=== PATIENT | male | born 1960 | race African-American/Black ===

== ENCOUNTER 2017-07-27 17:14 | Inpatient (IN) | payer OTHER ==
[2017-07-27 18:09] VITALS: BMI 19.7
--- NOTE | 2017-07-27 20:12 | HP ---
CIWA Score - CIWA Score Nausea/Vomitin-No Nausea/No Vomiting Muscle Tremors: 4-Moderate,w/Arms Extend Anxiety: 4-Mod. Anxious/Guarded Agitation: 2 Paroxysmal Sweats: 3 Orientation: 0-Oriented Tacttile Disturbances: 3-Moderate Itch/Numb/Burn Auditory Disturbances: 0-None Visual Disturbances: 0-None Headache: 0-None Present CIWA-Ar Total Score: 16 Admission ROS S - HPI Chief Complaint: Alcohol withdrawal symptoms Allergies/Adverse Reactions: Allergies Allergy/AdvReac Type Severity Reaction Status Date / Time No Known Allergies Allergy Verified 07/27/17 20:44 History of Present Illness: 56 years old male with a long history of alcohol dependence is admitted to detox. Patient has been in previous detox and denies significant period of sobriety. Patient has medical history of DM type 2 and denies suicidal ideation at this time. Patient denies prior history of GERD and states that he does not want protonix. He appears dehydrated with poor skin turgor and dry mucous membrane. Patient states, " My goal is to stop drinking alcohol." Exam Limitations: No Limitations - Ebola screening Have you traveled outside of the country in the last 21 days: No Have you had contact with anyone from an Ebola affected area: No Have you been sick,other than usual withdrawal symptoms: No Do you have a fever: No - Review of Systems Constitutional: Chills, Malaise, Night Sweats EENT: reports: No Symptoms Reported Respiratory: reports: No Symptoms reported Cardiac: reports: No Symptoms Reported GI: reports: Nausea, Poor Appetite, Poor Fluid Intake, Abdominal cramping : reports: No Symptoms Reported Musculoskeletal: reports: Muscle Pain, Muscle Weakness Integumentary: reports: Dryness, Flushing Neuro: reports: Tingling, Tremors Endocrine: reports: No Symptoms Reported Hematology: reports: No Symptoms Reported Psychiatric: reports: Orientated x3, Agitated, Anxious Other Systems: Reviewed and Negative Patient History - Patient Medical History Hx Anemia: No Hx Asthma: No Hx Chronic Obstructive Pulmonary Disease (COPD): No Hx Cancer: No Hx Cardiac Disorders: No Hx Congestive Heart Failure: No Hx Hypertension: No Hx Hypercholesterolemia: No Hx Pacemaker: No HX Cerebrovascular Accident: No Hx Seizures: No Hx Dementia: No Hx Diabetes: Yes (metformin) Hx Gastrointestinal Disorders: No Hx Liver Disease: No Hx Genitourinary Disorders: No Hx Sexually Transmitted Disorders: No Hx Renal Disease (ESRD): No Hx Thyroid Disease: No Hx Human Immunodeficiency Virus (HIV): No Hx Hepatitis C: No Hx Depression: No Hx Suicide Attempt: No Hx Bipolar Disorder: No Hx Schizophrenia: No - Patient Surgical History Past Surgical History: No Hx Neurologic Surgery: No Hx Cataract Extraction: No Hx Cardiac Surgery: No Hx Lung Surgery: No Hx Abdominal Surgery: No Hx Appendectomy: No Hx Cholecystectomy: No Hx Genitourinary Surgery: No Hx Orthopedic Surgery: No - PPD History Implanted On Prior [facility] Admission?: Yes Date: 02/24/16 PPD to be Administered?: Yes - Reproductive History Patient is a Female of Child Bearing Age (11 -55 yrs old): No (Male) - Smoking Cessation Smoking history: Current some day smoker Have you smoked in the past 12 months: Yes Aproximately how many cigarettes per day: 2 Hx Chewing Tobacco Use: No Initiated information on smoking cessation: Yes 'Breaking Loose' booklet given: 07/27/17 - Substance & Tx. History Hx Alcohol Use: Yes (Vodka) Hx Substance Use: No Substance Use Type: Alcohol Hx Substance Use Treatment: Yes ([facility] 02/2016) - Substances Abused VODKA Route: Oral Frequency: Daily Amount used: Vodka 1 pint Age of first use: 7 Date of Last Use: 07/27/17 Family Disease History - Family Disease History Family History: Denies Admission Physical Exam [facility] - Vital Signs Vital Signs: Vital Signs - 24 hr 07/27/17 18:08 Temperature 98.9 F Pulse Rate 117 H Respiratory 18 Rate Blood Pressure 136/76 - Physical General Appearance: Yes: Moderate Distress, Alcohol on Breath HEENTM: Yes: EOMI, Normal Voice, KEV Respiratory: Yes: Lungs Clear, Normal Breath Sounds, No Respiratory Distress Neck: Yes: Supple Breast: Yes: Breast Exam Deferred Abdominal: Yes: Normal Bowel Sounds, Soft Genitourinary: Yes: Within Normal Limits Back: Yes: Within Normal Limits Musculoskeletal: Yes: Muscle Pain, Muscle weakness Extremities: Yes: Tremors Neurological: Yes: Alert, Normal Response Integumentary: Yes: Dry Lymphatic: Yes: Within Normal Limits - Diagnostic (1) Dehydration Current Visit: Yes Status: Acute (2) Alcohol dependence with uncomplicated withdrawal Current Visit: Yes Status: Chronic (3) Diabetes 1.5, managed as type 2 Current Visit: Yes Status: Chronic Cleared for Admission [facility] - Detox or Rehab [facility] Level of Care: Medically Managed Detox Regimen/Protocol: Librium [facility] Breath Alcohol Content Breath Alcohol Content: 0.407 Urine Drug Screen - Results Drug Screen Negative: Yes
[2017-07-27] MEDS ORDERED: LOPERAMIDE HCL 2 MG CAPSULE PO PRN (20:22)
[2017-07-27] MEDS ORDERED: MAGNESIUM HYDROX 2400MG/30ML ORAL SUSPENSION 30 ML CUP PO PRN (20:22)
[2017-07-27] MEDS ORDERED: MAG HYDROX/AL HYDROX/SIMETH 30 ML UNIT-DOSE CUP PO PRN (20:22)
[2017-07-27] MEDS ORDERED: chlordiazePOXIDE HCL 25 MG CAPSULE PO PRN (20:22)
[2017-07-27] MEDS ORDERED: MAGNESIUM CITRATE 300 ML BOTTLE PO PRN (20:22)
[2017-07-27] MEDS ORDERED: MENTHOL/PHENOL 1 EACH UD MM PRN (20:22)
[2017-07-27] MEDS ORDERED: P-EPHED 60MG/TRIPROLIDI 2.5MG TABLET PO PRN (20:22)
[2017-07-27] MEDS ORDERED: ACETAMINOPHEN 325 MG TABLET (FP) PO PRN (20:22)
[2017-07-27] MEDS ORDERED: IBUPROFEN 400 MG TABLET (FP) PO PRN (20:22)
[2017-07-27] MEDS ORDERED: guaiFENesin/D-METHORPHAN HB 10 ML UNIT-DOSE CUPS PO PRN (20:22)
[2017-07-27] MEDS ORDERED: NICOTINE POLACRILEX 2 MG GUM BC PRN (20:22)
[2017-07-27] MEDS ORDERED: hydrOXYzine PAMOATE 50 MG CAPSULE (FP) PO PRN (20:22)
[2017-07-27] MEDS: THIAMINE HCL 100 MG TABLET (FP) PO SCH (21:40)
[2017-07-27 23:08] LABS: URINE APPEARANCE CLEAR; URINE BILIRUBIN NEGATIVE (NEGATIVE); URINE BLOOD 1+ (NEGATIVE); URINE COLOR YELLOW; URINE GLUCOSE (UA) 3+ (NEGATIVE); URINE KETONE NEGATIVE (NEGATIVE); URINE NITRITE NEGATIVE (NEGATIVE)
[2017-07-27 23:15] LABS: URINE PROTEIN 2+ (NEGATIVE)
[2017-07-27] MEDS: chlordiazePOXIDE HCL 25 MG CAPSULE PO SCH (23:15)
[2017-07-27 23:17] LABS: URINE HYALINE CAST 8 /lpf; URINE MUCUS RARE; URINE RBC <1 /hpf (0-3); URINE WBC 4 /hpf (3-5)
[2017-07-28] MEDS: chlordiazePOXIDE HCL 25 MG CAPSULE PO SCH ×4 (05:32→22:21)
[2017-07-28] MEDS: metFORMIN HCL 500 MG TABLET (FP) PO SCH ×2 (07:37→17:11)
[2017-07-28 10:08] LABS: MCH 37.7 pg (25.7-33.7); MCHC 34.7 g/dl (32.0-35.9); MEAN CELL VOLUME 108.5 fl (80-96); MEAN PLT VOLUME 7.4 fl (7.5-11.1); PLATELET COUNT 199 K/MM3 (134-434); RDW 14.1 % (11.9-15.9); WHITE BLOOD COUNT 4.1 K/mm3 (4.0-10.0)
[2017-07-28 10:16] LABS: ALBUMIN 3.3 g/dl (3.4-5.0); ANION GAP 12 (8-16); CALCIUM 8.2 mg/dL (8.5-10.1); CO2 26 mmol/L (21-32); GLUCOSE,RANDOM 180 mg/dL (74-106); SGPT/ALT 38 U/L (12-78)
[2017-07-28 10:18] LABS: ALK PHOS 99 U/L (45-117); BILIRUBIN,TOTAL 1.7 mg/dL (0.2-1.0); CREATININE 0.8 mg/dL (0.7-1.3); SGOT/AST 140 U/L (15-37); TOT PROT 6.6 g/dl (6.4-8.2)
[2017-07-28] MEDS: PRENATAL VITAMINS W/ FOLIC ACID TABLET (FP) PO SCH (10:31)
[2017-07-28 10:59] LABS: URINE LEUK ESTERASE Negative (NEGATIVE)
--- NOTE | 2017-07-28 15:27 | PN ---
[facility] CIWA - CIWA Score Nausea/Vomitin-No Nausea/No Vomiting Muscle Tremors: 3 Anxiety: 4-Mod. Anxious/Guarded Agitation: 3 Paroxysmal Sweats: 2 Orientation: 2-Disoriented Date<2 days Tacttile Disturbances: 2-Mild Itch/Numbness/Burn Auditory Disturbances: 1-Very Mild Visual Disturbances: 0-None Headache: 0-None Present CIWA-Ar Total Score: 17 BHS Progress Note (SOAP) Subjective: Sweating, Anxious, Tremors, Fatigue. Objective: PT. A 7O X 2 (UNCERTAIN ABOUT DAY/ DATE). PT. OBSERVED AMBULATING ON UNIT. NO ACUTE DISTRESS. 07/28/17 15:28 Vital Signs Temperature 99.6 F 07/28/17 10:02 Pulse Rate 112 H 07/28/17 10:02 Respiratory Rate 20 07/28/17 13:45 Blood Pressure 146/94 07/28/17 10:02 O2 Sat by Pulse Oximetry (%) Laboratory Tests 07/27/17 07/27/17 07/28/17 20:46 23:00 05:39 WBC RBC Hgb Hct MCV MCH MCHC RDW Plt Count MPV Sodium Potassium Chloride Carbon Dioxide Anion Gap BUN Creatinine Creat Clearance w eGFR POC Glucometer 263 170 Random Glucose Calcium Total Bilirubin AST ALT Alkaline Phosphatase Total Protein Albumin Urine Color Yellow Urine Appearance Clear Urine pH 6.0 Ur Specific [place] 1.008 Urine Protein 2+ H Urine Glucose (UA) 3+ H Urine Ketones Negative Urine Blood 1+ H Urine Nitrite Negative Urine Bilirubin Negative Urine Urobilinogen 2.0 Ur Leukocyte Esterase Negative Urine WBC (Auto) 4 Urine RBC (Auto) <1 Hyaline Casts 8 Urine Mucus Rare RPR Titer 07/28/17 07/28/17 07/28/17 07:00 07:00 07:00 WBC 4.1 RBC 2.63 L Hgb 9.9 L Hct 28.5 L MCV 108.5 H MCH 37.7 H MCHC 34.7 RDW 14.1 Plt Count 199 MPV 7.4 L D Sodium 140 Potassium 3.8 Chloride 102 Carbon Dioxide 26 Anion Gap 12 BUN 7 D Creatinine 0.8 D Creat Clearance w eGFR > 60 POC Glucometer Random Glucose 180 H D Calcium 8.2 L Total Bilirubin 1.7 H D AST 140 H D ALT 38 Alkaline Phosphatase 99 D Total Protein 6.6 Albumin 3.3 L D Urine Color Urine Appearance Urine pH Ur Specific [place] Urine Protein Urine Glucose (UA) Urine Ketones Urine Blood Urine Nitrite Urine Bilirubin Urine Urobilinogen Ur Leukocyte Esterase Urine WBC (Auto) Urine RBC (Auto) Hyaline Casts Urine Mucus RPR Titer Nonreactive LABS NOTED. PATIENT HAS HISTORY OF ANEMIA ON PREVIOUS ADMISSIONS. 07/28/17 15:32 Assessment: 07/28/17 15:28 WITHDRAWAL SYMPTOMS. MACROCYTIC ANEMIA. 07/28/17 15:32 Plan: CONTINUE DETOX. INCREASE DAILY PO FLUID INTAKE. REPEAT UA AND AST (07/30/2017) FOR ADMISSION ABNORMALITIES.
[2017-07-28] MEDS: THIAMINE HCL 100 MG TABLET (FP) PO SCH (22:21)
[2017-07-28 23:24] LABS: URINE APPEARANCE CLEAR; URINE BILIRUBIN NEGATIVE (NEGATIVE); URINE BLOOD 1+ (NEGATIVE); URINE COLOR YELLOW; URINE GLUCOSE (UA) 2+ (NEGATIVE); URINE KETONE NEGATIVE (NEGATIVE); URINE NITRITE NEGATIVE (NEGATIVE); URINE UROBILINOGEN NEGATIVE mg/dL (0.2-1.0)
[2017-07-28 23:31] LABS: URINE PROTEIN 2+ (NEGATIVE)
[2017-07-28 23:39] LABS: URINE RBC 1 /hpf (0-3); URINE WBC 12 /hpf (3-5)
[2017-07-29] MEDS: chlordiazePOXIDE HCL 25 MG CAPSULE PO SCH ×3 (05:45→17:01)
[2017-07-29] MEDS: metFORMIN HCL 500 MG TABLET (FP) PO SCH ×2 (07:40→17:01)
--- NOTE | 2017-07-29 07:58 | EKG ---
Test Reason : Blood Pressure : / mmHG Vent. Rate : 114 BPM Atrial Rate : 114 BPM P-R Int : 164 ms QRS Dur : 084 ms QT Int : 342 ms P-R-T Axes : 080 060 064 degrees QTc Int : 471 ms SINUS TACHYCARDIA NONSPECIFIC T WAVE ABNORMALITY ABNORMAL ECG WHEN COMPARED WITH ECG OF 26-FEB-2011 11:25, NONSPECIFIC T WAVE ABNORMALITY NOW EVIDENT IN ANTEROLATERAL LEADS Confirmed by MD Guzman Daniel ([id number]) on 07/28/2017 3:02:44 PM Also confirmed by MD Guzman Daniel ([id number]), editorial director AMAN MARTIN ([id number]) on 07/29/2017 7:58:22 AM Also confirmed by MD Guzman Daniel ([id number]), editorial director AMAN MARTIN ([id number]) on 07/29/2017 8:25:45 AM Referred By: Confirmed By:Aman Guzman MD
--- NOTE | 2017-07-29 08:25 | EKG ---
Test Reason : Blood Pressure : / mmHG Vent. Rate : 108 BPM Atrial Rate : 108 BPM P-R Int : 168 ms QRS Dur : 078 ms QT Int : 346 ms P-R-T Axes : 067 057 069 degrees QTc Int : 463 ms SINUS TACHYCARDIA NONSPECIFIC T WAVE ABNORMALITY ABNORMAL ECG WHEN COMPARED WITH ECG OF 27-JUL-2017 22:52, NO SIGNIFICANT CHANGE WAS FOUND Confirmed by MD Guzman Daniel ([id number]) on 07/28/2017 4:47:15 PM Also confirmed by MD Guzman Daniel ([id number]), deputy editor in chief AMAN MARTIN ([id number]) on 07/29/2017 8:25:31 AM Referred By: Confirmed By:Aman Guzman MD
[2017-07-29] MEDS: PRENATAL VITAMINS W/ FOLIC ACID TABLET (FP) PO SCH (10:22)
[2017-07-29 11:41] LABS: URINE LEUK ESTERASE TRACE (NEGATIVE)
--- NOTE | 2017-07-29 15:11 | PN ---
[facility] CIWA - CIWA Score Nausea/Vomitin-No Nausea/No Vomiting Muscle Tremors: 3 Anxiety: 4-Mod. Anxious/Guarded Agitation: 2 Paroxysmal Sweats: No Perspiration Orientation: 0-Oriented Tacttile Disturbances: 3-Moderate Itch/Numb/Burn Auditory Disturbances: 1-Very Mild Visual Disturbances: 3-Moderate Sensitivity Headache: 0-None Present CIWA-Ar Total Score: 16 S Progress Note (SOAP) Subjective: Interrupted Sleep, Anxious, Fatigue. Objective: PT. A & O X 3, OBSERVED AMBULATING ON UNIT. NO ACUTE DISTRESS. 07/29/17 15:08 Vital Signs Temperature 98.6 F 07/29/17 13:09 Pulse Rate 85 07/29/17 13:09 Respiratory Rate 18 07/29/17 13:09 Blood Pressure 104/75 07/29/17 13:09 O2 Sat by Pulse Oximetry (%) Laboratory Tests 07/27/17 07/27/17 07/28/17 20:46 23:00 05:39 WBC RBC Hgb Hct MCV MCH MCHC RDW Plt Count MPV Sodium Potassium Chloride Carbon Dioxide Anion Gap BUN Creatinine Creat Clearance w eGFR POC Glucometer 263 170 Random Glucose Calcium Total Bilirubin AST ALT Alkaline Phosphatase Total Protein Albumin Urine Color Yellow Urine Appearance Clear Urine pH 6.0 Ur Specific [place] 1.008 Urine Protein 2+ H Urine Glucose (UA) 3+ H Urine Ketones Negative Urine Blood 1+ H Urine Nitrite Negative Urine Bilirubin Negative Urine Urobilinogen 2.0 Ur Leukocyte Esterase Negative Urine WBC (Auto) 4 Urine RBC (Auto) <1 Ur Epithelial Cells Hyaline Casts 8 Urine Mucus Rare RPR Titer 07/28/17 07/28/17 07/28/17 07:00 07:00 07:00 WBC 4.1 RBC 2.63 L Hgb 9.9 L Hct 28.5 L MCV 108.5 H MCH 37.7 H MCHC 34.7 RDW 14.1 Plt Count 199 MPV 7.4 L D Sodium 140 Potassium 3.8 Chloride 102 Carbon Dioxide 26 Anion Gap 12 BUN 7 D Creatinine 0.8 D Creat Clearance w eGFR > 60 POC Glucometer Random Glucose 180 H D Calcium 8.2 L Total Bilirubin 1.7 H D AST 140 H D ALT 38 Alkaline Phosphatase 99 D Total Protein 6.6 Albumin 3.3 L D Urine Color Urine Appearance Urine pH Ur Specific [place] Urine Protein Urine Glucose (UA) Urine Ketones Urine Blood Urine Nitrite Urine Bilirubin Urine Urobilinogen Ur Leukocyte Esterase Urine WBC (Auto) Urine RBC (Auto) Ur Epithelial Cells Hyaline Casts Urine Mucus RPR Titer Nonreactive 07/28/17 07/28/17 07/29/17 16:15 22:00 06:32 WBC RBC Hgb Hct MCV MCH MCHC RDW Plt Count MPV Sodium Potassium Chloride Carbon Dioxide Anion Gap BUN Creatinine Creat Clearance w eGFR POC Glucometer 167 210 Random Glucose Calcium Total Bilirubin AST ALT Alkaline Phosphatase Total Protein Albumin Urine Color Yellow Urine Appearance Clear Urine pH 6.0 Ur Specific [place] 1.012 Urine Protein 2+ H Urine Glucose (UA) 2+ H Urine Ketones Negative Urine Blood 1+ H Urine Nitrite Negative Urine Bilirubin Negative Urine Urobilinogen Negative Ur Leukocyte Esterase Urine WBC (Auto) 12 Urine RBC (Auto) 1 Ur Epithelial Cells Rare Hyaline Casts Urine Mucus RPR Titer LABS NOTED. Assessment: 07/29/17 15:08 WITHDRAWAL SYMPTOMS. Plan: CONTINUE DETOX. INCREASE DAILY PO FLUID INTAKE.
[2017-07-29] MEDS: chlordiazePOXIDE 5 MG CAPSULE PO SCH (22:26)
[2017-07-29] MEDS: THIAMINE HCL 100 MG TABLET (FP) PO SCH (22:26)
[2017-07-30] MEDS: chlordiazePOXIDE 5 MG CAPSULE PO SCH ×3 (06:05→17:22)
[2017-07-30] MEDS: metFORMIN HCL 500 MG TABLET (FP) PO SCH ×2 (06:05→17:22)
[2017-07-30] MEDS: PRENATAL VITAMINS W/ FOLIC ACID TABLET (FP) PO SCH (10:40)
--- NOTE | 2017-07-30 19:36 | PN ---
BHS Progress Note (SOAP) Subjective: Fatigue, Tremors. Objective: PT. A & O X 3, OBSERVED AMBULATING ON UNIT. NO ACUTE DISTRESS. 07/30/17 19:34 Vital Signs Temperature 98.3 F 07/30/17 17:58 Pulse Rate 112 H 07/30/17 17:58 Respiratory Rate 19 07/30/17 17:58 Blood Pressure 115/76 07/30/17 17:58 O2 Sat by Pulse Oximetry (%) Laboratory Tests 07/27/17 07/27/17 07/28/17 20:46 23:00 05:39 WBC RBC Hgb Hct MCV MCH MCHC RDW Plt Count MPV Sodium Potassium Chloride Carbon Dioxide Anion Gap BUN Creatinine Creat Clearance w eGFR POC Glucometer 263 170 Random Glucose Calcium Total Bilirubin AST ALT Alkaline Phosphatase Total Protein Albumin Urine Color Yellow Urine Appearance Clear Urine pH 6.0 Ur Specific [place] 1.008 Urine Protein 2+ H Urine Glucose (UA) 3+ H Urine Ketones Negative Urine Blood 1+ H Urine Nitrite Negative Urine Bilirubin Negative Urine Urobilinogen 2.0 Ur Leukocyte Esterase Negative Urine WBC (Auto) 4 Urine RBC (Auto) <1 Ur Epithelial Cells Hyaline Casts 8 Urine Mucus Rare RPR Titer 07/28/17 07/28/17 07/28/17 07:00 07:00 07:00 WBC 4.1 RBC 2.63 L Hgb 9.9 L Hct 28.5 L MCV 108.5 H MCH 37.7 H MCHC 34.7 RDW 14.1 Plt Count 199 MPV 7.4 L D Sodium 140 Potassium 3.8 Chloride 102 Carbon Dioxide 26 Anion Gap 12 BUN 7 D Creatinine 0.8 D Creat Clearance w eGFR > 60 POC Glucometer Random Glucose 180 H D Calcium 8.2 L Total Bilirubin 1.7 H D AST 140 H D ALT 38 Alkaline Phosphatase 99 D Total Protein 6.6 Albumin 3.3 L D Urine Color Urine Appearance Urine pH Ur Specific [place] Urine Protein Urine Glucose (UA) Urine Ketones Urine Blood Urine Nitrite Urine Bilirubin Urine Urobilinogen Ur Leukocyte Esterase Urine WBC (Auto) Urine RBC (Auto) Ur Epithelial Cells Hyaline Casts Urine Mucus RPR Titer Nonreactive 07/28/17 07/28/17 07/29/17 16:15 22:00 06:32 WBC RBC Hgb Hct MCV MCH MCHC RDW Plt Count MPV Sodium Potassium Chloride Carbon Dioxide Anion Gap BUN Creatinine Creat Clearance w eGFR POC Glucometer 167 210 Random Glucose Calcium Total Bilirubin AST ALT Alkaline Phosphatase Total Protein Albumin Urine Color Yellow Urine Appearance Clear Urine pH 6.0 Ur Specific [place] 1.012 Urine Protein 2+ H Urine Glucose (UA) 2+ H Urine Ketones Negative Urine Blood 1+ H Urine Nitrite Negative Urine Bilirubin Negative Urine Urobilinogen Negative Ur Leukocyte Esterase Urine WBC (Auto) 12 Urine RBC (Auto) 1 Ur Epithelial Cells Rare Hyaline Casts Urine Mucus RPR Titer 07/29/17 07/30/17 07/30/17 16:11 06:05 07:00 WBC RBC Hgb Hct MCV MCH MCHC RDW Plt Count MPV Sodium Potassium Chloride Carbon Dioxide Anion Gap BUN Creatinine Creat Clearance w eGFR POC Glucometer 183 210 Random Glucose Calcium Total Bilirubin AST 78 H D ALT Alkaline Phosphatase Total Protein Albumin Urine Color Urine Appearance Urine pH Ur Specific [place] Urine Protein Urine Glucose (UA) Urine Ketones Urine Blood Urine Nitrite Urine Bilirubin Urine Urobilinogen Ur Leukocyte Esterase Urine WBC (Auto) Urine RBC (Auto) Ur Epithelial Cells Hyaline Casts Urine Mucus RPR Titer 07/30/17 16:29 WBC RBC Hgb Hct MCV MCH MCHC RDW Plt Count MPV Sodium Potassium Chloride Carbon Dioxide Anion Gap BUN Creatinine Creat Clearance w eGFR POC Glucometer 231 Random Glucose Calcium Total Bilirubin AST ALT Alkaline Phosphatase Total Protein Albumin Urine Color Urine Appearance Urine pH Ur Specific [place] Urine Protein Urine Glucose (UA) Urine Ketones Urine Blood Urine Nitrite Urine Bilirubin Urine Urobilinogen Ur Leukocyte Esterase Urine WBC (Auto) Urine RBC (Auto) Ur Epithelial Cells Hyaline Casts Urine Mucus RPR Titer LABS NOTED. RESULTS OF REPEAT AST, UA NOTED. 07/30/17 19:34 Assessment: 07/30/17 19:34 WITHDRAWAL SYMPTOMS. ANEMIA. 07/30/17 19:35 Plan: CONTINUE DETOX.
[2017-07-30] MEDS: chlordiazePOXIDE HCL 10 MG CAPSULE PO SCH (22:23)
[2017-07-30] MEDS: THIAMINE HCL 100 MG TABLET (FP) PO SCH (22:23)
[2017-07-31] MEDS: chlordiazePOXIDE HCL 10 MG CAPSULE PO SCH (05:28)
[2017-07-31] MEDS: metFORMIN HCL 500 MG TABLET (FP) PO SCH (07:20)
[2017-07-31 09:42] VITALS: BP 114/71; PULSE 121; TEMP 98.2
--- NOTE | 2017-07-31 21:53 | DS ---
[facility] Detox Discharge Summary Admission Date: 07/27/17 Discharge Date: 07/31/17 - History Present History: Alcohol Dependence Additional Comments: PATIENT GOING TO [facility] ([facility] [place]) FOR AFTERCARE. PATIENT WAS DISCHARGED FROM DETOX UNIT IN STABLE MEDICAL CONDITION. Pertinent Past History: Diabetes, Type 1.5 Managed as Type 2, Dehydration. - Physical Exam Results Vital Signs: Vital Signs Temperature 98.2 F 07/31/17 09:41 Pulse Rate 121 H 07/31/17 09:41 Respiratory Rate 20 07/31/17 09:41 Blood Pressure 114/71 07/31/17 09:41 O2 Sat by Pulse Oximetry (%) Pertinent Admission Physical Exam Findings: WITHDRAWAL SYMPTOMS. Laboratory Tests 07/27/17 07/27/17 07/28/17 20:46 23:00 05:39 WBC RBC Hgb Hct MCV MCH MCHC RDW Plt Count MPV Sodium Potassium Chloride Carbon Dioxide Anion Gap BUN Creatinine Creat Clearance w eGFR POC Glucometer 263 170 Random Glucose Calcium Total Bilirubin AST ALT Alkaline Phosphatase Total Protein Albumin Urine Color Yellow Urine Appearance Clear Urine pH 6.0 Ur Specific [place] 1.008 Urine Protein 2+ H Urine Glucose (UA) 3+ H Urine Ketones Negative Urine Blood 1+ H Urine Nitrite Negative Urine Bilirubin Negative Urine Urobilinogen 2.0 Ur Leukocyte Esterase Negative Urine WBC (Auto) 4 Urine RBC (Auto) <1 Ur Epithelial Cells Hyaline Casts 8 Urine Mucus Rare RPR Titer 07/28/17 07/28/17 07/28/17 07:00 07:00 07:00 WBC 4.1 RBC 2.63 L Hgb 9.9 L Hct 28.5 L MCV 108.5 H MCH 37.7 H MCHC 34.7 RDW 14.1 Plt Count 199 MPV 7.4 L D Sodium 140 Potassium 3.8 Chloride 102 Carbon Dioxide 26 Anion Gap 12 BUN 7 D Creatinine 0.8 D Creat Clearance w eGFR > 60 POC Glucometer Random Glucose 180 H D Calcium 8.2 L Total Bilirubin 1.7 H D AST 140 H D ALT 38 Alkaline Phosphatase 99 D Total Protein 6.6 Albumin 3.3 L D Urine Color Urine Appearance Urine pH Ur Specific [place] Urine Protein Urine Glucose (UA) Urine Ketones Urine Blood Urine Nitrite Urine Bilirubin Urine Urobilinogen Ur Leukocyte Esterase Urine WBC (Auto) Urine RBC (Auto) Ur Epithelial Cells Hyaline Casts Urine Mucus RPR Titer Nonreactive 07/28/17 07/28/17 07/29/17 16:15 22:00 06:32 WBC RBC Hgb Hct MCV MCH MCHC RDW Plt Count MPV Sodium Potassium Chloride Carbon Dioxide Anion Gap BUN Creatinine Creat Clearance w eGFR POC Glucometer 167 210 Random Glucose Calcium Total Bilirubin AST ALT Alkaline Phosphatase Total Protein Albumin Urine Color Yellow Urine Appearance Clear Urine pH 6.0 Ur Specific [place] 1.012 Urine Protein 2+ H Urine Glucose (UA) 2+ H Urine Ketones Negative Urine Blood 1+ H Urine Nitrite Negative Urine Bilirubin Negative Urine Urobilinogen Negative Ur Leukocyte Esterase Urine WBC (Auto) 12 Urine RBC (Auto) 1 Ur Epithelial Cells Rare Hyaline Casts Urine Mucus RPR Titer 07/29/17 07/30/17 07/30/17 16:11 06:05 07:00 WBC RBC Hgb Hct MCV MCH MCHC RDW Plt Count MPV Sodium Potassium Chloride Carbon Dioxide Anion Gap BUN Creatinine Creat Clearance w eGFR POC Glucometer 183 210 Random Glucose Calcium Total Bilirubin AST 78 H D ALT Alkaline Phosphatase Total Protein Albumin Urine Color Urine Appearance Urine pH Ur Specific [place] Urine Protein Urine Glucose (UA) Urine Ketones Urine Blood Urine Nitrite Urine Bilirubin Urine Urobilinogen Ur Leukocyte Esterase Urine WBC (Auto) Urine RBC (Auto) Ur Epithelial Cells Hyaline Casts Urine Mucus RPR Titer 07/30/17 16:29 WBC RBC Hgb Hct MCV MCH MCHC RDW Plt Count MPV Sodium Potassium Chloride Carbon Dioxide Anion Gap BUN Creatinine Creat Clearance w eGFR POC Glucometer 231 Random Glucose Calcium Total Bilirubin AST ALT Alkaline Phosphatase Total Protein Albumin Urine Color Urine Appearance Urine pH Ur Specific [place] Urine Protein Urine Glucose (UA) Urine Ketones Urine Blood Urine Nitrite Urine Bilirubin Urine Urobilinogen Ur Leukocyte Esterase Urine WBC (Auto) Urine RBC (Auto) Ur Epithelial Cells Hyaline Casts Urine Mucus RPR Titer LABS NOTED. - Treatment Hospital Course: Detox Protocol Followed, Detoxed Safely, Responded well, Discharged Condition Good Patient has Accepted a Rehab Referral to: PT GOING TO [facility] ([place], [place]). - Medication Discharge Medications: Ambulatory Orders Metformin HCl 500 mg PO BIDAC #30 tablet 02/26/16 Pantoprazole Sodium [Protonix -] 40 mg PO DAILY #30 tablet.ec 02/26/16 - Diagnosis (1) Dehydration Status: Acute (2) Alcohol dependence with uncomplicated withdrawal Status: Acute (3) Diabetes 1.5, managed as type 2 Status: Chronic - AMA Did Patient Leave Against Medical Advice: No
== END 2017-07-31 09:48 | disposition home or self-care (01) | DRG 775 ==
LOC: YASAS 17:14 → Y3N 20:17
PROVIDERS: ADMIT Internal Medicine; ATTEND Internal Medicine
PROC: HZ2ZZZZ Detoxification Services for Substance Abuse Treatment (ICD-10-PCS; principal; 2017-07-27)
DX: F10.230 Alcohol dependence with withdrawal, uncomplicated (principal); E86.0 Dehydration; E11.9 Type 2 diabetes mellitus without complications; Z79.84 Long term (current) use of oral hypoglycemic drugs; Z72.0 Tobacco use
CPT/HCPCS: 36415; 80053; 81003; 81015; 84450; 85027; 86593; 93005; 93010

== ENCOUNTER 2017-08-13 20:09 | Inpatient (IN) | payer OTHER ==
[2017-08-13 20:53] VITALS: BMI 21.7
--- NOTE | 2017-08-13 22:32 | HP ---
CIWA Score - CIWA Score Nausea/Vomitin-Mild Nausea/No Vomiting Muscle Tremors: 4-Moderate,w/Arms Extend Anxiety: 4-Mod. Anxious/Guarded Agitation: 4-Moderately Restless Paroxysmal Sweats: 2 Orientation: 2-Disoriented Date<2 days Tacttile Disturbances: 1-Very Mild Itch/Numbness Auditory Disturbances: 0-None Visual Disturbances: 0-None Headache: 0-None Present CIWA-Ar Total Score: 18 Admission ROS S - HPI Chief Complaint: WITHDRAWAL SX Allergies/Adverse Reactions: Allergies Allergy/AdvReac Type Severity Reaction Status Date / Time No Known Allergies Allergy Verified 07/27/17 20:44 History of Present Illness: 56 YEARS OLD MALE WITH LONG HISTORY OF ALCOHOL DEPENDENCE HAS DIABETES II AND DEPRESSION IS ADMITTED TO DETOX Exam Limitations: No Limitations - Ebola screening Have you traveled outside of the country in the last 21 days: No Have you had contact with anyone from an Ebola affected area: No Have you been sick,other than usual withdrawal symptoms: No Do you have a fever: No - Review of Systems Constitutional: Chills, Loss of Appetite, Unintentional Wgt. Loss, Unexplained wgt Loss EENT: reports: Other (FELL 08/13/17 LOSE FRONT TEETH AND LIPS SWELL NO ACUTE BLEEDING NO VISABLE INJURY) Respiratory: reports: No Symptoms reported Cardiac: reports: No Symptoms Reported GI: reports: Nausea, Poor Appetite, Poor Fluid Intake, Abdominal cramping : reports: No Symptoms Reported Musculoskeletal: reports: No Symptoms Reported Integumentary: reports: Other (LIP SWELL FROM fall08/13/17) Neuro: reports: Tremors Endocrine: reports: Unexplained Weight Loss Hematology: reports: No Symptoms Reported Psychiatric: reports: Judgement Intact, Anxious, Depressed Other Systems: Reviewed and Negative Patient History - Patient Medical History Hx Anemia: No Hx Asthma: No Hx Chronic Obstructive Pulmonary Disease (COPD): No Hx Cancer: No Hx Cardiac Disorders: No Hx Congestive Heart Failure: No Hx Hypertension: No Hx Hypercholesterolemia: No Hx Pacemaker: No HX Cerebrovascular Accident: No Hx Seizures: No Hx Dementia: No Hx Diabetes: Yes (metformin) Hx Gastrointestinal Disorders: No Hx Liver Disease: No Hx Genitourinary Disorders: No Hx Sexually Transmitted Disorders: No Hx Renal Disease (ESRD): No Hx Thyroid Disease: No Hx Human Immunodeficiency Virus (HIV): No Hx Hepatitis C: No Hx Depression: No Hx Suicide Attempt: No Hx Bipolar Disorder: No Hx Schizophrenia: No - Patient Surgical History Past Surgical History: No Hx Neurologic Surgery: No Hx Cataract Extraction: No Hx Cardiac Surgery: No Hx Lung Surgery: No Hx Breast Surgery: No Hx Breast Biopsy: No Hx Abdominal Surgery: No Hx Appendectomy: No Hx Cholecystectomy: No Hx Genitourinary Surgery: No Hx Orthopedic Surgery: No - PPD History Previous Implant?: Yes Documented Results: Negative w/proof Implanted On Prior [facility] Admission?: Yes Date: 07/29/17 PPD to be Administered?: No - Smoking Cessation Smoking history: Former smoker Have you smoked in the past 12 months: No Aproximately how many cigarettes per day: 0 Hx Chewing Tobacco Use: No Initiated information on smoking cessation: No - Substance & Tx. History Hx Alcohol Use: Yes Hx Substance Use: No Substance Use Type: Alcohol Hx Substance Use Treatment: Yes (07/2017 [facility] - Substances Abused Alcohol Route: Oral Frequency: Daily Amount used: [place] Age of first use: 7 Date of Last Use: 08/13/17 Family Disease History - Family Disease History Family Disease History: Diabetes: Mother, Other: Father () Admission Physical Exam S - Vital Signs Vital Signs: Vital Signs - 24 hr 08/13/17 20:51 Temperature 98.8 F Pulse Rate 120 H Respiratory 18 Rate Blood Pressure 140/100 - Physical General Appearance: Yes: Appropriately Dressed, Moderate Distress, Thin, Tremorous, Irritable, Sweating, Anxious HEENTM: Yes: Hearing grossly Normal, Normocephalic, Normal Voice, Other Respiratory: Yes: Chest Non-Tender, No Respiratory Distress, No Accessory Muscle Use, Rhonchi Neck: Yes: Supple, Trachea in good position Breast: Yes: Breasts Symetrical Cardiology: Yes: Regular Rhythm, S1, S2, Tachycardia Abdominal: Yes: Non Tender, Soft, Increased Bowel Sounds Genitourinary: Yes: Within Normal Limits Back: Yes: Normal Inspection Musculoskeletal: Yes: full range of Motion, Gait Steady, Muscle Pain (LIPS FROM FALL 08/13/17) Extremities: Yes: Normal Inspection, Normal Range of Motion, Non-Tender, Tremors Neurological: Yes: Alert, Motor Strength 5/5, Normal Response, Depressed Affect Integumentary: Yes: Warm, Pitting Edema (BOTH LIPS) Lymphatic: Yes: Within Normal Limits - Diagnostic (1) Diabetes mellitus type II, controlled Current Visit: Yes Status: Chronic Qualifiers: Diabetes mellitus complication status: without complication 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: without mcfp use Qualified Code(s): E11.9 - Type 2 diabetes mellitus without complications (2) Alcohol dependence with uncomplicated withdrawal Current Visit: Yes Status: Acute (3) Depression (emotion) Current Visit: Yes Status: Suspected Qualifiers: Depression Type: dysthymia Qualified Code(s): F34.1 - Dysthymic disorder Cleared for Admission [facility] - Detox or Rehab [facility] Level of Care: Medically Managed Detox Regimen/Protocol: Librium [facility] Breath Alcohol Content Breath Alcohol Content: 0.115 Urine Drug Screen - Results Drug Screen Negative: No Urine Drug Screen Results: BZO-Benzodiazepines
[2017-08-13] MEDS ORDERED: LOPERAMIDE HCL 2 MG CAPSULE PO PRN (22:50)
[2017-08-13] MEDS ORDERED: guaiFENesin/D-METHORPHAN HB 10 ML UNIT-DOSE CUPS PO PRN (22:50)
[2017-08-13] MEDS ORDERED: MENTHOL/PHENOL 1 EACH UD MM PRN (22:50)
[2017-08-13] MEDS ORDERED: IBUPROFEN 400 MG TABLET (FP) PO PRN (22:50)
[2017-08-13] MEDS ORDERED: MAGNESIUM CITRATE 300 ML BOTTLE PO PRN (22:50)
[2017-08-13] MEDS ORDERED: P-EPHED 60MG/TRIPROLIDI 2.5MG TABLET PO PRN (22:50)
[2017-08-13] MEDS ORDERED: chlordiazePOXIDE HCL 25 MG CAPSULE PO PRN (22:50)
[2017-08-13] MEDS ORDERED: MAGNESIUM HYDROX 2400MG/30ML ORAL SUSPENSION 30 ML CUP PO PRN (22:50)
[2017-08-13] MEDS ORDERED: MAG HYDROX/AL HYDROX/SIMETH 30 ML UNIT-DOSE CUP PO PRN (22:50)
[2017-08-13] MEDS ORDERED: BACITRACIN 0.9 GM PACKET TP ONE (23:09)
[2017-08-14] MEDS: chlordiazePOXIDE HCL 25 MG CAPSULE PO SCH ×5 (00:21→22:38)
[2017-08-14 02:01] LABS: URINE APPEARANCE CLEAR; URINE BILIRUBIN NEGATIVE (NEGATIVE); URINE BLOOD NEGATIVE (NEGATIVE); URINE COLOR STRAW; URINE GLUCOSE (UA) 3+ (NEGATIVE); URINE KETONE NEGATIVE (NEGATIVE); URINE LEUK ESTERASE NEGATIVE (NEGATIVE); URINE NITRITE NEGATIVE (NEGATIVE); URINE PROTEIN NEGATIVE (NEGATIVE); URINE UROBILINOGEN NEGATIVE mg/dL (0.2-1.0)
[2017-08-14] MEDS: INSULIN SLIDING SCALE (NOVOLOG) 1 VIAL SQ SCH ×4 (08:00→22:39)
[2017-08-14] MEDS: metFORMIN HCL 500 MG TABLET (FP) PO SCH ×2 (08:02→17:43)
[2017-08-14 09:54] LABS: URINE LEUK ESTERASE Negative (NEGATIVE)
[2017-08-14 10:03] LABS: MCH 36.2 pg (25.7-33.7); MCHC 33.8 g/dl (32.0-35.9); MEAN CELL VOLUME 107.2 fl (80-96); MEAN PLT VOLUME 7.2 fl (7.5-11.1); PLATELET COUNT 372 K/MM3 (134-434); WHITE BLOOD COUNT 6.9 K/mm3 (4.0-10.0)
[2017-08-14 10:27] LABS: ALBUMIN 3.3 g/dl (3.4-5.0); ALK PHOS 65 U/L (45-117); ANION GAP 10 (8-16); BILIRUBIN,TOTAL 0.9 mg/dL (0.2-1.0); CALCIUM 8.3 mg/dL (8.5-10.1); CO2 26 mmol/L (21-32); CREATININE 0.9 mg/dL (0.7-1.3); GLUCOSE,RANDOM 141 mg/dL (74-106); SGOT/AST 38 U/L (15-37); SGPT/ALT 26 U/L (12-78); TOT PROT 6.5 g/dl (6.4-8.2)
[2017-08-14] MEDS: PRENATAL VITAMINS W/ FOLIC ACID TABLET (FP) PO SCH (10:41)
--- NOTE | 2017-08-14 13:58 | EKG ---
Test Reason : Blood Pressure : / mmHG Vent. Rate : 120 BPM Atrial Rate : 120 BPM P-R Int : 152 ms QRS Dur : 084 ms QT Int : 336 ms P-R-T Axes : 082 052 062 degrees QTc Int : 474 ms SINUS TACHYCARDIA Confirmed by CLAUDETTE SILVA MD ([id number]) on 08/14/2017 1:57:59 PM Referred By: Confirmed By:CLAUDETTE SILVA MD
--- NOTE | 2017-08-14 16:42 | PN ---
S CIWA - CIWA Score Nausea/Vomitin Muscle Tremors: 4-Moderate,w/Arms Extend Anxiety: 4-Mod. Anxious/Guarded Agitation: 4-Moderately Restless Paroxysmal Sweats: 3 Orientation: 0-Oriented Tacttile Disturbances: 1-Very Mild Itch/Numbness Auditory Disturbances: 0-None Visual Disturbances: 0-None Headache: 0-None Present CIWA-Ar Total Score: 19 BHS Progress Note (SOAP) Subjective: Anxious, sweating, nausea, tremor, chills, interrupted sleep Objective: 08/14/17 16:38 Last Vital Signs Temp Pulse Resp BP Pulse Ox 99.8 F H 125 H 20 151/91 08/14/17 13:52 08/14/17 13:52 08/14/17 13:52 08/14/17 13:52 Laboratory Tests 08/13/17 08/13/17 08/14/17 23:22 23:33 05:52 WBC RBC Hgb Hct MCV MCH MCHC RDW Plt Count MPV Sodium Potassium Chloride Carbon Dioxide Anion Gap BUN Creatinine Creat Clearance w eGFR POC Glucometer 202 171 Random Glucose Calcium Total Bilirubin AST ALT Alkaline Phosphatase Total Protein Albumin Urine Color Straw Urine Appearance Clear Urine pH 6.0 Ur Specific [place] 1.011 Urine Protein Negative Urine Glucose (UA) 3+ H Urine Ketones Negative Urine Blood Negative Urine Nitrite Negative Urine Bilirubin Negative Urine Urobilinogen Negative Ur Leukocyte Esterase Negative RPR Titer 08/14/17 08/14/17 08/14/17 07:00 07:00 07:00 WBC 6.9 D RBC 2.46 L Hgb 8.9 L D Hct 26.3 L MCV 107.2 H MCH 36.2 H MCHC 33.8 RDW 15.0 Plt Count 372 D MPV 7.2 L Sodium 138 Potassium 3.7 Chloride 102 Carbon Dioxide 26 Anion Gap 10 BUN 7 Creatinine 0.9 Creat Clearance w eGFR > 60 POC Glucometer Random Glucose 141 H D Calcium 8.3 L Total Bilirubin 0.9 D AST 38 H D ALT 26 D Alkaline Phosphatase 65 D Total Protein 6.5 Albumin 3.3 L Urine Color Urine Appearance Urine pH Ur Specific [place] Urine Protein Urine Glucose (UA) Urine Ketones Urine Blood Urine Nitrite Urine Bilirubin Urine Urobilinogen Ur Leukocyte Esterase RPR Titer Nonreactive Labs noted: h/h 8.9/26.3, serum glucose 141; abnormal UA Assessment: 08/14/17 16:39 Withdrawal symptoms Noted with anemia, hyperglycemia and abnormal UA Plan: Continue detox Anemia: patient denies h/o anemia, repeat CBC in AM Hyperglycemia secondary to DMT2: continue diabetic regimen Abnormal UA: encouraged to drink lots of water, repeat UA
[2017-08-14] MEDS: amLODIPine BESYLATE 5 MG TABLET (FP) PO SCH (17:43)
[2017-08-14] MEDS: THIAMINE HCL 100 MG TABLET (FP) PO SCH (22:38)
[2017-08-15] MEDS: chlordiazePOXIDE HCL 25 MG CAPSULE PO SCH ×3 (05:29→16:49)
[2017-08-15] MEDS: INSULIN SLIDING SCALE (NOVOLOG) 1 VIAL SQ SCH ×4 (07:50→22:22)
[2017-08-15] MEDS: metFORMIN HCL 500 MG TABLET (FP) PO SCH ×2 (07:56→16:49)
[2017-08-15 10:15] LABS: BASO % 0.8 % (0-2.0); EOS # 0.1 # (0-4.5); EOS % 1.4 % (0-4.5); LYMPH # 0.9 (8-40); MCH 35.8 pg (25.7-33.7); MCHC 33.1 g/dl (32.0-35.9); MEAN CELL VOLUME 107.9 fl (80-96); MEAN PLT VOLUME 7.4 fl (7.5-11.1); MONO # 0.5 # (3.8-10.2); NEUT # 3.6 # (42.8-82.8); NEUT % 69.9 % (42.8-82.8); PLATELET COUNT 373 K/MM3 (134-434); RDW 14.6 % (11.9-15.9); WHITE BLOOD COUNT 5.1 K/mm3 (4.0-10.0)
[2017-08-15 10:38] LABS: URINE APPEARANCE CLEAR; URINE BILIRUBIN NEGATIVE (NEGATIVE); URINE BLOOD NEGATIVE (NEGATIVE); URINE COLOR LTYELLOW; URINE GLUCOSE (UA) NEGATIVE (NEGATIVE); URINE KETONE NEGATIVE (NEGATIVE); URINE LEUK ESTERASE TRACE (NEGATIVE); URINE NITRITE NEGATIVE (NEGATIVE); URINE PROTEIN NEGATIVE (NEGATIVE); URINE UROBILINOGEN NEGATIVE mg/dL (0.2-1.0)
[2017-08-15] MEDS: amLODIPine BESYLATE 5 MG TABLET (FP) PO SCH (10:38)
[2017-08-15] MEDS: PRENATAL VITAMINS W/ FOLIC ACID TABLET (FP) PO SCH (10:38)
[2017-08-15 10:49] LABS: URINE MUCUS RARE; URINE RBC 1 /hpf (0-3); URINE WBC 9 /hpf (3-5)
[2017-08-15] MEDS ORDERED: INSULIN (NOVOLOG) ASPART 100 UNITS/ML 10ML VIAL ONE (11:31)
[2017-08-15 15:12] LABS: URINE LEUK ESTERASE TRACE (NEGATIVE)
--- NOTE | 2017-08-15 15:18 | PN ---
[facility] CIWA - CIWA Score Nausea/Vomitin-No Nausea/No Vomiting Muscle Tremors: 4-Moderate,w/Arms Extend Anxiety: 4-Mod. Anxious/Guarded Agitation: 3 Paroxysmal Sweats: 2 Orientation: 2-Disoriented Date<2 days Tacttile Disturbances: 0-None Auditory Disturbances: 2-Mild Harshness/Frighten Visual Disturbances: 0-None Headache: 0-None Present CIWA-Ar Total Score: 17 S Progress Note (SOAP) Subjective: Fatigue, Tremors, Diarrhea. Objective: PT. A & O X 2 (UNCERTAIN ABOUT CURRENT DAY / DATE). PT. OBSERVED AMBULATING ON UNIT. NO ACUTE DISTRESS. 08/15/17 15:15 Vital Signs Temperature 99.1 F 08/15/17 13:31 Pulse Rate 108 H 08/15/17 13:31 Respiratory Rate 18 08/15/17 13:31 Blood Pressure 132/84 08/15/17 13:31 O2 Sat by Pulse Oximetry (%) Laboratory Tests 08/13/17 08/13/17 08/14/17 23:22 23:33 05:52 WBC RBC Hgb Hct MCV MCH MCHC RDW Plt Count MPV Neutrophils % Lymphocytes % Monocytes % Eosinophils % Basophils % Sodium Potassium Chloride Carbon Dioxide Anion Gap BUN Creatinine Creat Clearance w eGFR POC Glucometer 202 171 Random Glucose Calcium Total Bilirubin AST ALT Alkaline Phosphatase Total Protein Albumin Vitamin B12 Serum Folate Urine Color Straw Urine Appearance Clear Urine pH 6.0 Ur Specific [place] 1.011 Urine Protein Negative Urine Glucose (UA) 3+ H Urine Ketones Negative Urine Blood Negative Urine Nitrite Negative Urine Bilirubin Negative Urine Urobilinogen Negative Ur Leukocyte Esterase Negative Urine WBC (Auto) Urine RBC (Auto) Ur Epithelial Cells Urine Mucus RPR Titer 08/14/17 08/14/17 08/14/17 07:00 07:00 07:00 WBC 6.9 D RBC 2.46 L Hgb 8.9 L D Hct 26.3 L MCV 107.2 H MCH 36.2 H MCHC 33.8 RDW 15.0 Plt Count 372 D MPV 7.2 L Neutrophils % Lymphocytes % Monocytes % Eosinophils % Basophils % Sodium 138 Potassium 3.7 Chloride 102 Carbon Dioxide 26 Anion Gap 10 BUN 7 Creatinine 0.9 Creat Clearance w eGFR > 60 POC Glucometer Random Glucose 141 H D Calcium 8.3 L Total Bilirubin 0.9 D AST 38 H D ALT 26 D Alkaline Phosphatase 65 D Total Protein 6.5 Albumin 3.3 L Vitamin B12 Serum Folate Urine Color Urine Appearance Urine pH Ur Specific [place] Urine Protein Urine Glucose (UA) Urine Ketones Urine Blood Urine Nitrite Urine Bilirubin Urine Urobilinogen Ur Leukocyte Esterase Urine WBC (Auto) Urine RBC (Auto) Ur Epithelial Cells Urine Mucus RPR Titer Nonreactive 08/14/17 08/15/17 08/15/17 16:43 07:50 07:50 WBC 5.1 RBC 2.59 L Hgb 9.3 L Hct 28.0 L MCV 107.9 H MCH 35.8 H MCHC 33.1 RDW 14.6 Plt Count 373 MPV 7.4 L Neutrophils % 69.9 Lymphocytes % 18.4 Monocytes % 9.5 Eosinophils % 1.4 Basophils % 0.8 Sodium Potassium Chloride Carbon Dioxide Anion Gap BUN Creatinine Creat Clearance w eGFR POC Glucometer 183 Random Glucose Calcium Total Bilirubin AST ALT Alkaline Phosphatase Total Protein Albumin Vitamin B12 312 Serum Folate 23 H Urine Color Urine Appearance Urine pH Ur Specific [place] Urine Protein Urine Glucose (UA) Urine Ketones Urine Blood Urine Nitrite Urine Bilirubin Urine Urobilinogen Ur Leukocyte Esterase Urine WBC (Auto) Urine RBC (Auto) Ur Epithelial Cells Urine Mucus RPR Titer 08/15/17 08/15/17 08:00 11:28 WBC RBC Hgb Hct MCV MCH MCHC RDW Plt Count MPV Neutrophils % Lymphocytes % Monocytes % Eosinophils % Basophils % Sodium Potassium Chloride Carbon Dioxide Anion Gap BUN Creatinine Creat Clearance w eGFR POC Glucometer 236 Random Glucose Calcium Total Bilirubin AST ALT Alkaline Phosphatase Total Protein Albumin Vitamin B12 Serum Folate Urine Color Ltyellow Urine Appearance Clear Urine pH 6.0 Ur Specific [place] 1.011 Urine Protein Negative Urine Glucose (UA) Negative Urine Ketones Negative Urine Blood Negative Urine Nitrite Negative Urine Bilirubin Negative Urine Urobilinogen Negative Ur Leukocyte Esterase Trace H Urine WBC (Auto) 9 Urine RBC (Auto) 1 Ur Epithelial Cells Rare Urine Mucus Rare RPR Titer LABS NOTED. RESULTS OF IRON STUDIES PENDING. PATIENT HAS HISTORY OF LOW RBC, HGB, AND HCT VALUES ON PREVIOUS ADMISSIONS. 08/15/17 15:19 Assessment: 08/15/17 15:16 WITHDRAWAL SYMPTOMS. Plan: CONTINUE DETOX. INCREASE DAILY PO FLUID INTAKE.
[2017-08-15] MEDS: THIAMINE HCL 100 MG TABLET (FP) PO SCH (22:22)
[2017-08-15] MEDS: chlordiazePOXIDE 5 MG CAPSULE PO SCH (22:22)
[2017-08-16] MEDS: chlordiazePOXIDE 5 MG CAPSULE PO SCH ×3 (05:29→16:32)
[2017-08-16 06:36] LABS: SERUM IRON 55 ug/dL (38-169); TOTAL IRON BINDING CAPACITY 325 ug/dL (250-450); UIBC 270 ug/dL (111-343)
[2017-08-16] MEDS: metFORMIN HCL 500 MG TABLET (FP) PO SCH ×2 (07:34→16:32)
[2017-08-16] MEDS: INSULIN SLIDING SCALE (NOVOLOG) 1 VIAL SQ SCH ×4 (07:35→22:24)
[2017-08-16] MEDS: amLODIPine BESYLATE 5 MG TABLET (FP) PO SCH (10:25)
[2017-08-16] MEDS: PRENATAL VITAMINS W/ FOLIC ACID TABLET (FP) PO SCH (10:25)
--- NOTE | 2017-08-16 13:54 | PN ---
B[facility] Progress Note (SOAP) Subjective: Interrupted sleep, anxious, sweating Objective: 08/16/17 13:52 Last Vital Signs Temp Pulse Resp BP Pulse Ox 99.0 F 105 H 18 129/72 08/16/17 09:37 08/16/17 09:37 08/16/17 09:37 08/16/17 09:37 Laboratory Tests 08/13/17 08/13/17 08/14/17 23:22 23:33 05:52 WBC RBC Hgb Hct MCV MCH MCHC RDW Plt Count MPV Neutrophils % Lymphocytes % Monocytes % Eosinophils % Basophils % Sodium Potassium Chloride Carbon Dioxide Anion Gap BUN Creatinine Creat Clearance w eGFR POC Glucometer 202 171 Random Glucose Calcium Iron TIBC Iron Saturation Total Bilirubin AST ALT Alkaline Phosphatase Total Protein Albumin Vitamin B12 Serum Folate Urine Color Straw Urine Appearance Clear Urine pH 6.0 Ur Specific [place] 1.011 Urine Protein Negative Urine Glucose (UA) 3+ H Urine Ketones Negative Urine Blood Negative Urine Nitrite Negative Urine Bilirubin Negative Urine Urobilinogen Negative Ur Leukocyte Esterase Negative Urine WBC (Auto) Urine RBC (Auto) Ur Epithelial Cells Urine Mucus RPR Titer 08/14/17 08/14/17 08/14/17 07:00 07:00 07:00 WBC 6.9 D RBC 2.46 L Hgb 8.9 L D Hct 26.3 L MCV 107.2 H MCH 36.2 H MCHC 33.8 RDW 15.0 Plt Count 372 D MPV 7.2 L Neutrophils % Lymphocytes % Monocytes % Eosinophils % Basophils % Sodium 138 Potassium 3.7 Chloride 102 Carbon Dioxide 26 Anion Gap 10 BUN 7 Creatinine 0.9 Creat Clearance w eGFR > 60 POC Glucometer Random Glucose 141 H D Calcium 8.3 L Iron TIBC Iron Saturation Total Bilirubin 0.9 D AST 38 H D ALT 26 D Alkaline Phosphatase 65 D Total Protein 6.5 Albumin 3.3 L Vitamin B12 Serum Folate Urine Color Urine Appearance Urine pH Ur Specific [place] Urine Protein Urine Glucose (UA) Urine Ketones Urine Blood Urine Nitrite Urine Bilirubin Urine Urobilinogen Ur Leukocyte Esterase Urine WBC (Auto) Urine RBC (Auto) Ur Epithelial Cells Urine Mucus RPR Titer Nonreactive 08/14/17 08/15/17 08/15/17 16:43 07:50 07:50 WBC 5.1 RBC 2.59 L Hgb 9.3 L Hct 28.0 L MCV 107.9 H MCH 35.8 H MCHC 33.1 RDW 14.6 Plt Count 373 MPV 7.4 L Neutrophils % 69.9 Lymphocytes % 18.4 Monocytes % 9.5 Eosinophils % 1.4 Basophils % 0.8 Sodium Potassium Chloride Carbon Dioxide Anion Gap BUN Creatinine Creat Clearance w eGFR POC Glucometer 183 Random Glucose Calcium Iron 55 TIBC 325 Iron Saturation 17 Total Bilirubin AST ALT Alkaline Phosphatase Total Protein Albumin Vitamin B12 Serum Folate Urine Color Urine Appearance Urine pH Ur Specific [place] Urine Protein Urine Glucose (UA) Urine Ketones Urine Blood Urine Nitrite Urine Bilirubin Urine Urobilinogen Ur Leukocyte Esterase Urine WBC (Auto) Urine RBC (Auto) Ur Epithelial Cells Urine Mucus RPR Titer 08/15/17 08/15/17 08/15/17 07:50 08:00 11:28 WBC RBC Hgb Hct MCV MCH MCHC RDW Plt Count MPV Neutrophils % Lymphocytes % Monocytes % Eosinophils % Basophils % Sodium Potassium Chloride Carbon Dioxide Anion Gap BUN Creatinine Creat Clearance w eGFR POC Glucometer 236 Random Glucose Calcium Iron TIBC Iron Saturation Total Bilirubin AST ALT Alkaline Phosphatase Total Protein Albumin Vitamin B12 312 Serum Folate 23 H Urine Color Ltyellow Urine Appearance Clear Urine pH 6.0 Ur Specific [place] 1.011 Urine Protein Negative Urine Glucose (UA) Negative Urine Ketones Negative Urine Blood Negative Urine Nitrite Negative Urine Bilirubin Negative Urine Urobilinogen Negative Ur Leukocyte Esterase Trace H Urine WBC (Auto) 9 Urine RBC (Auto) 1 Ur Epithelial Cells Rare Urine Mucus Rare RPR Titer 08/15/17 08/16/17 16:03 10:30 WBC RBC Hgb Hct MCV MCH MCHC RDW Plt Count MPV Neutrophils % Lymphocytes % Monocytes % Eosinophils % Basophils % Sodium Potassium Chloride Carbon Dioxide Anion Gap BUN Creatinine Creat Clearance w eGFR POC Glucometer 170 199 Random Glucose Calcium Iron TIBC Iron Saturation Total Bilirubin AST ALT Alkaline Phosphatase Total Protein Albumin Vitamin B12 Serum Folate Urine Color Urine Appearance Urine pH Ur Specific [place] Urine Protein Urine Glucose (UA) Urine Ketones Urine Blood Urine Nitrite Urine Bilirubin Urine Urobilinogen Ur Leukocyte Esterase Urine WBC (Auto) Urine RBC (Auto) Ur Epithelial Cells Urine Mucus RPR Titer Labs noted: anemia noted Assessment: 08/16/17 13:52 Withdrawal symptoms Noted with anemia Plan: Withdrawal symptoms Anemia: stable, continue to monitor, follow up with PCP for monitoring
[2017-08-16] MEDS: chlordiazePOXIDE HCL 10 MG CAPSULE PO SCH (22:24)
[2017-08-16] MEDS: THIAMINE HCL 100 MG TABLET (FP) PO SCH (22:24)
[2017-08-17] MEDS: chlordiazePOXIDE HCL 10 MG CAPSULE PO SCH ×3 (05:14→18:05)
[2017-08-17] MEDS: metFORMIN HCL 500 MG TABLET (FP) PO SCH ×2 (06:52→18:00)
[2017-08-17] MEDS: INSULIN SLIDING SCALE (NOVOLOG) 1 VIAL SQ SCH ×4 (08:16→22:24)
[2017-08-17] MEDS: ACETAMINOPHEN 325 MG TABLET (FP) PO PRN (09:09)
[2017-08-17] MEDS: PRENATAL VITAMINS W/ FOLIC ACID TABLET (FP) PO SCH (10:48)
[2017-08-17] MEDS: amLODIPine BESYLATE 5 MG TABLET (FP) PO SCH (10:48)
--- NOTE | 2017-08-17 14:27 | PN ---
BHS Progress Note (SOAP) Subjective: Anxious, sweating Objective: 08/17/17 14:24 Last Vital Signs Temp Pulse Resp BP Pulse Ox 101.8 F H 127 H 20 128/64 08/17/17 13:54 08/17/17 13:54 08/17/17 13:54 08/17/17 13:54 Elevated temperature and tachycardia noted Laboratory Tests 08/13/17 08/13/17 08/14/17 23:22 23:33 05:52 WBC RBC Hgb Hct MCV MCH MCHC RDW Plt Count MPV Neutrophils % Lymphocytes % Monocytes % Eosinophils % Basophils % Sodium Potassium Chloride Carbon Dioxide Anion Gap BUN Creatinine Creat Clearance w eGFR POC Glucometer 202 171 Random Glucose Calcium Iron TIBC Iron Saturation Total Bilirubin AST ALT Alkaline Phosphatase Total Protein Albumin Vitamin B12 Serum Folate Urine Color Straw Urine Appearance Clear Urine pH 6.0 Ur Specific [place] 1.011 Urine Protein Negative Urine Glucose (UA) 3+ H Urine Ketones Negative Urine Blood Negative Urine Nitrite Negative Urine Bilirubin Negative Urine Urobilinogen Negative Ur Leukocyte Esterase Negative Urine WBC (Auto) Urine RBC (Auto) Ur Epithelial Cells Urine Mucus RPR Titer 08/14/17 08/14/17 08/14/17 07:00 07:00 07:00 WBC 6.9 D RBC 2.46 L Hgb 8.9 L D Hct 26.3 L MCV 107.2 H MCH 36.2 H MCHC 33.8 RDW 15.0 Plt Count 372 D MPV 7.2 L Neutrophils % Lymphocytes % Monocytes % Eosinophils % Basophils % Sodium 138 Potassium 3.7 Chloride 102 Carbon Dioxide 26 Anion Gap 10 BUN 7 Creatinine 0.9 Creat Clearance w eGFR > 60 POC Glucometer Random Glucose 141 H D Calcium 8.3 L Iron TIBC Iron Saturation Total Bilirubin 0.9 D AST 38 H D ALT 26 D Alkaline Phosphatase 65 D Total Protein 6.5 Albumin 3.3 L Vitamin B12 Serum Folate Urine Color Urine Appearance Urine pH Ur Specific [place] Urine Protein Urine Glucose (UA) Urine Ketones Urine Blood Urine Nitrite Urine Bilirubin Urine Urobilinogen Ur Leukocyte Esterase Urine WBC (Auto) Urine RBC (Auto) Ur Epithelial Cells Urine Mucus RPR Titer Nonreactive 08/14/17 08/15/17 08/15/17 16:43 07:50 07:50 WBC 5.1 RBC 2.59 L Hgb 9.3 L Hct 28.0 L MCV 107.9 H MCH 35.8 H MCHC 33.1 RDW 14.6 Plt Count 373 MPV 7.4 L Neutrophils % 69.9 Lymphocytes % 18.4 Monocytes % 9.5 Eosinophils % 1.4 Basophils % 0.8 Sodium Potassium Chloride Carbon Dioxide Anion Gap BUN Creatinine Creat Clearance w eGFR POC Glucometer 183 Random Glucose Calcium Iron 55 TIBC 325 Iron Saturation 17 Total Bilirubin AST ALT Alkaline Phosphatase Total Protein Albumin Vitamin B12 Serum Folate Urine Color Urine Appearance Urine pH Ur Specific [place] Urine Protein Urine Glucose (UA) Urine Ketones Urine Blood Urine Nitrite Urine Bilirubin Urine Urobilinogen Ur Leukocyte Esterase Urine WBC (Auto) Urine RBC (Auto) Ur Epithelial Cells Urine Mucus RPR Titer 08/15/17 08/15/17 08/15/17 07:50 08:00 11:28 WBC RBC Hgb Hct MCV MCH MCHC RDW Plt Count MPV Neutrophils % Lymphocytes % Monocytes % Eosinophils % Basophils % Sodium Potassium Chloride Carbon Dioxide Anion Gap BUN Creatinine Creat Clearance w eGFR POC Glucometer 236 Random Glucose Calcium Iron TIBC Iron Saturation Total Bilirubin AST ALT Alkaline Phosphatase Total Protein Albumin Vitamin B12 312 Serum Folate 23 H Urine Color Ltyellow Urine Appearance Clear Urine pH 6.0 Ur Specific [place] 1.011 Urine Protein Negative Urine Glucose (UA) Negative Urine Ketones Negative Urine Blood Negative Urine Nitrite Negative Urine Bilirubin Negative Urine Urobilinogen Negative Ur Leukocyte Esterase Trace H Urine WBC (Auto) 9 Urine RBC (Auto) 1 Ur Epithelial Cells Rare Urine Mucus Rare RPR Titer 08/15/17 08/16/17 08/16/17 16:03 10:30 16:30 WBC RBC Hgb Hct MCV MCH MCHC RDW Plt Count MPV Neutrophils % Lymphocytes % Monocytes % Eosinophils % Basophils % Sodium Potassium Chloride Carbon Dioxide Anion Gap BUN Creatinine Creat Clearance w eGFR POC Glucometer 170 199 196 Random Glucose Calcium Iron TIBC Iron Saturation Total Bilirubin AST ALT Alkaline Phosphatase Total Protein Albumin Vitamin B12 Serum Folate Urine Color Urine Appearance Urine pH Ur Specific [place] Urine Protein Urine Glucose (UA) Urine Ketones Urine Blood Urine Nitrite Urine Bilirubin Urine Urobilinogen Ur Leukocyte Esterase Urine WBC (Auto) Urine RBC (Auto) Ur Epithelial Cells Urine Mucus RPR Titer Labs noted Assessment: 08/17/17 14:24 Withdrawal symptoms Noted with fever and tachycardia Plan: Continue detox Fever: chest xray in AM, CBC in AM, encouraged to drink lots of water, continue tylenol prn, consider blood culture Tachycardia: encouraged relaxation techniques and to drink more water, continue to monitor Patient is for discharge tomorrow; hold discharge due to above symptoms. Follow up on chest xray and CBC result.
[2017-08-17] MEDS: THIAMINE HCL 100 MG TABLET (FP) PO SCH (22:24)
[2017-08-18] MEDS: metFORMIN HCL 500 MG TABLET (FP) PO SCH (06:04)
[2017-08-18] MEDS: ACETAMINOPHEN 325 MG TABLET (FP) PO PRN (06:04)
[2017-08-18] MEDS: INSULIN SLIDING SCALE (NOVOLOG) 1 VIAL SQ SCH ×2 (07:07→11:29)
[2017-08-18 09:50] LABS: BASO % 0.3 % (0-2.0); EOS % 0.1 % (0-4.5); LYMPH # 0.6 (8-40); MCH 35.9 pg (25.7-33.7); MEAN CELL VOLUME 105.5 fl (80-96); MEAN PLT VOLUME 7.5 fl (7.5-11.1); MONO # 0.5 # (3.8-10.2); NEUT # 7.4 # (42.8-82.8); NEUT % 86.1 % (42.8-82.8); PLATELET COUNT 315 K/MM3 (134-434); RDW 14.9 % (11.9-15.9); WHITE BLOOD COUNT 8.5 K/mm3 (4.0-10.0)
[2017-08-18] MEDS: PRENATAL VITAMINS W/ FOLIC ACID TABLET (FP) PO SCH (10:27)
[2017-08-18] MEDS: amLODIPine BESYLATE 5 MG TABLET (FP) PO SCH (10:27)
[2017-08-18] MEDS ORDERED: FERROUS SO4 325 MG TABLET (FP) PO SCH (12:00)
--- NOTE | 2017-08-18 12:37 | PN ---
[facility] Progress Note Note: PT C/O "I FEEL VERY SICK. I'VE NEVER BEEN SICK LIKE THIS'. LAYING IN BED UNABLE TO EAT HIS BREAKFAST. WEAK TO ENGAGE ROUTINE.PT HAS BEEN RUNNIG ELEVATED TEMPERATURES MORE THAN 24 HRS AGO AND TACHYCARDIA SINCE 3 DAYS AGO. PT DENIES URI SX AT THIS TIME. ALERT O X 3. Vital Signs - 24 hr 08/17/17 08/17/17 08/17/17 13:54 18:01 22:22 Temperature 101.8 F H 97.9 F 97.3 F L Pulse Rate 127 H 109 H 131 H Respiratory 20 16 16 Rate Blood Pressure 128/64 126/76 130/85 08/18/17 08/18/17 08/18/17 03:26 06:24 09:03 Temperature 101.7 F H 99.4 F Pulse Rate 115 H 117 H Respiratory 18 16 16 Rate Blood Pressure 104/59 98/54 Laboratory Tests 08/13/17 08/13/17 08/14/17 23:22 23:33 05:52 WBC RBC Hgb Hct MCV MCH MCHC RDW Plt Count MPV Neutrophils % Lymphocytes % Monocytes % Eosinophils % Basophils % Sodium Potassium Chloride Carbon Dioxide Anion Gap BUN Creatinine Creat Clearance w eGFR POC Glucometer 202 171 Random Glucose Calcium Iron TIBC Iron Saturation Total Bilirubin AST ALT Alkaline Phosphatase Total Protein Albumin Vitamin B12 Serum Folate Urine Color Straw Urine Appearance Clear Urine pH 6.0 Ur Specific [place] 1.011 Urine Protein Negative Urine Glucose (UA) 3+ H Urine Ketones Negative Urine Blood Negative Urine Nitrite Negative Urine Bilirubin Negative Urine Urobilinogen Negative Ur Leukocyte Esterase Negative Urine WBC (Auto) Urine RBC (Auto) Ur Epithelial Cells Urine Mucus RPR Titer 08/14/17 08/14/17 08/14/17 07:00 07:00 07:00 WBC 6.9 D RBC 2.46 L Hgb 8.9 L D Hct 26.3 L MCV 107.2 H MCH 36.2 H MCHC 33.8 RDW 15.0 Plt Count 372 D MPV 7.2 L Neutrophils % Lymphocytes % Monocytes % Eosinophils % Basophils % Sodium 138 Potassium 3.7 Chloride 102 Carbon Dioxide 26 Anion Gap 10 BUN 7 Creatinine 0.9 Creat Clearance w eGFR > 60 POC Glucometer Random Glucose 141 H D Calcium 8.3 L Iron TIBC Iron Saturation Total Bilirubin 0.9 D AST 38 H D ALT 26 D Alkaline Phosphatase 65 D Total Protein 6.5 Albumin 3.3 L Vitamin B12 Serum Folate Urine Color Urine Appearance Urine pH Ur Specific [place] Urine Protein Urine Glucose (UA) Urine Ketones Urine Blood Urine Nitrite Urine Bilirubin Urine Urobilinogen Ur Leukocyte Esterase Urine WBC (Auto) Urine RBC (Auto) Ur Epithelial Cells Urine Mucus RPR Titer Nonreactive 08/14/17 08/15/17 08/15/17 16:43 07:50 07:50 WBC 5.1 RBC 2.59 L Hgb 9.3 L Hct 28.0 L MCV 107.9 H MCH 35.8 H MCHC 33.1 RDW 14.6 Plt Count 373 MPV 7.4 L Neutrophils % 69.9 Lymphocytes % 18.4 Monocytes % 9.5 Eosinophils % 1.4 Basophils % 0.8 Sodium Potassium Chloride Carbon Dioxide Anion Gap BUN Creatinine Creat Clearance w eGFR POC Glucometer 183 Random Glucose Calcium Iron 55 TIBC 325 Iron Saturation 17 Total Bilirubin AST ALT Alkaline Phosphatase Total Protein Albumin Vitamin B12 Serum Folate Urine Color Urine Appearance Urine pH Ur Specific [place] Urine Protein Urine Glucose (UA) Urine Ketones Urine Blood Urine Nitrite Urine Bilirubin Urine Urobilinogen Ur Leukocyte Esterase Urine WBC (Auto) Urine RBC (Auto) Ur Epithelial Cells Urine Mucus RPR Titer 08/15/17 08/15/17 08/15/17 07:50 08:00 11:28 WBC RBC Hgb Hct MCV MCH MCHC RDW Plt Count MPV Neutrophils % Lymphocytes % Monocytes % Eosinophils % Basophils % Sodium Potassium Chloride Carbon Dioxide Anion Gap BUN Creatinine Creat Clearance w eGFR POC Glucometer 236 Random Glucose Calcium Iron TIBC Iron Saturation Total Bilirubin AST ALT Alkaline Phosphatase Total Protein Albumin Vitamin B12 312 Serum Folate 23 H Urine Color Ltyellow Urine Appearance Clear Urine pH 6.0 Ur Specific [place] 1.011 Urine Protein Negative Urine Glucose (UA) Negative Urine Ketones Negative Urine Blood Negative Urine Nitrite Negative Urine Bilirubin Negative Urine Urobilinogen Negative Ur Leukocyte Esterase Trace H Urine WBC (Auto) 9 Urine RBC (Auto) 1 Ur Epithelial Cells Rare Urine Mucus Rare RPR Titer 08/15/17 08/16/17 08/16/17 16:03 10:30 16:30 WBC RBC Hgb Hct MCV MCH MCHC RDW Plt Count MPV Neutrophils % Lymphocytes % Monocytes % Eosinophils % Basophils % Sodium Potassium Chloride Carbon Dioxide Anion Gap BUN Creatinine Creat Clearance w eGFR POC Glucometer 170 199 196 Random Glucose Calcium Iron TIBC Iron Saturation Total Bilirubin AST ALT Alkaline Phosphatase Total Protein Albumin Vitamin B12 Serum Folate Urine Color Urine Appearance Urine pH Ur Specific [place] Urine Protein Urine Glucose (UA) Urine Ketones Urine Blood Urine Nitrite Urine Bilirubin Urine Urobilinogen Ur Leukocyte Esterase Urine WBC (Auto) Urine RBC (Auto) Ur Epithelial Cells Urine Mucus RPR Titer 08/17/17 08/18/17 08/18/17 16:19 05:52 06:00 WBC 8.5 D RBC 2.45 L Hgb 8.8 L Hct 25.9 L MCV 105.5 H MCH 35.9 H MCHC 34.0 RDW 14.9 Plt Count 315 MPV 7.5 Neutrophils % 86.1 H D Lymphocytes % 7.5 L D Monocytes % 6.0 Eosinophils % 0.1 D Basophils % 0.3 Sodium Potassium Chloride Carbon Dioxide Anion Gap BUN Creatinine Creat Clearance w eGFR POC Glucometer 180 200 Random Glucose Calcium Iron TIBC Iron Saturation Total Bilirubin AST ALT Alkaline Phosphatase Total Protein Albumin Vitamin B12 Serum Folate Urine Color Urine Appearance Urine pH Ur Specific [place] Urine Protein Urine Glucose (UA) Urine Ketones Urine Blood Urine Nitrite Urine Bilirubin Urine Urobilinogen Ur Leukocyte Esterase Urine WBC (Auto) Urine RBC (Auto) Ur Epithelial Cells Urine Mucus RPR Titer 08/18/17 11:29 WBC RBC Hgb Hct MCV MCH MCHC RDW Plt Count MPV Neutrophils % Lymphocytes % Monocytes % Eosinophils % Basophils % Sodium Potassium Chloride Carbon Dioxide Anion Gap BUN Creatinine Creat Clearance w eGFR POC Glucometer 164 Random Glucose Calcium Iron TIBC Iron Saturation Total Bilirubin AST ALT Alkaline Phosphatase Total Protein Albumin Vitamin B12 Serum Folate Urine Color Urine Appearance Urine pH Ur Specific [place] Urine Protein Urine Glucose (UA) Urine Ketones Urine Blood Urine Nitrite Urine Bilirubin Urine Urobilinogen Ur Leukocyte Esterase Urine WBC (Auto) Urine RBC (Auto) Ur Epithelial Cells Urine Mucus RPR Titer ANEMIC CXR OF THIS MORNING PENDING LUNGS: CTA PLAN:PT WILL BE TRANSFERED BY AMBULANCE TO [facility] FOR FURTHER EVALUATION AND POSSIBLE TREATMENT. PATIENT IS FINISHED WITH DETOX AND MAY GO HOME FROM [facility] IF CLEARED. PT MAY ALSO OPT TO COME TO REHAB IF CLEARED AND INDICATED FOR REHAB. SPOKE TO MS ACEVES AT THE [facility] ER.
[2017-08-18 13:01] VITALS: BP 91/50; PULSE 105; TEMP 100.5
== END 2017-08-18 13:22 | disposition short-term general hospital (02) | DRG 420 ==
LOC: YASAS 20:09 → Y3N 22:59
PROVIDERS: ADMIT Internal Medicine; ATTEND Internal Medicine
PROC: HZ2ZZZZ Detoxification Services for Substance Abuse Treatment (ICD-10-PCS; principal; 2017-08-13)
DX: E11.9 Type 2 diabetes mellitus without complications (principal); Z79.84 Long term (current) use of oral hypoglycemic drugs; K21.9 Gastro-esophageal reflux disease without esophagitis; D64.9 Anemia, unspecified; R50.9 Fever, unspecified
CPT/HCPCS: 36415; 71020-TC; 80053; 81003; 81015; 82607; 82746; 83540; 83550; 85025; 85027; 86593; 93005; 93010

== ENCOUNTER 2017-08-18 13:43 | Emergency (ER) | payer OTHER ==
[2017-08-18 13:48] VITALS: BP 103/51; PULSE 108; TEMP 98.9; BMI 21.7
--- NOTE | 2017-08-18 14:19 | PDOC ---
History of Present Illness - General History Source: Patient Exam Limitations: No Limitations - History of Present Illness Initial Comments: The patient is a 56 year old male, with a significant past medical history of diabetes, who presents to the emergency department from [facility] with, lightheadedness, cough, fever, body aches, and runny nose. He reports his cough to be dry. He reports diarrhea and emesis. The patient reports secondary to his symptoms when he stands up he wobbles and occasional shortness of breath after coughing. The patient is currently on alcohol detox at [facility], his last drink was 6 days ago. He reports the facility has been treating him for his symptoms for a week, however, is unaware of the medication used. The patient denies sore throat, ear pain, and congestion. He denies any recent constipation. He denies any recent chest pain. He denies any recent dysuria, frequency, urgency or hematuria. Allergies: NKA Past surgical history: None reported. Social History: Smoker (One cigarette, once a week). Denies recreational drug use. 08/18/17 15:33 <John Farnsworth - Last Filed: 08/18/17 15:33> <Amara Ly - Last Filed: 08/18/17 16:05> - General Chief Complaint: Cold Symptoms Stated Complaint: FEVER Time Seen by Provider: 08/18/17 14:01 Past History <John Farnsworth - Last Filed: 08/18/17 15:33> - Past Medical History Anemia: No Asthma: No Cancer: No Cardiac Disorders: No CVA: No COPD: No CHF: No DVT: No Dementia: No Diabetes: Yes GI Disorders: No Disorders: No HTN: No Hypercholesterolemia: No Kidney Stones: No Liver Disease: No Seizures: No Thyroid Disease: No Other medical history: alcohol abuse - Surgical History Abdominal Surgery: No Appendectomy: No Cardiac Surgery: No Cholecystectomy: No Lung Surgery: No Neurologic Surgery: No Orthopedic Surgery: No - Reproductive History Testicular Surgery: No - Suicide/Smoking/Psychosocial Hx Smoking History: Former smoker Have you smoked in the past 12 months: No Number of Cigarettes Smoked Daily: 1 Information on smoking cessation initiated: Yes 'Breaking Loose' booklet given: 07/27/17 Hx Alcohol Use: Yes Drug/Substance Use Hx: No Substance Use Type: Alcohol Hx Substance Use Treatment: Yes <Amara Ly - Last Filed: 08/18/17 16:05> - Past Medical History Allergies/Adverse Reactions: Allergies Allergy/AdvReac Type Severity Reaction Status Date / Time No Known Allergies Allergy Verified 08/18/17 13:44 Home Medications: Ambulatory Orders Metformin HCl 500 mg PO BIDAC #30 tablet 02/26/16 Review of Systems - Review of Systems Able to Perform ROS?: Yes Comments:: 08/18/17 14:52 CONSTITUTIONAL: Present: +Fever +body aches +runny nose Absent: no chills, no fatigue EYES: Absent: visual changes ENT: Absent: ear pain, no sore throat CARDIOVASCULAR: Absent: chest pain, no palpitations RESPIRATORY: Present: +cough +SOB after coughing. GI: Present: +Vomiting +Diarrhea Absent: abdominal pain, no nausea, no constipation GENITOURINARY: Absent: dysuria, no frequency, no hematuria MUSKULOSKELETAL: Absent: back pain, no arthralgia, no myalgia SKIN: Absent: rash NEURO: Present: +Impaired gait Absent: headache All Other Systems: Reviewed and Negative <John Farnsworth - Last Filed: 08/18/17 15:33> *Physical Exam - Vital Signs Last Vital Signs Temp Pulse Resp BP Pulse Ox 98.9 F 108 H 18 103/51 100 08/18/17 13:44 08/18/17 13:44 08/18/17 13:44 08/18/17 13:44 08/18/17 13:44 - Physical Exam Comments: 08/18/17 14:52 GENERAL: Well-appearing, well-nourished. No apparent distress. HEENT: Ears clear bilaterally. Normocephalic, atraumatic. PERRL, EOM intact. CARDIOVASCULAR: +Tachycardic. Regular rhythm. No murmurs, rubs, or gallops. PULMONARY: Clear to auscultation bilaterally. ABDOMEN: Soft, non-distended, non-tender. EXTREMITIES: Normal ROM in all four extremities. No gross deformities. SKIN: Warm, dry. No rash NEUROLOGICAL: No focal neurological deficits. <John Farnsworth - Last Filed: 08/18/17 15:33> - Vital Signs Last Vital Signs Temp Pulse Resp BP Pulse Ox 98.9 F 108 H 18 103/51 100 08/18/17 13:44 08/18/17 13:44 08/18/17 13:44 08/18/17 13:44 08/18/17 13:44 <Amara Ly - Last Filed: 08/18/17 16:05> *DC/Admit/Observation/Transfer - Attestations Scribe Attestion: 08/18/17 14:52 Documentation prepared by John Farnsworth, acting as medical doctor nuclear medicine for Eduardo Wolff MD. <oJhn Farnsworth - Last Filed: 08/18/17 15:33> - Discharge Dispostion Admit: No <Amara Ly - Last Filed: 08/18/17 16:05> Diagnosis at time of Disposition: Fever Qualifiers: Fever type: unspecified Qualified Code(s): R50.9 - Fever, unspecified Upper respiratory infection Qualifiers: URI type: unspecified URI Qualified Code(s): J06.9 - Acute upper respiratory infection, unspecified - Discharge Dispostion Disposition: HOME Condition at time of disposition: Stable - Patient Instructions Printed Discharge Instructions: DI for Viral Upper Respiratory Infection -- Adult Additional Instructions: You have an upper respiratory infection which is what is causing her cough. Your chest x-ray was negative today for pneumonia. Your flu and RSV testing was negative as well. You may take Motrin as needed for fevers. He may take 800 mg every 8 hours not to exceed 3000 mg a day. Please drink plenty of fluids and get plenty of rest. Avoid alcohol. Please follow-up with your primary care doctor within the week. Return to the emergency department if you have worsening fevers, chills, shortness of breath, weakness, or any changes in your symptoms.
[2017-08-18] MEDS ORDERED: IBUPROFEN 400 MG TABLET (FP) PO ONE ×2 (15:32→15:36)
== END 2017-08-18 16:07 | disposition home or self-care (01) ==
LOC: JERFT 13:43
DX: J06.9 Acute upper respiratory infection, unspecified (principal); E11.9 Type 2 diabetes mellitus without complications; Z79.84 Long term (current) use of oral hypoglycemic drugs
CPT/HCPCS: 71020-TC; 87420; 87804; 99281-25

== ENCOUNTER 2017-09-18 20:13 | Inpatient (IN) | payer OTHER ==
[2017-09-18 20:47] VITALS: BMI 21.7
--- NOTE | 2017-09-18 21:39 | HP ---
CIWA Score - CIWA Score Nausea/Vomitin-Mild Nausea/No Vomiting Muscle Tremors: 4-Moderate,w/Arms Extend Anxiety: 4-Mod. Anxious/Guarded Agitation: 4-Moderately Restless Paroxysmal Sweats: 1-Minimal Palms Moist Orientation: 0-Oriented Tacttile Disturbances: 0-None Auditory Disturbances: 0-None Visual Disturbances: 0-None Headache: 0-None Present CIWA-Ar Total Score: 14 Admission ROS BHS - HPI Chief Complaint: C/O WITHDRAWAL SX'S. SEEKING DETOX TXMENT. Allergies/Adverse Reactions: Allergies Allergy/AdvReac Type Severity Reaction Status Date / Time No Known Allergies Allergy Verified 08/18/17 13:44 History of Present Illness: 56 Y.O. MALE WITH LONG HX/O ALCOHOLISM ADMITTED TO DETOX. CLIENT IS KNOWN TO [facility]. SELF REFFERED. REPORTS LONGEST CLEAN TIME 28 DAYS WHILE IN REHAB. Exam Limitations: No Limitations - Ebola screening Have you traveled outside of the country in the last 21 days: No Have you had contact with anyone from an Ebola affected area: No Have you been sick,other than usual withdrawal symptoms: No Do you have a fever: No - Review of Systems Constitutional: Chills, Loss of Appetite, Night Sweats EENT: reports: No Symptoms Reported Respiratory: reports: No Symptoms reported Cardiac: reports: No Symptoms Reported GI: reports: Nausea, Poor Appetite : reports: No Symptoms Reported Musculoskeletal: reports: No Symptoms Reported Integumentary: reports: No Symptoms Reported Neuro: reports: No Symptoms reported Endocrine: reports: Other (DM) Hematology: reports: No Symptoms Reported Psychiatric: reports: No Sypmtoms Reported Other Systems: Reviewed and Negative Patient History - Patient Medical History Hx Anemia: No Hx Asthma: No Hx Chronic Obstructive Pulmonary Disease (COPD): No Hx Cancer: No Hx Cardiac Disorders: No Hx Congestive Heart Failure: No Hx Hypertension: No Hx Hypercholesterolemia: No Hx Pacemaker: No HX Cerebrovascular Accident: No Hx Seizures: No Hx Dementia: No Hx Diabetes: Yes (ON METFORMIN) Hx Gastrointestinal Disorders: No Hx Liver Disease: No Hx Genitourinary Disorders: No Hx Sexually Transmitted Disorders: No Hx Renal Disease (ESRD): No Hx Thyroid Disease: No Hx Human Immunodeficiency Virus (HIV): No Hx Hepatitis C: No Hx Depression: No Hx Suicide Attempt: No Hx Bipolar Disorder: No Hx Schizophrenia: No Other Medical History: DENIES - Patient Surgical History Past Surgical History: No Hx Neurologic Surgery: No Hx Cataract Extraction: No Hx Cardiac Surgery: No Hx Lung Surgery: No Hx Breast Surgery: No Hx Breast Biopsy: No Hx Abdominal Surgery: No Hx Appendectomy: No Hx Cholecystectomy: No Hx Genitourinary Surgery: No Hx Section: No Hx Orthopedic Surgery: No Other Surgical History: RECTAL CYST REMOVAL 08/2017 Anesthesia Reaction: No - PPD History Previous Implant?: Yes Documented Results: Negative w/proof Implanted On Prior [facility] Admission?: Yes Date: 07/29/17 Results: 0MM PPD to be Administered?: No - Smoking Cessation Smoking history: Former smoker Have you smoked in the past 12 months: Yes Aproximately how many cigarettes per day: 1 (PER WEEK) Cigars Per Day: 0 Hx Chewing Tobacco Use: No Initiated information on smoking cessation: Yes 'Breaking Loose' booklet given: 09/18/17 - Substance & Tx. History Hx Alcohol Use: Yes Hx Substance Use: Yes Substance Use Type: Alcohol Hx Substance Use Treatment: Yes ([facility]) - Substances Abused VODKA Route: Oral Frequency: Daily Amount used: 1 PINT Age of first use: 19 Date of Last Use: 09/18/17 Family Disease History - Family Disease History Family Disease History: Diabetes: Mother, Other: Father () Admission Physical Exam S - Vital Signs Vital Signs: Vital Signs - 24 hr 09/18/17 20:45 Temperature 96.9 F L Pulse Rate 115 H Respiratory 18 Rate Blood Pressure 160/98 - Physical General Appearance: Yes: Alcohol on Breath, Tremorous, Irritable HEENTM: Yes: EOMI, Normocephalic, Normal Voice, KEV, Pharynx Normal Respiratory: Yes: Chest Non-Tender, Lungs Clear, Normal Breath Sounds, No Respiratory Distress, No Accessory Muscle Use Neck: Yes: No masses,lesions,Nodules, Supple, Trachea in good position Breast: Yes: Breast Exam Deferred Cardiology: Yes: Regular Rhythm, S1, S2, Tachycardia Abdominal: Yes: Normal Bowel Sounds, Non Tender, Flat, Soft Genitourinary: Yes: Within Normal Limits Back: Yes: Normal Inspection Musculoskeletal: Yes: full range of Motion, Gait Steady Extremities: Yes: Normal Range of Motion, Non-Tender, Tremors 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, Fully Oriented, Alert, Motor Strength 5/5 Integumentary: Yes: Normal Color, Dry, Warm Lymphatic: Yes: Within Normal Limits - Diagnostic (1) Nicotine abuse Current Visit: Yes Status: Acute (2) Alcohol dependence with uncomplicated withdrawal Current Visit: No Status: Acute (3) Diabetes mellitus type II, controlled Current Visit: No Status: Chronic Qualifiers: Diabetes mellitus complication status: without complication Diabetes mellitus correction insulin use: without correction use Qualified Code(s): E11.9 - Type 2 diabetes mellitus without complications Cleared for Admission [facility] - Detox or Rehab [facility] Level of Care: Medically Managed Detox Regimen/Protocol: Librium Claeared for Rehab Admission: No S Breath Alcohol Content Breath Alcohol Content: 0.203 Urine Drug Screen - Results Drug Screen Negative: No Urine Drug Screen Results: BZO-Benzodiazepines
[2017-09-18] MEDS ORDERED: MAGNESIUM CITRATE 300 ML BOTTLE PO PRN (21:55)
[2017-09-18] MEDS ORDERED: IBUPROFEN 400 MG TABLET (FP) PO PRN (21:55)
[2017-09-18] MEDS ORDERED: hydrOXYzine PAMOATE 50 MG CAPSULE (FP) PO PRN (21:55)
[2017-09-18] MEDS ORDERED: LOPERAMIDE HCL 2 MG CAPSULE PO PRN (21:55)
[2017-09-18] MEDS ORDERED: ACETAMINOPHEN 325 MG TABLET (FP) PO PRN (21:55)
[2017-09-18] MEDS ORDERED: MAG HYDROX/AL HYDROX/SIMETH 30 ML UNIT-DOSE CUP PO PRN (21:55)
[2017-09-18] MEDS ORDERED: NICOTINE POLACRILEX 2 MG GUM BC PRN (21:55)
[2017-09-18] MEDS ORDERED: MAGNESIUM HYDROX 2400MG/30ML ORAL SUSPENSION 30 ML CUP PO PRN (21:55)
[2017-09-18] MEDS ORDERED: guaiFENesin/D-METHORPHAN HB 10 ML UNIT-DOSE CUPS PO PRN (21:55)
[2017-09-18] MEDS ORDERED: P-EPHED 60MG/TRIPROLIDI 2.5MG TABLET PO PRN (21:55)
[2017-09-18] MEDS ORDERED: MENTHOL/PHENOL 1 EACH UD MM PRN (21:55)
[2017-09-18] MEDS ORDERED: chlordiazePOXIDE HCL 25 MG CAPSULE PO PRN (21:55)
[2017-09-18] MEDS: chlordiazePOXIDE HCL 25 MG CAPSULE PO SCH (23:31)
[2017-09-18] MEDS: THIAMINE HCL 100 MG TABLET (FP) PO SCH (23:32)
[2017-09-19] MEDS: chlordiazePOXIDE HCL 25 MG CAPSULE PO SCH ×4 (05:23→22:22)
[2017-09-19] MEDS: metFORMIN HCL 500 MG TABLET (FP) PO SCH ×2 (06:22→17:25)
[2017-09-19 10:06] LABS: HEMATOCRIT 28.8 % (35.4-49); HEMOGLOBIN 9.9 GM/dL (11.7-16.9); MCH 33.6 pg (25.7-33.7); MCHC 34.4 g/dl (32.0-35.9); MEAN CELL VOLUME 97.7 fl (80-96); MEAN PLT VOLUME 7.5 fl (7.5-11.1); PLATELET COUNT 182 K/MM3 (134-434); RBC 2.94 M/mm3 (4.00-5.60); RDW 17.4 % (11.9-15.9); WHITE BLOOD COUNT 2.4 K/mm3 (4.0-10.0)
[2017-09-19 10:18] LABS: CHLORIDE 103 mmol/L (98-107); POTASSIUM 3.3 mmol/L (3.5-5.1); SODIUM 140 mmol/L (136-145)
[2017-09-19] MEDS: PRENATAL VITAMINS W/ FOLIC ACID TABLET (FP) PO SCH (10:27)
[2017-09-19 10:37] LABS: ALBUMIN 3.5 g/dl (3.4-5.0); ALK PHOS 74 U/L (45-117); ANION GAP 14 (8-16); BILIRUBIN,TOTAL 2.4 mg/dL (0.2-1.0); BLOOD UREA NITROGEN 6 mg/dL (7-18); CALCIUM 7.8 mg/dL (8.5-10.1); CO2 23 mmol/L (21-32); CREATININE 0.7 mg/dL (0.7-1.3); GLUCOSE,RANDOM 130 mg/dL (74-106); SGOT/AST 42 U/L (15-37); SGPT/ALT 33 U/L (12-78); TOT PROT 6.7 g/dl (6.4-8.2)
--- NOTE | 2017-09-19 12:24 | EKG ---
Test Reason : Blood Pressure : / mmHG Vent. Rate : 095 BPM Atrial Rate : 095 BPM P-R Int : 184 ms QRS Dur : 090 ms QT Int : 376 ms P-R-T Axes : 076 063 062 degrees QTc Int : 472 ms SINUS RHYTHM WITH OCCASIONAL PREMATURE VENTRICULAR COMPLEXES OTHERWISE NORMAL ECG WHEN COMPARED WITH ECG OF 18-SEP-2017 23:56, NO SIGNIFICANT CHANGE WAS FOUND Confirmed by MD DMITRIY, JAKY ([id number]) on 09/19/2017 12:24:35 PM Referred By: Confirmed By:JAKY IZAGUIRRE MD
--- NOTE | 2017-09-19 12:24 | EKG ---
Test Reason : Blood Pressure : / mmHG Vent. Rate : 122 BPM Atrial Rate : 122 BPM P-R Int : 134 ms QRS Dur : 094 ms QT Int : 340 ms P-R-T Axes : 079 060 064 degrees QTc Int : 484 ms SINUS TACHYCARDIA WITH OCCASIONAL PREMATURE VENTRICULAR COMPLEXES OTHERWISE NORMAL ECG WHEN COMPARED WITH ECG OF 14-AUG-2017 01:30, PREMATURE VENTRICULAR COMPLEXES ARE NOW PRESENT Confirmed by MD DMITRIY, JAKY ([id number]) on 09/19/2017 12:24:40 PM Referred By: Confirmed By:JAKY IZAGUIRRE MD
--- NOTE | 2017-09-19 17:06 | PN ---
[facility] CIWA - CIWA Score Nausea/Vomitin-No Nausea/No Vomiting Muscle Tremors: None Anxiety: 4-Mod. Anxious/Guarded Agitation: 2 Paroxysmal Sweats: 3 Orientation: 0-Oriented Tacttile Disturbances: 2-Mild Itch/Numbness/Burn Auditory Disturbances: 0-None Visual Disturbances: 2-Mild Sensitivity Headache: 4-Moderately Severe CIWA-Ar Total Score: 17 BHS Progress Note (SOAP) Subjective: Interrupted Sleep, H/A, Diarrhea. Objective: PT. A & O X 3, OBSERVED AMBULATING ON UNIT. NO ACUTE DISTRESS. 09/19/17 17:01 Vital Signs Temperature 98 F 09/19/17 13:25 Pulse Rate 76 09/19/17 13:25 Respiratory Rate 20 09/19/17 13:25 Blood Pressure 126/84 09/19/17 13:25 O2 Sat by Pulse Oximetry (%) Laboratory Tests 09/18/17 09/19/17 09/19/17 22:18 05:22 07:40 WBC 2.4 L D RBC 2.94 L Hgb 9.9 L D Hct 28.8 L MCV 97.7 H D MCH 33.6 MCHC 34.4 RDW 17.4 H D Plt Count 182 D MPV 7.5 Sodium Potassium Chloride Carbon Dioxide Anion Gap BUN Creatinine Creat Clearance w eGFR POC Glucometer 213 159 Random Glucose Calcium Total Bilirubin AST ALT Alkaline Phosphatase Total Protein Albumin RPR Titer 09/19/17 09/19/17 09/19/17 07:40 07:40 16:29 WBC RBC Hgb Hct MCV MCH MCHC RDW Plt Count MPV Sodium 140 Potassium 3.3 L Chloride 103 Carbon Dioxide 23 Anion Gap 14 BUN 6 L Creatinine 0.7 D Creat Clearance w eGFR > 60 POC Glucometer 150 Random Glucose 130 H Calcium 7.8 L Total Bilirubin 2.4 H D AST 42 H ALT 33 D Alkaline Phosphatase 74 Total Protein 6.7 Albumin 3.5 RPR Titer Nonreactive LABS NOTED. HCV AB, UA RESULTS PENDING. 09/19/17 17:04 Assessment: 09/19/17 17:02 WITHDRAWAL SYMPTOMS. ANEMIA. HYPOKALEMIA. 09/19/17 17:05 Plan: CONTINUE DETOX. K-DUR, 20 MEQ PO BID. INCREASE DAILY PO FLUID INTAKE.
[2017-09-19] MEDS: THIAMINE HCL 100 MG TABLET (FP) PO SCH (22:21)
[2017-09-20] MEDS: chlordiazePOXIDE HCL 25 MG CAPSULE PO SCH ×3 (05:47→17:08)
[2017-09-20] MEDS: POTASSIUM CHLORIDE TABS 20 MEQ TABLET.ER (FP) PO SCH ×2 (07:41→13:05)
[2017-09-20] MEDS: metFORMIN HCL 500 MG TABLET (FP) PO SCH ×2 (07:41→17:08)
[2017-09-20] MEDS: PRENATAL VITAMINS W/ FOLIC ACID TABLET (FP) PO SCH (10:15)
--- NOTE | 2017-09-20 15:24 | PN ---
[facility] CIWA - CIWA Score Nausea/Vomitin-Int. Nausea w/Dry Heave Muscle Tremors: 3 Anxiety: 3 Agitation: 3 Paroxysmal Sweats: 3 Orientation: 0-Oriented Tacttile Disturbances: 1-Very Mild Itch/Numbness Auditory Disturbances: 0-None Visual Disturbances: 0-None Headache: 2-Mild CIWA-Ar Total Score: 19 BHS Progress Note (SOAP) Subjective: Nausea, headache, interrupted sleep Objective: 09/20/17 15:23 Last Vital Signs Temp Pulse Resp BP Pulse Ox 99.1 F 104 H 16 134/85 09/20/17 14:34 09/20/17 14:34 09/20/17 14:34 09/20/17 14:34 Laboratory Tests 09/18/17 09/19/17 09/19/17 22:18 05:22 07:40 WBC RBC Hgb Hct MCV MCH MCHC RDW Plt Count MPV Sodium Potassium Chloride Carbon Dioxide Anion Gap BUN Creatinine Creat Clearance w eGFR POC Glucometer 213 159 Random Glucose Calcium Total Bilirubin AST ALT Alkaline Phosphatase Total Protein Albumin RPR Titer Hepatitis C Antibody <0.1 09/19/17 09/19/17 09/19/17 07:40 07:40 07:40 WBC 2.4 L D RBC 2.94 L Hgb 9.9 L D Hct 28.8 L MCV 97.7 H D MCH 33.6 MCHC 34.4 RDW 17.4 H D Plt Count 182 D MPV 7.5 Sodium 140 Potassium 3.3 L Chloride 103 Carbon Dioxide 23 Anion Gap 14 BUN 6 L Creatinine 0.7 D Creat Clearance w eGFR > 60 POC Glucometer Random Glucose 130 H Calcium 7.8 L Total Bilirubin 2.4 H D AST 42 H ALT 33 D Alkaline Phosphatase 74 Total Protein 6.7 Albumin 3.5 RPR Titer Nonreactive Hepatitis C Antibody 09/19/17 09/20/17 16:29 05:47 WBC RBC Hgb Hct MCV MCH MCHC RDW Plt Count MPV Sodium Potassium Chloride Carbon Dioxide Anion Gap BUN Creatinine Creat Clearance w eGFR POC Glucometer 150 171 Random Glucose Calcium Total Bilirubin AST ALT Alkaline Phosphatase Total Protein Albumin RPR Titer Hepatitis C Antibody Labs noted: K 3.3 Assessment: 09/20/17 15:23 Withdrawal symptoms Noted with hypokalemia Plan: Continue detox Hypokalemia: continue K DUR supplement
[2017-09-20] MEDS: THIAMINE HCL 100 MG TABLET (FP) PO SCH (22:24)
[2017-09-20] MEDS: chlordiazePOXIDE 5 MG CAPSULE PO SCH (22:24)
[2017-09-21] MEDS: chlordiazePOXIDE 5 MG CAPSULE PO SCH ×3 (05:46→17:34)
[2017-09-21] MEDS: metFORMIN HCL 500 MG TABLET (FP) PO SCH ×2 (06:46→17:39)
[2017-09-21] MEDS: POTASSIUM CHLORIDE TABS 20 MEQ TABLET.ER (FP) PO SCH ×2 (06:47→14:30)
[2017-09-21] MEDS: PRENATAL VITAMINS W/ FOLIC ACID TABLET (FP) PO SCH (10:15)
--- NOTE | 2017-09-21 12:29 | PN ---
BHS Progress Note (SOAP) Subjective: Fatigue, Sweating. Objective: PT. A & O X 3. NO ACUTE DISTRESS. 09/21/17 12:26 Vital Signs Temperature 97.5 F L 09/21/17 09:31 Pulse Rate 98 H 09/21/17 09:31 Respiratory Rate 20 09/21/17 09:31 Blood Pressure 114/79 09/21/17 09:31 O2 Sat by Pulse Oximetry (%) Laboratory Tests 09/18/17 09/19/17 09/19/17 22:18 05:22 07:40 WBC RBC Hgb Hct MCV MCH MCHC RDW Plt Count MPV Sodium Potassium Chloride Carbon Dioxide Anion Gap BUN Creatinine Creat Clearance w eGFR POC Glucometer 213 159 Random Glucose Calcium Total Bilirubin AST ALT Alkaline Phosphatase Total Protein Albumin RPR Titer Hepatitis C Antibody <0.1 09/19/17 09/19/17 09/19/17 07:40 07:40 07:40 WBC 2.4 L D RBC 2.94 L Hgb 9.9 L D Hct 28.8 L MCV 97.7 H D MCH 33.6 MCHC 34.4 RDW 17.4 H D Plt Count 182 D MPV 7.5 Sodium 140 Potassium 3.3 L Chloride 103 Carbon Dioxide 23 Anion Gap 14 BUN 6 L Creatinine 0.7 D Creat Clearance w eGFR > 60 POC Glucometer Random Glucose 130 H Calcium 7.8 L Total Bilirubin 2.4 H D AST 42 H ALT 33 D Alkaline Phosphatase 74 Total Protein 6.7 Albumin 3.5 RPR Titer Nonreactive Hepatitis C Antibody 09/19/17 09/20/17 09/21/17 16:29 05:47 05:45 WBC RBC Hgb Hct MCV MCH MCHC RDW Plt Count MPV Sodium Potassium Chloride Carbon Dioxide Anion Gap BUN Creatinine Creat Clearance w eGFR POC Glucometer 150 171 127 Random Glucose Calcium Total Bilirubin AST ALT Alkaline Phosphatase Total Protein Albumin RPR Titer Hepatitis C Antibody LABS NOTED. UA RESULTS PENDING. 09/21/17 12:28 Assessment: 09/21/17 12:26 WITHDRAWAL SYMPTOMS. Plan: CONTINUE DETOX. PATIENT CURRENTLY RECEIVING DAILY MVI CONTAINING IRON PART OF DAILY MEDICATION REGIMEN WHILE ADMITTED FOR DETOX. INCREASE DAILY PO FLUID INTAKE.
[2017-09-21] MEDS: THIAMINE HCL 100 MG TABLET (FP) PO SCH (22:03)
[2017-09-21] MEDS: chlordiazePOXIDE HCL 10 MG CAPSULE PO SCH (22:03)
[2017-09-21 23:41] LABS: URINE APPEARANCE CLEAR; URINE BILIRUBIN NEGATIVE (NEGATIVE); URINE BLOOD NEGATIVE (NEGATIVE); URINE COLOR LTYELLOW; URINE GLUCOSE (UA) NEGATIVE (NEGATIVE); URINE KETONE NEGATIVE (NEGATIVE); URINE LEUK ESTERASE NEGATIVE (NEGATIVE); URINE NITRITE NEGATIVE (NEGATIVE); URINE PROTEIN NEGATIVE (NEGATIVE); URINE UROBILINOGEN NEGATIVE mg/dL (0.2-1.0)
[2017-09-22] MEDS: POTASSIUM CHLORIDE TABS 20 MEQ TABLET.ER (FP) PO SCH (05:16)
[2017-09-22] MEDS: chlordiazePOXIDE HCL 10 MG CAPSULE PO SCH (05:16)
[2017-09-22 06:02] VITALS: BP 110/67; PULSE 93; TEMP 97.7
[2017-09-22] MEDS: metFORMIN HCL 500 MG TABLET (FP) PO SCH (07:07)
--- NOTE | 2017-09-22 16:48 | DS ---
[facility] Detox Discharge Summary Admission Date: 09/18/17 Discharge Date: 09/22/17 - History Present History: Alcohol Dependence Additional Comments: [facility] (CABRERA PAIZ N.Jimbo) FOR AFTERCARE. PATIENT WAS DISCHARGED FROM DETOX UNIT IN STABLE MEDICAL CONDITION. Pertinent Past History: Nicotine Dependence, Type II DM. - Physical Exam Results Vital Signs: Vital Signs Temperature 97.7 F 09/22/17 06:01 Pulse Rate 93 H 09/22/17 06:01 Respiratory Rate 09/22/17 06:01 Blood Pressure 110/67 09/22/17 06:01 O2 Sat by Pulse Oximetry (%) Pertinent Admission Physical Exam Findings: WITHDRAWAL SYMPTOMS. Laboratory Tests 09/18/17 09/19/17 09/19/17 22:18 05:22 07:40 WBC RBC Hgb Hct MCV MCH MCHC RDW Plt Count MPV Sodium Potassium Chloride Carbon Dioxide Anion Gap BUN Creatinine Creat Clearance w eGFR POC Glucometer 213 159 Random Glucose Calcium Total Bilirubin AST ALT Alkaline Phosphatase Total Protein Albumin Urine Color Urine Appearance Urine pH Ur Specific Recluse Urine Protein Urine Glucose (UA) Urine Ketones Urine Blood Urine Nitrite Urine Bilirubin Urine Urobilinogen Ur Leukocyte Esterase RPR Titer Hepatitis C Antibody <0.1 09/19/17 09/19/17 09/19/17 07:40 07:40 07:40 WBC 2.4 L D RBC 2.94 L Hgb 9.9 L D Hct 28.8 L MCV 97.7 H D MCH 33.6 MCHC 34.4 RDW 17.4 H D Plt Count 182 D MPV 7.5 Sodium 140 Potassium 3.3 L Chloride 103 Carbon Dioxide 23 Anion Gap 14 BUN 6 L Creatinine 0.7 D Creat Clearance w eGFR > 60 POC Glucometer Random Glucose 130 H Calcium 7.8 L Total Bilirubin 2.4 H D AST 42 H ALT 33 D Alkaline Phosphatase 74 Total Protein 6.7 Albumin 3.5 Urine Color Urine Appearance Urine pH Ur Specific Recluse Urine Protein Urine Glucose (UA) Urine Ketones Urine Blood Urine Nitrite Urine Bilirubin Urine Urobilinogen Ur Leukocyte Esterase RPR Titer Nonreactive Hepatitis C Antibody 09/19/17 09/20/17 09/21/17 16:29 05:47 05:45 WBC RBC Hgb Hct MCV MCH MCHC RDW Plt Count MPV Sodium Potassium Chloride Carbon Dioxide Anion Gap BUN Creatinine Creat Clearance w eGFR POC Glucometer 150 171 127 Random Glucose Calcium Total Bilirubin AST ALT Alkaline Phosphatase Total Protein Albumin Urine Color Urine Appearance Urine pH Ur Specific Recluse Urine Protein Urine Glucose (UA) Urine Ketones Urine Blood Urine Nitrite Urine Bilirubin Urine Urobilinogen Ur Leukocyte Esterase RPR Titer Hepatitis C Antibody 09/21/17 09/21/17 17:38 22:47 WBC RBC Hgb Hct MCV MCH MCHC RDW Plt Count MPV Sodium Potassium Chloride Carbon Dioxide Anion Gap BUN Creatinine Creat Clearance w eGFR POC Glucometer 204 Random Glucose Calcium Total Bilirubin AST ALT Alkaline Phosphatase Total Protein Albumin Urine Color Ltyellow Urine Appearance Clear Urine pH 6.0 Ur Specific Recluse 1.012 Urine Protein Negative Urine Glucose (UA) Negative Urine Ketones Negative Urine Blood Negative Urine Nitrite Negative Urine Bilirubin Negative Urine Urobilinogen Negative Ur Leukocyte Esterase Negative RPR Titer Hepatitis C Antibody LABS NOTED. - Treatment Hospital Course: Detox Protocol Followed, Detoxed Safely, Responded well, Discharged Condition Good Patient has Accepted a Rehab Referral to: PT. REFERRED TO [facility] ([place]UTH, N..). 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
== END 2017-09-22 10:04 | disposition home or self-care (01) | DRG 775 ==
LOC: YASAS 20:13 → Y3N 22:18
PROVIDERS: ADMIT Internal Medicine; ATTEND Internal Medicine
PROC: HZ2ZZZZ Detoxification Services for Substance Abuse Treatment (ICD-10-PCS; principal; 2017-09-18)
DX: F10.230 Alcohol dependence with withdrawal, uncomplicated (principal); E11.9 Type 2 diabetes mellitus without complications; E87.6 Hypokalemia; D64.9 Anemia, unspecified; Z79.84 Long term (current) use of oral hypoglycemic drugs; Z87.891 Personal history of nicotine dependence
CPT/HCPCS: 36415; 80053; 81003; 82962; 85027; 86593; 86803; 93005; 93010

== ENCOUNTER 2017-10-25 14:48 | Emergency (ER) | payer OTHER ==
[2017-10-25 14:58] VITALS: BP 158/103; PULSE 124; TEMP 98.1; BMI 21.7
--- NOTE | 2017-10-25 15:27 | PDOC ---
Attending Attestation - Resident Resident Name: Galdino Berger - ED Attending Attestation I have performed the following: I have examined & evaluated the patient, The case was reviewed & discussed with the resident, I agree w/resident's findings & plan, Exceptions are as noted - HPI HPI: 10/25/17 15:24 56y M hx of DM, HTN, b/l foot edema for the psat month. Pt was at [facility] for an abscesss, noted increased swelling after he was d/c 1 months ago. Pt noted the swelling has been improved since discharge, but foot edema wasnt getting better so came to [facility] for evaluation. Pt denies any numbness/tingling, weakenss, fever/chills, sob, donnelly, orthopnea. Pt notes that he walks very frequently, but that is typical for him pt notes he drinks etoh frquently, last had a large can of beer approximately 11 AM. States that he drinks approximately 3 times a week but he did drink a couple beers and some vodka yesterday. All other systems reviewed and are negative except noted in HPI The patient's vitals are noted for mild tachycardia to 125 and the patient was also noted hypertensive GENERAL: The patient is awake, alert, and fully oriented, Nontoxic - in no acute distress, atremulous HEAD: Normocephalic, atraumatic. EYES: extraocular movements intact, sclera anicteric, conjunctiva clear. ENT: Normal voice, Moist mucous membranes, no tongue fasciculations noted NECK: Normal range of motion, supple LUNGS: Breath sounds equal, clear to auscultation bilaterally. No wheezes, no rhonchi, no rales. HEART: tachycardic w/o m/r/g ABDOMEN: Soft, nontender, No guarding, no rebound. No CVA tenderness EXTREMITIES: neg homans, no calf tenderness, +1 pitting edema in b/l LE without erythema, induraiton, warmth NEUROLOGICAL: No facial assymetry, Normal speech, moving all 4 extremities sspontaneously and symmetrically PSYCH: Normal mood, normal affect. SKIN: Warm, Dry, normal turgor, Suspect that the patient's mild hypertension, tachycardia may be secondary to dehydration versus possible mild alcohol withdrawal Will give the patient some food, oral hydration, will check the patient's CBC, CMP to rule out metabolic derangements, renal sufficiency, liver failure. No signs to suggest CHF 10/25/17 17:03 pts lbas unremarkble pt still tachycardic will put IV and give pt fluids for hydration will also give him 5mg diazepam signed out to evening team to reassess his HR - Physicial Exam PE: 10/26/17 20:29 see above - Medical Decision Making 10/26/17 20:29 anjum tom
--- NOTE | 2017-10-25 15:43 | PDOC ---
History of Present Illness - General Chief Complaint: Edema Stated Complaint: SWOLLEN LEGS AND FEET Time Seen by Provider: 10/25/17 15:13 - History of Present Illness Initial Comments: 10/25/17 15:38 The patient is a 56 year old male with a history of HTN, HLD, DM, GERD who presents for evaluation of bilateral lower extremity swelling. The patient reports that he had a recent internal anal abscess [facility]2 months ago. He states that after discharge he developed bilateral lower extremity swelling that has not improved prompting his presentation to the ED for evaluation. He states that the swelling is painful and makes it difficult to walk. He otherwise denies any fevers, chills, SOB, chest pain, nausea, vomiting, abdominal pain, or changes with urination or bowel movements. The patient does not that he drinks frequently with his last drink 1 day ago. Past History - Past Medical History Allergies/Adverse Reactions: Allergies Allergy/AdvReac Type Severity Reaction Status Date / Time No Known Allergies Allergy Verified 10/25/17 14:54 Home Medications: Ambulatory Orders Metformin HCl 500 mg PO BIDAC #30 tablet 02/26/16 Anemia: No Asthma: No Cancer: No Cardiac Disorders: No CVA: No COPD: No CHF: No DVT: No Dementia: No Diabetes: Yes (ON METFORMIN) GI Disorders: No Disorders: No HTN: No Hypercholesterolemia: No Kidney Stones: No Liver Disease: No Seizures: No Thyroid Disease: No - Surgical History Abdominal Surgery: No Appendectomy: No Cardiac Surgery: No Cholecystectomy: No Lung Surgery: No Neurologic Surgery: No Orthopedic Surgery: No - Reproductive History Testicular Surgery: No - Suicide/Smoking/Psychosocial Hx Smoking History: Former smoker Have you smoked in the past 12 months: Yes Number of Cigarettes Smoked Daily: 1 Cigars Per Day: 0 Information on smoking cessation initiated: No 'Breaking Loose' booklet given: 09/18/17 Hx Alcohol Use: Yes Drug/Substance Use Hx: Yes Substance Use Type: Alcohol Hx Substance Use Treatment: Yes ([facility]) Review of Systems - Review of Systems Comments:: 10/25/17 15:42 Constitutional: No fevers, chills, fatigue, malaise HEENT: No Rhinorrhea, nasal congestion, visual changes Cardiovascular: No chest pain, syncope, palpitations, lightheadedness Respiratory: No Cough, SOB, Hemoptysis, Gastrointestinal: No Abdominal pain, Nausea, Vomiting, Constipation, Diarrhea, Melena Genitourinary: No Dysuria, Frequency, Urgency, Hesitancy, Hematuria, Flank pain Musculoskeletal: No Myalgia, arthralgia Skin: Bilateral lower extremity swelling. No rashes, itching, bruising, pallor Neurologic: No Headache, Dizziness, Numbness, Weakness, or Tingling Psychiatric: No Hallucinations. No SI or HI *Physical Exam - Vital Signs Last Vital Signs Temp Pulse Resp BP Pulse Ox 98.1 F 124 H 18 158/103 100 10/25/17 14:54 10/25/17 14:54 10/25/17 14:54 10/25/17 14:54 10/25/17 14:54 - Physical Exam Comments: 10/25/17 15:43 General Appearance: Nourished. No Apparent Distress HEENT: EOMI, KEV. No Pharyngeal Erythema, Tonsillar Exudate, Tonsillar Erythema Neck: No Cervical Lymphadenopathy Respiratory/Chest: Lungs Clear, Normal Breath Sounds. No Crackles, Rales, Rhonchi, Wheezing Cardiovascular: Regular Rhythm, Regular Rate. No Murmur, Gallops, Rubs Gastrointestinal/Abdominal: Normal Bowel Sounds, Soft. No Guarding, Rebound, Tenderness Musculoskeletal: No CVA Tenderness Extremity: Bilateral 2+ pitting edema to the feet without erythema or tenderness to palpation. Normal Capillary Refill Integumentary: Normal Color, Dry, Warm Neurologic: Fully Oriented, Alert, Normal Mood/Affect, Normal Response, Heart Score/ECG Review #1 ECG reviewed & interpreted by me at: 18:33 (New t-wave inversions in leads v2-v3 ) General ECG Interpretation: Sinus Rhythm, Normal Rate, Normal Intervals, No acute ischemic changes Compared to previous ECG there are: Changes noted (New t-wave inversions in leads v2-v3) ED Treatment Course - LABORATORY CBC & Chemistry Diagram: 10/25/17 16:07 10/25/17 16:07 Medical Decision Making - Medical Decision Making 10/25/17 15:46 The patient is a 56 year old male with a history of HTN, HLD, DM, GERD who presents for evaluation of bilateral lower extremity swelling. Differential includes but is not limited to: Depended Edema, Fluid overload, infectious, metabolic derangement. Given the patient's physical exam, it is likely the patient has depended edema. However, we will obtain a cbc, cmp, bnp to evaluate further. The patient is tachycardic on presentation likely due to dehydration vs alcohol withdrawel. We will orally hydrate here in the ER. We will continue to monitor and reassess. 10/25/17 18:25 CBC, cmp, bnp are unremarkable. EKG demonstrates some new t-wave inversions in leads v2-v3. We discussed the need for further cardiac work up with the patient who wishes to leave AMA due to needing to catch his bus home. We discussed the risk involved including but not limited to: , [place], permanent disability and the patient continued to wish to leave AMA. The patient informed us that he will return to the ER in the morning to be worked up further for his EKG changes. The patient is asymptomatic at the time of departure and ambulatory without difficulty. *DC/Admit/Observation/Transfer Diagnosis at time of Disposition: Edema Qualifiers: Edema type: unspecified Qualified Code(s): R60.9 - Edema, unspecified - Discharge Dispostion Disposition: AGAINST MEDICAL ADVICE Condition at time of disposition: Stable - Referrals - Patient Instructions - Post Discharge Activity
[2017-10-25 16:18] LABS: MCH 34.8 pg (25.7-33.7); WHITE BLOOD COUNT 4.3 K/mm3 (4.0-10.0)
[2017-10-25 16:27] LABS: BASO % 2.5 % (0-2.0); EOS % 0.6 % (0-4.5); HEMATOCRIT 31.5 % (35.4-49); LYMPH % 50.7 % (8-40); MCHC 34.9 g/dl (32.0-35.9); MEAN CELL VOLUME 99.8 fl (80-96); MEAN PLT VOLUME 6.9 fl (7.5-11.1); MONO % 7.9 % (3.8-10.2); NEUT % 38.3 % (42.8-82.8); PLATELET COUNT 497 K/MM3 (134-434); RBC 3.15 M/mm3 (4.00-5.60); RDW 17.2 % (11.9-15.9)
[2017-10-25 16:59] LABS: ALBUMIN 4.2 g/dl (3.4-5.0); ANION GAP 11 (8-16); BILIRUBIN,TOTAL 2.4 mg/dL (0.2-1.0); BLOOD UREA NITROGEN 7 mg/dL (7-18); CALCIUM 8.6 mg/dL (8.5-10.1); CHLORIDE 103 mmol/L (98-107); CO2 26 mmol/L (21-32); CREATININE 0.9 mg/dL (0.7-1.3); GLUCOSE,RANDOM 124 mg/dL (74-106); POTASSIUM 3.6 mmol/L (3.5-5.1); SGOT/AST 37 U/L (15-37); SGPT/ALT 31 U/L (12-78); SODIUM 140 mmol/L (136-145)
[2017-10-25 17:01] LABS: ALK PHOS 89 U/L (45-117); N-TERMINAL BNP 562.42 pg/ml (5-125)
[2017-10-25] MEDS ORDERED: diazePAM 5 MG TABLET PO ONE (17:01)
[2017-10-25] MEDS ORDERED: SODIUM CHLORIDE 1,000 ML IV ONE (17:02)
[2017-10-25] MEDS ORDERED: diazePAM 5 MG TABLET ONE (18:15)
--- NOTE | 2017-10-26 10:45 | EKG ---
Test Reason : Blood Pressure : / mmHG Vent. Rate : 112 BPM Atrial Rate : 112 BPM P-R Int : 174 ms QRS Dur : 092 ms QT Int : 354 ms P-R-T Axes : 066 061 090 degrees QTc Int : 483 ms SINUS TACHYCARDIA MARKED T WAVE ABNORMALITY, CONSIDER ANTERIOR ISCHEMIA ABNORMAL ECG WHEN COMPARED WITH ECG OF 19-SEP-2017 06:18, PREMATURE VENTRICULAR COMPLEXES ARE NO LONGER PRESENT T WAVE INVERSION NOW EVIDENT IN ANTERIOR LEADS VENT. RATE HAS INCREASED Confirmed by QUINTON RODRIGUEZ MD ([id number]) on 10/26/2017 10:45:06 AM Referred By: Confirmed By:QUINTON RODRIGUEZ MD
== END 2017-10-25 18:33 | disposition left against medical advice (07) ==
LOC: JER 14:48
DX: R60.9 Edema, unspecified (principal); I10 Essential (primary) hypertension; E11.9 Type 2 diabetes mellitus without complications; E78.5 Hyperlipidemia, unspecified; K21.9 Gastro-esophageal reflux disease without esophagitis; Z87.891 Personal history of nicotine dependence
CPT/HCPCS: 36415; 80053; 83880; 85025; 93005; 93010; 99283-25

== ENCOUNTER 2017-11-25 17:50 | Emergency (ER) | payer OTHER ==
[2017-11-25 18:01] VITALS: BMI 22.6
--- NOTE | 2017-11-25 18:08 | PDOC ---
History of Present Illness - General History Source: Patient Exam Limitations: No Limitations - History of Present Illness Initial Comments: 11/25/17 18:19 The patient is a 57 year old male with history of NIDDM (on Metformin 500 BID, not compliant with medications, last took medications apprx. 1 week ago), who presents to the ED complaining of approximately 3 weeks of pounding palpitations and generalized weakness. Palpitations are not associated with exertion. He also reports recent diarrhea. Denies polyuria. Denies fever, chills , or cough. Denies abdominal pain, nausea, or vomiting. Denies hematuria or dysuria. PCP: Dr. Del Valderrama (has never seen him) <Karen Andres - Last Filed: 11/25/17 21:18> <Hortensia Canela - Last Filed: 11/25/17 22:38> - General Chief Complaint: Palpitations Stated Complaint: PALPITATIONS Time Seen by Provider: 11/25/17 18:08 Past History <Karen Andres - Last Filed: 11/25/17 21:18> - Past Medical History Anemia: No Asthma: No Cancer: No Cardiac Disorders: No CVA: No COPD: No CHF: No DVT: No Dementia: No Diabetes: Yes (ON METFORMIN) GI Disorders: No Disorders: No HTN: No Hypercholesterolemia: No Kidney Stones: No Liver Disease: No Seizures: No Thyroid Disease: No - Surgical History Abdominal Surgery: No Appendectomy: No Cardiac Surgery: No Cholecystectomy: No Lung Surgery: No Neurologic Surgery: No Orthopedic Surgery: No - Reproductive History Testicular Surgery: No - Suicide/Smoking/Psychosocial Hx Smoking History: Former smoker Have you smoked in the past 12 months: Yes Number of Cigarettes Smoked Daily: 1 Cigars Per Day: 0 Information on smoking cessation initiated: No 'Breaking Loose' booklet given: 09/18/17 Hx Alcohol Use: Yes Drug/Substance Use Hx: Yes Substance Use Type: Alcohol Hx Substance Use Treatment: Yes ([facility]) <Hortensia Canela - Last Filed: 11/25/17 22:38> - Past Medical History Allergies/Adverse Reactions: Allergies Allergy/AdvReac Type Severity Reaction Status Date / Time No Known Allergies Allergy Verified 11/25/17 17:58 Home Medications: Ambulatory Orders Metformin HCl 500 mg PO BIDAC #30 tablet 02/26/16 Review of Systems - Review of Systems Able to Perform ROS?: Yes Comments:: 11/25/17 18:25 GENERAL/CONSTITUTIONAL: +Generalized weakness. No fever or chills. HEAD, EYES, EARS, NOSE AND THROAT: No change in vision. No ear pain or discharge. No sore throat. CARDIOVASCULAR: +Palpitations. No chest pain or shortness of breath. RESPIRATORY: No cough, wheezing, or hemoptysis. GASTROINTESTINAL: +Loose stools. No abdominal pain, vomiting, diarrhea or constipation. GENITOURINARY: No dysuria, frequency, or change in urination. MUSCULOSKELETAL: No joint or muscle swelling or pain. No neck or back pain. SKIN: No rash NEUROLOGIC: No headache, vertigo, loss of consciousness, or change in strength/ sensation. ENDOCRINE: No increased thirst. No abnormal weight change. HEMATOLOGIC/LYMPHATIC: No anemia, easy bleeding, or history of blood clots. ALLERGIC/IMMUNOLOGIC: No hives or skin allergy. <Karen Andres - Last Filed: 11/25/17 21:18> *Physical Exam - Vital Signs Last Vital Signs Temp Pulse Resp BP Pulse Ox 97.6 F 113 H 17 129/67 99 11/25/17 17:58 11/25/17 17:58 11/25/17 17:58 11/25/17 17:58 11/25/17 17:58 - Physical Exam Comments: 11/25/17 18:29 GENERAL: Awake, alert, and fully oriented, in no acute distress. Thin body habitus. HEAD: No signs of trauma EYES: PERRLA, EOMI, sclera anicteric, conjunctiva clear ENT: +Dry mucous membranes. Auricles normal inspection, hearing grossly normal, nares patent, oropharynx clear without exudates. NECK: Normal ROM, supple, no lymphadenopathy, JVD, or masses. LUNGS: Breath sounds equal, clear to auscultation bilaterally. No wheezes, and no crackles HEART: Tachycardic rate, regular rhythm, normal S1 and S2, no murmurs, rubs or gallops ABDOMEN: Soft, nontender, normoactive bowel sounds. No guarding, no rebound. No masses EXTREMITIES: Normal range of motion, no edema. No clubbing or cyanosis. No cords, erythema, or tenderness NEUROLOGICAL: Cranial nerves II through XII grossly intact. Normal speech, normal gait SKIN: Warm, Dry, normal turgor, no rashes or lesions noted. <Karen Andres - Last Filed: 11/25/17 21:18> - Vital Signs Last Vital Signs Temp Pulse Resp BP Pulse Ox 97.6 F 113 H 17 129/67 99 11/25/17 17:58 11/25/17 17:58 11/25/17 17:58 11/25/17 17:58 11/25/17 17:58 <Hortensia Canela - Last Filed: 11/25/17 22:38> Heart Score/ECG Review - ECG Intrepretation Comment:: 11/25/17 19:35 sinus tach at 105, nl axis, nl interval, pvc, no acute st/t wave findings <Hortensia Canela - Last Filed: 11/25/17 22:38> ED Treatment Course - LABORATORY CBC & Chemistry Diagram: 11/25/17 18:34 11/25/17 18:34 <Karen Andres - Last Filed: 11/25/17 21:18> - LABORATORY CBC & Chemistry Diagram: 11/25/17 18:34 11/25/17 18:34 <Hortensia Canela - Last Filed: 11/25/17 22:38> Medical Decision Making - Medical Decision Making 11/25/17 21:18 Chest x-ray, read and reviewed by Dr. Sheikh Impression: No evidence of acute infiltrate or pleural effusion. A 5-6 mm left lower lung nodular opacity is unchanged in size- please correlate with nonemergency outpatient chest CT. <Karen Andres - Last Filed: 11/25/17 21:18> - Medical Decision Making 11/25/17 19:33 a/p: 57yo male with hx of DM with wt loss, cough, palpitations -concern for uncontrolled DM - noncompliance with metformin - only taking it 1x per week -concern for pneumonia given cough recently in a DM -will obtain labs, ekg, cxr, trop -no cp -c/o sob with the cough -will obtain ua -will give ivf hydration -will monitor and reassess 11/25/17 20:31 re-eval: discussed lab results with the patient pt admits to increased ETOH use recently will replace magnesium will hydrate negative trop, will repeat trop 11/25/17 22:31 re-eval: pt sleeping, easily arousable no pain at this time states feeling better no SOB pt denies cp or palpitations at this time pt stable for d/c to home discussed all reasons to return to the ED and need for follow up with PMD and cardiology 2 trops negative discussed all lab results and stopping etoh use <Hortensia Canela - Last Filed: 11/25/17 22:38> *DC/Admit/Observation/Transfer - Attestations Scribe Attestion: 11/25/17 18:32 Documentation prepared by Karen Andres, acting as chief medical technologist for Hortensia Canela DO. <Karen Andres - Last Filed: 11/25/17 21:18> - Discharge Dispostion Admit: No - Attestations Physician Attestion: 11/25/17 20:41 I, Dr. Hortensia Canela DO, attest that this document has been prepared under my direction and personally reviewed by me in its entirety. I further attest, that it accurately reflects all work, treatment, procedures and medical decision -making performed by me. <Hortensia Canela - Last Filed: 11/25/17 22:38> Diagnosis at time of Disposition: Noncompliance with medication regimen, Alcohol use disorder, Solitary pulmonary nodule, Palpitations, Dyspnea, Dehydration, Thrombocytosis - Discharge Dispostion Condition at time of disposition: Stable - Referrals Referrals: Del Valderrama [Primary Care Provider] - Cr Cohen MD [Staff Physician] - - Patient Instructions Printed Discharge Instructions: DI for Palpitations, DI for Pulmonary Nodule, DI for Shortness of Breath, DI for Alcohol Abuse Additional Instructions: Please make an appointment to see your PMD and please call the manhole stripper to arrange for follow up. Please return to the ED with any further concerns. Please take your metformin.
[2017-11-25] MEDS ORDERED: SODIUM CHLORIDE 0.9% 1000 ML INFUS.BAG IV ONE ×2 (18:20→20:09)
[2017-11-25 19:00] LABS: BASO % 0.7 % (0-2.0); EOS % 0.3 % (0-4.5); HEMATOCRIT 27.7 % (35.4-49); HEMOGLOBIN 9.7 GM/dL (11.7-16.9); LYMPH % 58.7 % (8-40); MCH 36.3 pg (25.7-33.7); MCHC 35.2 g/dl (32.0-35.9); MEAN CELL VOLUME 103.1 fl (80-96); MEAN PLT VOLUME 7.3 fl (7.5-11.1); MONO % 11.2 % (3.8-10.2); NEUT % 29.1 % (42.8-82.8); PLATELET COUNT 767 K/MM3 (134-434); RBC 2.68 M/mm3 (4.00-5.60); RDW 15.7 % (11.9-15.9); WHITE BLOOD COUNT 3.7 K/mm3 (4.0-10.0)
[2017-11-25 19:13] LABS: INR 1.17 (0.82-1.09); PROTHROMBIN TIME (PATIENT) 13.2 SEC (9.98-11.88)
[2017-11-25 19:16] LABS: ACTIVATED PTT 26.5 SECONDS (26.9-34.4)
[2017-11-25 19:31] LABS: ALBUMIN 3.5 g/dl (3.4-5.0); ANION GAP 12 (8-16); BILIRUBIN,TOTAL 2.4 mg/dL (0.2-1.0); BLOOD UREA NITROGEN 10 mg/dL (7-18); CALCIUM 8.4 mg/dL (8.5-10.1); CHLORIDE 101 mmol/L (98-107); CO2 24 mmol/L (21-32); CREATININE 0.9 mg/dL (0.7-1.3); GLUCOSE,RANDOM 229 mg/dL (74-106); MAGNESIUM 1.4 mg/dL (1.8-2.4); POTASSIUM 3.8 mmol/L (3.5-5.1); SGOT/AST 23 U/L (15-37); SGPT/ALT 12 U/L (12-78); SODIUM 137 mmol/L (136-145); TOT PROT 7.5 g/dl (6.4-8.2)
[2017-11-25 19:32] LABS: URINE APPEARANCE CLEAR; URINE BILIRUBIN NEGATIVE (<2.0 mg/dL); URINE BLOOD NEGATIVE (NEGATIVE); URINE COLOR STRAW; URINE GLUCOSE (UA) 2+ (NEGATIVE); URINE KETONE NEGATIVE (NEGATIVE); URINE LEUK ESTERASE NEGATIVE (NEGATIVE); URINE NITRITE NEGATIVE (NEGATIVE); URINE PROTEIN NEGATIVE (NEGATIVE); URINE UROBILINOGEN NEGATIVE mg/dL (0.2-1.0)
[2017-11-25 19:34] LABS: ALK PHOS 81 U/L (45-117)
[2017-11-25] MEDS ORDERED: MAGNESIUM SULF 50% (8.12 MEQ/2 ML-1 GM VIAL) IVPB ONE (20:06)
[2017-11-25] MEDS ORDERED: MAGNESIUM SULF 50% (8.12 MEQ/2 ML-1 GM VIAL) ONE (20:14)
[2017-11-25 23:03] VITALS: BP 126/88; PULSE 94; TEMP 98.2
--- NOTE | 2017-11-26 11:05 | EKG ---
Test Reason : Blood Pressure : / mmHG Vent. Rate : 105 BPM Atrial Rate : 105 BPM P-R Int : 186 ms QRS Dur : 094 ms QT Int : 356 ms P-R-T Axes : 065 053 061 degrees QTc Int : 470 ms SINUS TACHYCARDIA WITH OCCASIONAL PREMATURE VENTRICULAR COMPLEXES OTHERWISE NORMAL ECG WHEN COMPARED WITH ECG OF 25-OCT-2017 17:32, PREMATURE VENTRICULAR COMPLEXES ARE NOW PRESENT T WAVE INVERSION NO LONGER EVIDENT IN ANTERIOR LEADS Confirmed by CHRISTOPH SWARTZ, NAA ([id number]) on 11/26/2017 11:05:43 AM Referred By: Confirmed By:NAA HAWTHORNE MD
== END 2017-11-25 23:32 | disposition home or self-care (01) ==
LOC: JER 17:50
PROC: 3E033GC Introduction of Other Therapeutic Substance into Peripheral Vein, Percutaneous Approach (ICD-10-PCS; principal; 2017-11-25)
PROC: 3E0337Z Introduction of Electrolytic and Water Balance Substance into Peripheral Vein, Percutaneous Approach (ICD-10-PCS; 2017-11-25)
DX: Z91.14 Patient's other noncompliance with medication regimen (principal); F10.20 Alcohol dependence, uncomplicated; R91.1 Solitary pulmonary nodule; D47.3 Essential (hemorrhagic) thrombocythemia
CPT/HCPCS: 36415; 71046-TC-FY; 80053; 81003; 82550; 82962; 83735; 84484; 85025; 85610; 85730; 93005; 93010; 99284-25; J7030

== ENCOUNTER 2018-04-21 20:44 | Inpatient (IN) | payer OTHER ==
[2018-04-21 21:01] VITALS: BMI 19.4
--- NOTE | 2018-04-21 23:53 | HP ---
CIWA Score - CIWA Score Nausea/Vomitin (VOMITING X 2) Muscle Tremors: 4-Moderate,w/Arms Extend Anxiety: 3 Agitation: 3 Paroxysmal Sweats: 1-Minimal Palms Moist Orientation: 0-Oriented Tacttile Disturbances: 0-None Auditory Disturbances: 0-None Visual Disturbances: 0-None Headache: 3-Moderate CIWA-Ar Total Score: 16 Admission ROS S - HPI Chief Complaint: Alcohol withdrawal symptoms Allergies/Adverse Reactions: Allergies Allergy/AdvReac Type Severity Reaction Status Date / Time No Known Allergies Allergy Verified 02/15/18 21:42 History of Present Illness: 57 years old male with a long history of alcohol dependence is seeking admission to detox. Patient was in detox 02/15/2018- 02/19/2018 at [facility]. He reports insignificant period of sobriety. He has medical history of diabetes, anemia, GERD, anxiety and depression. He denies suicide attempt or suicidal ideation at this time. Exam Limitations: No Limitations - Ebola screening Have you traveled outside of the country in the last 21 days: No Have you had contact with anyone from an Ebola affected area: No Have you been sick,other than usual withdrawal symptoms: No Do you have a fever: No - Review of Systems Constitutional: Chills, Malaise, Changes in sleep EENT: reports: No Symptoms Reported Respiratory: reports: No Symptoms reported Cardiac: reports: No Symptoms Reported GI: reports: Diarrhea, Nausea, Poor Appetite, Poor Fluid Intake, Abdominal cramping : reports: No Symptoms Reported Musculoskeletal: reports: No Symptoms Reported Integumentary: reports: Dryness Neuro: reports: Headache, Tremors Endocrine: reports: Increased Urine Psychiatric: reports: Mood/Affect Appropiate, Orientated x3, Anxious, Depressed Other Systems: Reviewed and Negative Patient History - Patient Medical History Hx Anemia: No Hx Asthma: No Hx Chronic Obstructive Pulmonary Disease (COPD): No Hx Cancer: No Hx Cardiac Disorders: No Hx Congestive Heart Failure: No Hx Hypertension: No Hx Hypercholesterolemia: No Hx Pacemaker: No HX Cerebrovascular Accident: No Hx Seizures: No Hx Dementia: No Hx Diabetes: Yes (METFORMIN NON COMPLAINT) Hx Gastrointestinal Disorders: No Hx Liver Disease: No Hx Genitourinary Disorders: No Hx Sexually Transmitted Disorders: No Hx Renal Disease (ESRD): No Hx Thyroid Disease: No Hx Human Immunodeficiency Virus (HIV): No Hx Hepatitis C: No Hx Depression: Yes (Not on medication) Hx Suicide Attempt: No Hx Bipolar Disorder: No Hx Schizophrenia: No Other Medical History: Anxiety - Not on medication - Patient Surgical History Past Surgical History: No Hx Neurologic Surgery: No Hx Cataract Extraction: No Hx Cardiac Surgery: No Hx Lung Surgery: No Hx Abdominal Surgery: No Hx Appendectomy: No Hx Cholecystectomy: No Hx Genitourinary Surgery: No Hx Orthopedic Surgery: No Other Surgical History: RECTAL CYST REMOVAL 08/2017 Anesthesia Reaction: No - PPD History Previous Implant?: Yes Documented Results: Negative w/proof Implanted On Prior [facility] Admission?: Yes Date: 07/29/17 Results: 0MM PPD to be Administered?: No - Reproductive History Patient is a Female of Child Bearing Age (11 -55 yrs old): No (Male) - Smoking Cessation Smoking history: Former smoker Have you smoked in the past 12 months: No Cigars Per Day: 0 Hx Chewing Tobacco Use: No Initiated information on smoking cessation: No - Substance & Tx. History Hx Alcohol Use: Yes Hx Substance Use: No Substance Use Type: Alcohol Hx Substance Use Treatment: Yes ([facility]) - Substances Abused Alcohol Route: Oral Frequency: Daily Amount used: VODKA 1 PINT Age of first use: 15 Date of Last Use: 04/21/18 Family Disease History - Family Disease History Family Disease History: Diabetes: Mother, Other: Father () Admission Physical Exam S - Vital Signs Vital Signs: Vital Signs - 24 hr 04/21/18 20:59 Temperature 98.7 F Pulse Rate 120 H Respiratory 18 Rate Blood Pressure 121/80 - Physical General Appearance: Yes: Moderate Distress, Tremorous, Irritable, Sweating, Anxious HEENTM: Yes: EOMI, Normal ENT Inspection, Normocephalic, Normal Voice, KEV Respiratory: Yes: Lungs Clear, Normal Breath Sounds, No Respiratory Distress Neck: Yes: Supple Breast: Yes: Breast Exam Deferred Cardiology: Yes: Tachycardia Genitourinary: Yes: Within Normal Limits Back: Yes: Normal Inspection Musculoskeletal: Yes: Within Normal Limits Extremities: Yes: Tremors 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 NML intact, Alert Integumentary: Yes: Warm Lymphatic: Yes: Within Normal Limits - Diagnostic (1) Anxiety Current Visit: Yes Status: Chronic (2) Alcohol dependence with uncomplicated withdrawal Current Visit: Yes Status: Chronic (3) Anemia Current Visit: Yes Status: Chronic Qualifiers: Anemia type: unspecified type Qualified Code(s): D64.9 - Anemia, unspecified (4) Depression (emotion) Current Visit: Yes Status: Chronic Qualifiers: Depression Type: dysthymia Qualified Code(s): F34.1 - Dysthymic disorder (5) Diabetes mellitus type II, controlled Current Visit: Yes Status: Chronic Qualifiers: Diabetes mellitus intermission coordinator insulin use: without intermission coordinator use Diabetes mellitus complication status: without complication Qualified Code(s): E11.9 - Type 2 diabetes mellitus without complications (6) GERD (gastroesophageal reflux disease) Current Visit: Yes Status: Chronic Cleared for Admission [facility] - Detox or Rehab S Level of Care: Medically Managed Detox Regimen/Protocol: Librium S Breath Alcohol Content Breath Alcohol Content: 0.260 Urine Drug Screen - Results Drug Screen Negative: Yes
[2018-04-22] MEDS ORDERED: ACETAMINOPHEN 325 MG TABLET (FP) PO PRN (00:04)
[2018-04-22] MEDS ORDERED: chlordiazePOXIDE HCL 25 MG CAPSULE PO ONE (00:04)
[2018-04-22] MEDS ORDERED: MAGNESIUM HYDROX 2400MG/30ML ORAL SUSPENSION 30 ML CUP PO PRN (00:04)
[2018-04-22] MEDS ORDERED: MAGNESIUM CITRATE 300 ML BOTTLE PO PRN (00:04)
[2018-04-22] MEDS ORDERED: P-EPHED 60MG/TRIPROLIDI 2.5MG TABLET PO PRN (00:04)
[2018-04-22] MEDS ORDERED: chlordiazePOXIDE HCL 25 MG CAPSULE PO PRN (00:04)
[2018-04-22] MEDS ORDERED: MENTHOL/PHENOL 1 EACH UD MM PRN (00:04)
[2018-04-22] MEDS ORDERED: guaiFENesin/D-METHORPHAN HB 10 ML UNIT-DOSE CUPS PO PRN (00:04)
[2018-04-22] MEDS ORDERED: IBUPROFEN 400 MG TABLET (FP) PO PRN (00:04)
[2018-04-22] MEDS ORDERED: MAG HYDROX/AL HYDROX/SIMETH 30 ML UNIT-DOSE CUP PO PRN (00:04)
[2018-04-22] MEDS ORDERED: LOPERAMIDE HCL 2 MG CAPSULE PO PRN (00:04)
[2018-04-22] MEDS: metFORMIN HCL 500 MG TABLET (FP) PO SCH ×2 (07:26→17:20)
[2018-04-22] MEDS: chlordiazePOXIDE HCL 25 MG CAPSULE PO SCH ×4 (07:27→22:04)
[2018-04-22] MEDS: PRENATAL VITAMINS W/ FOLIC ACID TABLET (FP) PO SCH (10:22)
--- NOTE | 2018-04-22 11:56 | EKG ---
Test Reason : Blood Pressure : / mmHG Vent. Rate : 111 BPM Atrial Rate : 111 BPM P-R Int : 180 ms QRS Dur : 090 ms QT Int : 340 ms P-R-T Axes : 073 052 065 degrees QTc Int : 462 ms SINUS TACHYCARDIA OTHERWISE NORMAL ECG WHEN COMPARED WITH ECG OF 15-FEB-2018 22:52, PREMATURE VENTRICULAR COMPLEXES ARE NO LONGER PRESENT Confirmed by NAA HAWTHORNE MD ([id number]) on 04/22/2018 11:55:39 AM Referred By: Confirmed By:NAA HAWTHORNE MD
--- NOTE | 2018-04-22 12:49 | CONSULT ---
[facility] Psychiatric Consult - Data Date of interview: 04/22/18 Admission source: [facility] Identifying data: Pt. approached with senior writer and medical students for psychiatric consultation. Pt. refused. Stated, " I do not want to talk to you." Nursing staff informed.
--- NOTE | 2018-04-22 21:08 | PN ---
S CIWA - CIWA Score Nausea/Vomitin-No Nausea/No Vomiting Muscle Tremors: 3 Anxiety: 4-Mod. Anxious/Guarded Agitation: 1-Slight > Activity Paroxysmal Sweats: 3 Orientation: 0-Oriented Tacttile Disturbances: 2-Mild Itch/Numbness/Burn Auditory Disturbances: 0-None Visual Disturbances: 2-Mild Sensitivity Headache: 0-None Present CIWA-Ar Total Score: 15 [facility] Progress Note (SOAP) Subjective: Sweating, Tremors, Anxious. Objective: PATIENT A & O X 2 (UNCERTAIN ABOUT CURRENT DAY / DATE). PATIENT OBSERVED AMBULATING ON UNIT. NO ACUTE DISTRESS. 04/22/18 21:09 Vital Signs Temperature 97.6 F 04/22/18 17:21 Pulse Rate 102 H 04/22/18 17:21 Respiratory Rate 18 04/22/18 17:21 Blood Pressure 153/95 04/22/18 17:21 O2 Sat by Pulse Oximetry (%) Laboratory Tests 04/22/18 04/22/18 05:18 16:31 POC Glucometer 267 209 ADMISSION CBC, CMP, UA AND RPR RESULTS PENDING. 04/22/18 21:10 Assessment: 04/22/18 21:11 WITHDRAWAL SYMPTOMS. Plan: CONTINUE DETOX.
[2018-04-22] MEDS ORDERED: MELATONIN 5 MG TABLETS PO PRN (22:00)
[2018-04-22] MEDS: THIAMINE HCL 100 MG TABLET (FP) PO SCH (22:05)
[2018-04-23] MEDS: chlordiazePOXIDE HCL 25 MG CAPSULE PO SCH ×4 (05:23→22:03)
[2018-04-23] MEDS: metFORMIN HCL 500 MG TABLET (FP) PO SCH ×2 (07:40→17:36)
[2018-04-23] MEDS: PRENATAL VITAMINS W/ FOLIC ACID TABLET (FP) PO SCH (10:42)
[2018-04-23 11:01] LABS: HEMATOCRIT 35.8 % (35.4-49); HEMOGLOBIN 11.9 GM/dL (11.7-16.9); MCH 32.6 pg (25.7-33.7); MCHC 33.2 g/dl (32.0-35.9); MEAN CELL VOLUME 98.3 fl (80-96); MEAN PLT VOLUME 8.1 fl (7.5-11.1); PLATELET COUNT 205 K/MM3 (134-434); RBC 3.64 M/mm3 (4.00-5.60); RDW 18.1 % (11.9-15.9); WHITE BLOOD COUNT 3.4 K/mm3 (4.0-10.0)
[2018-04-23 11:05] LABS: ALBUMIN 3.9 g/dl (3.4-5.0); ANION GAP 9 MMOL/L (8-16); BILIRUBIN,TOTAL 1.8 mg/dL (0.2-1.0); BLOOD UREA NITROGEN 8 mg/dL (7-18); CALCIUM 8.7 mg/dL (8.5-10.1); CHLORIDE 102 mmol/L (98-107); CO2 27 mmol/L (21-32); CREATININE 0.9 mg/dL (0.7-1.3); GLUCOSE,RANDOM 219 mg/dL (74-106); POTASSIUM 3.8 mmol/L (3.5-5.1); SGOT/AST 40 U/L (15-37); SGPT/ALT 40 U/L (12-78); SODIUM 138 mmol/L (136-145); TOT PROT 7.3 g/dl (6.4-8.2)
[2018-04-23 11:06] LABS: ALK PHOS 67 U/L (45-117)
[2018-04-23 15:14] LABS: URINE APPEARANCE CLEAR; URINE BILIRUBIN NEGATIVE (<2.0 mg/dL); URINE COLOR YELLOW; URINE GLUCOSE (UA) 3+ (NEGATIVE); URINE KETONE NEGATIVE (NEGATIVE); URINE LEUK ESTERASE NEGATIVE (NEGATIVE); URINE NITRITE NEGATIVE (NEGATIVE); URINE UROBILINOGEN NEGATIVE mg/dL (0.2-1.0)
[2018-04-23 15:16] LABS: URINE PROTEIN 1+ (NEGATIVE)
[2018-04-23 15:23] LABS: EPI CELLS RARE /HPF (FEW); URINE HYALINE CAST 9 /lpf
[2018-04-23] MEDS ORDERED: metFORMIN HCL 500 MG TABLET (FP) PO ONE (18:15)
[2018-04-23] MEDS: THIAMINE HCL 100 MG TABLET (FP) PO SCH (22:03)
[2018-04-24] MEDS: chlordiazePOXIDE 5 MG CAPSULE PO SCH ×4 (05:14→22:25)
[2018-04-24] MEDS: metFORMIN HCL 500 MG TABLET (FP) PO SCH ×2 (08:43→17:20)
[2018-04-24] MEDS: PRENATAL VITAMINS W/ FOLIC ACID TABLET (FP) PO SCH (10:34)
--- NOTE | 2018-04-24 17:45 | PN ---
S CIWA - CIWA Score Nausea/Vomitin-No Nausea/No Vomiting Muscle Tremors: None Anxiety: 0-No Anxiety, at Ease Agitation: 0-Normal Activity Paroxysmal Sweats: No Perspiration Orientation: 0-Oriented Tacttile Disturbances: 0-None Auditory Disturbances: 0-None Visual Disturbances: 0-None Headache: 0-None Present CIWA-Ar Total Score: 0 [facility] Progress Note (SOAP) Subjective: pt states feeling fine, no complaints, detox protocol is good O: Vital Signs - 24 hr 04/23/18 04/24/18 04/24/18 21:06 00:30 03:30 Temperature 98.2 F Pulse Rate 107 H Respiratory 18 18 18 Rate Blood Pressure 126/79 04/24/18 04/24/18 04/24/18 06:21 11:12 14:47 Temperature 96.5 F L 98.9 F 97.2 F L Pulse Rate 95 H 108 H 68 Respiratory 18 18 18 Rate Blood Pressure 100/64 102/70 110/68 Laboratory Tests 04/22/18 04/22/18 04/23/18 05:18 16:31 05:22 WBC RBC Hgb Hct MCV MCH MCHC RDW Plt Count MPV Sodium Potassium Chloride Carbon Dioxide Anion Gap BUN Creatinine Creat Clearance w eGFR POC Glucometer 267 209 258 Random Glucose Calcium Total Bilirubin AST ALT Alkaline Phosphatase Total Protein Albumin Urine Color Urine Appearance Urine pH Ur Specific [place] Urine Protein Urine Glucose (UA) Urine Ketones Urine Blood Urine Nitrite Urine Bilirubin Urine Urobilinogen Ur Leukocyte Esterase Urine WBC (Auto) Urine RBC (Auto) Ur Epithelial Cells Hyaline Casts RPR Titer 04/23/18 04/23/18 04/23/18 07:00 07:00 07:00 WBC 3.4 L RBC 3.64 L Hgb 11.9 Hct 35.8 D MCV 98.3 H D MCH 32.6 D MCHC 33.2 RDW 18.1 H Plt Count 205 MPV 8.1 Sodium 138 Potassium 3.8 Chloride 102 Carbon Dioxide 27 D Anion Gap 9 BUN 8 Creatinine 0.9 Creat Clearance w eGFR > 60 POC Glucometer Random Glucose 219 H Calcium 8.7 Total Bilirubin 1.8 H AST 40 H ALT 40 D Alkaline Phosphatase 67 Total Protein 7.3 Albumin 3.9 Urine Color Urine Appearance Urine pH Ur Specific [place] Urine Protein Urine Glucose (UA) Urine Ketones Urine Blood Urine Nitrite Urine Bilirubin Urine Urobilinogen Ur Leukocyte Esterase Urine WBC (Auto) Urine RBC (Auto) Ur Epithelial Cells Hyaline Casts RPR Titer Nonreactive 04/23/18 04/23/18 04/24/18 10:10 16:38 16:29 WBC RBC Hgb Hct MCV MCH MCHC RDW Plt Count MPV Sodium Potassium Chloride Carbon Dioxide Anion Gap BUN Creatinine Creat Clearance w eGFR POC Glucometer 309 308 Random Glucose Calcium Total Bilirubin AST ALT Alkaline Phosphatase Total Protein Albumin Urine Color Yellow Urine Appearance Clear Urine pH 5.0 Ur Specific [place] 1.012 Urine Protein 1+ H Urine Glucose (UA) 3+ H Urine Ketones Negative Urine Blood Negative Urine Nitrite Negative Urine Bilirubin Negative Urine Urobilinogen Negative Ur Leukocyte Esterase Negative Urine WBC (Auto) 2 Urine RBC (Auto) None Ur Epithelial Cells Rare Hyaline Casts 9 RPR Titer high glucose high MCV A/p: continue detox protocol: 57 years old male with a long history of alcohol dependence is here for detox
[2018-04-24] MEDS: THIAMINE HCL 100 MG TABLET (FP) PO SCH (22:25)
[2018-04-25] MEDS ORDERED: chlordiazePOXIDE HCL 10 MG CAPSULE PO SCH (05:00)
[2018-04-25 06:04] VITALS: BP 113/69; PULSE 88; TEMP 97
[2018-04-25] MEDS: metFORMIN HCL 500 MG TABLET (FP) PO SCH (07:57)
[2018-04-25] MEDS ORDERED: CYANOCOBALAMIN 1,000 MCG TABLET (FP) PO SCH (10:00)
--- NOTE | 2018-04-25 10:54 | DS ---
[facility] Detox Discharge Summary Admission Date: 04/21/18 Discharge Date: 04/25/18 - History Present History: Alcohol Dependence Pertinent Past History: 57 years old male with a long history of alcohol dependence, completed alcohol detox. . He has medical history of diabetes, anemia, GERD, anxiety and depression. - Physical Exam Results Vital Signs: Vital Signs Temperature 97 F L 04/25/18 06:03 Pulse Rate 88 04/25/18 06:03 Respiratory Rate 18 04/25/18 06:03 Blood Pressure 113/69 04/25/18 06:03 O2 Sat by Pulse Oximetry (%) - Treatment Hospital Course: Detox Protocol Followed, Detoxed Safely, Responded well, Discharged Condition Good - Medication Discharge Medications: Ambulatory Orders metFORMIN HCL [Metformin HCl] 500 mg PO BIDAC #30 tablet 02/26/16 - Diagnosis (1) Alcohol dependence with uncomplicated withdrawal Current Visit: Yes Status: Chronic (2) Diabetes mellitus type II, controlled Current Visit: Yes Status: Chronic Qualifiers: Diabetes mellitus technician terminal and repeater insulin use: without technician terminal and repeater use Diabetes mellitus complication status: without complication Qualified Code(s): E11.9 - Type 2 diabetes mellitus without complications (3) Dehydration Current Visit: No Status: Acute - AMA Did Patient Leave Against Medical Advice: No
--- NOTE | 2018-04-25 10:54 | PN ---
[facility] Progress Note (SOAP) Subjective: pt states going home today- says feeling fine completed alcohol detox protocol pt does not need any refill of meds- has all at home
== END 2018-04-25 09:35 | disposition home or self-care (01) | DRG 775 ==
LOC: YASAS 20:44 → Y3N 22:19
PROC: HZ2ZZZZ Detoxification Services for Substance Abuse Treatment (ICD-10-PCS; principal; 2018-04-21)
DX: F10.230 Alcohol dependence with withdrawal, uncomplicated (principal); F41.9 Anxiety disorder, unspecified; F34.1 Dysthymic disorder; E11.9 Type 2 diabetes mellitus without complications; Z79.84 Long term (current) use of oral hypoglycemic drugs; Z91.14 Patient's other noncompliance with medication regimen; D64.9 Anemia, unspecified; K21.9 Gastro-esophageal reflux disease without esophagitis; E86.0 Dehydration
CPT/HCPCS: 36415; 80053; 81003; 81015; 82962; 85027; 86593; 93005; 93010

== ENCOUNTER 2019-05-13 23:05 | Inpatient (IN) | payer OTHER ==
--- NOTE | 2019-05-13 23:24 | PDOC ---
Attending Attestation - Resident Resident Name: Katiuska Monzon - ED Attending Attestation I have performed the following: I have examined & evaluated the patient, The case was reviewed & discussed with the resident, I agree w/resident's findings & plan - HPI HPI: 05/14/19 01:35 Pt has RUQ pain and liver enlargement. Pt has been an alcohol drinker since he waws 7 years old. He is now 58 yrs old. Pt has complaint of abd - Physicial Exam PE: 05/14/19 02:50 Pt has bilat leg swelling that is new. Pt has exquisite pain over his pancreas in the epigastric area. Pt is afebrile No rashes. Pt has no ascited; but enlarged liver Pt has no jaundice. Pt has normal neuro exam. No flank pain Heart lungs clear. - Medical Decision Making 05/14/19 02:51 Pt has cardiomegaly; elevated BNP; Pt has lipase elevation in the face of alcohol abuse. He will be admitted for abd pain and peripheral edema. He complains of CP and will require admission for CHF. 05/14/19 03:01 Pt is relatively anemic, but he has been at this level back in 2017; Pt also has elevated RDW with MCV at upper limit, refelective of his ETOH abuse. 05/14/19 03:02 Pt will require pain meds for the epigastric pain. Pt will be signed out to the day ER doctors.
[2019-05-13] MEDS ORDERED: MAG HYDROX/AL HYDROX/SIMETH -MYLANTA- ORAL SUSPENSION PO ONE (23:39)
[2019-05-13] MEDS ORDERED: BISMUTH SUBSALICYLATE 524 MG/30 ML UD PO ONE (23:40)
[2019-05-13] MEDS ORDERED: ACETAMINOPHEN 1000 MG/100 ML VIAL (NON FORMULARY) IVPB ONE (23:40)
--- NOTE | 2019-05-13 23:48 | PDOC ---
History of Present Illness - General Chief Complaint: Pain, Acute Stated Complaint: STOMACH PAIN Time Seen by Provider: 05/13/19 23:22 History Source: Patient - History of Present Illness Initial Comments: 05/13/19 23:43 58 y/o/m here for chest and abd pain x2 days. He states he woke up with the pain and denies any changes in his regular activity. He states the pain is worse in his upper abdomen and may be worse with food consumption. He states the pain is a 7/10 and it feels like someone is punching him, the pain does not radiate anywhere. He also reports swelling in both of his ankles and has never had swelling in his ankles before. He denies having pain in his legs. He reports having a few episodes of diarrhea the last 2 days, no blood in his stool. He denies SOB, palpitations, excessive sweating, constipation, nausea, vomiting, fever, cough, or other concerns. He states he is on Metformin for diabetes but is not always compliant with his medication. PMHx: NIDDM SHx: denies Social: denies tobacco use. drinks ~3 times a week, amount varies depending on his company Past History - Past Medical History Allergies/Adverse Reactions: Allergies Allergy/AdvReac Type Severity Reaction Status Date / Time No Known Allergies Allergy Verified 05/13/19 23:22 Home Medications: Ambulatory Orders metFORMIN HCL [Metformin HCl] 500 mg PO BIDAC #30 tablet 02/26/16 Anemia: No Asthma: No Cancer: No Cardiac Disorders: No CVA: No COPD: No CHF: No DVT: No Dementia: No Diabetes: Yes GI Disorders: No Disorders: No HTN: No Hypercholesterolemia: No Kidney Stones: No Liver Disease: No Seizures: No Thyroid Disease: No - Surgical History Abdominal Surgery: No Appendectomy: No Cardiac Surgery: No Cholecystectomy: No Lung Surgery: No Neurologic Surgery: No Orthopedic Surgery: No - Reproductive History Testicular Surgery: No - Suicide/Smoking/Psychosocial Hx Smoking History: Current every day smoker Have you smoked in the past 12 months: No Number of Cigarettes Smoked Daily: 10 Cigars Per Day: 0 Information on smoking cessation initiated: No 'Breaking Loose' booklet given: 03/03/18 Hx Alcohol Use: No Drug/Substance Use Hx: No Substance Use Type: Alcohol Hx Substance Use Treatment: No Review of Systems - Review of Systems Constitutional: No: Chills, Fever HEENTM: No: Nose Congestion Respiratory: No: Cough, Shortness of Breath Cardiac (ROS): Yes: Chest Pain, Lightheadedness ABD/GI: Yes: Diarrhea. No: Nausea, Vomiting : No: Dysuria Musculoskeletal: No: Back Pain Integumentary: Yes: Other (swelling of ankles) Neurological: No: Headache, Numbness Endocrine: No: Excessive Sweating *Physical Exam - Vital Signs Last Vital Signs Temp Pulse Resp BP Pulse Ox 98.2 F 121 H 18 130/51 L 99 05/13/19 23:15 05/13/19 23:15 05/13/19 23:15 05/13/19 23:15 05/13/19 23:15 - Physical Exam General Appearance: Yes: Nourished, Appropriately Dressed HEENT: positive: EOMI, KEV, Normal Voice, Symmetrical Neck: positive: Trachea midline, Supple Respiratory/Chest: positive: Lungs Clear, Normal Breath Sounds. negative: Chest Tender, Accessory Muscle Use Cardiovascular: positive: Regular Rhythm, S1, S2, Tachycardia Gastrointestinal/Abdominal: positive: Normal Bowel Sounds, Tender (moderate epigastric tenderness to palpation). negative: Guarding Musculoskeletal: negative: Vertebral Tenderness Extremity: positive: Normal Capillary Refill, Swelling (2+ non pitting edema of both ankles/feet), Other (no ulcers noted on feet) Neurologic: positive: Fully Oriented, Alert, Motor Strength 5/5 ED Treatment Course - LABORATORY CBC & Chemistry Diagram: 05/14/19 00:31 05/14/19 00:31 - RADIOLOGY Radiology Studies Ordered: Category Date Time Status CHEST PA & LAT [RAD] Stat Radiology 05/13/19 23:39 Ordered Medical Decision Making - Medical Decision Making 05/14/19 00:04 -58 y/o/m here for chest and abd pain x2 days. He states he woke up with the pain and denies any changes in his regular activity. He states the pain is worse in his upper abdomen and may be worse with food consumption. Patient also reports swelling in both ankles for the last 2 days, no changes in physical activity, no pain. -Workup with CBC, CMP, Cardiac profile, BNP, lipase, CXR, EKG. -Symptom management with Pepcid, Tylenol, and Maalox, Morphine. 05/14/19 03:22 -CBC significant for anemia of 8.4, lower than last recorded level at this hospital. increased MCV, decreased WBC. -CMP significant for elevated glucose, AST, BNP (15k), lipase (759). decreased calcium -EKG reviewed, sinus tachycardia at 116bpm. QT/QTc 368/511. No acute ischemic changes. -Contacted admitting team, will admit patient for CHF. -Patient was admitted under Dr. Mantilla to [facility]. *DC/Admit/Observation/Transfer Diagnosis at time of Disposition: CHF (congestive heart failure) Qualifiers: Heart failure type: unspecified Heart failure chronicity: unspecified Qualified Code(s): I50.9 - Heart failure, unspecified - Discharge Dispostion Condition at time of disposition: Stable Decision to Admit order: Yes - Referrals - Patient Instructions - Post Discharge Activity
[2019-05-13] MEDS ORDERED: SODIUM CHLORIDE 1,000 ML IV STA (23:49)
[2019-05-14] MEDS ORDERED: ACETAMINOPHEN INJECTION 100 ML IVPB ONE (00:09)
[2019-05-14] MEDS ORDERED: MAG HYDROX/AL HYDROX/SIMETH 30 ML UNIT-DOSE CUP ONE (00:10)
[2019-05-14 01:09] LABS: BASO % 1.4 % (0-2.0); HEMATOCRIT 25.6 % (35.4-49); HEMOGLOBIN 8.4 GM/dL (11.7-16.9); MCH 36.3 pg (25.7-33.7); MCHC 32.9 g/dl (32.0-35.9); MEAN CELL VOLUME 110.3 fl (80-96); MEAN PLT VOLUME 7.2 fl (7.5-11.1); MONO % 10.1 % (3.8-10.2); NEUT % 24.5 % (42.8-82.8); PLATELET COUNT 270 K/MM3 (134-434); RBC 2.32 M/mm3 (4.00-5.60)
[2019-05-14 02:41] LABS: BLOOD UREA NITROGEN 5.5 mg/dL (7-18); CHLORIDE 104 mmol/L (98-107); CO2 27 mmol/L (21-32); CREATININE 0.9 mg/dL (0.55-1.3); GLUCOSE,RANDOM 226 mg/dL (74-106); POTASSIUM 3.5 mmol/L (3.5-5.1); SODIUM 139 mmol/L (136-145)
[2019-05-14 02:42] LABS: ALBUMIN 3.4 g/dl (3.4-5.0); CALCIUM 7.9 mg/dL (8.5-10.1); TOT PROT 6.5 g/dl (6.4-8.2)
[2019-05-14 02:43] LABS: ALK PHOS 79 U/L (45-117); SGOT/AST 127 U/L (15-37); SGPT/ALT 38 U/L (13-61)
[2019-05-14] MEDS ORDERED: morphine CARPU-JECT 2 MG/1 ML DISP.SYRIN IVPUSH ONE (03:03)
[2019-05-14] MEDS ORDERED: MORPHINE SULFATE 2 MG/ML VIAL ONE (03:05)
--- NOTE | 2019-05-14 04:58 | PN ---
Teaching Attending Note Name of Resident: Jens Bolden ATTENDING PHYSICIAN STATEMENT I saw and evaluated the patient. I reviewed the resident's note and discussed the case with the resident. I agree with the resident's findings and plan as documented. SUBJECTIVE: 58 yo man w/ history of etoh abuse, c/o epigastric pain for the last 2 days. He denied any orthopnea, chest pain, or decrease in exercise tolerance. Patient was not very cooperative with interview. OBJECTIVE: Last Vital Signs Temp Pulse Resp BP Pulse Ox 98.2 F 100 H 18 129/84 99 05/13/19 23:15 05/14/19 03:16 05/14/19 03:16 05/14/19 03:16 05/14/19 03:16 gen- nontoxic heent -atraumatic neck supple cv-s1+s2+rrr chest clear abd -epigastric tenderness to palpation ext -no pedal edema Abnormal Lab Results 05/14/19 05/14/19 00:31 00:31 WBC 3.0 L RBC 2.32 L Hgb 8.4 L Hct 25.6 L D MCV 110.3 H MCH 36.3 H D RDW 17.0 H MPV 7.2 L D Absolute Neuts (auto) 0.7 L Neutrophils % 24.5 L Lymphocytes % 63.0 H BUN 5.5 L Random Glucose 226 H Calcium 7.9 L Total Bilirubin 2.0 H AST 127 H B-Natriuretic Peptide 54566.42 H Lipase 759 H ASSESSMENT AND PLAN: #Pancreatitis vs gastritis, likely from chronic etoh abuse, r/o cholecystitis #Doubt CHF- although elevated BMP, clinical presentation dose not suggest CHF exacerbation. Neg orthopnea, neg decreased exercise tolerance suggest otherwise #leukopenia - may be from etoh abuse, r/o viral hepatitis #anemia - macrocytic, may be related to chronic etoh abuse #DM -protonix -abdominal u/s -etoh level -IV fluid hydration -banana bag -thiamine -folate -echo -ciwa protocol -urine drug screen -tsh -vit b12 -ativan prn if withdrawal -novolog sliding scale -a1c -dvt ppx -heparin sc
[2019-05-14 07:00] LABS: ANION GAP 8 MMOL/L (8-16); LIPASE 759 U/L (73-393); N-TERMINAL BNP 1522.4 pg/ml (5-125)
[2019-05-14] MEDS ORDERED: chlordiazePOXIDE HCL 25 MG CAPSULE PO PRN (07:03)
[2019-05-14] MEDS ORDERED: LORazepam 2 MG/ML SDV VIAL IVPUSH PRN (07:07)
--- NOTE | 2019-05-14 07:09 | HP ---
CHIEF COMPLAINT: Abdominal pain PCP: Asked but non-contributory HISTORY OF PRESENT ILLNESS: 58 y/o male PMH etoh abuse and DM whom presented to the ED with abdominal pain. Pt refuses medical interview. Will attempt to reassess. Presently laying in ED holding bed, resting comfortably, repeatedly replying, "I don't feel like talking anymore" to all questions. Educated pt on when to ask for help and appropriate safety concerns. Pt allowed some physical examination. ER course was notable for: (1) Lipase 759 (2) BNP 15,522 PAST MEDICAL HISTORY: (Per chart) Etoh abuse, DM PAST SURGICAL HISTORY: Social History: Etoh abuse Allergies: No Known Allergies Allergy (Verified 05/13/19 23:22) HOME MEDICATIONS: Home Medications Medication Instructions Recorded metFORMIN HCL [Metformin HCl] 500 mg PO BIDAC #30 tablet 02/26/16 REVIEW OF SYSTEMS Asked but non-contributory PHYSICAL EXAMINATION Vital Signs - 24 hr 05/13/19 05/14/19 05/14/19 23:15 03:16 05:34 Temperature 98.2 F Pulse Rate 121 H Pulse Rate [ 100 H Radial] Respiratory 18 18 Rate Blood Pressure 130/51 L Blood Pressure 129/84 [Right Arm] O2 Sat by Pulse 99 99 99 Oximetry (%) GENERAL: Awake, alert, and in no acute distress. HEAD: Normal with no signs of trauma. EENT: Examination refused LUNGS: CTAB no wheezes, and no crackles. No accessory muscle use. HEART: RRRR normal S1 and S2 without murmur, rub or gallop. ABDOMEN: Soft, tender to palpation RLQ, hyperactive bowel sounds, + guarding, no rebound, no masses. No hepatomegaly or splenomegaly. MUSCULOSKELETAL: No gross deformities UPPER EXTREMITIES: 2+ pulses, warm, well-perfused. No cyanosis. No clubbing. No peripheral edema. LOWER EXTREMITIES: 2+ pulses, warm, well-perfused. No calf tenderness. No peripheral edema. NEUROLOGICAL: Normal speech. PSYCHIATRIC: Not cooperative. No eye contact. Upset mood SKIN: Warm, dry, normal turgor, no rashes or lesions noted Laboratory Results - last 24 hr 05/14/19 05/14/19 00:31 00:31 WBC 3.0 L RBC 2.32 L Hgb 8.4 L Hct 25.6 L D MCV 110.3 H MCH 36.3 H D MCHC 32.9 RDW 17.0 H Plt Count 270 D MPV 7.2 L D Absolute Neuts (auto) 0.7 L Neutrophils % 24.5 L Lymphocytes % 63.0 H Monocytes % 10.1 Eosinophils % 1.0 D Basophils % 1.4 Nucleated RBC % 0 Sodium 139 Potassium 3.5 Chloride 104 Carbon Dioxide 27 Anion Gap 8 BUN 5.5 L Creatinine 0.9 Est GFR (CKD-EPI)AfAm 107.97 Est GFR (CKD-EPI)NonAf 93.16 Random Glucose 226 H Calcium 7.9 L Total Bilirubin 2.0 H AST 127 H ALT 38 Alkaline Phosphatase 79 Creatine Kinase 103 Troponin I < 0.02 B-Natriuretic Peptide 1522.4 H Total Protein 6.5 Albumin 3.4 Lipase 759 H ASSESSMENT/PLAN: 58 y/o male PMH etoh abuse and DM whom presented to the ED with abdominal pain. # Pancreatitis vs gastritis vs cholecystitis - Most liklely 2/2 chronic etoh abuse - Protonix - Abdominal u/s - Etoh level - Hydrate: NS # R/o CHF - Elevated BMP - NO clinical presentation suggestive of CHF exacerbation - Per chart: (-) orthopnea, (-) decreased exercise tolerance - Echo - TSH # Leukopenia - Possibly 2/2 etoh abuse - R/o viral hepatitis # Macrocytic anemia - Possibly 2/2 etoh abuse - B12 folate levels - Banana bag - Thiamine - Folate - CIWA protocol - Urine toxicology - Ativan PRN if withdrawal #DM - ISS - Hold home regimen - Hba1c # DVT prophylaxis - Heparin # F/E/N - NS - Cont. to monitor electrolytes - NPO # Disposition - Telemetry Jens Bolden MD Visit type - Emergency Visit Emergency Visit: Yes ED Registration Date: 05/14/19 Care time: The patient presented to the Emergency Department on the above date and was hospitalized for further evaluation of their emergent condition. - New Patient This patient is new to me today: Yes Date on this admission: 05/14/19 - Critical Care Critical Care patient: No ATTENDING PHYSICIAN STATEMENT I saw and evaluated the patient. I reviewed the resident's note and discussed the case with the resident. I agree with the resident's findings and plan as documented. SUBJECTIVE: OBJECTIVE: ASSESSMENT AND PLAN:
[2019-05-14] MEDS ORDERED: chlordiazePOXIDE HCL 25 MG CAPSULE ONE (07:10)
[2019-05-14] MEDS ORDERED: HEPARIN NA (PORCINE) 5,000 UNITS/ML 1ML VIAL ONE (07:11)
[2019-05-14] MEDS: chlordiazePOXIDE HCL 25 MG CAPSULE PO SCH ×4 (07:19→22:20)
[2019-05-14] MEDS: HEPARIN NA (PORCINE) 5,000 UNITS/ML 1ML VIAL SQ SCH ×3 (07:20→22:16)
[2019-05-14] MEDS: LACTATED RINGERS SOLUTION 1,000 ML IV SCH (07:42)
[2019-05-14] MEDS ORDERED: FOLIC ACID INJECTION - 1 MG, THIAMINE HCL 100 MG, MULTIVIT INJECTION ADULT 10 ML in SOD... IVPB ONE (08:00)
[2019-05-14 10:08] LABS: BASO % 1.7 % (0-2.0); HEMATOCRIT 24.7 % (35.4-49); HEMOGLOBIN 8.4 GM/dL (11.7-16.9); LYMPH % 57.5 % (8-40); MCH 37.2 pg (25.7-33.7); MCHC 34.2 g/dl (32.0-35.9); MEAN CELL VOLUME 108.9 fl (80-96); MEAN PLT VOLUME 7.1 fl (7.5-11.1); MONO % 11.9 % (3.8-10.2); NEUT % 26.9 % (42.8-82.8); PLATELET COUNT 282 K/MM3 (134-434); RBC 2.27 M/mm3 (4.00-5.60); RDW 16.7 % (11.9-15.9); WHITE BLOOD COUNT 1.9 K/mm3 (4.0-10.0)
[2019-05-14 10:21] LABS: CHOLESTEROL 115 mg/dL (50-200); HDL CHOLESTEROL 75 mg/dL (40-60); TRIGLYCERIDES 185 mg/dL (0-150)
[2019-05-14 10:29] LABS: ALBUMIN 3.2 g/dl (3.4-5.0); BILIRUBIN,TOTAL 2.6 mg/dL (0.2-1); BLOOD UREA NITROGEN 4.3 mg/dL (7-18); CALCIUM 7.7 mg/dL (8.5-10.1); CREATININE 0.8 mg/dL (0.55-1.3); MAGNESIUM 1.2 mg/dL (1.8-2.4); PHOSPHOROUS 3.7 mg/dL (2.5-4.9); POTASSIUM 3.7 mmol/L (3.5-5.1); TOT PROT 6.1 g/dl (6.4-8.2)
[2019-05-14 10:52] VITALS: BMI 21.4
[2019-05-14] MEDS ORDERED: METOPROLOL TARTRATE 25 MG TABLET (FP) PO ONE (11:29)
[2019-05-14] MEDS: FOLIC ACID 1 MG TABLET (FP) PO SCH (11:31)
[2019-05-14] MEDS: MULTIVITAMINS (DAILY MVI) TABLET (FP) PO SCH (11:31)
[2019-05-14] MEDS: THIAMINE HCL 100 MG TABLET (FP) PO SCH (11:31)
[2019-05-14 12:28] LABS: ANISOCYTOSIS 1+; MACROCYTOSIS 0; PLATELET ESTIMATE NORMAL; TARGET CELLS 2+
[2019-05-14 13:47] LABS: ANISOCYTOSIS 1+; MACROCYTOSIS 1+; PLATELET ESTIMATE NORMAL; TARGET CELLS 1+
--- NOTE | 2019-05-14 14:33 | PN ---
Physical Exam: SUBJECTIVE: Patient seen and examined he is better , almost no pain in his stomach no distress no fever or chills OBJECTIVE: Vital Signs Period Temp Pulse Resp BP Sys/Gar Pulse Ox Last 24 Hr 98.2 F-98.8 F 100-121 17-18 129-150/51-100 96-99 GENERAL: The patient is awake, alert, and fully oriented, in no acute distress. HEAD: Normal with no signs of trauma. EYES: PERRL, extraocular movements intact, sclera anicteric, conjunctiva clear. No ptosis. ENT: Ears normal, nares patent, oropharynx clear without exudates, moist mucous membranes. NECK: Trachea midline, full range of motion, supple. LUNGS: Breath sounds equal, clear to auscultation bilaterally, no wheezes, no crackles, no accessory muscle use. HEART: Regular rate and rhythm, S1, S2 without murmur, rub or gallop. ABDOMEN: Soft, nontender, nondistended, normoactive bowel sounds, no guarding, no rebound, no hepatosplenomegaly, no masses. EXTREMITIES: 2+ pulses, warm, well-perfused, no edema. NEUROLOGICAL: Cranial nerves II through XII grossly intact. Normal speech, gait not observed. PSYCH: Normal mood, normal affect. Laboratory Results - last 24 hr 05/14/19 05/14/19 05/14/19 00:31 00:31 09:43 WBC 3.0 L 1.9 L* RBC 2.32 L 2.27 L Hgb 8.4 L 8.4 L Hct 25.6 L D 24.7 L MCV 110.3 H 108.9 H MCH 36.3 H D 37.2 H MCHC 32.9 34.2 RDW 17.0 H 16.7 H Plt Count 270 D 282 MPV 7.2 L D 7.1 L Absolute Neuts (auto) 0.7 L 0.5 L Neutrophils % 24.5 L 26.9 L Neutrophils % (Manual) 29.7 L Band Neutrophils % 0.0 Lymphocytes % 63.0 H 57.5 H Lymphocytes % (Manual) 58.4 H Monocytes % 10.1 11.9 H Monocytes % (Manual) 5 Eosinophils % 1.0 D 2.0 D Eosinophils % (Manual) 1.0 Basophils % 1.4 1.7 Basophils % (Manual) 4.9 H Myelocytes % (Man) 0 Promyelocytes % (Man) 0 Blast Cells % (Manual) 0 Nucleated RBC % 0 0 Metamyelocytes 0 Hypochromia 2+ Platelet Estimate Normal Polychromasia 0 Poikilocytosis 0 Anisocytosis 1+ Microcytosis 1+ Macrocytosis 0 Target Cells 2+ Sodium 139 Potassium 3.5 Chloride 104 Carbon Dioxide 27 Anion Gap 8 BUN 5.5 L Creatinine 0.9 Est GFR (CKD-EPI)AfAm 107.97 Est GFR (CKD-EPI)NonAf 93.16 POC Glucometer Random Glucose 226 H Calcium 7.9 L Phosphorus Magnesium Total Bilirubin 2.0 H AST 127 H ALT 38 Alkaline Phosphatase 79 Creatine Kinase 103 Troponin I < 0.02 B-Natriuretic Peptide 1522.4 H Total Protein 6.5 Albumin 3.4 Triglycerides Cholesterol Total LDL Cholesterol HDL Cholesterol Lipase 759 H Vitamin B12 TSH Alcohol, Quantitative 05/14/19 05/14/19 05/14/19 09:43 09:43 09:43 WBC RBC Hgb Hct MCV MCH MCHC RDW Plt Count MPV Absolute Neuts (auto) Neutrophils % Neutrophils % (Manual) Band Neutrophils % Lymphocytes % Lymphocytes % (Manual) Monocytes % Monocytes % (Manual) Eosinophils % Eosinophils % (Manual) Basophils % Basophils % (Manual) Myelocytes % (Man) Promyelocytes % (Man) Blast Cells % (Manual) Nucleated RBC % Metamyelocytes Hypochromia Platelet Estimate Polychromasia Poikilocytosis Anisocytosis Microcytosis Macrocytosis Target Cells Sodium 141 Potassium 3.7 Chloride 107 Carbon Dioxide 25 Anion Gap 9 BUN 4.3 L Creatinine 0.8 Est GFR (CKD-EPI)AfAm 113.33 Est GFR (CKD-EPI)NonAf 97.78 POC Glucometer Random Glucose 197 H Calcium 7.7 L Phosphorus 3.7 Magnesium 1.2 L Total Bilirubin 2.6 H AST 63 H ALT 33 Alkaline Phosphatase 69 Creatine Kinase Troponin I B-Natriuretic Peptide Total Protein 6.1 L Albumin 3.2 L Triglycerides 185 H Cholesterol 115 Total LDL Cholesterol 25 HDL Cholesterol 75 H Lipase Vitamin B12 356 TSH 1.24 Alcohol, Quantitative 14.9 H 05/14/19 12:08 WBC RBC Hgb Hct MCV MCH MCHC RDW Plt Count MPV Absolute Neuts (auto) Neutrophils % Neutrophils % (Manual) Band Neutrophils % Lymphocytes % Lymphocytes % (Manual) Monocytes % Monocytes % (Manual) Eosinophils % Eosinophils % (Manual) Basophils % Basophils % (Manual) Myelocytes % (Man) Promyelocytes % (Man) Blast Cells % (Manual) Nucleated RBC % Metamyelocytes Hypochromia Platelet Estimate Polychromasia Poikilocytosis Anisocytosis Microcytosis Macrocytosis Target Cells Sodium Potassium Chloride Carbon Dioxide Anion Gap BUN Creatinine Est GFR (CKD-EPI)AfAm Est GFR (CKD-EPI)NonAf POC Glucometer 295 Random Glucose Calcium Phosphorus Magnesium Total Bilirubin AST ALT Alkaline Phosphatase Creatine Kinase Troponin I B-Natriuretic Peptide Total Protein Albumin Triglycerides Cholesterol Total LDL Cholesterol HDL Cholesterol Lipase Vitamin B12 TSH Alcohol, Quantitative Active Medications Generic Name Dose Route Start Last Admin Trade Name Freq PRN Reason Stop Dose Admin Chlordiazepoxide HCl 10 mg 05/16/19 05:00 Librium - PO 05/16/19 23:01 [id number] TRUMAN Chlordiazepoxide HCl 10 mg 05/17/19 05:00 Librium - PO 05/17/19 17:01 Q12H TRUMAN Chlordiazepoxide HCl 10 mg 05/16/19 00:00 Librium - PO 05/17/19 00:00 Q4H PRN WITHDRAWAL(CONT SUBST) Chlordiazepoxide HCl 10 mg 05/18/19 05:00 Librium - PO 05/18/19 05:01 ONCE@0500 ONE Chlordiazepoxide HCl 50 mg 05/14/19 05:00 05/14/19 11:31 Librium - PO 05/14/19 23:01 50 mg [id number] TRUMAN Administration Chlordiazepoxide HCl 25 mg 05/15/19 05:00 Librium - PO 05/15/19 23:01 [id number] TRUMAN Chlordiazepoxide HCl 25 mg 05/14/19 07:03 Librium - PO 05/15/19 23:59 Q4H PRN WITHDRAWAL(CONT SUBST) Folic Acid 1 mg 05/14/19 10:00 05/14/19 11:31 Folic Acid - PO 1 mg DAILY TRUMAN Administration Heparin Sodium (Porcine) 5,000 unit 05/14/19 06:00 05/14/19 07:20 Heparin - SQ Not Given TID [facility] Lactated Ringer's 1,000 mls @ 100 mls/hr 05/14/19 07:00 05/14/19 07:42 Lactated Ringers Solution IV Not Given ASDIR TRUMAN Folic Acid 1 mg/ Thiamine HCl 1,000 mls @ 125 mls/hr 05/14/19 08:00 05/14/19 08:15 100 mg/ Multivitamins/Minerals IVPB 05/14/19 15:59 125 mls/hr 10 ml/ Sodium Chloride ONCE ONE Administration Lorazepam 1 mg 05/14/19 07:07 Ativan Injection - IVPUSH Q6H PRN ANXIETY Multivitamins/Minerals/Vitamin C 1 tab 05/14/19 10:00 05/14/19 11:31 Tab-A-Vit - PO 1 tab DAILY TRUMAN Administration Thiamine HCl 100 mg 05/14/19 10:00 05/14/19 11:31 Vitamin B1 - PO 100 mg DAILY TRUMAN Administration ASSESSMENT/PLAN: #Pancreatitis vs gastritis, likely from chronic etoh abuse, ultrasound shows he has sludge and gallbladder polyps #leukopenia - may be from etoh abuse, , will repeat am #anemia - macrocytic, may be related to chronic etoh abuse #DM -d/w him abd sonogram results and called surgical consult for possible gall bladder removal , he doest want surgery . -protonix -IV fluid hydration -alcohol protocol -thiamine -folate -urine drug screen -ativan prn if withdrawal -novolog sliding scale -a1c -dvt ppx -heparin sc Visit type - Emergency Visit Emergency Visit: Yes ED Registration Date: 05/14/19 Care time: The patient presented to the Emergency Department on the above date and was hospitalized for further evaluation of their emergent condition. - New Patient This patient is new to me today: Yes Date on this admission: 05/14/19 - Critical Care Critical Care patient: No - Discharge Referral Referred to [facility] No
--- NOTE | 2019-05-14 23:43 | EKG ---
Test Reason : Blood Pressure : / mmHG Vent. Rate : 116 BPM Atrial Rate : 117 BPM P-R Int : 162 ms QRS Dur : 096 ms QT Int : 368 ms P-R-T Axes : 071 006 073 degrees QTc Int : 511 ms SINUS TACHYCARDIA T WAVE ABNORMALITY, CONSIDER LATERAL ISCHEMIA ABNORMAL ECG WHEN COMPARED WITH ECG OF 22-APR-2018 00:33, NONSPECIFIC T WAVE ABNORMALITY NOW EVIDENT IN INFERIOR LEADS T WAVE INVERSION NOW EVIDENT IN ANTEROLATERAL LEADS Confirmed by JOSE GARCIA MD ([id number]) on 05/14/2019 11:42:52 PM Referred By: Confirmed By:JOSE GARCIA MD
[2019-05-15] MEDS: HEPARIN NA (PORCINE) 5,000 UNITS/ML 1ML VIAL SQ SCH ×3 (06:01→21:23)
[2019-05-15] MEDS: LACTATED RINGERS SOLUTION 1,000 ML IV SCH ×2 (06:02→09:41)
[2019-05-15] MEDS: chlordiazePOXIDE HCL 25 MG CAPSULE PO SCH ×4 (06:02→23:10)
--- NOTE | 2019-05-15 08:25 | PN ---
Teaching Attending Note Name of Resident: Zaida Bush ATTENDING PHYSICIAN STATEMENT I saw and evaluated the patient. I reviewed the resident's note and discussed the case with the resident. I agree with the resident's findings and plan as documented. SUBJECTIVE: OBJECTIVE: Vital Signs Temperature 98.4 F 05/15/19 06:00 Pulse Rate 104 H 05/15/19 06:00 Respiratory Rate 20 05/15/19 08:04 Blood Pressure 127/78 05/15/19 06:00 O2 Sat by Pulse Oximetry (%) 97 05/15/19 08:04 Middle aged man sick looking HEENT: MM moist anemia +, Jaundice + NECK: No JVD No Bruit CHEST: Non tender Bs + ABD: No distention, Rt UQ tender BS+ EXT: Trace edema INSURANCE LOSS ASSESSOR: Tremors +, non focal CBC, BMP 05/14/19 09:43 Active Medications Chlordiazepoxide HCl (Librium -) 10 mg PO [id number] [facility] Stop: 05/16/19 23:01 Chlordiazepoxide HCl (Librium -) 10 mg PO Q12H TRUMAN Stop: 05/17/19 17:01 Chlordiazepoxide HCl (Librium -) 10 mg PO Q4H PRN PRN Reason: WITHDRAWAL(CONT SUBST) Stop: 05/17/19 00:00 Chlordiazepoxide HCl (Librium -) 10 mg PO ONCE@0500 ONE Stop: 05/18/19 05:01 Chlordiazepoxide HCl (Librium -) 25 mg PO [id number] [facility] Stop: 05/15/19 23:01 Last Admin: 05/15/19 06:02 Dose: 25 mg Chlordiazepoxide HCl (Librium -) 25 mg PO Q4H PRN PRN Reason: WITHDRAWAL(CONT SUBST) Stop: 05/15/19 23:59 Folic Acid (Folic Acid -) 1 mg PO DAILY [facility] Last Admin: 05/14/19 11:31 Dose: 1 mg Heparin Sodium (Porcine) (Heparin -) 5,000 unit SQ TID [facility] Last Admin: 05/15/19 06:01 Dose: Not Given Lactated Ringer's (Lactated Ringers Solution) 1,000 mls @ 100 mls/hr IV ASDIR [facility] Last Admin: 05/15/19 06:02 Dose: 100 mls/hr Lorazepam (Ativan Injection -) 1 mg IVPUSH Q6H PRN PRN Reason: ANXIETY Multivitamins/Minerals/Vitamin C (Tab-A-Vit -) 1 tab PO DAILY [facility] Last Admin: 05/14/19 11:31 Dose: 1 tab Thiamine HCl (Vitamin B1 -) 100 mg PO DAILY [facility] Last Admin: 05/14/19 11:31 Dose: 100 mg ASSESSMENT AND PLAN: 58 yrs old man H/O ETOH admitted with abd pain and body ache and leg pain Problem List - Problems (1) Alcohol dependence with uncomplicated withdrawal Assessment/Plan: Cont Thiamine Folic acid, observe closely for DTS cont Labium protocol F/H CBC , BMP and LFTS Code(s): F10.230 - ALCOHOL DEPENDENCE WITH WITHDRAWAL, UNCOMPLICATED (2) Anemia Assessment/Plan: Macrocytic can be due to ETOH abuse F/U Sr Iron TIBC, Ferritin ,B12, Thiamine level Reticount , patient is a Jehovas witness Code(s): D64.9 - ANEMIA, UNSPECIFIED Qualifiers: Anemia type: unspecified type Qualified Code(s): D64.9 - Anemia, unspecified (3) Diabetes mellitus type II, controlled Assessment/Plan: H/O T2DM on Metformin diabetic Diet F/U HbA1C cont correction dose insulin Code(s): E11.9 - TYPE 2 DIABETES MELLITUS WITHOUT COMPLICATIONS Qualifiers: Diabetes mellitus buttermaker continuous churn insulin use: without detention use Diabetes mellitus complication status: without complication Qualified Code(s): E11.9 - Type 2 diabetes mellitus without complications (4) NSVT (nonsustained ventricular tachycardia) Assessment/Plan: Monitor shows NSVT in the setting of Hypokalemia and Hypomagnesemia IV Mag SO4 2 gm KCl 20 meq once F/U K and Mag level, Cardiology consiult ECHO add B B; lockers Code(s): I47.2 - VENTRICULAR TACHYCARDIA (5) Elevated brain natriuretic peptide (BNP) level Assessment/Plan: Possibality of ETOH induced cardiomyopathy at present Euvolumic persistent tachycardia add low dose B Blockers F/U ECHO Code(s): R79.89 - OTHER SPECIFIED ABNORMAL FINDINGS OF BLOOD CHEMISTRY (6) Chronic RUQ pain Assessment/Plan: Normal SGOT/PT u US gallbladder reviewed-sludge and ? polyps < 1 cm. evaluated by surgery team F/U LFTS and surgery recommondations Code(s): R10.11 - RIGHT UPPER QUADRANT PAIN; G89.29 - OTHER CHRONIC PAIN
[2019-05-15 08:33] LABS: BASO % 0.5 % (0-2.0); EOS % 2.6 % (0-4.5); HEMATOCRIT 24.2 % (35.4-49); HEMOGLOBIN 8.2 GM/dL (11.7-16.9); LYMPH % 21.2 % (8-40); MCH 37.5 pg (25.7-33.7); MCHC 33.8 g/dl (32.0-35.9); MEAN CELL VOLUME 110.8 fl (80-96); MEAN PLT VOLUME 7.6 fl (7.5-11.1); MONO % 5.3 % (3.8-10.2); NEUT % 70.4 % (42.8-82.8); PLATELET COUNT 245 K/MM3 (134-434); RBC 2.18 M/mm3 (4.00-5.60); RDW 16.2 % (11.9-15.9); WHITE BLOOD COUNT 4.7 K/mm3 (4.0-10.0)
[2019-05-15 08:51] LABS: ALBUMIN 2.8 g/dl (3.4-5.0); BILIRUBIN,TOTAL 1.9 mg/dL (0.2-1); BLOOD UREA NITROGEN 6.6 mg/dL (7-18); CALCIUM 7.6 mg/dL (8.5-10.1); CREATININE 0.9 mg/dL (0.55-1.3); MAGNESIUM 1.2 mg/dL (1.8-2.4); PHOSPHOROUS 3.5 mg/dL (2.5-4.9); POTASSIUM 3.3 mmol/L (3.5-5.1); TOT PROT 5.4 g/dl (6.4-8.2)
[2019-05-15] MEDS: THIAMINE HCL 100 MG TABLET (FP) PO SCH (09:41)
[2019-05-15] MEDS: MULTIVITAMINS (DAILY MVI) TABLET (FP) PO SCH (09:41)
[2019-05-15] MEDS: FOLIC ACID 1 MG TABLET (FP) PO SCH (09:41)
--- NOTE | 2019-05-15 10:16 | CONSULT ---
- Consultation REQUESTING PROVIDER: Noam SWARTZ CONSULT REQUEST: We have been asked to surgically evaluate this patient for possible symptomatic gallbladder disease and abnormal gallbladder imaging findings. PCP:Freeman Salvador MD HISTORY OF PRESENT ILLNESS: Came to the ER for n/v abdominal pain; did not provide any other hx. PMHx: NIDDM; EtOH abuse for > 50 years PSHx: declined to answer Home Medications Medication Instructions Recorded metFORMIN HCL [Metformin HCl] 500 mg PO BIDAC #30 tablet 02/26/16 Allergies Allergy/AdvReac Type Severity Reaction Status Date / Time No Known Allergies Allergy Verified 05/13/19 23:22 REVIEW OF SYSTEMS: declined to answer CONSTITUTIONAL: Absent: fever, chills, diaphoresis, generalized weakness, malaise, loss of appetite, weight change CARDIOVASCULAR: Absent: chest pain, syncope, palpitations, irregular heart rate, lightheadedness , peripheral edema RESPIRATORY: Absent: cough, shortness of breath, dyspnea with exertion, wheezing, stridor, hemoptysis GASTROINTESTINAL: Absent: abdominal pain, abdominal distension, nausea, vomiting, diarrhea, constipation, melena, hematochezia GENITOURINARY: Absent: dysuria, frequency, urgency, hesitancy, hematuria, flank pain, genital pain MUSCULOSKELETAL: Absent: myalgia, arthralgia, joint swelling, back pain, neck pain SKIN: Absent: rash, itching, pallor HEMATOLOGIC/IMMUNOLOGIC: Absent: easy bleeding, easy bruising, lymphadenopathy NEUROLOGIC: Absent: headache, focal weakness, paresthesias, dizziness, unsteady gait, seizure, mental status changes, bladder or bowel incontinence PSYCHIATRIC: Absent: anxiety, depression, suicidal or homicidal ideation, hallucinations. PHYSICAL EXAM: GENERAL: Awake, alert, and fully oriented, in no acute distress. HEAD: Normal with no signs of trauma. EYES:, sclera icteric, conjunctiva clear. NECK: Normal ROM, supple without lymphadenopathy, JVD, or masses. ABDOMEN: Soft, nontender, not distended, normoactive bowel sounds, no guarding, no rebound, no masses. No organomegaly. MUSCULOSKELETAL: Normal ROM at all joints. No bony deformities or tenderness. No CVA tenderness. UPPER EXTREMITIES: 2+ pulses, warm, well-perfused. No cyanosis. Cap refill <2 seconds. No peripheral edema. LOWER EXTREMITIES: 2+ pulses, warm, well-perfused. No calf tenderness. No peripheral edema. NEUROLOGICAL: Normal speech, gait not observed. PSYCH: Cooperative. Good eye contact. Appropriate mood and affect. SKIN: Warm, dry, normal turgor, no rashes or lesions noted. Vital Signs Temperature 98.4 F 05/15/19 06:00 Pulse Rate 104 H 05/15/19 06:00 Respiratory Rate 20 05/15/19 08:04 Blood Pressure 127/78 05/15/19 06:00 O2 Sat by Pulse Oximetry (%) 97 05/15/19 08:04 Lab Results WBC 4.7 K/mm3 (4.0-10.0) 05/15/19 07:45 RBC 2.18 M/mm3 (4.00-5.60) L 05/15/19 07:45 Hgb 8.2 GM/dL (11.7-16.9) L 05/15/19 07:45 Hct 24.2 % (35.4-49) L 05/15/19 07:45 MCV 110.8 fl (80-96) H 05/15/19 07:45 MCHC 33.8 g/dl (32.0-35.9) 05/15/19 07:45 RDW 16.2 % (11.9-15.9) H 05/15/19 07:45 Plt Count 245 K/MM3 (134-434) 05/15/19 07:45 Sodium 141 mmol/L (136-145) 05/15/19 07:45 Potassium 3.3 mmol/L (3.5-5.1) L 05/15/19 07:45 Chloride 108 mmol/L (98-107) H 05/15/19 07:45 Carbon Dioxide 24 mmol/L (21-32) 05/15/19 07:45 Anion Gap 9 MMOL/L (8-16) 05/15/19 07:45 BUN 6.6 mg/dL (7-18) L 05/15/19 07:45 Creatinine 0.9 mg/dL (0.55-1.3) 05/15/19 07:45 Random Glucose 209 mg/dL (74-106) H 05/15/19 07:45 Calcium 7.6 mg/dL (8.5-10.1) L 05/15/19 07:45 US gallbladder reviewed-sludge and ? polyps < 1 cm. IMP: gallbladder sludge and ? polyps ? < 1cm. PLAN: Attempted to discuss surgery for possible lap chapincito b/o the sludge and/or polyps and or/small stones and he declined any intervention; I informed him about the possible risk of carcinoma in patients w/gallbladder polyps > 1 cm. and that he would need to be monitored in the outpatient setting; he did not really seem to be interested in discussing this further; would advance his diet as tolerated and defer management to the primary team caring for him; of course he still needs behavioral intervention for his continued alcohol use. Parenthetically his coagulation status (INR) should be checked and in addition the patient relates to me that he is a Jehovah Witness which he thought precluded surgery. Would also suggest evaluation by Gastroenterology. Liborio Grossman MD FACS
[2019-05-15] MEDS: METOPROLOL TARTRATE 25 MG TABLET (FP) PO SCH ×2 (11:09→21:23)
[2019-05-15] MEDS ORDERED: MAGNESIUM SULF 50% (8.12 MEQ/2 ML-1 GM VIAL) IVPB ONE ×2 (11:40→19:15)
[2019-05-15] MEDS ORDERED: POTASSIUM CHLORIDE 20 MEQ PREMIX IVPB 100 ML IVPB ONE (11:41)
[2019-05-15] MEDS: KCL 10 MEQ IVPB 10 MEQ/100 ML INFUS.BAG IVPB SCH ×2 (13:06→15:42)
[2019-05-15] MEDS ORDERED: POTASSIUM CHLORIDE TABS 20 MEQ TABLET.ER (FP) PO ONE ×2 (14:42→18:47)
--- NOTE | 2019-05-15 14:56 | PN ---
Physical Exam: SUBJECTIVE: Patient seen and examined this AM. Complains of 3 Loose, ?Green BMs this AM. Belly pain improving. No new complaints otherwise. OBJECTIVE: Vital Signs Period Temp Pulse Resp BP Sys/Gar Pulse Ox Last 24 Hr 98.1 F-98.5 F 101-105 18-20 115-127/73-84 97-97 GENERAL: A&Ox3, NAD HEAD: NCAT EYES: PERRL, EOMI, scleral icterus ENT: moist mucous membranes NECK: Supple, No JVD LUNGS: CTAB, no wheezes, no crackles HEART: Regular rate and rhythm, S1, S2 without murmur ABDOMEN: Soft, RUQ tenderness to palpation, nondistended, + bowel sounds, no guarding, no rebound EXTREMITIES: no edema. NEUROLOGICAL:Cranial nerves II through XII grossly intact SKIN: Warm, dry Laboratory Results - last 24 hr 05/15/19 05/15/19 07:45 07:45 WBC 4.7 RBC 2.18 L Hgb 8.2 L Hct 24.2 L MCV 110.8 H MCH 37.5 H MCHC 33.8 RDW 16.2 H Plt Count 245 MPV 7.6 Absolute Neuts (auto) 3.3 Neutrophils % 70.4 D Lymphocytes % 21.2 D Monocytes % 5.3 Eosinophils % 2.6 Basophils % 0.5 Nucleated RBC % 0 Sodium 141 Potassium 3.3 L Chloride 108 H Carbon Dioxide 24 Anion Gap 9 BUN 6.6 L Creatinine 0.9 Est GFR (CKD-EPI)AfAm 107.97 Est GFR (CKD-EPI)NonAf 93.16 Random Glucose 209 H Calcium 7.6 L Phosphorus 3.5 Magnesium 1.2 L Total Bilirubin 1.9 H AST 39 H ALT 24 Alkaline Phosphatase 68 Total Protein 5.4 L Albumin 2.8 L Active Medications Chlordiazepoxide HCl (Librium -) 10 mg PO [id number] TRUMAN Stop: 05/16/19 23:01 Chlordiazepoxide HCl (Librium -) 10 mg PO Q12H TRUMAN Stop: 05/17/19 17:01 Chlordiazepoxide HCl (Librium -) 10 mg PO Q4H PRN PRN Reason: WITHDRAWAL(CONT SUBST) Stop: 05/17/19 00:00 Chlordiazepoxide HCl (Librium -) 10 mg PO ONCE@0500 ONE Stop: 05/18/19 05:01 Chlordiazepoxide HCl (Librium -) 25 mg PO [id number] [facility] Stop: 05/15/19 23:01 Last Admin: 05/15/19 11:09 Dose: 25 mg Chlordiazepoxide HCl (Librium -) 25 mg PO Q4H PRN PRN Reason: WITHDRAWAL(CONT SUBST) Stop: 05/15/19 23:59 Folic Acid (Folic Acid -) 1 mg PO DAILY [facility] Last Admin: 05/15/19 09:41 Dose: 1 mg Heparin Sodium (Porcine) (Heparin -) 5,000 unit SQ TID [facility] Last Admin: 05/15/19 06:01 Dose: Not Given Lorazepam (Ativan Injection -) 1 mg IVPUSH Q6H PRN PRN Reason: ANXIETY Metoprolol Tartrate (Lopressor -) 25 mg PO BID [facility] Last Admin: 05/15/19 11:09 Dose: 25 mg Multivitamins/Minerals/Vitamin C (Tab-A-Vit -) 1 tab PO DAILY [facility] Last Admin: 05/15/19 09:41 Dose: 1 tab Thiamine HCl (Vitamin B1 -) 100 mg PO DAILY [facility] Last Admin: 05/15/19 09:41 Dose: 100 mg IMAGING: -RUQ Abdominal US: Small gallbladder polyps measuring up to 4 mm with questionable small sludge layering posteriorly and without sonographic evidence of acute cholecystitis. Follow-up is needed. Right renal cyst measuring 1.2 cm with a faintly visualized patient. 5 mm nonobstructing left renal stone. -CXR: No acute chest pathology. ASSESSMENT/PLAN: 58 y/o M with PMHx EtOH Use disorder and DM presents with abdominal pain. #Abdominal pain, Improved -Unclear Etiology; Possibly Alcoholic gastritis, Less likely pancreatitis or cholecystitis -Previously on PPI; held given diarrhea and concern for possible C. Diff #EtOH Use Disorder -Continue CIWA Protocol -Thiamine/MVI/Folic Acid daily -Continue to Monitor CIWA, observe for DT's #Elevated BNP -Concerning for Alcohol induced Cardiomyopathy; Clinically not in CHF Exacerbation -ECHO pending #NSVT -Found on Tele in the setting of Hypokalemia and Hypomagnesemia -Replete Lytes -Start Metoprolol Tartrate 25mg PO BID -Cardio (Dr. Nunez) Consulted #Leukopenia, Improved -Continue to monitor #Macrocytic anemia -In the setting of chronic EtOH use -B12 WNL, Check Iron Studies and folate #DM -ISS BGMs ACHS #Small gallbladder polyps (4 mm) -Found on RUQ US with questionable small sludge layering posteriorly -General Surgery (Dr. Grossman) consulted, appreciate rec's #Hypokalemia -Repleted #PPx -DVT: Heparin #FEN -No Standing fluids -Replete Lytes PRN -Diabetic/Sodium Diet Dispo: Telemetry Visit type - Emergency Visit Emergency Visit: Yes ED Registration Date: 05/14/19 Care time: The patient presented to the Emergency Department on the above date and was hospitalized for further evaluation of their emergent condition. - New Patient This patient is new to me today: Yes Date on this admission: 05/15/19 - Critical Care Critical Care patient: No ATTENDING PHYSICIAN STATEMENT I saw and evaluated the patient. I reviewed the resident's note and discussed the case with the resident. I agree with the resident's findings and plan as documented. SUBJECTIVE: OBJECTIVE: ASSESSMENT AND PLAN:
--- NOTE | 2019-05-15 16:47 | CON.CARD ---
Consult Consult Specialty:: caerdiology Reason for Consultation:: NSVT; ?alcoholic cardiomyopathy - History of Present Illness Chief Complaint: Pt is initially sullen, asking "doesn't anyone read the chart? "; later became more cooperative. Says he had "indigestion" days ago; denies chest pain with exertion. History of Present Illness: Pt has RUQ pain and liver enlargement. Pt has been an alcohol drinker since he was 7 years old. He is now 58 yrs old. - History Source History Provided By: Patient, Medical Record Limitations to Obtaining History: Uncooperative - Alcohol/Substance Use Hx Alcohol Use: No - Smoking History Smoking history: Current every day smoker Have you smoked in the past 12 months: No Aproximately how many cigarettes per day: 10 Home Medications - Allergies Allergies/Adverse Reactions: Allergies Allergy/AdvReac Type Severity Reaction Status Date / Time No Known Allergies Allergy Verified 05/13/19 23:22 - Home Medications Home Medications: Ambulatory Orders metFORMIN HCL [Metformin HCl] 500 mg PO BIDAC #30 tablet 02/26/16 Family Medical History Family Hx Cardiac Disorders: Father (ID x 2, 1st in his 50s; s/p PPM) Review of Systems - Review of Systems Constitutional: reports: No Symptoms Eyes: reports: No Symptoms HENT: reports: No Symptoms Neck: reports: No Symptoms Cardiovascular: reports: No Symptoms Respiratory: reports: No Symptoms Gastrointestinal: reports: No Symptoms Genitourinary: reports: No Symptoms Musculoskeletal: reports: No Symptoms Integumentary: reports: No Symptoms Neurological: reports: No Symptoms Endocrine: reports: No Symptoms Hematology/Lymphatic: reports: No Symptoms Psychiatric: reports: Other (addiction) - Risk Factors Known Risk Factors: Yes: Race, Smoking, Other (substance abuse) Vital Signs: Vital Signs Temperature 97.9 F 05/15/19 14:00 Pulse Rate 98 H 05/15/19 14:00 Respiratory Rate 18 05/15/19 14:00 Blood Pressure 104/70 05/15/19 14:00 O2 Sat by Pulse Oximetry (%) 97 05/15/19 08:04 Constitutional: Yes: Anxious, Thin Eyes: Yes: Other (icteric sclerae) HENT: Yes: WNL Neck: Yes: WNL Respiratory: Yes: WNL Gastrointestinal: Yes: Soft Renal/: No: Anuria Cardiovascular: Yes: Tachycardia JVD: No Carotid Bruit: No PMI: Non-Displaced - Other Data Labs, Other Data: CBC, BMP 05/15/19 07:45 05/15/19 07:45 Problem List - Problems (1) Elevated LFTs Code(s): R94.5 - ABNORMAL RESULTS OF LIVER FUNCTION STUDIES (2) CHF (congestive heart failure) Code(s): I50.9 - HEART FAILURE, UNSPECIFIED Qualifiers: Heart failure type: unspecified Heart failure chronicity: unspecified Qualified Code(s): I50.9 - Heart failure, unspecified (3) NSVT (nonsustained ventricular tachycardia) Assessment/Plan: 7 beat run NSVT. EKG: new T wave depression laterally. TNI:< 0.02 x 1. Mg 1.2; K 3.2. Plan: On detox protocol for acute/chronic alcoholism (level noted).F/u workup for cirrhosis. Replete Mg, and keep 2.0-2.4 Replete K, and keep 4.0-4.5 Keep PO4 2.5-4.9. ECHO for LVEF, chamber sizes, valve status. EKG; telemetry. Encourage smoking cessation. Stress MIBI when stable. Code(s): I47.2 - VENTRICULAR TACHYCARDIA (4) Alcohol use disorder Code(s): F10.99 - ALCOHOL USE, UNSP WITH UNSPECIFIED ALCOHOL-INDUCED DISORDER (5) Anemia Assessment/Plan: f/u hematology workup. Code(s): D64.9 - ANEMIA, UNSPECIFIED Qualifiers: Anemia type: unspecified type Qualified Code(s): D64.9 - Anemia, unspecified (6) Nicotine abuse Code(s): Z72.0 - TOBACCO USE (7) Type 2 diabetes mellitus with hyperglycemia Code(s): E11.65 - TYPE 2 DIABETES MELLITUS WITH HYPERGLYCEMIA
[2019-05-16] MEDS ORDERED: chlordiazePOXIDE 5 MG CAPSULE PO PRN
[2019-05-16 01:55] LABS: COCAINE, UR NEGATIVE ng/ml (CUTOFF=300); METHADONE, UR NEGATIVE ng/ml (CUTOFF=300); OPIATES, URI NEGATIVE ng/ml (CUTOFF=300); PHENCYCLIDINE,URINE NEGATIVE ng/ml (CUTOFF=25); URINE AMPHETAMINES NEGATIVE ng/ml (CUTOFF=500); URINE BARBITURATES NEGATIVE ng/ml (CUTOFF=200)
[2019-05-16 01:58] LABS: URINE BENZODIAZEPINES POSITIVE ng/ml (CUTOFF=200)
[2019-05-16] MEDS: chlordiazePOXIDE 5 MG CAPSULE PO SCH ×4 (05:20→22:37)
[2019-05-16] MEDS: HEPARIN NA (PORCINE) 5,000 UNITS/ML 1ML VIAL SQ SCH ×3 (05:20→22:37)
[2019-05-16 06:36] LABS: BASO % 0.6 % (0-2.0); EOS % 2.4 % (0-4.5); HEMATOCRIT 24.2 % (35.4-49); HEMOGLOBIN 8.2 GM/dL (11.7-16.9); LYMPH % 20.7 % (8-40); MCH 37.9 pg (25.7-33.7); MEAN CELL VOLUME 111.2 fl (80-96); MONO % 4.2 % (3.8-10.2); NEUT % 72.1 % (42.8-82.8); PLATELET COUNT 230 K/MM3 (134-434); RBC 2.17 M/mm3 (4.00-5.60); RDW 16.6 % (11.9-15.9); WHITE BLOOD COUNT 5.3 K/mm3 (4.0-10.0)
[2019-05-16 06:55] LABS: BILIRUBIN,TOTAL 1.2 mg/dL (0.2-1); BLOOD UREA NITROGEN 7.9 mg/dL (7-18); CREATININE 0.9 mg/dL (0.55-1.3); MAGNESIUM 1.8 mg/dL (1.8-2.4); POTASSIUM 4.2 mmol/L (3.5-5.1); TOT PROT 5.8 g/dl (6.4-8.2)
[2019-05-16 08:43] LABS: INR 0.97 (0.83-1.09); PROTHROMBIN TIME (PATIENT) 11.5 SEC (9.7-13.0)
[2019-05-16] MEDS: MULTIVITAMINS (DAILY MVI) TABLET (FP) PO SCH (09:53)
[2019-05-16] MEDS: THIAMINE HCL 100 MG TABLET (FP) PO SCH (09:53)
[2019-05-16] MEDS: METOPROLOL TARTRATE 25 MG TABLET (FP) PO SCH ×2 (09:53→22:37)
[2019-05-16] MEDS: FOLIC ACID 1 MG TABLET (FP) PO SCH (09:53)
--- NOTE | 2019-05-16 12:12 | PN ---
Progress Note, Physician History of Present Illness: Eating lunch, denies chest pain, dyspnea, palpitations, LE swelling. - Current Medication List Current Medications: Active Medications Chlordiazepoxide HCl (Librium -) 10 mg PO [id number] [facility] Stop: 05/16/19 23:01 Last Admin: 05/16/19 11:41 Dose: 10 mg Chlordiazepoxide HCl (Librium -) 10 mg PO Q12H [facility] Stop: 05/17/19 17:01 Chlordiazepoxide HCl (Librium -) 10 mg PO Q4H PRN PRN Reason: WITHDRAWAL(CONT SUBST) Stop: 05/17/19 00:00 Chlordiazepoxide HCl (Librium -) 10 mg PO ONCE@0500 ONE Stop: 05/18/19 05:01 Folic Acid (Folic Acid -) 1 mg PO DAILY [facility] Last Admin: 05/16/19 09:53 Dose: 1 mg Heparin Sodium (Porcine) (Heparin -) 5,000 unit SQ TID [facility] Last Admin: 05/16/19 05:20 Dose: Not Given Lorazepam (Ativan Injection -) 1 mg IVPUSH Q6H PRN PRN Reason: ANXIETY Metoprolol Tartrate (Lopressor -) 25 mg PO BID [facility] Last Admin: 05/16/19 09:53 Dose: 25 mg Multivitamins/Minerals/Vitamin C (Tab-A-Vit -) 1 tab PO DAILY [facility] Last Admin: 05/16/19 09:53 Dose: 1 tab Thiamine HCl (Vitamin B1 -) 100 mg PO DAILY [facility] Last Admin: 05/16/19 09:53 Dose: 100 mg - Objective Vital Signs: Vital Signs Temperature 97.9 F 05/16/19 05:27 Pulse Rate 106 H 05/16/19 05:27 Respiratory Rate 20 05/16/19 05:27 Blood Pressure 114/76 05/16/19 05:27 O2 Sat by Pulse Oximetry (%) 96 05/15/19 21:00 Constitutional: Yes: No Distress, Calm, Thin Neck: Yes: Supple Cardiovascular: Yes: Regular Rate and Rhythm Respiratory: Yes: Regular, CTA Bilaterally Gastrointestinal: Yes: Normal Bowel Sounds, Soft Edema: No Labs: CBC, BMP 05/16/19 06:00 05/16/19 06:00 INR, PTT INR 0.97 (0.83-1.09) 05/16/19 07:55 - ....Imaging EKG: Report Reviewed (Tele: NSR) Assessment/Plan Problem List - Problems (1) Elevated LFTs resolving Code(s): R94.5 - ABNORMAL RESULTS OF LIVER FUNCTION STUDIES (2) CHF (congestive heart failure) Code(s): I50.9 - HEART FAILURE, UNSPECIFIED Qualifiers: Heart failure type: unspecified Heart failure chronicity: unspecified Qualified Code(s): I50.9 - Heart failure, unspecified (3) NSVT (nonsustained ventricular tachycardia) Assessment/Plan: 7 beat run NSVT. EKG: new T wave depression laterally. TNI:< 0.02 x 1. Mg 1.2; K 3.2. Plan: On detox protocol for acute/chronic alcoholism (level noted).F/u workup for cirrhosis. Replete Mg, and keep 2.0-2.4 Replete K, and keep 4.0-4.5 Keep PO4 2.5-4.9. Lopressor 25 bid ECHO for LVEF, chamber sizes, valve status. EKG; telemetry. Encourage smoking cessation. Stress MIBI when stable. Code(s): I47.2 - VENTRICULAR TACHYCARDIA (4) Alcohol use disorder Code(s): F10.99 - ALCOHOL USE, UNSP WITH UNSPECIFIED ALCOHOL-INDUCED DISORDER Librium detox protocol, folate, MVI and Thiamine (5) Anemia Assessment/Plan: f/u hematology workup. Code(s): D64.9 - ANEMIA, UNSPECIFIED Qualifiers: Anemia type: unspecified type Qualified Code(s): D64.9 - Anemia, unspecified (6) Nicotine abuse Code(s): Z72.0 - TOBACCO USE (7) Type 2 diabetes mellitus with hyperglycemia Code(s): E11.65 - TYPE 2 DIABETES MELLITUS WITH HYPERGLYCEMIA
--- NOTE | 2019-05-16 14:27 | PN ---
Teaching Attending Note Name of Resident: Aditya Hayes ATTENDING PHYSICIAN STATEMENT I saw and evaluated the patient. I reviewed the resident's note and discussed the case with the resident. I agree with the resident's findings and plan as documented. SUBJECTIVE: Patient is upset because he isn't getting any rest at the hospital. OBJECTIVE: Vital Signs Period Temp Pulse Resp BP Sys/Gar Pulse Ox Last 24 Hr 97.9 F-98.4 F 101-106 20-20 107-114/71-76 96 HEART: S1S2, tachycardic LUNGS: Clear ABDOMEN: Soft, non-tender, non-distended, normal BS EXTREMITIES: No edema Laboratory Results - last 24 hr 05/15/19 05/16/19 05/16/19 00:17 05:39 06:00 WBC RBC Hgb Hct MCV MCH MCHC RDW Plt Count MPV Absolute Neuts (auto) Neutrophils % Lymphocytes % Monocytes % Eosinophils % Basophils % Nucleated RBC % Retic Count 1.14 PT with INR INR Sodium Potassium Chloride Carbon Dioxide Anion Gap BUN Creatinine Est GFR (CKD-EPI)AfAm Est GFR (CKD-EPI)NonAf Random Glucose Calcium Phosphorus Magnesium Iron TIBC Iron Saturation Unsaturated IBC Ferritin 388.6 H Total Bilirubin AST ALT Alkaline Phosphatase Troponin I < 0.02 Total Protein Albumin Serum Folate 15 Opiates Screen Negative Methadone Screen Negative Barbiturate Screen Negative Phencyclidine Screen Negative Ur Amphetamines Screen Negative MDMA (Ecstasy) Screen Negative Benzodiazepines Screen Positive A* Cocaine Screen Negative U Marijuana (THC) Screen Negative 05/16/19 05/16/19 05/16/19 06:00 06:00 07:55 WBC 5.3 RBC 2.17 L Hgb 8.2 L Hct 24.2 L MCV 111.2 H MCH 37.9 H MCHC 34.0 RDW 16.6 H Plt Count 230 MPV 8.0 Absolute Neuts (auto) 3.8 Neutrophils % 72.1 Lymphocytes % 20.7 Monocytes % 4.2 Eosinophils % 2.4 Basophils % 0.6 Nucleated RBC % 0 Retic Count PT with INR 11.50 INR 0.97 Sodium 139 Potassium 4.2 Chloride 108 H Carbon Dioxide 23 Anion Gap 8 BUN 7.9 Creatinine 0.9 Est GFR (CKD-EPI)AfAm 107.97 Est GFR (CKD-EPI)NonAf 93.16 Random Glucose 225 H Calcium 8.0 L Phosphorus 3.0 Magnesium 1.8 Iron 26 L TIBC 294 Iron Saturation 8 L Unsaturated IBC 268 Ferritin Total Bilirubin 1.2 H AST 24 ALT 21 Alkaline Phosphatase 67 Troponin I Total Protein 5.8 L Albumin 3.0 L Serum Folate Opiates Screen Methadone Screen Barbiturate Screen Phencyclidine Screen Ur Amphetamines Screen MDMA (Ecstasy) Screen Benzodiazepines Screen Cocaine Screen U Marijuana (THC) Screen Current Medications Generic Name Dose Route Start Last Admin Trade Name Freq PRN Reason Stop Dose Admin Chlordiazepoxide HCl 10 mg 05/16/19 05:00 05/16/19 11:41 Librium - PO 05/16/19 23:01 10 mg [id number] [facility] Administration Chlordiazepoxide HCl 10 mg 05/17/19 05:00 Librium - PO 05/17/19 17:01 Q12H [facility] Chlordiazepoxide HCl 10 mg 05/16/19 00:00 Librium - PO 05/17/19 00:00 Q4H PRN WITHDRAWAL(CONT SUBST) Chlordiazepoxide HCl 10 mg 05/18/19 05:00 Librium - PO 05/18/19 05:01 ONCE@0500 ONE Folic Acid 1 mg 05/14/19 10:00 05/16/19 09:53 Folic Acid - PO 1 mg DAILY [facility] Administration Heparin Sodium (Porcine) 5,000 unit 05/14/19 06:00 05/16/19 05:20 Heparin - SQ Not Given TID [facility] Lorazepam 1 mg 05/14/19 07:07 Ativan Injection - IVPUSH Q6H PRN ANXIETY Metoprolol Tartrate 25 mg 05/15/19 10:00 05/16/19 09:53 Lopressor - PO 25 mg BID [facility] Administration Multivitamins/Minerals/Vitamin C 1 tab 05/14/19 10:00 05/16/19 09:53 Tab-A-Vit - PO 1 tab DAILY [facility] Administration Thiamine HCl 100 mg 05/14/19 10:00 05/16/19 09:53 Vitamin B1 - PO 100 mg DAILY [facility] Administration ASSESSMENT AND PLAN: This is a 58 year old man with a history of alcohol abuse, type 2 DM who presented to the ED with abdominal pain. 1. Continuous alcohol dependence with uncomplicated withdrawal - Continue Librium detox - Continue thiamine, multivitamin, folic acid 2. Anemia, macrocytic - Secondary to alcohol - Hemoglobin stable 3. Neutropenia - Resolved 4. Type 2 diabetes mellitus - Metformin held - Fingersticks with Novolog sliding scale 5. Nonsustained ventricular tachycardia - In setting of hypokalemia, hypomagnesemia - Keep Mg>2, K>4 - Continue Lopressor - Echo shows global LV hypokinesis with EF 30-35%, mild MR, mild TR - Plan for stress test 6. Chronic systolic heart failure - Stable
--- NOTE | 2019-05-16 16:28 | ECHO ---
Name: LA, DRAKE Exam:Adult Echocardiogram Study Date: 05/16/2019 12:43 PM Age: 58 yrs Reason For Study: r/o etoh cardiomyopathy Height: 64 in Weight: 125 lb BSA: 1.6 m2 MMode/2D Measurements & Calculations IVSd: 0.82 cm Ao root diam: 3.2 cm LVIDd: 5.7 cm LA dimension: 3.2 cm LVIDs: 4.8 cm ACS: 1.9 cm LVPWd: 0.78 cm IVSs: 1.0 cm LVPWs: 1.1 cm EDV(Teich): 159.6 ml ESV(Teich): 105.8 ml EPSS: 1.6 cm Doppler Measurements & Calculations MV A max kiran: 81.4 cm/sec Ao V2 max: 76.8 cm/sec Ao max P.4 mmHg MR max kiran: 403.4 cm/sec TR max kiran: 296.4 cm/sec MR max P.8 mmHg TR max P.2 mmHg Med Peak E' Kiran: 9.5 cm/sec Procedure A complete two-dimensional transthoracic echocardiogram was performed (2D, M-mode, Doppler and color flow Doppler). Technically limited study. Left Ventricle The left ventricle is normal in size. Left ventricular systolic function is severely reduced. Ejectio n Fraction = 30-35%. There is severe global hypokinesis of the left ventricle. Right Ventricle The right ventricle is not well visualized. Atria The left atrial size is normal. Right atrial size is normal. Mitral Valve There is mild mitral valve thickening. There is mild mitral regurgitation. Tricuspid Valve The tricuspid valve is normal in structure and function. There is mild tricuspid regurgitation. Pulmo nary artery systolic pressure is at least 42 mmHg if RA pressure is assumed 3 mmHg. Aortic Valve There is mild aortic sclerosis.;. No aortic regurgitation is present. Pulmonic Valve The pulmonic valve is not well visualized. Great Vessels The aortic root is normal size. Pericardium/Pleura There is no pericardial effusion. Interpretation Summary Technically limited study The left ventricle is normal in size. Left ventricular systolic function is severely reduced. There is severe global hypokinesis of the left ventricle. Ejection Fraction = 30-35%. The right ventricle is not well visualized. The left atrial size is normal. Right atrial size is normal. There is mild mitral valve thickening. There is mild mitral regurgitation. There is mild tricuspid regurgitation. Pulmonary artery systolic pressure is at least 42 mmHg if RA pressure is assumed 3 mmHg There is mild aortic sclerosis. There is no pericardial effusion. Juan Carlos Nunez MD 05/16/2019 04:28 PM
[2019-05-16] MEDS ORDERED: MAGNESIUM OXIDE 400 MG TABLET (FP) PO ONE (16:40)
--- NOTE | 2019-05-16 16:50 | PN ---
Physical Exam: SUBJECTIVE: Patient seen and examined. Complains of band-like upper abdominal pain that does not radiate to the back. Endorses appetite. Pain is 5/10 but improved overall. Endorses 3x episodes of loose stool, not as watery as the day before. OBJECTIVE: Vital Signs Period Temp Pulse Resp BP Sys/Gar Pulse Ox Last 24 Hr 97.9 F-98.4 F 94-106 18-20 107-121/69-76 96-98 GENERAL: A&Ox3, NAD HEAD: NCAT EYES: PERRL, EOMI, scleral icterus ENT: moist mucous membranes NECK: Supple, No JVD LUNGS: CTAB, no wheezes, no crackles HEART: Regular rate and rhythm, S1, S2 without murmur ABDOMEN: Soft, epigastric tenderness to palpation, nondistended, no guarding, no rebound EXTREMITIES: no edema. NEUROLOGICAL:Cranial nerves II through XII grossly intact SKIN: Warm, dry Laboratory Results - last 24 hr 05/15/19 05/16/19 05/16/19 00:17 05:39 06:00 WBC RBC Hgb Hct MCV MCH MCHC RDW Plt Count MPV Absolute Neuts (auto) Neutrophils % Lymphocytes % Monocytes % Eosinophils % Basophils % Nucleated RBC % Retic Count 1.14 PT with INR INR Sodium Potassium Chloride Carbon Dioxide Anion Gap BUN Creatinine Est GFR (CKD-EPI)AfAm Est GFR (CKD-EPI)NonAf Random Glucose Calcium Phosphorus Magnesium Iron TIBC Iron Saturation Unsaturated IBC Ferritin 388.6 H Total Bilirubin AST ALT Alkaline Phosphatase Troponin I < 0.02 Total Protein Albumin Serum Folate 15 Opiates Screen Negative Methadone Screen Negative Barbiturate Screen Negative Phencyclidine Screen Negative Ur Amphetamines Screen Negative MDMA (Ecstasy) Screen Negative Benzodiazepines Screen Positive A* Cocaine Screen Negative U Marijuana (THC) Screen Negative 05/16/19 05/16/19 05/16/19 06:00 06:00 07:55 WBC 5.3 RBC 2.17 L Hgb 8.2 L Hct 24.2 L MCV 111.2 H MCH 37.9 H MCHC 34.0 RDW 16.6 H Plt Count 230 MPV 8.0 Absolute Neuts (auto) 3.8 Neutrophils % 72.1 Lymphocytes % 20.7 Monocytes % 4.2 Eosinophils % 2.4 Basophils % 0.6 Nucleated RBC % 0 Retic Count PT with INR 11.50 INR 0.97 Sodium 139 Potassium 4.2 Chloride 108 H Carbon Dioxide 23 Anion Gap 8 BUN 7.9 Creatinine 0.9 Est GFR (CKD-EPI)AfAm 107.97 Est GFR (CKD-EPI)NonAf 93.16 Random Glucose 225 H Calcium 8.0 L Phosphorus 3.0 Magnesium 1.8 Iron 26 L TIBC 294 Iron Saturation 8 L Unsaturated IBC 268 Ferritin Total Bilirubin 1.2 H AST 24 ALT 21 Alkaline Phosphatase 67 Troponin I Total Protein 5.8 L Albumin 3.0 L Serum Folate Opiates Screen Methadone Screen Barbiturate Screen Phencyclidine Screen Ur Amphetamines Screen MDMA (Ecstasy) Screen Benzodiazepines Screen Cocaine Screen U Marijuana (THC) Screen Active Medications Generic Name Dose Route Start Last Admin Trade Name Freq PRN Reason Stop Dose Admin Chlordiazepoxide HCl 10 mg 05/16/19 05:00 05/16/19 11:41 Librium - PO 05/16/19 23:01 10 mg [id number] [facility] Administration Chlordiazepoxide HCl 10 mg 05/17/19 05:00 Librium - PO 05/17/19 17:01 Q12H [facility] Chlordiazepoxide HCl 10 mg 05/16/19 00:00 Librium - PO 05/17/19 00:00 Q4H PRN WITHDRAWAL(CONT SUBST) Chlordiazepoxide HCl 10 mg 05/18/19 05:00 Librium - PO 05/18/19 05:01 ONCE@0500 ONE Folic Acid 1 mg 05/14/19 10:00 05/16/19 09:53 Folic Acid - PO 1 mg DAILY [facility] Administration Heparin Sodium (Porcine) 5,000 unit 05/14/19 06:00 05/16/19 14:37 Heparin - SQ Not Given TID [facility] Lorazepam 1 mg 05/14/19 07:07 Ativan Injection - IVPUSH Q6H PRN ANXIETY Metoprolol Tartrate 25 mg 05/15/19 10:00 05/16/19 09:53 Lopressor - PO 25 mg BID [facility] Administration Multivitamins/Minerals/Vitamin C 1 tab 05/14/19 10:00 05/16/19 09:53 Tab-A-Vit - PO 1 tab DAILY [facility] Administration Thiamine HCl 100 mg 05/14/19 10:00 05/16/19 09:53 Vitamin B1 - PO 100 mg DAILY [facility] Administration IMAGING: -RUQ Abdominal US: Small gallbladder polyps measuring up to 4 mm with questionable small sludge layering posteriorly and without sonographic evidence of acute cholecystitis. Follow-up is needed. Right renal cyst measuring 1.2 cm with a faintly visualized patient. 5 mm nonobstructing left renal stone. -CXR: No acute chest pathology. ASSESSMENT/PLAN: 58 y/o M with PMHx EtOH Use disorder and DM presents with abdominal pain. #Abdominal pain -- Improved -Unclear Etiology; Possibly Alcoholic gastritis; Less likely pancreatitis or cholecystitis -Previously on PPI; held given diarrhea and concern for possible C. Diff #EtOH Use Disorder -Continue CIWA Protocol -Thiamine/MVI/Folic Acid daily -Continue to Monitor CIWA, observe for DT's #Elevated BNP -Concerning for Alcohol induced Cardiomyopathy; Clinically not in CHF Exacerbation -ECHO pending #NSVT -Found on Tele in the setting of Hypokalemia and Hypomagnesemia >Echo(05/16/19): LVEF 30-35% w/ severe global hypokinesis; MR, TR, PASP >42mmHg -Cardio (Dr. Nunez) Consulted, recs appreciated: --F/u workup for cirrhosis. --Replete Mg, and keep 2.0-2.4 --Replete K, and keep 4.0-4.5 --Keep PO4 2.5-4.9. --Lopressor 25 bid --ECHO for LVEF, chamber sizes, valve status. --EKG; telemetry. --Encourage smoking cessation. --Stress MIBI when stable. #Leukopenia, Improved -Continue to monitor #Macrocytic anemia -In the setting of chronic EtOH use -B12 WNL, Check Iron Studies and folate #DM -ISS BGMs ACHS #Small gallbladder polyps (4 mm) -Found on RUQ US with questionable small sludge layering posteriorly -General Surgery (Dr. Grossman) consulted --patient declined surgical intervention --suggest evaluation by Gastroenterology #diarrhea - fu stool gram stain - fu stool O&P study - fu stool cx #PPx -DVT: Heparin #FEN -No Standing fluids -Replete Lytes PRN -Diabetic/Sodium Diet Dispo: Telemetry Visit type - Emergency Visit Emergency Visit: No - New Patient This patient is new to me today: Yes Date on this admission: 09/23/19 - Critical Care Critical Care patient: No ATTENDING PHYSICIAN STATEMENT I saw and evaluated the patient. I reviewed the resident's note and discussed the case with the resident. I agree with the resident's findings and plan as documented. SUBJECTIVE: OBJECTIVE: ASSESSMENT AND PLAN:
[2019-05-16] MEDS ORDERED: PT OWN MED DRAWER 7, Y5N ONE (18:12)
[2019-05-16] MEDS: INSULIN SLIDING SCALE (NOVOLOG) 1 VIAL SQ SCH (22:37)
[2019-05-17] MEDS ORDERED: chlordiazePOXIDE 5 MG CAPSULE ONE ×2 (05:19→18:17)
[2019-05-17] MEDS: chlordiazePOXIDE HCL 10 MG CAPSULE PO SCH ×2 (05:38→18:19)
[2019-05-17] MEDS: INSULIN SLIDING SCALE (NOVOLOG) 1 VIAL SQ SCH ×4 (06:25→21:15)
[2019-05-17] MEDS: HEPARIN NA (PORCINE) 5,000 UNITS/ML 1ML VIAL SQ SCH ×3 (06:25→21:10)
--- NOTE | 2019-05-17 06:46 | PN ---
Progress Note (short form) - Note Progress Note: Chief Complaint: Events noted, notes reviewed, no complaints offered stated that he just awoke from sleep and was not able to sleep well in view of repeated interruptions, denies any chest discomfort or dyspnea History of Present Illness: Seen and examined on telemetry. Events noted, notes reviewed, no complaints offered stated that he just awoke from sleep and was not able to sleep well in view of repeated interruptions, denies any chest discomfort or dyspnea Echocardiography performed May 16, 2019 revealed severe reduction in left ventricular systolic function with estimated LVEF between 30-35%, severe diffuse global hypokinesia, poorly visualize right ventricle, mild mitral valve leaflet thickening with mild mitral valve regurgitation, mild tricuspid valve regurgitation with calculated RVSP of 42 mmHg Medications: Current Medications Chlordiazepoxide HCl (Librium -) 10 mg PO Q12H [facility] Stop: 05/17/19 17:01 Last Admin: 05/17/19 05:38 Dose: 10 mg Chlordiazepoxide HCl (Librium -) 10 mg PO ONCE@0500 ONE Stop: 05/18/19 05:01 Cyanocobalamin (Vitamin B12 -) 1,000 mcg PO DAILY [facility] Ferrous Sulfate (Feosol -) 325 mg PO BID [facility] Folic Acid (Folic Acid -) 1 mg PO DAILY [facility] Last Admin: 05/16/19 09:53 Dose: 1 mg Heparin Sodium (Porcine) (Heparin -) 5,000 unit SQ TID [facility] Last Admin: 05/17/19 06:25 Dose: Not Given Insulin Aspart (Novolog Vial Sliding Scale -) 1 vial SQ ACHS [facility]; Protocol Last Admin: 05/17/19 06:25 Dose: Not Given Lorazepam (Ativan Injection -) 1 mg IVPUSH Q6H PRN PRN Reason: ANXIETY Metoprolol Tartrate (Lopressor -) 25 mg PO BID [facility] Last Admin: 05/16/19 22:37 Dose: 25 mg Multivitamins/Minerals/Vitamin C (Tab-A-Vit -) 1 tab PO DAILY [facility] Last Admin: 05/16/19 09:53 Dose: 1 tab Thiamine HCl (Vitamin B1 -) 100 mg PO DAILY [facility] Last Admin: 05/16/19 09:53 Dose: 100 mg Review of Systems - Review of Systems Constitutional: No symptoms reported Respiratory: denies: Cough or Sputum Production Cardiovascular: as noted above Gastrointestinal: denies Nausea, Vomiting, Diarrhea, Constipation or Abdominal Pain Genitourinary: No symptoms reported Musculoskeletal: No symptoms reported Endocrine: NIDDM Vital Signs: Last Vital Signs Temp Pulse Resp BP Pulse Ox 98.4 F 102 H 20 120/61 92 L 05/17/19 06:00 05/17/19 06:00 05/17/19 06:00 05/17/19 06:00 05/16/19 21:00 Intake & Output 05/14/19 05/15/19 05/16/19 05/17/19 23:59 23:59 23:59 23:59 Intake Total 590 2060 1120 10 Balance 590 2060 1120 10 Weight 125 lb Constitutional: No Distress, Calm Neck: Supple Negative JVD No Bruit Respiratory: Diminished Breath Sounds at the Bases Cardiovascular: S1 S2 Regular Rate and Rhythm Gastrointestinal: Soft Benign Normal Bowel Sounds Ext: No Edema Labs: CBC, BMP 05/16/19 06:00 05/16/19 06:00 Hepatic Panel Total Bilirubin 1.2 mg/dL (0.2-1) H 05/16/19 06:00 AST 24 U/L (15-37) 05/16/19 06:00 ALT 21 U/L (13-61) 05/16/19 06:00 Alkaline Phosphatase 67 U/L (45-117) 05/16/19 06:00 Albumin 3.0 g/dl (3.4-5.0) L 05/16/19 06:00 INR, PTT INR 0.97 (0.83-1.09) 05/16/19 07:55 Assessment/Plan ASSESSMENT: 1. Clinical presentation is consistent with acute class II [place] [employer] classification left ventricular failure related to severe systolic left ventricular dysfunction, LVEF between 30-35% most likely related to 2. Non-ischemic dilated cardiomyopathy- alcoholic cardiomyopathy cannot exclude ischemic dilated cardiomyopathy 3. Coronary artery disease to be excluded 4. Non-sustained ventricular tachycardia 5. [id number] diabetes mellitus 6. Anemia etiology of which is unclear 7. Alcohol abuse 8. Tobacco abuse PLAN: 1. Discontinue Lopressor therapy and to initiate Carvedilol therapy at 6.25 mg twice daily/hemodynamics permitting 2. Ideally Entresto therapy is to be initiated- provided insurance coverage as an alternative Diovan therapy may be be initiated at 40 mg once daily; dose of which is to be further titrated/hemodynamics permitting 3. Recommend initiation of Lasix and Aldactone therapies (Lasix at 40 mg once daily and Aldactone at 25 mg once daily/hemodynamics permitting) with close monitoring of renal function and electrolytes 4. Provided patient demonstrates compliance with medical therapy administration and medical followup would recommend additional evaluation including right and left heart cardiac catheterization coronary angiography and discharged with LifeVest pending further evaluation of LVEF in 90 days prior to planning prophylactic ICD implantation 5. Patient was strongly counseled smoking cessation and abstinence 6. Patient was strongly counseled alcohol abstinence Mike Dutta M.D.
[2019-05-17] MEDS: FERROUS SO4 325 MG TABLET (FP) PO SCH ×2 (09:23→21:11)
[2019-05-17] MEDS: CYANOCOBALAMIN 1,000 MCG TABLET (FP) PO SCH (09:24)
[2019-05-17] MEDS: THIAMINE HCL 100 MG TABLET (FP) PO SCH (09:24)
[2019-05-17] MEDS: FOLIC ACID 1 MG TABLET (FP) PO SCH (09:24)
[2019-05-17] MEDS: MULTIVITAMINS (DAILY MVI) TABLET (FP) PO SCH (09:24)
[2019-05-17] MEDS: SPIRONOLACTONE 25 MG TABLET (FP) PO SCH (11:57)
[2019-05-17] MEDS: CARVEDILOL 6.25 MG TABLET (FP) PO SCH ×2 (11:58→21:11)
[2019-05-17] MEDS: FUROSEMIDE 40 MG TABLET (FP) PO SCH (11:58)
[2019-05-17] MEDS: SACUBITRIL/VALSARTAN 24 MG-26 MG TABLET PO SCH ×2 (12:59→21:11)
--- NOTE | 2019-05-17 15:49 | PN ---
Teaching Attending Note Name of Resident: Aditya Hayes ATTENDING PHYSICIAN STATEMENT I saw and evaluated the patient. I reviewed the resident's note and discussed the case with the resident. I agree with the resident's findings and plan as documented. SUBJECTIVE: Feels okay - no complaints except that he is always being disturbed. OBJECTIVE: Afebrile, hemodynamically stable Last Vital Signs Temp Pulse Resp BP Pulse Ox 98.4 F 102 H 18 122/67 96 05/17/19 14:00 05/17/19 14:00 05/17/19 09:00 05/17/19 14:00 05/17/19 09:00 HEAD: Atruamtic, normocephalic. HEART: S1S2, tachycardic LUNGS: Clear to auscultation ABDOMEN: Soft, generalized tenderness, normal BS EXTREMITIES: No edema, no calf tenderness. Laboratory Results - last 24 hr 05/17/19 12:00 POC Glucometer 270 Current Medications Generic Name Dose Route Start Last Admin Trade Name Freq PRN Reason Stop Dose Admin Carvedilol 6.25 mg 05/17/19 10:00 05/17/19 11:58 Coreg - PO 6.25 mg BID TRUMAN Administration Chlordiazepoxide HCl 10 mg 05/17/19 05:00 05/17/19 05:38 Librium - PO 05/17/19 17:01 10 mg Q12H TRUMAN Administration Chlordiazepoxide HCl 10 mg 05/18/19 05:00 Librium - PO 05/18/19 05:01 ONCE@0500 ONE Cyanocobalamin 1,000 mcg 05/17/19 10:00 05/17/19 09:24 Vitamin B12 - PO 1,000 mcg DAILY TRUMAN Administration Ferrous Sulfate 325 mg 05/17/19 10:00 05/17/19 09:23 Feosol - PO 325 mg BID TRUMAN Administration Folic Acid 1 mg 05/14/19 10:00 05/17/19 09:24 Folic Acid - PO 1 mg DAILY TRUMAN Administration Furosemide 40 mg 05/17/19 10:00 05/17/19 11:58 Lasix - PO 40 mg DAILY TRUMAN Administration Heparin Sodium (Porcine) 5,000 unit 05/14/19 06:00 05/17/19 14:15 Heparin - SQ Not Given TID TRUMAN Insulin Aspart 1 vial 05/16/19 22:00 05/17/19 12:59 Novolog Vial Sliding Scale - SQ 6 units ACHS TRUMAN Administration Protocol Lorazepam 1 mg 05/14/19 07:07 Ativan Injection - IVPUSH Q6H PRN ANXIETY Multivitamins/Minerals/Vitamin C 1 tab 05/14/19 10:00 05/17/19 09:24 Tab-A-Vit - PO 1 tab DAILY TRUMAN Administration Sacubitril/Valsartan 1 tab 05/17/19 10:00 05/17/19 12:59 Entresto 24 Mg-26 Mg Tablet PO 1 tab BID TRUMAN Administration Spironolactone 25 mg 05/17/19 10:00 05/17/19 11:57 Aldactone - PO 25 mg DAILY TRUMAN Administration Thiamine HCl 100 mg 05/14/19 10:00 05/17/19 09:24 Vitamin B1 - PO 100 mg DAILY TRUMAN Administration Home Medications Medication Instructions Recorded metFORMIN HCL [Metformin HCl] 500 mg PO BIDAC #30 tablet 02/26/16 ASSESSMENT AND PLAN: 58 year old male with history of Alcohol Abuse, DM 2, presented to the ED with abdominal pain. 1. Continuous alcohol dependence with uncomplicated withdrawal Continue Librium detox Continue thiamine, multivitamin, folic acid 2. Non-specific Abdominal discomfort with associated diarrhea US Abdo - GB Sludge/polyp Seen by Surgery who recommends eval for lap chapincito, which patient declined. No evidence of acute cholecystitis. Stool Cx pending. Will order CT A/P. Afebrle, hemodynamically stable. 3.Anemia, macrocytic, likely sec to Alcohol B12 level borderline, iron Sat 8% Will supplement b12 and iron Needs Hematology eval as out-patient and referral to GI for screening colonoscopy/NIMA work-up. 4. Neutropenia - resolved. 5. DM 2 - Metfomin held. continue Novolog as per sliding scale. 6. Systolic CHF with dilated cardiomyopathy/global hypokinesis, EF 30-35% likely non-ischemic, secondary to Alcohol excess Evaluated by Cardiology - Metoprolol changed to coreg. Entresto, Lasix, Aldactone added. Ceferino need LifeVest on discharge Cardio follow up as out-patinet for L and R heart cath as per Cardio - to exclude ischemic heart disease. for consideration of ICD as out-patient by Cardio. 7. NSVT - eval by Cardio - metoprolol changed to Coreg. Further management as per Cardio. DVT Px - Heparin SQ
[2019-05-17] MEDS ORDERED: PT OWN MED DRAWER 7, Y5N ONE (21:06)
--- NOTE | 2019-05-17 21:19 | PN ---
Physical Exam: SUBJECTIVE: Patient seen and examined. Endorses one episode of nausea yesterday. Stools x4 are loose, more formed from the day prior. Still endorses 5 /10 abdominal pain in the epigastrium. Tolerating diet OBJECTIVE: Vital Signs Period Temp Pulse Resp BP Sys/Gar Pulse Ox Last 24 Hr 98.1 F-98.4 F 102-105 18-20 120-125/61-81 96 GENERAL: A&Ox3, NAD HEAD: NCAT EYES: PERRL, EOMI, scleral icterus ENT: moist mucous membranes NECK: Supple, No JVD LUNGS: CTAB, no wheezes, no crackles HEART: Regular rate and rhythm, S1, S2 without murmur ABDOMEN: Soft, epigastric tenderness to palpation, less severe tenderness to lower abd, nondistended, no guarding, no rebound EXTREMITIES: no edema. NEUROLOGICAL: normal speech, normal AROM SKIN: Warm, dry Laboratory Results - last 24 hr 05/17/19 05/17/19 12:00 16:25 POC Glucometer 270 163 Active Medications Generic Name Dose Route Start Last Admin Trade Name Freq PRN Reason Stop Dose Admin Carvedilol 6.25 mg 05/17/19 10:00 05/17/19 11:58 Coreg - PO 6.25 mg BID TRUMAN Administration Chlordiazepoxide HCl 10 mg 05/18/19 05:00 Librium - PO 05/18/19 05:01 ONCE@0500 ONE Cyanocobalamin 1,000 mcg 05/17/19 10:00 05/17/19 09:24 Vitamin B12 - PO 1,000 mcg DAILY TRUMAN Administration Ferrous Sulfate 325 mg 05/17/19 10:00 05/17/19 09:23 Feosol - PO 325 mg BID TRUMAN Administration Folic Acid 1 mg 05/14/19 10:00 05/17/19 09:24 Folic Acid - PO 1 mg DAILY TRUMAN Administration Furosemide 40 mg 05/17/19 10:00 05/17/19 11:58 Lasix - PO 40 mg DAILY TRUMAN Administration Heparin Sodium (Porcine) 5,000 unit 05/14/19 06:00 05/17/19 14:15 Heparin - SQ Not Given TID TRUMAN Insulin Aspart 1 vial 05/16/19 22:00 05/17/19 18:18 Novolog Vial Sliding Scale - SQ 2 units ACHS TRUMAN Administration Protocol Lorazepam 1 mg 05/14/19 07:07 Ativan Injection - IVPUSH Q6H PRN ANXIETY Multivitamins/Minerals/Vitamin C 1 tab 05/14/19 10:00 05/17/19 09:24 Tab-A-Vit - PO 1 tab DAILY TRUMAN Administration Sacubitril/Valsartan 1 tab 05/17/19 10:00 05/17/19 12:59 Entresto 24 Mg-26 Mg Tablet PO 1 tab BID TRUMAN Administration Spironolactone 25 mg 05/17/19 10:00 05/17/19 11:57 Aldactone - PO 25 mg DAILY TRUMAN Administration Thiamine HCl 100 mg 05/14/19 10:00 05/17/19 09:24 Vitamin B1 - PO 100 mg DAILY TRUMAN Administration IMAGING: -RUQ Abdominal US: Small gallbladder polyps measuring up to 4 mm with questionable small sludge layering posteriorly and without sonographic evidence of acute cholecystitis. Follow-up is needed. Right renal cyst measuring 1.2 cm with a faintly visualized patient. 5 mm nonobstructing left renal stone. -CXR: No acute chest pathology. Vital Signs Temp 98.1 F 05/17/19 18:08 Pulse 103 H 05/17/19 18:08 Resp 18 05/17/19 18:08 BP 120/78 05/17/19 18:08 Pulse Ox 96 05/17/19 09:00 Intake & Output 05/16/19 05/17/19 05/17/19 23:59 11:59 23:59 Intake Total 720 250 Output Total 700 Balance 720 250 -700 Intake: IV 10 ANASTASIYA #22G 05/16/19 10 Oral 720 240 Output: Urine 700 Void 700 Other: Voiding Method Toilet Toilet # Unmeasured Voids Void 1 Bowel Movement No # Bowel Movements 1 ASSESSMENT/PLAN: 58 y/o M with PMHx EtOH Use disorder and DM presents with abdominal pain. #Abdominal pain w/a diarrhea -- stable at 5/10 severity -Unclear Etiology; Possibly Alcoholic gastritis; Less likely pancreatitis or cholecystitis >US Abdo - GB Sludge/polyp ~4mm --Seen by Surgery who recommends eval for lap chapincito, which patient declined. -Stool Cx pending -CT A/P pending to evaluate for possible colitis -Previously on PPI; held given diarrhea and concern for possible C. Diff #EtOH Use Disorder -Continue [facility] Protocol -Thiamine/MVI/Folic Acid daily -Continue to Monitor CIWA, observe for DT's #Elevated BNP -Concerning for Alcohol induced Cardiomyopathy; Clinically not in CHF Exacerbation >Echo(05/16/19): LVEF 30-35% w/ severe global hypokinesis; MR, TR, PASP >42mmHg #NSVT -Found on Tele in the setting of Hypokalemia and Hypomagnesemia -Cardio Consulted, recs appreciated: 1. Discontinue Lopressor therapy and to initiate Carvedilol therapy at 6.25 mg twice daily/hemodynamics permitting 2. Ideally Entresto therapy is to be initiated- provided insurance coverage as an alternative Diovan therapy may be be initiated at 40 mg once daily; dose of which is to be further titrated/hemodynamics permitting 3. Recommend initiation of Lasix and Aldactone therapies (Lasix at 40 mg once daily and Aldactone at 25 mg once daily/hemodynamics permitting) with close monitoring of renal function and electrolytes 4. Provided patient demonstrates compliance with medical therapy administration and medical followup would recommend additional evaluation including right and left heart cardiac catheterization coronary angiography and discharged with LifeVest pending further evaluation of LVEF in 90 days prior to planning prophylactic ICD implantation 5. Patient was strongly counseled smoking cessation and abstinence 6. Patient was strongly counseled alcohol abstinence #Leukopenia, Improved -Continue to monitor #Macrocytic anemia -In the setting of chronic EtOH use -B12 WNL, -iron Sat 8% -- will supplemen FeSO4 PO -Hematology eval as outpatient for NIMA -GI eval as outpatient for screening colonoscopy/NIMA #DM -ISS BGMs ACHS #Small gallbladder polyps (4 mm) -Found on RUQ US with questionable small sludge layering posteriorly -General Surgery (Dr. Grossman) consulted --patient declined surgical intervention --suggest evaluation by Gastroenterology #diarrhea - fu stool gram stain - fu stool O&P study - fu stool cx #PPx -DVT: Heparin #FEN -No Standing fluids -Replete Lytes PRN -Diabetic/Sodium Diet Dispo: Telemetry Visit type - Emergency Visit Emergency Visit: No - New Patient This patient is new to me today: No - Critical Care Critical Care patient: No ATTENDING PHYSICIAN STATEMENT I saw and evaluated the patient. I reviewed the resident's note and discussed the case with the resident. I agree with the resident's findings and plan as documented. SUBJECTIVE: OBJECTIVE: ASSESSMENT AND PLAN:
[2019-05-18] MEDS ORDERED: chlordiazePOXIDE HCL 10 MG CAPSULE PO ONE (05:00)
[2019-05-18] MEDS ORDERED: chlordiazePOXIDE 5 MG CAPSULE ONE (05:36)
[2019-05-18] MEDS: HEPARIN NA (PORCINE) 5,000 UNITS/ML 1ML VIAL SQ SCH ×3 (05:40→21:42)
[2019-05-18] MEDS: INSULIN SLIDING SCALE (NOVOLOG) 1 VIAL SQ SCH ×4 (06:10→22:38)
[2019-05-18 07:06] LABS: HEMATOCRIT 26.8 % (35.4-49); HEMOGLOBIN 9.1 GM/dL (11.7-16.9); MCH 37.9 pg (25.7-33.7); MCHC 34.1 g/dl (32.0-35.9); MEAN CELL VOLUME 111.2 fl (80-96); PLATELET COUNT 260 K/MM3 (134-434); RBC 2.41 M/mm3 (4.00-5.60); RDW 17.8 % (11.9-15.9); WHITE BLOOD COUNT 3.9 K/mm3 (4.0-10.0)
[2019-05-18 07:22] LABS: BLOOD UREA NITROGEN 12.7 mg/dL (7-18); CALCIUM 8.7 mg/dL (8.5-10.1); POTASSIUM 4.2 mmol/L (3.5-5.1)
[2019-05-18] MEDS: FERROUS SO4 325 MG TABLET (FP) PO SCH ×2 (09:45→21:32)
[2019-05-18] MEDS: FOLIC ACID 1 MG TABLET (FP) PO SCH (09:45)
[2019-05-18] MEDS: CYANOCOBALAMIN 1,000 MCG TABLET (FP) PO SCH (09:45)
[2019-05-18] MEDS: MULTIVITAMINS (DAILY MVI) TABLET (FP) PO SCH (09:45)
[2019-05-18] MEDS: FUROSEMIDE 40 MG TABLET (FP) PO SCH (09:45)
[2019-05-18] MEDS: SPIRONOLACTONE 25 MG TABLET (FP) PO SCH (09:46)
[2019-05-18] MEDS: THIAMINE HCL 100 MG TABLET (FP) PO SCH (09:46)
[2019-05-18] MEDS: SACUBITRIL/VALSARTAN 24 MG-26 MG TABLET PO SCH ×2 (09:46→21:42)
[2019-05-18] MEDS: CARVEDILOL 6.25 MG TABLET (FP) PO SCH (09:46)
[2019-05-18 10:46] LABS: MAGNESIUM 1.2 mg/dL (1.8-2.4); PHOSPHOROUS 5.8 mg/dL (2.5-4.9)
--- NOTE | 2019-05-18 10:48 | PN ---
Progress Note, Physician History of Present Illness: Abdominal pain resolved, denies chest pain, dyspnea, palpitations, LE swelling. - Current Medication List Current Medications: Active Medications Carvedilol (Coreg -) 6.25 mg PO BID [facility] Last Admin: 05/18/19 09:46 Dose: 6.25 mg Cyanocobalamin (Vitamin B12 -) 1,000 mcg PO DAILY [facility] Last Admin: 05/18/19 09:45 Dose: 1,000 mcg Ferrous Sulfate (Feosol -) 325 mg PO BID [facility] Last Admin: 05/18/19 09:45 Dose: 325 mg Folic Acid (Folic Acid -) 1 mg PO DAILY [facility] Last Admin: 05/18/19 09:45 Dose: 1 mg Furosemide (Lasix -) 40 mg PO DAILY [facility] Last Admin: 05/18/19 09:45 Dose: 40 mg Heparin Sodium (Porcine) (Heparin -) 5,000 unit SQ TID [facility] Last Admin: 05/18/19 05:40 Dose: Not Given Insulin Aspart (Novolog Vial Sliding Scale -) 1 vial SQ [facility]; Protocol Last Admin: 05/18/19 06:10 Dose: Not Given Lorazepam (Ativan Injection -) 1 mg IVPUSH Q6H PRN PRN Reason: ANXIETY Multivitamins/Minerals/Vitamin C (Tab-A-Vit -) 1 tab PO DAILY [facility] Last Admin: 05/18/19 09:45 Dose: 1 tab Sacubitril/Valsartan (Entresto 24 Mg-26 Mg Tablet) 1 tab PO BID [facility] Last Admin: 05/18/19 09:46 Dose: 1 tab Spironolactone (Aldactone -) 25 mg PO DAILY [facility] Last Admin: 05/18/19 09:46 Dose: 25 mg Thiamine HCl (Vitamin B1 -) 100 mg PO DAILY [facility] Last Admin: 05/18/19 09:46 Dose: 100 mg - Objective Vital Signs: Vital Signs Temperature 98.5 F 05/17/19 21:00 Pulse Rate 99 H 05/18/19 10:10 Respiratory Rate 18 05/18/19 10:10 Blood Pressure 111/99 05/18/19 10:10 O2 Sat by Pulse Oximetry (%) 96 05/18/19 09:00 Constitutional: Yes: No Distress, Calm, Thin Neck: Yes: Supple Cardiovascular: Yes: Regular Rate and Rhythm Respiratory: Yes: Regular, CTA Bilaterally Gastrointestinal: Yes: Normal Bowel Sounds, Soft Edema: No Labs: CBC, BMP 05/18/19 06:30 05/18/19 06:30 INR, PTT INR 0.97 (0.83-1.09) 05/16/19 07:55 - ....Imaging EKG: Report Reviewed (Tele: NSR) Problem List - Problems (1) CHF (congestive heart failure) Code(s): I50.9 - HEART FAILURE, UNSPECIFIED Qualifiers: Heart failure type: combined systolic and diastolic Heart failure chronicity: acute on chronic Qualified Code(s): I50.43 - Acute on chronic combined systolic (congestive) and diastolic (congestive) heart failure (2) NSVT (nonsustained ventricular tachycardia) Code(s): I47.2 - VENTRICULAR TACHYCARDIA (3) Noncompliance with medication regimen Code(s): Z91.14 - PATIENT'S OTHER NONCOMPLIANCE WITH MEDICATION REGIMEN (4) Alcohol dependence with uncomplicated withdrawal Code(s): F10.230 - ALCOHOL DEPENDENCE WITH WITHDRAWAL, UNCOMPLICATED (5) Diabetes mellitus type II, controlled Code(s): E11.9 - TYPE 2 DIABETES MELLITUS WITHOUT COMPLICATIONS Qualifiers: 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 Clinical presentation is consistent with acute class II [place] [employer] classification left ventricular failure related to severe systolic left ventricular dysfunction, LVEF between 30-35% most likely related to 2. Non-ischemic dilated cardiomyopathy- alcoholic cardiomyopathy cannot exclude ischemic dilated cardiomyopathy 3. Coronary artery disease to be excluded 4. Non-sustained ventricular tachycardia 5. Bvs-[id number] diabetes mellitus 6. Anemia etiology of which is unclear 7. Alcohol abuse 8. Tobacco abuse PLAN: 1. Increase Carvedilol therapy at 12.5 mg twice daily/hemodynamics permitting 2. Continue Entresto 24/26 bid with further titratration as hemodynamics permit 3. Decrease Lasix 20 qd and continue Aldactone 25 mg qd/hemodynamics permitting with close monitoring of renal function and electrolytes 4. Provided patient demonstrates compliance with medical therapy administration and medical followup would recommend additional evaluation including right and left heart cardiac catheterization coronary angiography and discharged with LifeVest pending further evaluation of LVEF in 90 days prior to planning prophylactic ICD implantation 5. Patient was strongly counseled smoking cessation and abstinence 6. Patient was strongly counseled alcohol abstinence
[2019-05-18] MEDS ORDERED: FUROSEMIDE 20 MG TABLET (FP) PO SCH (10:58)
[2019-05-18] MEDS ORDERED: MAGNESIUM SULF 50% (8.12 MEQ/2 ML-1 GM VIAL) IVPB ONE (15:06)
--- NOTE | 2019-05-18 15:17 | PN ---
Teaching Attending Note Name of Resident: Aditya Hayes ATTENDING PHYSICIAN STATEMENT I saw and evaluated the patient. I reviewed the resident's note and discussed the case with the resident. I agree with the resident's findings and plan as documented. SUBJECTIVE: Feels okay - no complaints except for some abdominal discomfort and loose stool. OBJECTIVE: Afebrile, hemodynamically stable Last Vital Signs Temp Pulse Resp BP Pulse Ox 98.9 F 96 H 18 100/61 96 05/18/19 14:00 05/18/19 14:00 05/18/19 10:10 05/18/19 14:00 05/18/19 09:00 HEART: S1, S2, RRR LUNGS: Clear to auscultation ABDOMEN: Soft, mild generalized tenderness, normal BS EXTREMITIES: No edema, no calf tenderness. Laboratory Results - last 24 hr 05/17/19 05/18/19 05/18/19 16:25 06:30 06:30 WBC 3.9 L RBC 2.41 L Hgb 9.1 L Hct 26.8 L MCV 111.2 H MCH 37.9 H MCHC 34.1 RDW 17.8 H Plt Count 260 MPV 8.0 Sodium 136 Potassium 4.2 Chloride 103 Carbon Dioxide 26 Anion Gap 7 L BUN 12.7 Creatinine 1.0 Est GFR (CKD-EPI)AfAm 95.06 Est GFR (CKD-EPI)NonAf 82.02 POC Glucometer 163 Random Glucose 260 H Calcium 8.7 Phosphorus 5.8 H Magnesium 1.2 L Current Medications Generic Name Dose Route Start Last Admin Trade Name Freq PRN Reason Stop Dose Admin Carvedilol 12.5 mg 05/18/19 10:55 Coreg - PO BID TRUMAN Cyanocobalamin 1,000 mcg 05/17/19 10:00 05/18/19 09:45 Vitamin B12 - PO 1,000 mcg DAILY TRUMAN Administration Ferrous Sulfate 325 mg 05/17/19 10:00 05/18/19 09:45 Feosol - PO 325 mg BID TRUMAN Administration Folic Acid 1 mg 05/14/19 10:00 05/18/19 09:45 Folic Acid - PO 1 mg DAILY TRUMAN Administration Furosemide 20 mg 05/18/19 10:58 Lasix - PO DAILY TRUMAN Heparin Sodium (Porcine) 5,000 unit 05/14/19 06:00 05/18/19 13:21 Heparin - SQ Not Given TID TRUMAN Insulin Aspart 1 vial 05/16/19 22:00 05/18/19 13:21 Novolog Vial Sliding Scale - SQ Not Given ACHS [facility] Protocol Multivitamins/Minerals/Vitamin C 1 tab 05/14/19 10:00 05/18/19 09:45 Tab-A-Vit - PO 1 tab DAILY TRUMAN Administration Sacubitril/Valsartan 1 tab 05/17/19 10:00 05/18/19 09:46 Entresto 24 Mg-26 Mg Tablet PO 1 tab BID TRUMAN Administration Spironolactone 25 mg 05/17/19 10:00 05/18/19 09:46 Aldactone - PO 25 mg DAILY TRUMAN Administration Thiamine HCl 100 mg 05/14/19 10:00 05/18/19 09:46 Vitamin B1 - PO 100 mg DAILY TRUMAN Administration Home Medications Medication Instructions Recorded metFORMIN HCL [Metformin HCl] 500 mg PO BIDAC #30 tablet 02/26/16 ASSESSMENT AND PLAN: 58 year old male with history of Alcohol Abuse, DM 2, presented to the ED with abdominal pain. 1. Continuous alcohol dependence with uncomplicated withdrawal Completed Librium detox Continue thiamine, multivitamin, folic acid 2. Non-specific Abdominal discomfort with associated diarrhea US Abdo - GB Sludge/polyp Seen by Surgery who recommends eval for lap chapincito, which patient declined. No evidence of acute cholecystitis. Stool Cx negative. Cdiff requested. CT A/P - no acute GI findings. Afebrile, hemodynamically stable. 3. L renal Mass suspicious for uncal cytoma or renal cell ca, multiple bilateral renal hyperdensities, diffusely thick-walled bladder with cysts - incidental findings on CT A/P. MRI imaging recommended by radiology. Reports non-specific abdominal discomfort For urology evaluation. UCx requested. 4. Anemia, macrocytic, likely sec to Alcohol B12 level borderline, Iron Sat 8% Started n B12 and iron supplementation Needs Hematology eval as out-patient and referral to GI for screening colonoscopy/NIMA work-up. 5. Neutropenia - resolved. 6. DM 2 - Metfomin held. Continue Novolog as per sliding scale. 7. Systolic CHF with dilated cardiomyopathy/global hypokinesis, EF 30-35% Likely non-ischemic, secondary to Alcohol excess Evaluated by Cardiology - Metoprolol changed to Coreg. Entresto, Lasix, Aldactone added. Will need LifeVest on discharge - arrangements in progress for LifeVest. Cardio follow up as out-patinet for L and R heart cath as per Cardio - to exclude ischemic heart disease. For consideration of ICD as out-patient by Cardio in the future. 8. NSVT - eval by Cardio - metoprolol changed to Coreg. Further management as per Cardio. 9. Hypomagnesemia - repleted. DVT Px - Heparin SQ
--- NOTE | 2019-05-18 16:21 | PN ---
Physical Exam: SUBJECTIVE: Patient seen and examined. Endorses loose stool, one watery episode. Still has epigastric abdominal pain that is 5/10 intensity. Denies pain with urination, blood. Endorses 30lb weight loss. OBJECTIVE: Vital Signs Period Temp Pulse Resp BP Sys/Gar Pulse Ox Last 24 Hr 98.1 F-98.9 F 96-103 18-18 100-120/61-99 94-96 GENERAL: A&Ox3, NAD HEAD: NCAT EYES: PERRL, EOMI, no scleral icterus ENT: moist mucous membranes NECK: Supple, No JVD LUNGS: CTAB, no wheezes, no crackles HEART: Regular rate and rhythm, S1, S2 without murmur ABDOMEN: Soft, epigastric tenderness to palpation, less severe tenderness to lower abd, nondistended, no guarding, no rebound EXTREMITIES: no edema, no calf tenderness NEUROLOGICAL: normal speech, normal AROM SKIN: Warm, dry Laboratory Results - last 24 hr 05/17/19 05/18/19 05/18/19 16:25 06:30 06:30 WBC 3.9 L RBC 2.41 L Hgb 9.1 L Hct 26.8 L MCV 111.2 H MCH 37.9 H MCHC 34.1 RDW 17.8 H Plt Count 260 MPV 8.0 Sodium 136 Potassium 4.2 Chloride 103 Carbon Dioxide 26 Anion Gap 7 L BUN 12.7 Creatinine 1.0 Est GFR (CKD-EPI)AfAm 95.06 Est GFR (CKD-EPI)NonAf 82.02 POC Glucometer 163 Random Glucose 260 H Calcium 8.7 Phosphorus 5.8 H Magnesium 1.2 L Active Medications Generic Name Dose Route Start Last Admin Trade Name Freq PRN Reason Stop Dose Admin Carvedilol 12.5 mg 05/18/19 10:55 Coreg - PO BID [facility] Cyanocobalamin 1,000 mcg 05/17/19 10:00 05/18/19 09:45 Vitamin B12 - PO 1,000 mcg DAILY [facility] Administration Ferrous Sulfate 325 mg 05/17/19 10:00 05/18/19 09:45 Feosol - PO 325 mg BID [facility] Administration Folic Acid 1 mg 05/14/19 10:00 05/18/19 09:45 Folic Acid - PO 1 mg DAILY [facility] Administration Furosemide 20 mg 05/18/19 10:58 Lasix - PO DAILY [facility] Heparin Sodium (Porcine) 5,000 unit 05/14/19 06:00 05/18/19 13:21 Heparin - SQ Not Given TID [facility] Insulin Aspart 1 vial 05/16/19 22:00 05/18/19 13:21 Novolog Vial Sliding Scale - SQ Not Given ACHS [facility] Protocol Multivitamins/Minerals/Vitamin C 1 tab 05/14/19 10:00 05/18/19 09:45 Tab-A-Vit - PO 1 tab DAILY [facility] Administration Sacubitril/Valsartan 1 tab 05/17/19 10:00 05/18/19 09:46 Entresto 24 Mg-26 Mg Tablet PO 1 tab BID [facility] Administration Spironolactone 25 mg 05/17/19 10:00 05/18/19 09:46 Aldactone - PO 25 mg DAILY [facility] Administration Thiamine HCl 100 mg 05/14/19 10:00 05/18/19 09:46 Vitamin B1 - PO 100 mg DAILY [facility] Administration Vital Signs Temp 98.9 F 05/18/19 14:00 Pulse 96 H 05/18/19 14:00 Resp 18 05/18/19 10:10 BP 100/61 05/18/19 14:00 Pulse Ox 96 05/18/19 09:00 Intake & Output 05/17/19 05/18/19 05/18/19 23:59 11:59 23:59 Intake Total 550 490 Output Total 2900 700 Balance -2350 -210 Weight 54.34 kg Intake: IV 10 10 ANASTASIYA #22G 05/16/19 10 10 Oral 540 480 Output: Urine 2900 700 Void 2900 700 Other: Voiding Method Toilet Urinal Bowel Movement No No Weight Measurement Method Standing Scale ASSESSMENT/PLAN: 58 y/o M with PMHx EtOH Use disorder and DM presents with abdominal pain. #Abdominal pain w/a diarrhea -- stable at 5/10 severity -Unclear Etiology; Possibly Alcoholic gastritis; Less likely pancreatitis or cholecystitis >US Abdo - GB Sludge/polyp ~4mm --Seen by Surgery who recommends eval for lap chapincito, which patient declined. -Stool Cx -- no growth of salmonella, camylobacter, yersinia, vibrio, E Coli 157 -C diff pending -CT A/P(05/17/19: Left renal mass suspicious for uncal cytoma or renal cell carcinoma. Correlate with MRI pre and postcontrast. Multiple other bilateral renal hypodensities. Bilateral moderate pleural effusions with compressive atelectasis. Rule out cystitis. Slightly prominent pancreatic duct without obvious mass. -Previously on PPI; held given diarrhea and concern for possible C. Diff #renal masses -- uncal cytoma vs RCC vs other -MRI A/P w/ contrast pending -- evaluate for renal malig -Uro consulted #EtOH Use Disorder -Continue CIWA Protocol -Thiamine/MVI/Folic Acid daily -Continue to Monitor CIWA, observe for DT's #Elevated BNP -Concerning for Alcohol induced Cardiomyopathy; Clinically not in CHF Exacerbation >Echo(05/16/19): LVEF 30-35% w/ severe global hypokinesis; MR, TR, PASP >42mmHg #NSVT -Found on Tele in the setting of Hypokalemia and Hypomagnesemia -Cardio Consulted, recs appreciated: 1. Discontinue Lopressor therapy and to initiate Carvedilol therapy at 6.25 mg twice daily/hemodynamics permitting 2. Ideally Entresto therapy is to be initiated- provided insurance coverage as an alternative Diovan therapy may be be initiated at 40 mg once daily; dose of which is to be further titrated/hemodynamics permitting 3. Recommend initiation of Lasix and Aldactone therapies (Lasix at 40 mg once daily and Aldactone at 25 mg once daily/hemodynamics permitting) with close monitoring of renal function and electrolytes 4. Provided patient demonstrates compliance with medical therapy administration and medical followup would recommend additional evaluation including right and left heart cardiac catheterization coronary angiography and discharged with LifeVest pending further evaluation of LVEF in 90 days prior to planning prophylactic ICD implantation 5. Patient was strongly counseled smoking cessation and abstinence 6. Patient was strongly counseled alcohol abstinence #Leukopenia, Improved -Continue to monitor #Macrocytic anemia -In the setting of chronic EtOH use -B12 WNL, -iron Sat 8% -- will supplemen FeSO4 PO -Hematology eval as outpatient for NIMA -GI eval as outpatient for screening colonoscopy/NIMA #DM -ISS BGMs ACHS #Small gallbladder polyps (4 mm) -Found on RUQ US with questionable small sludge layering posteriorly -General Surgery (Dr. Grossman) consulted --patient declined surgical intervention --suggest evaluation by Gastroenterology #diarrhea - fu stool gram stain - fu stool O&P study - fu stool cx #PPx -DVT: Heparin #FEN -No Standing fluids -Replete Lytes PRN -Diabetic/Sodium Diet Dispo: Telemetry Visit type - Emergency Visit Emergency Visit: No - New Patient This patient is new to me today: No - Critical Care Critical Care patient: No ATTENDING PHYSICIAN STATEMENT I saw and evaluated the patient. I reviewed the resident's note and discussed the case with the resident. I agree with the resident's findings and plan as documented. SUBJECTIVE: OBJECTIVE: ASSESSMENT AND PLAN:
[2019-05-18] MEDS ORDERED: PT OWN MED DRAWER 7, Y5N ONE ×2 (21:27→21:36)
[2019-05-18] MEDS: CARVEDILOL 12.5 MG TABLET (FP) PO SCH (21:32)
[2019-05-18] MEDS ORDERED: guaiFENesin 200 MG/10 ML 10 ML UNIT-DOSE CUPS PO ONE (22:22)
[2019-05-18] MEDS ORDERED: BENZOCAINE/MENTH/CETYLPYRD CL 1 EACH LOZENGE MM PRN (23:46)
[2019-05-19] MEDS ORDERED: INSULIN (NOVOLOG) ASPART 100 UNITS/ML 10ML VIAL SQ ONE (00:13)
[2019-05-19 06:19] LABS: BASO % 0.8 % (0-2.0); EOS % 2.2 % (0-4.5); HEMOGLOBIN 9.3 GM/dL (11.7-16.9); LYMPH % 15.7 % (8-40); MCH 37.7 pg (25.7-33.7); MCHC 34.3 g/dl (32.0-35.9); MEAN CELL VOLUME 109.8 fl (80-96); MEAN PLT VOLUME 7.8 fl (7.5-11.1); NEUT % 72.3 % (42.8-82.8); PLATELET COUNT 290 K/MM3 (134-434); RBC 2.46 M/mm3 (4.00-5.60); WHITE BLOOD COUNT 4.9 K/mm3 (4.0-10.0)
[2019-05-19] MEDS: HEPARIN NA (PORCINE) 5,000 UNITS/ML 1ML VIAL SQ SCH ×2 (06:19→13:27)
[2019-05-19] MEDS: INSULIN SLIDING SCALE (NOVOLOG) 1 VIAL SQ SCH ×3 (06:28→16:31)
[2019-05-19 06:47] LABS: ALBUMIN 2.9 g/dl (3.4-5.0); BILIRUBIN,TOTAL 0.7 mg/dL (0.2-1); BLOOD UREA NITROGEN 17.9 mg/dL (7-18); CALCIUM 8.7 mg/dL (8.5-10.1); MAGNESIUM 1.4 mg/dL (1.8-2.4); PHOSPHOROUS 6.5 mg/dL (2.5-4.9)
[2019-05-19] MEDS ORDERED: MAGNESIUM SULF 50% (8.12 MEQ/2 ML-1 GM VIAL) IVPB ONE (07:58)
--- NOTE | 2019-05-19 08:40 | CONSULT ---
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 Patient kimberly left colic or gross hematuria. - History Source History Provided By: Patient - Alcohol/Substance Use Hx Alcohol Use: No - Smoking History Smoking history: Current every day smoker Have you smoked in the past 12 months: No Aproximately how many cigarettes per day: 10 Home Medications - Allergies Allergies/Adverse Reactions: Allergies Allergy/AdvReac Type Severity Reaction Status Date / Time No Known Allergies Allergy Verified 05/13/19 23:22 - Home Medications Home Medications: Ambulatory Orders metFORMIN HCL [Metformin HCl] 500 mg PO BIDAC #30 tablet 02/26/16 Physical Exam Vital Signs: Vital Signs Temperature 98.7 F 05/19/19 06:00 Pulse Rate 93 H 05/19/19 06:00 Respiratory Rate 18 05/19/19 06:00 Blood Pressure 115/60 05/19/19 06:00 O2 Sat by Pulse Oximetry (%) 96 05/18/19 21:00 Constitutional: Yes: Calm Eyes: Yes: WNL, Conjunctiva Clear, EOM Intact HENT: Yes: WNL, Atraumatic, Normocephalic Neck: Yes: WNL, Supple, Trachea Midline Respiratory: Yes: WNL Gastrointestinal: Yes: Soft ...Rectal Exam: Yes: Deferred Renal/: Yes: WNL Labs: CBC, BMP 05/19/19 05:58 05/19/19 05:58 Imaging - Results Cat Scan: Report Reviewed Assessment/Plan imp left renal mass plan for MRI
[2019-05-19] MEDS ORDERED: PT OWN MED DRAWER 7, Y5N ONE (09:07)
[2019-05-19] MEDS: MULTIVITAMINS (DAILY MVI) TABLET (FP) PO SCH (09:35)
[2019-05-19] MEDS: SPIRONOLACTONE 25 MG TABLET (FP) PO SCH (09:35)
[2019-05-19] MEDS: CARVEDILOL 12.5 MG TABLET (FP) PO SCH (09:35)
[2019-05-19] MEDS: FOLIC ACID 1 MG TABLET (FP) PO SCH (09:35)
[2019-05-19] MEDS: THIAMINE HCL 100 MG TABLET (FP) PO SCH (09:35)
[2019-05-19] MEDS: FERROUS SO4 325 MG TABLET (FP) PO SCH (09:35)
[2019-05-19] MEDS: CYANOCOBALAMIN 1,000 MCG TABLET (FP) PO SCH (09:35)
[2019-05-19] MEDS: SACUBITRIL/VALSARTAN 24 MG-26 MG TABLET PO SCH (09:36)
[2019-05-19 09:53] LABS: ANISOCYTOSIS 1+; MACROCYTOSIS 2+; PLATELET ESTIMATE NORMAL
[2019-05-19] MEDS ORDERED: guaiFENesin 200 MG/10 ML 10 ML UNIT-DOSE CUPS PO PRN (11:06)
--- NOTE | 2019-05-19 11:34 | PN ---
Progress Note, Physician History of Present Illness: Abdominal pain resolved, denies chest pain, dyspnea, palpitations, LE swelling. - Current Medication List Current Medications: Active Medications Benzocaine/Menthol (Cepacol Lozenge -) 1 each MM PRN PRN PRN Reason: SORE THROAT Carvedilol (Coreg -) 12.5 mg PO BID [facility] Last Admin: 05/19/19 09:35 Dose: 12.5 mg Cyanocobalamin (Vitamin B12 -) 1,000 mcg PO DAILY [facility] Last Admin: 05/19/19 09:35 Dose: 1,000 mcg Ferrous Sulfate (Feosol -) 325 mg PO BID [facility] Last Admin: 05/19/19 09:35 Dose: 325 mg Folic Acid (Folic Acid -) 1 mg PO DAILY [facility] Last Admin: 05/19/19 09:35 Dose: 1 mg Furosemide (Lasix -) 20 mg PO DAILY [facility] Last Admin: 05/19/19 09:35 Dose: 20 mg Guaifenesin (Robitussin -) 10 ml PO Q8H PRN PRN Reason: COUGH Heparin Sodium (Porcine) (Heparin -) 5,000 unit SQ TID [facility] Last Admin: 05/19/19 06:19 Dose: Not Given Insulin Aspart (Novolog Vial Sliding Scale -) 1 vial SQ ACHS [facility]; Protocol Last Admin: 05/19/19 06:28 Dose: 2 units Multivitamins/Minerals/Vitamin C (Tab-A-Vit -) 1 tab PO DAILY [facility] Last Admin: 05/19/19 09:35 Dose: 1 tab Sacubitril/Valsartan (Entresto 24 Mg-26 Mg Tablet) 1 tab PO BID [facility] Last Admin: 05/19/19 09:36 Dose: 1 tab Spironolactone (Aldactone -) 25 mg PO DAILY [facility] Last Admin: 05/19/19 09:35 Dose: 25 mg Thiamine HCl (Vitamin B1 -) 100 mg PO DAILY [facility] Last Admin: 05/19/19 09:35 Dose: 100 mg - Objective Vital Signs: Vital Signs Temperature 98.7 F 05/19/19 06:00 Pulse Rate 93 H 05/19/19 06:00 Respiratory Rate 18 05/19/19 08:54 Blood Pressure 115/60 05/19/19 06:00 O2 Sat by Pulse Oximetry (%) 96 05/19/19 08:54 Constitutional: Yes: No Distress, Calm, Thin Neck: Yes: Supple Cardiovascular: Yes: Regular Rate and Rhythm Respiratory: Yes: Regular, CTA Bilaterally Gastrointestinal: Yes: Normal Bowel Sounds, Soft Edema: No Labs: CBC, BMP 05/19/19 05:58 05/19/19 05:58 INR, PTT INR 0.97 (0.83-1.09) 05/16/19 07:55 Problem List - Problems (1) CHF (congestive heart failure) Code(s): I50.9 - HEART FAILURE, UNSPECIFIED Qualifiers: Heart failure type: combined systolic and diastolic Heart failure chronicity: acute on chronic Qualified Code(s): I50.43 - Acute on chronic combined systolic (congestive) and diastolic (congestive) heart failure (2) NSVT (nonsustained ventricular tachycardia) Code(s): I47.2 - VENTRICULAR TACHYCARDIA (3) Noncompliance with medication regimen Code(s): Z91.14 - PATIENT'S OTHER NONCOMPLIANCE WITH MEDICATION REGIMEN (4) Alcohol dependence with uncomplicated withdrawal Code(s): F10.230 - ALCOHOL DEPENDENCE WITH WITHDRAWAL, UNCOMPLICATED (5) Diabetes mellitus type II, controlled Code(s): E11.9 - TYPE 2 DIABETES MELLITUS WITHOUT COMPLICATIONS Qualifiers: Diabetes mellitus terminal operator insulin use: without [place] use Diabetes mellitus complication status: without complication Qualified Code(s): E11.9 - Type 2 diabetes mellitus without complications Assessment/Plan Echocardiography performed May 16, 2019 revealed severe reduction in left ventricular systolic function with estimated LVEF between 30-35%, severe diffuse global hypokinesia, poorly visualize right ventricle, mild mitral valve leaflet thickening with mild mitral valve regurgitation, mild tricuspid valve regurgitation with calculated RVSP of 42 mmHg ASSESSMENT: 1. Clinical presentation is consistent with acute class II [place] [employer] classification left ventricular failure related to severe systolic left ventricular dysfunction, LVEF between 30-35% most likely related to 2. Non-ischemic dilated cardiomyopathy- alcoholic cardiomyopathy cannot exclude ischemic dilated cardiomyopathy 3. Coronary artery disease to be excluded 4. Non-sustained ventricular tachycardia 5. Zet-yqknkes-qfnwsxydn diabetes mellitus 6. Anemia etiology of which is unclear 7. Alcohol abuse 8. Tobacco abuse 9. Left renal mass PLAN: 1. Increased Carvedilol therapy at 12.5 mg twice daily/hemodynamics permitting 2. Continue Entresto 24/26 bid with further titratration as hemodynamics permit 3. Decrease Lasix 20 qd and continue Aldactone 25 mg qd/hemodynamics permitting with close monitoring of renal function and electrolytes 4. Provided patient demonstrates compliance with medical therapy administration and medical followup would recommend additional evaluation including right and left heart cardiac catheterization coronary angiography and fitted with LifeVest pending further evaluation of LVEF in 90 days prior to planning prophylactic ICD implantation 5. Patient was strongly counseled smoking cessation and abstinence 6. Patient was strongly counseled alcohol abstinence 7. F/u MRI
--- NOTE | 2019-05-19 15:20 | PN ---
Teaching Attending Note Name of Resident: Aditya Hayes ATTENDING PHYSICIAN STATEMENT I saw and evaluated the patient. I reviewed the resident's note and discussed the case with the resident. I agree with the resident's findings and plan as documented. SUBJECTIVE: Feels okay - no complaints except for some mild intermittent abdominal discomfort. Loose stool resolved. OBJECTIVE: Afebrile, hemodynamically stable Last Vital Signs Temp Pulse Resp BP Pulse Ox 98.0 F 94 H 18 90/57 L 96 05/19/19 14:00 05/19/19 14:00 05/19/19 08:54 05/19/19 14:00 05/19/19 08:54 HEART: S1, S2, RRR LUNGS: Clear to auscultation ABDOMEN: Soft, mild generalized tenderness, normal BS EXTREMITIES: No edema, no calf tenderness. NEURO: AAO x 3. Tone/Power normal all 4 extremities. Laboratory Results - last 24 hr 05/17/19 05/18/19 05/18/19 16:25 06:30 06:30 WBC 3.9 L RBC 2.41 L Hgb 9.1 L Hct 26.8 L MCV 111.2 H MCH 37.9 H MCHC 34.1 RDW 17.8 H Plt Count 260 MPV 8.0 Sodium 136 Potassium 4.2 Chloride 103 Carbon Dioxide 26 Anion Gap 7 L BUN 12.7 Creatinine 1.0 Est GFR (CKD-EPI)AfAm 95.06 Est GFR (CKD-EPI)NonAf 82.02 POC Glucometer 163 Random Glucose 260 H Calcium 8.7 Phosphorus 5.8 H Magnesium 1.2 L Current Medications Generic Name Dose Route Start Last Admin Trade Name Rudolphq PRN Reason Stop Dose Admin Carvedilol 12.5 mg 05/18/19 10:55 Coreg - PO BID [facility] Cyanocobalamin 1,000 mcg 05/17/19 10:00 05/18/19 09:45 Vitamin B12 - PO 1,000 mcg DAILY [facility] Administration Ferrous Sulfate 325 mg 05/17/19 10:00 05/18/19 09:45 Feosol - PO 325 mg BID [facility] Administration Folic Acid 1 mg 05/14/19 10:00 05/18/19 09:45 Folic Acid - PO 1 mg DAILY [facility] Administration Furosemide 20 mg 05/18/19 10:58 Lasix - PO DAILY [facility] Heparin Sodium (Porcine) 5,000 unit 05/14/19 06:00 05/18/19 13:21 Heparin - SQ Not Given TID [facility] Insulin Aspart 1 vial 05/16/19 22:00 05/18/19 13:21 Novolog Vial Sliding Scale - SQ Not Given ACHS [facility] Protocol Multivitamins/Minerals/Vitamin C 1 tab 05/14/19 10:00 05/18/19 09:45 Tab-A-Vit - PO 1 tab DAILY [facility] Administration Sacubitril/Valsartan 1 tab 05/17/19 10:00 05/18/19 09:46 Entresto 24 Mg-26 Mg Tablet PO 1 tab BID [facility] Administration Spironolactone 25 mg 05/17/19 10:00 05/18/19 09:46 Aldactone - PO 25 mg DAILY [facility] Administration Thiamine HCl 100 mg 05/14/19 10:00 05/18/19 09:46 Vitamin B1 - PO 100 mg DAILY [facility] Administration Home Medications Medication Instructions Recorded metFORMIN HCL [Metformin HCl] 500 mg PO BIDAC #30 tablet 02/26/16 ASSESSMENT AND PLAN: 58 year old male with history of Alcohol Abuse, DM 2, presented to the ED with abdominal pain. 1. Continuous alcohol dependence with uncomplicated withdrawal Completed Librium detox Continue thiamine, multivitamin, folic acid 2. Non-specific Abdominal discomfort with associated diarrhea - resolving US Abdo - GB Sludge/polyp Seen by Surgery who recommends eval for lap chapincito, which patient declined. No evidence of acute cholecystitis. Stool Cx negative. Cdiff cancelled due to inadequate liquification of stool. CT A/P - no acute GI findings. Afebrile, hemodynamically stable. 3. L renal Mass suspicious for oncocytoma or renal cell ca, multiple bilateral renal hyperdensities, diffusely thick-walled bladder with cysts - incidental findings on CT A/P. MRI imaging recommended by radiology but fuel injectors on MRI are down and MRI dept is declining the scan at this time. Reports non-specific abdominal discomfort Urology evaluated - for MRI. Will need to have done as out-patient as MRI unable to accommodate as in-patient due to broken fuel injectors as per MRI department. Urology and Oncology referral as out-patient. 4. Anemia, macrocytic, likely sec to Alcohol B12 level borderline, Iron Sat 8% Started on B12 and iron supplementation Needs Hematology eval as out-patient and referral to GI for screening colonoscopy/NIMA work-up. 5. Neutropenia - resolved. 6. DM 2 - resume home anti-diabetic medications on discharge. 7. Systolic CHF with dilated cardiomyopathy/global hypokinesis, EF 30-35% Likely non-ischemic, secondary to Alcohol excess Evaluated by Cardiology - Metoprolol changed to Coreg. Entresto, Lasix, Aldactone added. Approved for LifeVest on discharge - arrangements in progress for LifeVest. Cardio follow up as out-patient for L and R heart cath as per Cardio - to exclude ischemic heart disease. For consideration of ICD as out-patient by Cardio in the future. 8. NSVT - eval by Cardio - metoprolol changed to Coreg. Further management as per Cardio. 9. Hypomagnesemia - recurrent, repleted. DVT Px - Heparin SQ Medically optimized for discharge with Lifevest with Cardiology, Hematology, Urology follow up, MRI A/P to further characterize renal lesions, and after counseling re: importance of alcohl cessation, medication compliance and specialist follow up.
--- NOTE | 2019-05-19 16:43 | PN ---
Physical Exam: SUBJECTIVE: Patient seen and examined. Endorses epigastric pain 4/10 severity. Denies having diarrhea in the AM. Endorses feeling fatigue and 30lb weight loss in 2mo. OBJECTIVE: Vital Signs Period Temp Pulse Resp BP Sys/Gar Pulse Ox Last 24 Hr 98.0 F-98.7 F 93-96 17-20 90-115/57-63 96-96 GENERAL: A&Ox3, NAD HEAD: NCAT EYES: PERRL, EOMI, no scleral icterus ENT: moist mucous membranes NECK: Supple, No JVD LUNGS: CTAB, no wheezes, no crackles HEART: Regular rate and rhythm, S1, S2 without murmur ABDOMEN: Soft, epigastric tenderness to palpation, less severe tenderness to lower abd, nondistended, no guarding, no rebound EXTREMITIES: no edema, no calf tenderness NEUROLOGICAL: normal speech, normal AROM SKIN: Warm, dry Laboratory Results - last 24 hr 05/15/19 05/18/19 05/18/19 22:05 21:31 23:37 WBC RBC Hgb Hct MCV MCH MCHC RDW Plt Count MPV Absolute Neuts (auto) Neutrophils % Lymphocytes % Monocytes % Eosinophils % Basophils % Nucleated RBC % Hypochromia Platelet Estimate Polychromasia Poikilocytosis Anisocytosis Microcytosis Macrocytosis Sodium Potassium Chloride Carbon Dioxide Anion Gap BUN Creatinine Est GFR (CKD-EPI)AfAm Est GFR (CKD-EPI)NonAf POC Glucometer 443 311 Random Glucose Calcium Phosphorus Magnesium Total Bilirubin AST ALT Alkaline Phosphatase Total Protein Albumin Stool O & P Wet [place] P Permanent Slide Final report 05/19/19 05/19/19 05/19/19 01:32 05:58 05:58 WBC 4.9 RBC 2.46 L Hgb 9.3 L Hct 27.0 L MCV 109.8 H MCH 37.7 H MCHC 34.3 RDW 17.0 H Plt Count 290 MPV 7.8 Absolute Neuts (auto) 3.5 Neutrophils % 72.3 Lymphocytes % 15.7 D Monocytes % 9.0 D Eosinophils % 2.2 Basophils % 0.8 Nucleated RBC % 0 Hypochromia 0 Platelet Estimate Normal Polychromasia 1+ Poikilocytosis 0 Anisocytosis 1+ Microcytosis 0 Macrocytosis 2+ Sodium 136 Potassium 4.0 Chloride 104 Carbon Dioxide 25 Anion Gap 7 L BUN 17.9 Creatinine 1.0 Est GFR (CKD-EPI)AfAm 95.06 Est GFR (CKD-EPI)NonAf 82.02 POC Glucometer 127 Random Glucose 153 H Calcium 8.7 Phosphorus 6.5 H Magnesium 1.4 L Total Bilirubin 0.7 AST 18 ALT 18 Alkaline Phosphatase 65 Total Protein 6.0 L Albumin 2.9 L Stool O & P Wet [place] Permanent Slide 05/19/19 06:22 WBC RBC Hgb Hct MCV MCH MCHC RDW Plt Count MPV Absolute Neuts (auto) Neutrophils % Lymphocytes % Monocytes % Eosinophils % Basophils % Nucleated RBC % Hypochromia Platelet Estimate Polychromasia Poikilocytosis Anisocytosis Microcytosis Macrocytosis Sodium Potassium Chloride Carbon Dioxide Anion Gap BUN Creatinine Est GFR (CKD-EPI)AfAm Est GFR (CKD-EPI)NonAf POC Glucometer 172 Random Glucose Calcium Phosphorus Magnesium Total Bilirubin AST ALT Alkaline Phosphatase Total Protein Albumin Stool O & P Wet [place] Permanent Slide Active Medications Generic Name Dose Route Start Last Admin Trade Name Freq PRN Reason Stop Dose Admin Benzocaine/Menthol 1 each 05/18/19 23:46 Cepacol Lozenge - MM PRN PRN SORE THROAT Carvedilol 12.5 mg 05/18/19 10:55 05/19/19 09:35 Coreg - PO 12.5 mg BID TRUMAN Administration Cyanocobalamin 1,000 mcg 05/17/19 10:00 05/19/19 09:35 Vitamin B12 - PO 1,000 mcg DAILY TRUMAN Administration Ferrous Sulfate 325 mg 05/17/19 10:00 05/19/19 09:35 Feosol - PO 325 mg BID TRUMAN Administration Folic Acid 1 mg 05/14/19 10:00 05/19/19 09:35 Folic Acid - PO 1 mg DAILY TRUMAN Administration Furosemide 20 mg 05/18/19 10:58 05/19/19 09:35 Lasix - PO 20 mg DAILY TRUMAN Administration Guaifenesin 10 ml 05/19/19 11:06 Robitussin - PO Q8H PRN COUGH Heparin Sodium (Porcine) 5,000 unit 05/14/19 06:00 05/19/19 13:27 Heparin - SQ Not Given TID [facility] Insulin Aspart 1 vial 05/18/19 21:54 05/19/19 12:54 Novolog Vial Sliding Scale - SQ Not Given ACHS [facility] Protocol Multivitamins/Minerals/Vitamin C 1 tab 05/14/19 10:00 05/19/19 09:35 Tab-A-Vit - PO 1 tab DAILY TRUMAN Administration Sacubitril/Valsartan 1 tab 05/17/19 10:00 05/19/19 09:36 Entresto 24 Mg-26 Mg Tablet PO 1 tab BID TRUMAN Administration Spironolactone 25 mg 05/17/19 10:00 05/19/19 09:35 Aldactone - PO 25 mg DAILY TRUMAN Administration Thiamine HCl 100 mg 05/14/19 10:00 05/19/19 09:35 Vitamin B1 - PO 100 mg DAILY TRUMAN Administration Vital Signs Temp 98.0 F 05/19/19 14:00 Pulse 94 H 05/19/19 14:00 Resp 18 05/19/19 08:54 BP 90/57 L 05/19/19 14:00 Pulse Ox 96 05/19/19 08:54 Intake & Output 05/18/19 05/19/19 05/19/19 23:59 11:59 23:59 Intake Total 670 550 120 Output Total 500 850 Balance 170 -300 120 Weight 54.159 kg Intake: IV 10 10 20 ANASTASIYA #22G 05/16/19 10 10 20 IVPB 100 Oral 660 540 Output: Urine 500 850 Void 500 850 Other: Voiding Method Urinal Urinal Bowel Movement No Weight Measurement Method Standing Scale ASSESSMENT/PLAN: 58 y/o M with PMHx EtOH Use disorder and DM presents with abdominal pain. #Abdominal pain w/a diarrhea -- stable at 5/10 severity -Unclear Etiology; Possibly Alcoholic gastritis; Less likely pancreatitis or cholecystitis >US Abdo - GB Sludge/polyp ~4mm --Seen by Surgery who recommends eval for lap chapincito, which patient declined. -Stool Cx -- no growth of salmonella, camylobacter, yersinia, vibrio, E Coli 157 -C diff pending -CT A/P(05/17/19: Left renal mass suspicious for uncal cytoma or renal cell carcinoma. Correlate with MRI pre and postcontrast. Multiple other bilateral renal hypodensities. Bilateral moderate pleural effusions with compressive atelectasis. Rule out cystitis. Slightly prominent pancreatic duct without obvious mass. -Previously on PPI; held given diarrhea and concern for possible C. Diff #renal masses -- uncal cytoma vs RCC vs other -MRI A/P w/ contrast pending -- evaluate for renal malig -Uro consulted --MRI #EtOH Use Disorder -Continue CIWA Protocol -Thiamine/MVI/Folic Acid daily -Continue to Monitor CIWA, observe for DT's #Elevated BNP -Concerning for Alcohol induced Cardiomyopathy; Clinically not in CHF Exacerbation >Echo(05/16/19): LVEF 30-35% w/ severe global hypokinesis; MR, TR, PASP >42mmHg #NSVT -Found on Tele in the setting of Hypokalemia and Hypomagnesemia -Cardio Consulted, recs appreciated: 1. Discontinue Lopressor therapy and to initiate Carvedilol therapy at 6.25 mg twice daily/hemodynamics permitting 2. Ideally Entresto therapy is to be initiated- provided insurance coverage as an alternative Diovan therapy may be be initiated at 40 mg once daily; dose of which is to be further titrated/hemodynamics permitting 3. Recommend initiation of Lasix and Aldactone therapies (Lasix at 40 mg once daily and Aldactone at 25 mg once daily/hemodynamics permitting) with close monitoring of renal function and electrolytes 4. Provided patient demonstrates compliance with medical therapy administration and medical followup would recommend additional evaluation including right and left heart cardiac catheterization coronary angiography and discharged with LifeVest pending further evaluation of LVEF in 90 days prior to planning prophylactic ICD implantation 5. Patient was strongly counseled smoking cessation and abstinence 6. Patient was strongly counseled alcohol abstinence #Leukopenia, Improved -Continue to monitor #Macrocytic anemia -In the setting of chronic EtOH use -B12 WNL, -iron Sat 8% -- will supplemen FeSO4 PO -Hematology eval as outpatient for NIMA -GI eval as outpatient for screening colonoscopy/NIMA #DM -ISS BGMs ACHS #Small gallbladder polyps (4 mm) -Found on RUQ US with questionable small sludge layering posteriorly -General Surgery (Dr. Grossman) consulted --patient declined surgical intervention --suggest evaluation by Gastroenterology #diarrhea - fu stool gram stain - fu stool O&P study - fu stool cx #PPx -DVT: Heparin #FEN -No Standing fluids -Replete Lytes PRN -Diabetic/Sodium Diet Dispo: Telemetry Visit type - Emergency Visit Emergency Visit: No - New Patient This patient is new to me today: No - Critical Care Critical Care patient: No ATTENDING PHYSICIAN STATEMENT I saw and evaluated the patient. I reviewed the resident's note and discussed the case with the resident. I agree with the resident's findings and plan as documented. SUBJECTIVE: OBJECTIVE: ASSESSMENT AND PLAN:
[2019-05-19 21:01] VITALS: BP 96/66; PULSE 76; TEMP 98.2
== END 2019-05-19 19:00 | disposition home or self-care (01) | DRG 775 ==
LOC: JER 23:05 → JERBED 05-14 03:24 → J4W 05-14 10:03
PROVIDERS: ADMIT Internal Medicine
PROC: HZ2ZZZZ Detoxification Services for Substance Abuse Treatment (ICD-10-PCS; principal; 2019-05-13)
DX: F10.230 Alcohol dependence with withdrawal, uncomplicated (principal); N28.89 Other specified disorders of kidney and ureter; R10.11 Right upper quadrant pain; D64.9 Anemia, unspecified; E11.9 Type 2 diabetes mellitus without complications; D72.819 Decreased white blood cell count, unspecified; I50.43 Acute on chronic combined systolic (congestive) and diastolic (congestive) heart failure; E87.6 Hypokalemia; E83.42 Hypomagnesemia; E11.65 Type 2 diabetes mellitus with hyperglycemia; I47.2 Ventricular tachycardia; R79.89 Other specified abnormal findings of blood chemistry; G89.29 Other chronic pain; R94.5 Abnormal results of liver function studies; I42.0 Dilated cardiomyopathy; I42.6 Alcoholic cardiomyopathy; K82.4 Cholesterolosis of gallbladder; R19.7 Diarrhea, unspecified; J98.11 Atelectasis; J90 Pleural effusion, not elsewhere classified; R63.4 Abnormal weight loss; Z68.20 Body mass index [BMI] 20.0-20.9, adult; Z91.14 Patient's other noncompliance with medication regimen
CPT/HCPCS: 36415; 71046-TC-FY; 74177-TC; 76705-TC; 80048; 80053; 80061; 80307; 82550; 82607; 82728; 82746; 82962; 83540; 83550; 83690; 83721; 83735; 83880; 84100; 84443; 84484; 85025; 85027; 85044; 85610; 87045; 87046; 87177; 87205; 87209; 93005; 93010; 93306-TC; 99285-25; J0131; J7030; Q9967

== ENCOUNTER 2019-06-16 11:00 | Inpatient (IN) | payer OTHER ==
[2019-06-16 11:38] VITALS: BMI 21.9
--- NOTE | 2019-06-16 12:56 | HP ---
CIWA Score Nausea/Vomitin-Mild Nausea/No Vomiting Muscle Tremors: 2 Anxiety: 3 Agitation: 3 Paroxysmal Sweats: 1-Minimal Palms Moist Orientation: 0-Oriented Tacttile Disturbances: 2-Mild Itch/Numbness/Burn Auditory Disturbances: 0-None Visual Disturbances: 0-None Headache: 0-None Present CIWA-Ar Total Score: 12 - Admission Criteria OASAS Guidelines: Admission for Medically Managed Detox: Requires at least one of the followin. CIWA greater than 12 2. Seizures within the past 24 hours 3. Delirium tremens within the past 24 hours 4. Hallucinations within the past 24 hours 5. Acute intervention needed for co occurring medical disorder 6. Acute intervention needed for co occurring psychiatric disorder 7. Severe withdrawal that cannot be handled at a lower level of care (continued vomiting, continued diarrhea, abnormal vital signs) requiring intravenous medication and/or fluids 8. Admitting History and Physical - Smoking History Smoking history: Current every day smoker Have you smoked in the past 12 months: No Aproximately how many cigarettes per day: 10 - Alcohol/Substance Use Hx Alcohol Use: No Admission ROS [facility] - [facility] Chief Complaint: "detox from alcohol" Allergies/Adverse Reactions: Allergies Allergy/AdvReac Type Severity Reaction Status Date / Time No Known Allergies Allergy Verified 05/13/19 23:22 History of Present Illness: 58 year old male with a history of heart failure with reduced ejection fraction (EF 30-35%), diabetes mellitus, kidney/liver disease, jaundice (since 34yo, been told he may have cirrhosis), alcohol dependence presents for detox. Admitted to [facility] for alcohol intoxication. Previously admitted for heart failure few weeks ago at [facility]. Alcohol: 1.5 pints vodka every day since 7 years old; last drink yesterday; never had withdrawal seizure; [facility] 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 Aman Richards - Cardiology - for followup of congestive heart failure Dr. Cano - Urology - for followup of renal mass Dr. Carlos Tipton - Oncology - for followup of renal mass Exam Limitations: No Limitations - Ebola screening Have you traveled outside of the country in the last 21 days: No Have you had contact with anyone from an Ebola affected area: No Do you have a fever: No - Review of Systems Constitutional: Chills, Loss of Appetite, Unintentional Wgt. Loss EENT: reports: Blurred Vision, Double Vision, Eye Pain Respiratory: reports: Cough, SOB with Exertion Cardiac: reports: Edema, Irregular Heart Rate GI: reports: Diarrhea : reports: No Symptoms Reported Musculoskeletal: reports: No Symptoms Reported Integumentary: reports: No Symptoms Reported Neuro: reports: No Symptoms reported Endocrine: reports: No Symptoms Reported Hematology: reports: No Symptoms Reported Psychiatric: reports: Judgement Intact, Mood/Affect Appropiate, Orientated x3 Patient History - Patient Medical History Hx Anemia: No Hx Asthma: No Hx Chronic Obstructive Pulmonary Disease (COPD): No Hx Cancer: No Hx Cardiac Disorders: No Hx Congestive Heart Failure: No Hx Hypertension: No Hx Hypercholesterolemia: No Hx Pacemaker: No HX Cerebrovascular Accident: No Hx Seizures: No Hx Dementia: No Hx Diabetes: Yes Hx Gastrointestinal Disorders: No Hx Liver Disease: No Hx Genitourinary Disorders: No Hx Sexually Transmitted Disorders: No Hx Renal Disease (ESRD): No Hx Thyroid Disease: No Hx Human Immunodeficiency Virus (HIV): No Hx Hepatitis C: No Hx Depression: Yes Hx Suicide Attempt: No Hx Bipolar Disorder: No Hx Schizophrenia: No - Patient Surgical History Past Surgical History: No Hx Neurologic Surgery: No Hx Cataract Extraction: No Hx Cardiac Surgery: No Hx Lung Surgery: No Hx Breast Surgery: No Hx Breast Biopsy: No Hx Abdominal Surgery: No Hx Appendectomy: No Hx Cholecystectomy: No Hx Genitourinary Surgery: No Hx Section: No Hx Orthopedic Surgery: No Other Surgical History: RECTAL CYST REMOVAL 08/2017 Anesthesia Reaction: No - PPD History Date: 07/29/17 Results: 0MM - Smoking Cessation Smoking history: Current every day smoker Have you smoked in the past 12 months: No Aproximately how many cigarettes per day: 10 Cigars Per Day: 0 Hx Chewing Tobacco Use: No Initiated information on smoking cessation: No - Substances abused Alcohol Substance route: Oral Frequency: Daily Amount used: 1.5 pint of vodka and 1beer Age of first use: 7 Date of last use: 06/15/19 Admission Physical Exam [facility] - Vital Signs Vital Signs: Vital Signs - 24 hr 06/16/19 11:29 Temperature 98.0 F Pulse Rate 112 H Respiratory 18 Rate Blood Pressure 151/93 - Physical General Appearance: Yes: No Apparent Distress, Nourished HEENTM: Yes: Within Normal Limits Respiratory: Yes: Within Normal Limits, Chest Non-Tender, Lungs Clear Neck: Yes: Within Normal Limits Breast: Yes: Within Normal Limits Cardiology: Yes: Regular Rhythm, Regular Rate, Edema, Murmur, Tachycardia Abdominal: Yes: Non Tender, Flat, Soft Back: Yes: Within Normal Limits Musculoskeletal: Yes: full range of Motion, Gait Steady Extremities: Yes: Normal Capillary Refill, Pedal Edema Integumentary: Yes: Dry, Warm Lymphatic: Yes: Within Normal Limits - Diagnostic (1) Alcohol use disorder Current Visit: No Status: Acute (2) CHF (congestive heart failure) Current Visit: No Status: Acute Qualifiers: Heart failure type: combined systolic and diastolic Heart failure chronicity: acute on chronic Qualified Code(s): I50.43 - Acute on chronic combined systolic (congestive) and diastolic (congestive) heart failure (3) Type 2 diabetes mellitus with hyperglycemia Current Visit: No Status: Chronic Cleared for Admission [facility] - Detox or Rehab [facility] Level of Care: Medically Managed Breathalyzer - Breathalyzer Breathalyzer: 0 Urine Drug Screen - Test Device Lot number: [id number] Expiration date: 01/21/21 - Control Is test valid?: Yes - Results Drug screen NEGATIVE: No Urine drug screen results: BZO-Benzodiazepines Inpatient Rehab Admission - Rehab Decision to Admit Inpatient rehab admission?: No
[2019-06-16] MEDS ORDERED: MENTHOL/PHENOL 1 EACH UD MM PRN (13:55)
[2019-06-16] MEDS ORDERED: MAGNESIUM HYDROX 2400MG/30ML ORAL SUSPENSION 30 ML CUP PO PRN (13:55)
[2019-06-16] MEDS ORDERED: IBUPROFEN 400 MG TABLET (FP) PO PRN (13:55)
[2019-06-16] MEDS ORDERED: LORazepam 1 MG TABLET PO PRN (13:55)
[2019-06-16] MEDS ORDERED: METHOCARBAMOL 500 MG TABLET PO PRN (13:55)
[2019-06-16] MEDS ORDERED: hydrOXYzine PAMOATE 25 MG CAPSULE (FP) PO PRN (13:55)
[2019-06-16] MEDS ORDERED: MAGNESIUM CITRATE 300 ML BOTTLE PO PRN (13:55)
[2019-06-16] MEDS ORDERED: ACETAMINOPHEN 325 MG TABLET (FP) PO PRN ×2 (13:55)
[2019-06-16] MEDS ORDERED: MAG HYDROX/AL HYDROX/SIMETH 30 ML UNIT-DOSE CUP PO PRN (13:55)
--- NOTE | 2019-06-16 14:34 | PN ---
Teaching Attending Note Name of Resident: Florencio Reyes ATTENDING PHYSICIAN STATEMENT I saw and evaluated the patient. I reviewed the resident's note and discussed the case with the resident. I agree with the resident's findings and plan as documented. SUBJECTIVE: 58 y.o. male referred by [facility] 2/2 intoxication , reports non- compliance w/ meds since d/c from the hospital 1 mo ago , reports Alcohol: 1.5 pints vodka every day since 7 years old; last drink yesterday; never had withdrawal seizure; [facility] PMHx : heart failure with reduced ejection fraction (EF 30-35%), diabetes mellitus, kidney/liver disease, jaundice, alcohol dependence presents for detox. Surgery: pilonidal cyst removed (3 years) OBJECTIVE: wnwd Vital Signs - 24 hr 06/16/19 11:29 Temperature 98.0 F Pulse Rate 112 H Respiratory 18 Rate Blood Pressure 151/93 ASSESSMENT AND PLAN: Alcohol dependence - Ativan detox emphasized compliance w/ meds .
[2019-06-16] MEDS: FUROSEMIDE 20 MG TABLET (FP) PO SCH (15:30)
[2019-06-16] MEDS: SPIRONOLACTONE 25 MG TABLET (FP) PO SCH (15:30)
[2019-06-16] MEDS: FERROUS SO4 325 MG TABLET (FP) PO SCH (15:30)
[2019-06-16] MEDS: CARVEDILOL 12.5 MG TABLET (FP) PO SCH ×2 (15:30→22:30)
[2019-06-16] MEDS: SACUBITRIL/VALSARTAN 24 MG-26 MG TABLET PO SCH ×2 (15:39→22:30)
[2019-06-16] MEDS: BISMUTH SUBSALICYLATE 262 MG/15 ML BTL PO PRN (15:43)
[2019-06-16] MEDS: metFORMIN HCL 500 MG TABLET (FP) PO SCH (17:24)
[2019-06-16] MEDS: LORazepam 2 MG TABLET PO SCH ×2 (17:24→22:29)
[2019-06-16] MEDS: INSULIN SLIDING SCALE (NOVOLOG) 1 VIAL SQ SCH ×2 (17:25→22:29)
[2019-06-16 18:33] LABS: HEMATOCRIT 31.1 % (35.4-49); HEMOGLOBIN 10.2 GM/dL (11.7-16.9); MCH 34.6 pg (25.7-33.7); MCHC 32.9 g/dl (32.0-35.9); MEAN CELL VOLUME 105.1 fl (80-96); PLATELET COUNT 220 K/MM3 (134-434); RBC 2.96 M/mm3 (4.00-5.60); RDW 23.7 % (11.9-15.9); WHITE BLOOD COUNT 4.7 K/mm3 (4.0-10.0)
[2019-06-16 18:45] LABS: ALBUMIN 4.1 g/dl (3.4-5.0); BLOOD UREA NITROGEN 9.1 mg/dL (7-18); CALCIUM 8.8 mg/dL (8.5-10.1); POTASSIUM 3.8 mmol/L (3.5-5.1); TOT PROT 7.7 g/dl (6.4-8.2)
[2019-06-16] MEDS: THIAMINE HCL 100 MG TABLET (FP) PO SCH (22:29)
[2019-06-16] MEDS: MELATONIN 5 MG TABLETS PO PRN (22:30)
[2019-06-17] MEDS: LORazepam 2 MG TABLET PO SCH ×4 (05:44→22:14)
[2019-06-17] MEDS: INSULIN SLIDING SCALE (NOVOLOG) 1 VIAL SQ SCH ×4 (08:07→22:15)
[2019-06-17] MEDS: metFORMIN HCL 500 MG TABLET (FP) PO SCH ×2 (08:30→18:01)
[2019-06-17] MEDS: SPIRONOLACTONE 25 MG TABLET (FP) PO SCH (10:15)
[2019-06-17] MEDS: FUROSEMIDE 20 MG TABLET (FP) PO SCH (10:15)
[2019-06-17] MEDS: SACUBITRIL/VALSARTAN 24 MG-26 MG TABLET PO SCH ×2 (10:15→22:13)
[2019-06-17] MEDS: CARVEDILOL 12.5 MG TABLET (FP) PO SCH ×2 (10:15→22:12)
[2019-06-17] MEDS: PRENATAL VITAMINS W/ FOLIC ACID TABLET (FP) PO SCH (10:15)
[2019-06-17] MEDS: FERROUS SO4 325 MG TABLET (FP) PO SCH (10:15)
--- NOTE | 2019-06-17 10:44 | PN ---
[facility] CIWA - CIWA Score Nausea/Vomitin-Mild Nausea/No Vomiting Muscle Tremors: 2 Anxiety: 2 Agitation: 2 Paroxysmal Sweats: No Perspiration Orientation: 0-Oriented Tacttile Disturbances: 1-Very Mild Itch/Numbness Auditory Disturbances: 0-None Visual Disturbances: 0-None Headache: 2-Mild CIWA-Ar Total Score: 10 S Progress Note (SOAP) Subjective: alert,irritable,anxious,interrupted sleep,tremor,edema of legs Objective: 06/17/19 10:42 Vital Signs Temperature 97.7 F 06/17/19 09:33 Pulse Rate 88 06/17/19 09:33 Respiratory Rate 18 06/17/19 09:33 Blood Pressure 117/74 06/17/19 09:33 O2 Sat by Pulse Oximetry (%) Laboratory Last Values WBC 4.7 K/mm3 (4.0-10.0) 06/16/19 14:50 RBC 2.96 M/mm3 (4.00-5.60) L 06/16/19 14:50 Hgb 10.2 GM/dL (11.7-16.9) L 06/16/19 14:50 Hct 31.1 % (35.4-49) L D 06/16/19 14:50 MCV 105.1 fl (80-96) H 06/16/19 14:50 MCH 34.6 pg (25.7-33.7) H 06/16/19 14:50 MCHC 32.9 g/dl (32.0-35.9) 06/16/19 14:50 RDW 23.7 % (11.9-15.9) H 06/16/19 14:50 Plt Count 220 K/MM3 (134-434) D 06/16/19 14:50 MPV 8.0 fl (7.5-11.1) 06/16/19 14:50 Sodium 141 mmol/L (136-145) 06/16/19 14:50 Potassium 3.8 mmol/L (3.5-5.1) 06/16/19 14:50 Chloride 104 mmol/L (98-107) 06/16/19 14:50 Carbon Dioxide 27 mmol/L (21-32) 06/16/19 14:50 Anion Gap 10 MMOL/L (8-16) 06/16/19 14:50 BUN 9.1 mg/dL (7-18) 06/16/19 14:50 Creatinine 1.0 mg/dL (0.55-1.3) 06/16/19 14:50 Est GFR (CKD-EPI)AfAm 95.06 06/16/19 14:50 Est GFR (CKD-EPI)NonAf 82.02 06/16/19 14:50 POC Glucometer 216 UNITS (80-120) 06/17/19 05:42 Random Glucose 176 mg/dL (74-106) H 06/16/19 14:50 Calcium 8.8 mg/dL (8.5-10.1) 06/16/19 14:50 Total Bilirubin 2.0 mg/dL (0.2-1) H 06/16/19 14:50 AST 41 U/L (15-37) H 06/16/19 14:50 ALT 23 U/L (13-61) 06/16/19 14:50 Alkaline Phosphatase 73 U/L (45-117) 06/16/19 14:50 Total Protein 7.7 g/dl (6.4-8.2) 06/16/19 14:50 Albumin 4.1 g/dl (3.4-5.0) 06/16/19 14:50 rpr pending 06/17/19 10:43 Assessment: 06/17/19 10:43 withdrawal symptom Plan: continue detox ativan regimen,close monitoring,bgm monitoring
[2019-06-17] MEDS ORDERED: INSULIN SLIDING SCALE (NOVOLOG) 1 VIAL SQ ONE (17:35)
[2019-06-17] MEDS: THIAMINE HCL 100 MG TABLET (FP) PO SCH (22:12)
[2019-06-18] MEDS: LORazepam 1 MG TABLET PO SCH ×4 (05:42→22:44)
[2019-06-18] MEDS ORDERED: INSULIN SLIDING SCALE (NOVOLOG) 1 VIAL SQ ONE (05:48)
[2019-06-18] MEDS: INSULIN SLIDING SCALE (NOVOLOG) 1 VIAL SQ SCH ×4 (06:30→21:39)
[2019-06-18] MEDS: metFORMIN HCL 500 MG TABLET (FP) PO SCH ×2 (07:00→17:10)
[2019-06-18] MEDS: SACUBITRIL/VALSARTAN 24 MG-26 MG TABLET PO SCH ×2 (10:38→21:37)
[2019-06-18] MEDS: CARVEDILOL 12.5 MG TABLET (FP) PO SCH ×2 (10:38→21:37)
[2019-06-18] MEDS: FUROSEMIDE 20 MG TABLET (FP) PO SCH (10:38)
[2019-06-18] MEDS: SPIRONOLACTONE 25 MG TABLET (FP) PO SCH (10:38)
[2019-06-18] MEDS: FERROUS SO4 325 MG TABLET (FP) PO SCH (10:39)
[2019-06-18] MEDS: PRENATAL VITAMINS W/ FOLIC ACID TABLET (FP) PO SCH (10:39)
--- NOTE | 2019-06-18 11:32 | PN ---
S CIWA - CIWA Score Nausea/Vomitin-No Nausea/No Vomiting Muscle Tremors: 2 Anxiety: 2 Agitation: 0-Normal Activity Paroxysmal Sweats: 2 Orientation: 0-Oriented Tacttile Disturbances: 0-None Auditory Disturbances: 0-None Visual Disturbances: 0-None Headache: 2-Mild CIWA-Ar Total Score: 8 BHS Progress Note (SOAP) Subjective: c/o sweats, headache, stomach cramps, and anxiety. Objective: 06/18/19 11:30 Vital Signs 06/18/19 06:26 Temperature 98.8 F Pulse Rate 101 H Respiratory 20 Rate Blood Pressure 120/66 Lab Results WBC 4.7 K/mm3 (4.0-10.0) 06/16/19 14:50 RBC 2.96 M/mm3 (4.00-5.60) L 06/16/19 14:50 Hgb 10.2 GM/dL (11.7-16.9) L 06/16/19 14:50 Hct 31.1 % (35.4-49) L D 06/16/19 14:50 MCV 105.1 fl (80-96) H 06/16/19 14:50 MCHC 32.9 g/dl (32.0-35.9) 06/16/19 14:50 RDW 23.7 % (11.9-15.9) H 06/16/19 14:50 Plt Count 220 K/MM3 (134-434) D 06/16/19 14:50 Sodium 141 mmol/L (136-145) 06/16/19 14:50 Potassium 3.8 mmol/L (3.5-5.1) 06/16/19 14:50 Chloride 104 mmol/L (98-107) 06/16/19 14:50 Carbon Dioxide 27 mmol/L (21-32) 06/16/19 14:50 Anion Gap 10 MMOL/L (8-16) 06/16/19 14:50 BUN 9.1 mg/dL (7-18) 06/16/19 14:50 Creatinine 1.0 mg/dL (0.55-1.3) 06/16/19 14:50 Random Glucose 176 mg/dL (74-106) H 06/16/19 14:50 Calcium 8.8 mg/dL (8.5-10.1) 06/16/19 14:50 Labs noted. Assessment: 06/18/19 11:31 AOX3, in no acute respiratory distress. Full ROM, ambulating in the unit. withdrawal symptoms. Plan: continue detox.
[2019-06-18] MEDS: THIAMINE HCL 100 MG TABLET (FP) PO SCH (21:37)
[2019-06-19] MEDS ORDERED: LORazepam 0.5 MG TABLET PO PRN
[2019-06-19] MEDS: metFORMIN HCL 500 MG TABLET (FP) PO SCH ×2 (06:06→17:10)
[2019-06-19] MEDS: LORazepam 0.5 MG TABLET PO SCH ×4 (06:06→22:42)
[2019-06-19] MEDS: INSULIN SLIDING SCALE (NOVOLOG) 1 VIAL SQ SCH ×4 (06:10→22:42)
[2019-06-19] MEDS: CARVEDILOL 12.5 MG TABLET (FP) PO SCH ×2 (10:33→22:42)
[2019-06-19] MEDS: FERROUS SO4 325 MG TABLET (FP) PO SCH (10:33)
[2019-06-19] MEDS: SPIRONOLACTONE 25 MG TABLET (FP) PO SCH (10:33)
[2019-06-19] MEDS: FUROSEMIDE 20 MG TABLET (FP) PO SCH (10:33)
[2019-06-19] MEDS: PRENATAL VITAMINS W/ FOLIC ACID TABLET (FP) PO SCH (10:33)
[2019-06-19] MEDS: SACUBITRIL/VALSARTAN 24 MG-26 MG TABLET PO SCH ×2 (10:33→22:42)
--- NOTE | 2019-06-19 13:24 | PN ---
S CIWA - CIWA Score Nausea/Vomitin-No Nausea/No Vomiting Muscle Tremors: None Anxiety: 2 Agitation: 2 Paroxysmal Sweats: 2 Orientation: 0-Oriented Tacttile Disturbances: 0-None Auditory Disturbances: 0-None Visual Disturbances: 0-None Headache: 0-None Present CIWA-Ar Total Score: 6 BHS Progress Note (SOAP) Subjective: Chills, diarrhea, interrupted sleep. Patient refused finger stick despite encouragement from staff. Objective: 06/19/19 13:21 Last Vital Signs Temp Pulse Resp BP Pulse Ox 98.1 F 108 H 18 144/80 06/19/19 09:41 06/19/19 09:41 06/19/19 09:41 06/19/19 09:41 Elevated b/p: has htn (on medication) Laboratory Tests 06/16/19 06/16/19 06/16/19 14:50 14:50 14:50 WBC 4.7 RBC 2.96 L Hgb 10.2 L Hct 31.1 L D MCV 105.1 H MCH 34.6 H MCHC 32.9 RDW 23.7 H Plt Count 220 D MPV 8.0 Sodium 141 Potassium 3.8 Chloride 104 Carbon Dioxide 27 Anion Gap 10 BUN 9.1 Creatinine 1.0 Est GFR (CKD-EPI)AfAm 95.06 Est GFR (CKD-EPI)NonAf 82.02 POC Glucometer Random Glucose 176 H Calcium 8.8 Total Bilirubin 2.0 H AST 41 H ALT 23 Alkaline Phosphatase 73 Total Protein 7.7 Albumin 4.1 RPR Titer Nonreactive 06/16/19 06/16/19 06/17/19 16:26 22:28 05:42 WBC RBC Hgb Hct MCV MCH MCHC RDW Plt Count MPV Sodium Potassium Chloride Carbon Dioxide Anion Gap BUN Creatinine Est GFR (CKD-EPI)AfAm Est GFR (CKD-EPI)NonAf POC Glucometer 323 209 216 Random Glucose Calcium Total Bilirubin AST ALT Alkaline Phosphatase Total Protein Albumin RPR Titer 06/17/19 06/17/19 06/18/19 11:42 17:17 05:45 WBC RBC Hgb Hct MCV MCH MCHC RDW Plt Count MPV Sodium Potassium Chloride Carbon Dioxide Anion Gap BUN Creatinine Est GFR (CKD-EPI)AfAm Est GFR (CKD-EPI)NonAf POC Glucometer 290 303 355 Random Glucose Calcium Total Bilirubin AST ALT Alkaline Phosphatase Total Protein Albumin RPR Titer 06/18/19 06/18/19 06/19/19 16:45 21:34 06:08 WBC RBC Hgb Hct MCV MCH MCHC RDW Plt Count MPV Sodium Potassium Chloride Carbon Dioxide Anion Gap BUN Creatinine Est GFR (CKD-EPI)AfAm Est GFR (CKD-EPI)NonAf POC Glucometer 379 203 269 Random Glucose Calcium Total Bilirubin AST ALT Alkaline Phosphatase Total Protein Albumin RPR Titer Labs reviewed: anemia (h/h 10.2/31.1, on iron supplement); hyperglycemia: has dm (on medication, refusing FS), total bilirubin 2.0 Assessment: 06/19/19 13:26 Withdrawal sxs Noted with anemia, hyperglycemia and elevated total bilirubin Plan: Continue detox Encouraged PO water intake Patient scheduled for discharge tomorrow Patient to follow up with PCP for all abnormal labs and management of all medical problems Anemia: most likely r/t chronic alcoholism, continue iron supplement DMT2 with hyperglycemia: on medication, encouraged FS glucose TIDAC and HS Elevated total bilirubin: most likely r/t alcoholism, denies hepatitis or liver disease, follow up with PCP for management
[2019-06-19] MEDS: BISMUTH SUBSALICYLATE 262 MG/15 ML BTL PO PRN (14:03)
[2019-06-19 17:44] VITALS: TEMP 98.2
[2019-06-19 21:33] VITALS: BP 105/60; PULSE 102
[2019-06-19] MEDS: MELATONIN 5 MG TABLETS PO PRN (22:42)
[2019-06-19] MEDS: THIAMINE HCL 100 MG TABLET (FP) PO SCH (22:42)
[2019-06-20] MEDS ORDERED: LORazepam 0.5 MG TABLET PO ONE (05:00)
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
--- NOTE | 2019-06-20 11:38 | DS ---
[facility] Detox Discharge Summary Admission Date: 06/16/19 Discharge Date: 06/20/19 - History Present History: Alcohol Dependence Additional Comments: follow up with after [facility] program as arrangement and medical provider for medical problem Pertinent Past History: type 2 dm cirrhosis of liver history of cirrhosis of liver anemia by history chf by history - Physical Exam Results Vital Signs: Vital Signs Temperature 98.2 F 06/19/19 21:32 Pulse Rate 102 H 06/19/19 21:32 Respiratory Rate 18 06/20/19 03:35 Blood Pressure 105/60 06/19/19 21:32 O2 Sat by Pulse Oximetry (%) Pertinent Admission Physical Exam Findings: withdrawal signs and symptom Laboratory Last Values WBC 4.7 K/mm3 (4.0-10.0) 06/16/19 14:50 RBC 2.96 M/mm3 (4.00-5.60) L 06/16/19 14:50 Hgb 10.2 GM/dL (11.7-16.9) L 06/16/19 14:50 Hct 31.1 % (35.4-49) L D 06/16/19 14:50 MCV 105.1 fl (80-96) H 06/16/19 14:50 MCH 34.6 pg (25.7-33.7) H 06/16/19 14:50 MCHC 32.9 g/dl (32.0-35.9) 06/16/19 14:50 RDW 23.7 % (11.9-15.9) H 06/16/19 14:50 Plt Count 220 K/MM3 (134-434) D 06/16/19 14:50 MPV 8.0 fl (7.5-11.1) 06/16/19 14:50 Sodium 141 mmol/L (136-145) 06/16/19 14:50 Potassium 3.8 mmol/L (3.5-5.1) 06/16/19 14:50 Chloride 104 mmol/L (98-107) 06/16/19 14:50 Carbon Dioxide 27 mmol/L (21-32) 06/16/19 14:50 Anion Gap 10 MMOL/L (8-16) 06/16/19 14:50 BUN 9.1 mg/dL (7-18) 06/16/19 14:50 Creatinine 1.0 mg/dL (0.55-1.3) 06/16/19 14:50 Est GFR (CKD-EPI)AfAm 95.06 06/16/19 14:50 Est GFR (CKD-EPI)NonAf 82.02 06/16/19 14:50 POC Glucometer 191 UNITS (80-120) 06/19/19 21:45 Random Glucose 176 mg/dL (74-106) H 06/16/19 14:50 Calcium 8.8 mg/dL (8.5-10.1) 06/16/19 14:50 Total Bilirubin 2.0 mg/dL (0.2-1) H 06/16/19 14:50 AST 41 U/L (15-37) H 06/16/19 14:50 ALT 23 U/L (13-61) 06/16/19 14:50 Alkaline Phosphatase 73 U/L (45-117) 06/16/19 14:50 Total Protein 7.7 g/dl (6.4-8.2) 06/16/19 14:50 Albumin 4.1 g/dl (3.4-5.0) 06/16/19 14:50 RPR Titer Nonreactive (NONREACTIVE) 06/16/19 14:50 - Treatment Hospital Course: Detox Protocol Followed, Detoxed Safely, Responded well, Discharged Condition Good Patient has Accepted a Rehab Referral to: declined - Medication Discharge Medications: Ambulatory Orders metFORMIN HCL [Metformin HCl] 500 mg PO BIDAC #30 tablet 02/26/16 Carvedilol [Coreg -] 12.5 mg PO BID 06/16/19 Ferrous Sulfate 325 mg PO DAILY 06/16/19 Furosemide 20 mg PO DAILY 06/16/19 Sacubitril/Valsartan [Entresto 24 mg-26 mg Tablet] 1 tablet PO BID 06/16/19 Spironolactone 25 mg PO DAILY 06/16/19 - Diagnosis (1) Alcohol dependence with uncomplicated withdrawal Status: Chronic (2) Diabetes mellitus type II, controlled Status: Chronic 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
== END 2019-06-20 07:38 | disposition home or self-care (01) | DRG 775 ==
LOC: YASAS 11:00 → Y6N 14:43
PROVIDERS: ADMIT Allergy & Immunology; ATTEND Allergy & Immunology
PROC: HZ2ZZZZ Detoxification Services for Substance Abuse Treatment (ICD-10-PCS; principal; 2019-06-16)
DX: F10.230 Alcohol dependence with withdrawal, uncomplicated (principal); F17.210 Nicotine dependence, cigarettes, uncomplicated; E11.65 Type 2 diabetes mellitus with hyperglycemia; D64.9 Anemia, unspecified; I50.9 Heart failure, unspecified; E80.6 Other disorders of bilirubin metabolism; R00.0 Tachycardia, unspecified; R01.1 Cardiac murmur, unspecified; Z79.84 Long term (current) use of oral hypoglycemic drugs; Y04.0XXA Assault by unarmed brawl or fight, initial encounter; Y93.9 Activity, unspecified; Y92.239 Unspecified place in hospital as the place of occurrence of the external cause
CPT/HCPCS: 36415; 80053; 82962; 85027; 86593

== ENCOUNTER 2020-02-22 21:13 | Inpatient (IN) | payer OTHER ==
--- NOTE | 2020-02-22 21:42 | BHS.RME ---
Substance Use & Tx History - Substance Use History Alcohol Substance amount: 1 pint Frequency of use: Daily Substance route: Oral - Last Treatment Date of last treatment: May 2019 Where was last treatment: Detox Physical/Psych/Mental Status - Behavior Eye Contact: Normal - Cooperativeness Cooperativeness: Cooperative - Thinking Thought Processes: Logical - Physical Health Problems Is patient presently having any pain?: No Does patient presently have any injuries (include location): No Does patient currently have a fever: No CIWA Nausea/Vomitin-No Nausea/No Vomiting Muscle Tremors: None Anxiety: 1-Mildly Anxious Agitation: 0-Normal Activity Paroxysmal Sweats: No Perspiration Orientation: 0-Oriented Tacttile Disturbances: 0-None Auditory Disturbances: 0-None Visual Disturbances: 0-None Headache: 0-None Present CIWA-Ar Total Score: 1
--- NOTE | 2020-02-22 21:46 | HP ---
CIWA Score Nausea/Vomitin-No Nausea/No Vomiting Muscle Tremors: None Anxiety: 1-Mildly Anxious Agitation: 0-Normal Activity Paroxysmal Sweats: No Perspiration Orientation: 0-Oriented Tacttile Disturbances: 0-None Auditory Disturbances: 0-None Visual Disturbances: 0-None Headache: 0-None Present CIWA-Ar Total Score: 1 - Admission Criteria OASAS Guidelines: Admission for Medically Managed Detox: Requires at least one of the followin. CIWA greater than 12 2. Seizures within the past 24 hours 3. Delirium tremens within the past 24 hours 4. Hallucinations within the past 24 hours 5. Acute intervention needed for co occurring medical disorder 6. Acute intervention needed for co occurring psychiatric disorder 7. Severe withdrawal that cannot be handled at a lower level of care (continued vomiting, continued diarrhea, abnormal vital signs) requiring intravenous medication and/or fluids 8. Admitting History and Physical - Smoking History Smoking history: Current every day smoker Have you smoked in the past 12 months: Yes Aproximately how many cigarettes per day: 0 - Alcohol/Substance Use Hx Alcohol Use: No Admission ROS [facility] Allergies/Adverse Reactions: Allergies Allergy/AdvReac Type Severity Reaction Status Date / Time No Known Allergies Allergy Verified 05/13/19 23:22 History of Present Illness: 59 y.o. male requesting detox from alcohol use , reports latest use 1 hr ago , current RASHAAD 0.215 , reports occasional tremors, denies seizures or blackouts . First age of use 7 . Per MR , pt recently @ [facility] for abdominal pain , elevated LFTs / bili / Lipase , abdominal sono negative PT REPORTS NON-COMPLIANCE W/ ALL MEDS " I DON'T TAKE THEM , I JUST DRINK " . Unable to verify latest rx at the time of examination . Will add Asa 81 mg and Carvedilol bid , insulin coverage . PMHx : heart failure with reduced ejection fraction (EF 30-35%), diabetes mellitus, kidney/liver disease, jaundice, Surgery: pilonidal cyst removed (4 years ago ) Exam Limitations: Clinical Condition, Intoxication - Review of Systems Constitutional: Loss of Appetite, Unintentional Wgt. Loss (30 lbs in 3 mo) EENT: reports: No Symptoms Reported Respiratory: reports: No Symptoms reported Cardiac: reports: No Symptoms Reported GI: reports: Poor Appetite : reports: No Symptoms Reported Musculoskeletal: reports: No Symptoms Reported Integumentary: reports: No Symptoms Reported Neuro: reports: Tremors Endocrine: reports: See HPI Hematology: reports: No Symptoms Reported Psychiatric: reports: Agitated, Anxious Patient History - Patient Medical History Hx Anemia: No Hx Asthma: No Hx Chronic Obstructive Pulmonary Disease (COPD): No Hx Cancer: No Hx Cardiac Disorders: Yes (HF with reduced EF (30-35%)) Hx Congestive Heart Failure: No Hx Hypertension: No Hx Hypercholesterolemia: No Hx Pacemaker: No HX Cerebrovascular Accident: No Hx Seizures: No Hx Dementia: No Hx Diabetes: Yes Hx Gastrointestinal Disorders: No Hx Liver Disease: No Hx Genitourinary Disorders: No Hx Sexually Transmitted Disorders: No Hx Renal Disease (ESRD): No Hx Thyroid Disease: No Hx Human Immunodeficiency Virus (HIV): No Hx Hepatitis C: No Hx Depression: Yes Hx Suicide Attempt: No Hx Bipolar Disorder: No Hx Schizophrenia: No - Patient Surgical History Past Surgical History: No Hx Neurologic Surgery: No Hx Cataract Extraction: No Hx Cardiac Surgery: No Hx Lung Surgery: No Hx Breast Surgery: No Hx Breast Biopsy: No Hx Abdominal Surgery: No Hx Appendectomy: No Hx Cholecystectomy: No Hx Genitourinary Surgery: No Hx Section: No Hx Orthopedic Surgery: No Other Surgical History: RECTAL CYST REMOVAL 08/2017 Anesthesia Reaction: No - PPD History Date: 07/29/17 Results: 0MM - Smoking Cessation Smoking history: Never smoked Have you smoked in the past 12 months: No Aproximately how many cigarettes per day: 0 Cigars Per Day: 0 Hx Chewing Tobacco Use: No Admission Physical Exam BHS - Physical General Appearance: Yes: Intoxicated, Tremorous, Irritable, Anxious HEENTM: Yes: EOMI, Hearing grossly Normal, Normocephalic, Normal Voice, Scleral Ictenus R, Scleral Ictenus L Respiratory: Yes: Chest Non-Tender, Lungs Clear, Normal Breath Sounds, No Respiratory Distress, No Accessory Muscle Use Neck: Yes: No masses,lesions,Nodules, Trachea in good position Cardiology: Yes: Regular Rhythm, Regular Rate, S1, S2, Tachycardia Abdominal: Yes: Non Tender, Soft Musculoskeletal: Yes: Other (staggering gait) Extremities: Yes: Non-Tender, Tremors Neurological: Yes: Fully Oriented, Alert, Motor Strength 5/5, Depressed Affect Integumentary: Yes: Warm, Jaundice - Diagnostic (1) Alcohol intoxication Current Visit: Yes Status: Acute Qualifiers: Complication of substance-induced condition: uncomplicated Qualified Code(s): F10.920 - Alcohol use, unspecified with intoxication, uncomplicated Breathalyzer - Breathalyzer Breathalyzer: 0 Urine Drug Screen - Test Device Lot number: [id number] Expiration date: 01/21/21 - Control Is test valid?: Yes - Results Drug screen NEGATIVE: No Urine drug screen results: BZO-Benzodiazepines Inpatient Rehab Admission - Rehab Decision to Admit Inpatient rehab admission?: No
[2020-02-22] MEDS ORDERED: MAGNESIUM HYDROX 2400MG/30ML ORAL SUSPENSION 30 ML CUP PO PRN (22:02)
[2020-02-22] MEDS ORDERED: BISMUTH SUBSALICYLATE 524 MG/30 ML UD PO PRN (22:02)
[2020-02-22] MEDS ORDERED: MENTHOL/PHENOL 1 EACH UD MM PRN (22:02)
[2020-02-22] MEDS ORDERED: MAGNESIUM CITRATE 300 ML BOTTLE PO PRN (22:02)
[2020-02-22] MEDS ORDERED: LORazepam 1 MG TABLET PO PRN (22:05)
[2020-02-22 23:40] VITALS: BMI 18.7
[2020-02-22] MEDS: LORazepam 2 MG TABLET PO SCH (23:50)
[2020-02-22] MEDS: CARVEDILOL 12.5 MG TABLET (FP) PO SCH (23:50)
[2020-02-22] MEDS: ASPIRIN 81 MG CHEWABLE TABLETS PO SCH (23:50)
[2020-02-22] MEDS: INSULIN SLIDING SCALE (NOVOLOG) 1 VIAL SQ SCH (23:50)
[2020-02-23] MEDS: LORazepam 2 MG TABLET PO SCH ×4 (05:13→22:25)
[2020-02-23] MEDS: INSULIN SLIDING SCALE (NOVOLOG) 1 VIAL SQ SCH ×4 (06:16→21:14)
[2020-02-23] MEDS ORDERED: PATIENT'S OWN MEDICATION (NON-FORMULARY) (Famotidine 40 MG) PO SCH (10:00)
[2020-02-23] MEDS ORDERED: FAMOTIDINE 40 MG TABLET PO SCH (10:00)
--- NOTE | 2020-02-23 10:07 | PN ---
BHS CIWA - CIWA Score Nausea/Vomitin-Mild Nausea/No Vomiting Muscle Tremors: 2 Anxiety: 2 Agitation: 2 Paroxysmal Sweats: No Perspiration Orientation: 0-Oriented Tacttile Disturbances: 1-Very Mild Itch/Numbness Auditory Disturbances: 0-None Visual Disturbances: 0-None Headache: 1-Very Mild CIWA-Ar Total Score: 9 BHS Progress Note (SOAP) Subjective: alert,irritable,anxious,interrupted sleep,tremor Objective: 02/23/20 10:06 Vital Signs Temperature 97.5 F L 02/23/20 08:35 Pulse Rate 97 H 02/23/20 08:35 Respiratory Rate 17 02/23/20 08:35 Blood Pressure 129/79 02/23/20 08:35 O2 Sat by Pulse Oximetry (%) 96 02/23/20 05:46 02/23/20 10:06 Laboratory Last Values POC Glucometer 153 UNITS (80-120) 02/23/20 05:12 labs pending Assessment: 02/23/20 10:06 withdrawal symptom Plan: continue detox ativan regimen
[2020-02-23] MEDS: CARVEDILOL 12.5 MG TABLET (FP) PO SCH ×2 (10:38→22:25)
[2020-02-23] MEDS: ASPIRIN 81 MG CHEWABLE TABLETS PO SCH (10:39)
[2020-02-23] MEDS: PRENATAL VITAMINS W/ FOLIC ACID TABLET (FP) PO SCH (10:39)
[2020-02-23 10:47] LABS: HEMATOCRIT 25.9 % (35.4-49); HEMOGLOBIN 8.6 GM/dL (11.7-16.9); MCHC 33.2 g/dl (32.0-35.9); MEAN CELL VOLUME 99.4 fl (80-96); MEAN PLT VOLUME 7.9 fl (7.5-11.1); PLATELET COUNT 170 K/MM3 (134-434); RDW 17.9 % (11.9-15.9)
[2020-02-23 10:50] LABS: ALBUMIN 3.4 g/dl (3.4-5.0); BLOOD UREA NITROGEN 28.3 mg/dL (7-18); CALCIUM 8.5 mg/dL (8.5-10.1); CREATININE 1.3 mg/dL (0.55-1.3); POTASSIUM 4.3 mmol/L (3.5-5.1)
[2020-02-23 10:52] LABS: BILIRUBIN,TOTAL 1.3 mg/dL (0.2-1); TOT PROT 6.6 g/dl (6.4-8.2)
--- NOTE | 2020-02-23 10:58 | CONSULT ---
[facility] Psychiatric Consult - Data Date of interview: 02/23/20 Admission source: Self-referred Identifying data: Mr Lucas is a 59 years old single Black male, father of Hal good, unemployed receiving food stamps, domiciled seeking detox treatment for alcohol Substance Abuse History: Reports history of alcohol use. [facility] addiction counselor's summary for further information Medical History: Significant for iron-deficiency anemia, type 2 diabetes mellitus and GERD. Psychiatric History: Denies history of previous psychiatric treatment Physical/Sexual Abuse/Trauma History: Denies history of abuse as a child or DV relationship as an adult Mental Status Exam - Mental Status Exam Alert and Oriented to: Time, Place, Person Cognitive Function: Fair Patient Appearance: Disheveled Mood: Hopeful, Euthymic Affect: Appropriate Patient Behavior: Cooperative Speech Pattern: Clear Voice Loudness: Normal Thought Process: Intact, Goal Oriented Thought Disorder: Not Present Hallucinations: Denies Suicidal Ideation: Denies Homicidal Ideation: Denies Insight/Judgement: Poor Sleep: Poorly Appetite: Good Muscle strength/Tone: Normal Gait/Station: Normal Psychiatric Findings - Problem List ([place] 1, 2,3) (1) Alcohol dependence with uncomplicated intoxication Current Visit: Yes Status: Acute (2) CHF (congestive heart failure) Current Visit: No Status: Acute Qualifiers: Heart failure type: combined systolic and diastolic Heart failure chronicity: acute on chronic Qualified Code(s): I50.43 - Acute on chronic combined systolic (congestive) and diastolic (congestive) heart failure (3) Diabetes mellitus type II, controlled Current Visit: No Status: Chronic Qualifiers: Diabetes mellitus residential insulin use: without residential use Diabetes mellitus complication status: without complication Qualified Code(s): E11.9 - Type 2 diabetes mellitus without complications (4) GERD (gastroesophageal reflux disease) Current Visit: No Status: Chronic Qualifiers: Esophagitis presence: esophagitis presence not specified Qualified Code(s): K21.9 - Gastro-esophageal reflux disease without esophagitis (5) Anemia Current Visit: Yes Status: Chronic - Initial Treatment Plan Initial Treatment Plan: Continue inpatient detoxification
[2020-02-23] MEDS: hydrOXYzine PAMOATE 25 MG CAPSULE (FP) PO PRN ×2 (13:08→17:46)
[2020-02-23] MEDS: METHOCARBAMOL 500 MG TABLET PO PRN ×2 (14:24→20:11)
[2020-02-23] MEDS: FERROUS SO4 325 MG TABLET (FP) PO SCH (14:38)
[2020-02-23] MEDS: metFORMIN HCL 500 MG TABLET (FP) PO SCH (17:30)
[2020-02-23] MEDS: MAG HYDROX/AL HYDROX/SIMETH 30 ML UNIT-DOSE CUP PO PRN (21:15)
[2020-02-23] MEDS: SACUBITRIL/VALSARTAN 24 MG-26 MG TABLET PO SCH (22:25)
[2020-02-23] MEDS: THIAMINE HCL 100 MG TABLET (FP) PO SCH (22:25)
[2020-02-23] MEDS: MELATONIN 5 MG TABLETS PO SCH (22:26)
[2020-02-24] MEDS: metFORMIN HCL 500 MG TABLET (FP) PO SCH ×2 (07:34→17:52)
[2020-02-24] MEDS: LORazepam 1 MG TABLET PO SCH ×4 (07:34→22:23)
[2020-02-24] MEDS: INSULIN SLIDING SCALE (NOVOLOG) 1 VIAL SQ SCH ×5 (08:03→21:59)
[2020-02-24] MEDS: MAG HYDROX/AL HYDROX/SIMETH 30 ML UNIT-DOSE CUP PO PRN ×2 (09:43→16:44)
--- NOTE | 2020-02-24 10:48 | PN ---
S CIWA - CIWA Score Nausea/Vomitin-Mild Nausea/No Vomiting Muscle Tremors: 2 Anxiety: 2 Agitation: 2 Paroxysmal Sweats: No Perspiration Orientation: 0-Oriented Tacttile Disturbances: 1-Very Mild Itch/Numbness Auditory Disturbances: 0-None Visual Disturbances: 0-None Headache: 2-Mild CIWA-Ar Total Score: 10 S Progress Note (SOAP) Subjective: alert,irritable,anxious,interrupted ,sleep,pain in abdomen,nausea Objective: 02/24/20 10:48 Vital Signs Temperature 98.0 F 02/24/20 06:13 Pulse Rate 89 02/24/20 06:13 Respiratory Rate 16 02/24/20 06:13 Blood Pressure 134/82 02/24/20 06:13 O2 Sat by Pulse Oximetry (%) 98 02/24/20 06:13 02/24/20 10:49 repeat cbc cmp pending Assessment: 02/24/20 10:49 withdrawal symptom Plan: continue detox ativan regimen,protonix 40 mgs po daily,ferrous sulfate increase to 325 mgs po bid,d/c pepcid
[2020-02-24] MEDS: SPIRONOLACTONE 25 MG TABLET PO SCH (10:58)
[2020-02-24] MEDS: ASPIRIN 81 MG CHEWABLE TABLETS PO SCH (10:58)
[2020-02-24] MEDS: FUROSEMIDE 20 MG TABLET (FP) PO SCH (10:59)
[2020-02-24] MEDS: SACUBITRIL/VALSARTAN 24 MG-26 MG TABLET PO SCH ×2 (10:59→21:59)
[2020-02-24] MEDS: CARVEDILOL 12.5 MG TABLET (FP) PO SCH ×2 (10:59→21:57)
[2020-02-24] MEDS: PRENATAL VITAMINS W/ FOLIC ACID TABLET (FP) PO SCH (10:59)
[2020-02-24] MEDS: METHOCARBAMOL 500 MG TABLET PO PRN (11:02)
[2020-02-24] MEDS: PANTOPRAZOLE 40 MG TABLET PO SCH (11:02)
[2020-02-24] MEDS: FERROUS SO4 325 MG TABLET (FP) PO SCH ×2 (11:08→21:52)
[2020-02-24 11:47] LABS: HEMATOCRIT 33.1 % (35.4-49); HEMOGLOBIN 11.1 GM/dL (11.7-16.9); MCH 33.8 pg (25.7-33.7); MCHC 33.4 g/dl (32.0-35.9); MEAN CELL VOLUME 100.9 fl (80-96); MEAN PLT VOLUME 8.3 fl (7.5-11.1); PLATELET COUNT 193 K/MM3 (134-434); RBC 3.28 M/mm3 (4.00-5.60); RDW 17.6 % (11.9-15.9); WHITE BLOOD COUNT 6.6 K/mm3 (4.0-10.0)
[2020-02-24 11:54] LABS: INR 0.9 (0.83-1.09); PROTHROMBIN TIME (PATIENT) 10.6 SEC (9.7-13.0)
[2020-02-24 12:14] LABS: ALBUMIN 3.7 g/dl (3.4-5.0); BILIRUBIN,TOTAL 1.5 mg/dL (0.2-1); BLOOD UREA NITROGEN 17.4 mg/dL (7-18); CALCIUM 9.6 mg/dL (8.5-10.1); CREATININE 1.1 mg/dL (0.55-1.3); POTASSIUM 4.4 mmol/L (3.5-5.1); TOT PROT 7.1 g/dl (6.4-8.2)
[2020-02-24] MEDS: IBUPROFEN 400 MG TABLET (FP) PO PRN (15:27)
[2020-02-24] MEDS: MELATONIN 5 MG TABLETS PO SCH (21:59)
[2020-02-24] MEDS: THIAMINE HCL 100 MG TABLET (FP) PO SCH (21:59)
[2020-02-25] MEDS ORDERED: LORazepam 0.5 MG TABLET PO PRN
[2020-02-25] MEDS: hydrOXYzine PAMOATE 25 MG CAPSULE (FP) PO PRN (02:09)
[2020-02-25] MEDS: LORazepam 0.5 MG TABLET PO SCH ×4 (05:19→23:51)
[2020-02-25] MEDS: IBUPROFEN 400 MG TABLET (FP) PO PRN ×2 (05:22→21:20)
[2020-02-25] MEDS: metFORMIN HCL 500 MG TABLET (FP) PO SCH ×2 (06:48→18:04)
[2020-02-25] MEDS: INSULIN SLIDING SCALE (NOVOLOG) 1 VIAL SQ SCH ×4 (07:58→23:50)
[2020-02-25] MEDS: FERROUS SO4 325 MG TABLET (FP) PO SCH ×2 (10:10→21:20)
[2020-02-25] MEDS: CARVEDILOL 12.5 MG TABLET (FP) PO SCH ×2 (10:10→23:48)
[2020-02-25] MEDS: SPIRONOLACTONE 25 MG TABLET PO SCH (10:10)
[2020-02-25] MEDS: FUROSEMIDE 20 MG TABLET (FP) PO SCH (10:10)
[2020-02-25] MEDS: PANTOPRAZOLE 40 MG TABLET PO SCH (10:10)
[2020-02-25] MEDS: ASPIRIN 81 MG CHEWABLE TABLETS PO SCH (10:10)
[2020-02-25] MEDS: SACUBITRIL/VALSARTAN 24 MG-26 MG TABLET PO SCH ×2 (10:10→23:49)
[2020-02-25] MEDS: PRENATAL VITAMINS W/ FOLIC ACID TABLET (FP) PO SCH (10:10)
[2020-02-25] MEDS: MAG HYDROX/AL HYDROX/SIMETH 30 ML UNIT-DOSE CUP PO PRN (12:39)
--- NOTE | 2020-02-25 15:17 | PN ---
S CIWA - CIWA Score Nausea/Vomitin-Mild Nausea/No Vomiting (Stomach Cramping.) Muscle Tremors: None Anxiety: 3 Agitation: 0-Normal Activity Paroxysmal Sweats: No Perspiration Orientation: 0-Oriented Tacttile Disturbances: 0-None Auditory Disturbances: 0-None Visual Disturbances: 1-Very Mild Sensitivity Headache: 0-None Present CIWA-Ar Total Score: 5 BHS Progress Note (SOAP) Subjective: Anxious, Stomach Cramping (Patient Reports long intermittent history of lower abdominal cramping sensation). Objective: Patient A & O X 3; In No Acute Distress. 02/25/20 15:14 Vital Signs Temperature 97.7 F 02/25/20 08:43 Pulse Rate 93 H 02/25/20 08:43 Respiratory Rate 17 02/25/20 08:43 Blood Pressure 119/77 02/25/20 08:43 O2 Sat by Pulse Oximetry (%) 100 02/25/20 05:14 Laboratory Tests 02/22/20 02/22/20 02/23/20 21:40 23:48 05:12 WBC RBC Hgb Hct MCV MCH MCHC RDW Plt Count MPV PT with INR INR Sodium Potassium Chloride Carbon Dioxide Anion Gap BUN Creatinine Est GFR (CKD-EPI)AfAm Est GFR (CKD-EPI)NonAf POC Glucometer 174 153 Random Glucose Calcium Total Bilirubin AST ALT Alkaline Phosphatase Total Protein Albumin Syphilis Serology COVID-19 (IGNACIO) Not detected 02/23/20 02/23/20 02/23/20 08:30 08:30 08:30 WBC 4.0 RBC 2.60 L Hgb 8.6 L Hct 25.9 L MCV 99.4 H MCH 33.0 MCHC 33.2 RDW 17.9 H Plt Count 170 D MPV 7.9 PT with INR INR Sodium 142 Potassium 4.3 Chloride 108 H Carbon Dioxide 18 L Anion Gap 15 BUN 28.3 H Creatinine 1.3 Est GFR (CKD-EPI)AfAm 68.74 Est GFR (CKD-EPI)NonAf 59.31 POC Glucometer Random Glucose 163 H Calcium 8.5 Total Bilirubin 1.3 H AST 492 H ALT 127 H Alkaline Phosphatase 110 Total Protein 6.6 Albumin 3.4 Syphilis Serology Non-reactive COVID-19 (IGNACIO) 02/23/20 02/23/20 02/23/20 12:03 16:20 20:59 WBC RBC Hgb Hct MCV MCH MCHC RDW Plt Count MPV PT with INR INR Sodium Potassium Chloride Carbon Dioxide Anion Gap BUN Creatinine Est GFR (CKD-EPI)AfAm Est GFR (CKD-EPI)NonAf POC Glucometer 268 145 259 Random Glucose Calcium Total Bilirubin AST ALT Alkaline Phosphatase Total Protein Albumin Syphilis Serology COVID-19 (IGNACIO) 02/24/20 02/24/20 02/24/20 06:27 07:30 07:30 WBC 6.6 RBC 3.28 L Hgb 11.1 L Hct 33.1 L D MCV 100.9 H MCH 33.8 H MCHC 33.4 RDW 17.6 H Plt Count 193 MPV 8.3 PT with INR INR Sodium 140 Potassium 4.4 Chloride 103 Carbon Dioxide 24 Anion Gap 13 BUN 17.4 Creatinine 1.1 Est GFR (CKD-EPI)AfAm 84.12 Est GFR (CKD-EPI)NonAf 72.58 POC Glucometer 290 Random Glucose 268 H Calcium 9.6 Total Bilirubin 1.5 H AST 193 H ALT 107 H Alkaline Phosphatase 123 H Total Protein 7.1 Albumin 3.7 Syphilis Serology COVID-19 (IGNACIO) 02/24/20 02/24/20 02/24/20 07:30 16:28 21:47 WBC RBC Hgb Hct MCV MCH MCHC RDW Plt Count MPV PT with INR 10.60 INR 0.90 Sodium Potassium Chloride Carbon Dioxide Anion Gap BUN Creatinine Est GFR (CKD-EPI)AfAm Est GFR (CKD-EPI)NonAf POC Glucometer 409 352 Random Glucose Calcium Total Bilirubin AST ALT Alkaline Phosphatase Total Protein Albumin Syphilis Serology COVID-19 (IGNACIO) 02/25/20 02/25/20 02/25/20 01:58 05:21 11:09 WBC RBC Hgb Hct MCV MCH MCHC RDW Plt Count MPV PT with INR INR Sodium Potassium Chloride Carbon Dioxide Anion Gap BUN Creatinine Est GFR (CKD-EPI)AfAm Est GFR (CKD-EPI)NonAf POC Glucometer 312 336 285 Random Glucose Calcium Total Bilirubin AST ALT Alkaline Phosphatase Total Protein Albumin Syphilis Serology COVID-19 (IGNACIO) Lab Results Noted. Assessment: 02/25/20 15:14 WITHDRAWAL SYMPTOMS. Plan: Continue Detox. 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 Patient verbalized understanding of recommendation. Copies of results of all labs drawn while admitted for detox given to patient at time of discharge from detox unit. Patient schedule for Discharge from Detox Unit for tomorrow AM pending assessment by medical provider at that time.
[2020-02-25] MEDS: THIAMINE HCL 100 MG TABLET (FP) PO SCH (21:20)
[2020-02-25] MEDS: MELATONIN 5 MG TABLETS PO SCH (21:27)
[2020-02-26] MEDS ORDERED: LORazepam 0.5 MG TABLET PO ONE (05:00)
[2020-02-26] MEDS: metFORMIN HCL 500 MG TABLET (FP) PO SCH (06:44)
[2020-02-26] MEDS: INSULIN SLIDING SCALE (NOVOLOG) 1 VIAL SQ SCH ×2 (07:53→11:44)
[2020-02-26] MEDS ORDERED: INSULIN SLIDING SCALE (NOVOLOG) 1 VIAL SQ ONE (08:03)
[2020-02-26 09:05] VITALS: BP 113/62; PULSE 92; TEMP 98
[2020-02-26] MEDS: IBUPROFEN 400 MG TABLET (FP) PO PRN (10:14)
[2020-02-26] MEDS: ASPIRIN 81 MG CHEWABLE TABLETS PO SCH (10:15)
[2020-02-26] MEDS: FUROSEMIDE 20 MG TABLET (FP) PO SCH (10:15)
[2020-02-26] MEDS: PANTOPRAZOLE 40 MG TABLET PO SCH (10:15)
[2020-02-26] MEDS: SACUBITRIL/VALSARTAN 24 MG-26 MG TABLET PO SCH (10:15)
[2020-02-26] MEDS: FERROUS SO4 325 MG TABLET (FP) PO SCH (10:15)
[2020-02-26] MEDS: CARVEDILOL 12.5 MG TABLET (FP) PO SCH (10:15)
[2020-02-26] MEDS: PRENATAL VITAMINS W/ FOLIC ACID TABLET (FP) PO SCH (10:15)
[2020-02-26] MEDS: SPIRONOLACTONE 25 MG TABLET PO SCH (10:15)
--- NOTE | 2020-02-26 11:36 | PN ---
[facility] CIWA - CIWA Score Nausea/Vomitin-Mild Nausea/No Vomiting Muscle Tremors: 1-None Visible, but [place] Anxiety: 1-Mildly Anxious Agitation: 2 Paroxysmal Sweats: No Perspiration Orientation: 0-Oriented Tacttile Disturbances: 0-None Auditory Disturbances: 0-None Visual Disturbances: 0-None Headache: 0-None Present CIWA-Ar Total Score: 5 BHS Progress Note (SOAP) Subjective: Complaining of mild anxiety and irritability. Objective: 02/26/20 11:35 Vital Signs 02/26/20 02/26/20 02/26/20 05:03 06:39 08:45 Temperature 97.8 F 98 F Pulse Rate 89 84 92 H Respiratory 16 16 Rate Blood Pressure 97/73 117/68 113/62 O2 Sat by Pulse 100 Oximetry (%) Laboratory Last Values WBC 6.6 K/mm3 (4.0-10.0) 02/24/20 07:30 RBC 3.28 M/mm3 (4.00-5.60) L 02/24/20 07:30 Hgb 11.1 GM/dL (11.7-16.9) L 02/24/20 07:30 Hct 33.1 % (35.4-49) L D 02/24/20 07:30 MCV 100.9 fl (80-96) H 02/24/20 07:30 MCH 33.8 pg (25.7-33.7) H 02/24/20 07:30 MCHC 33.4 g/dl (32.0-35.9) 02/24/20 07:30 RDW 17.6 % (11.9-15.9) H 02/24/20 07:30 Plt Count 193 K/MM3 (134-434) 02/24/20 07:30 MPV 8.3 fl (7.5-11.1) 02/24/20 07:30 PT with INR 10.60 SEC (9.7-13.0) 02/24/20 07:30 INR 0.90 (0.83-1.09) 02/24/20 07:30 Sodium 140 mmol/L (136-145) 02/24/20 07:30 Potassium 4.4 mmol/L (3.5-5.1) 02/24/20 07:30 Chloride 103 mmol/L (98-107) 02/24/20 07:30 Carbon Dioxide 24 mmol/L (21-32) 02/24/20 07:30 Anion Gap 13 MMOL/L (8-16) 02/24/20 07:30 BUN 17.4 mg/dL (7-18) 02/24/20 07:30 Creatinine 1.1 mg/dL (0.55-1.3) 02/24/20 07:30 Est GFR (CKD-EPI)AfAm 84.12 02/24/20 07:30 Est GFR (CKD-EPI)NonAf 72.58 02/24/20 07:30 POC Glucometer 319 UNITS (80-120) 02/25/20 22:06 Random Glucose 268 mg/dL (74-106) H 02/24/20 07:30 Calcium 9.6 mg/dL (8.5-10.1) 02/24/20 07:30 Total Bilirubin 1.5 mg/dL (0.2-1) H 02/24/20 07:30 AST 193 U/L (15-37) H 02/24/20 07:30 ALT 107 U/L (13-61) H 02/24/20 07:30 Alkaline Phosphatase 123 U/L (45-117) H 02/24/20 07:30 Total Protein 7.1 g/dl (6.4-8.2) 02/24/20 07:30 Albumin 3.7 g/dl (3.4-5.0) 02/24/20 07:30 Syphilis Serology Non-reactive (NONREACTIVE) 02/23/20 08:30 COVID-19 (IGNACIO) Not detected (Not Detected) 02/22/20 21:40 Reviewed. Assessment: 02/26/20 11:36 Alert and oriented x3, in no acute respiratory distress Full ROM, skin warm to touch, ambulatory on unit without assistance. For discharge today. Plan: Discharge today.
--- NOTE | 2020-02-26 11:42 | DS ---
[facility] Detox Discharge Summary Admission Date: 02/22/20 Discharge Date: 02/26/20 - History Present History: Alcohol Dependence Pertinent Past History: History of DM, Heart failure, Liver/Kidney disease, Anemia and alcohol use disorder. - Physical Exam Results Vital Signs: Vital Signs Temperature 98 F 02/26/20 08:45 Pulse Rate 92 H 02/26/20 08:45 Respiratory Rate 16 02/26/20 08:45 Blood Pressure 113/62 02/26/20 08:45 O2 Sat by Pulse Oximetry (%) 100 02/26/20 05:03 Pertinent Admission Physical Exam Findings: withdrawal symptoms - Treatment Hospital Course: Detox Protocol Followed, Detoxed Safely, Responded well, Discharged Condition Good - Medication Discharge Medications: Ambulatory Orders metFORMIN HCL [Metformin HCl] 500 mg PO BIDAC #30 tablet 02/26/16 Furosemide 20 mg PO DAILY #30 tablet 06/20/19 Famotidine [Pepcid -] 40 mg PO DAILY #7 tablet 02/10/20 Carvedilol [Coreg -] 12.5 mg PO BID #60 tablet 02/26/20 Ferrous Sulfate 325 mg PO DAILY #30 tablet 02/26/20 Sacubitril/Valsartan [Entresto 24 mg-26 mg Tablet] 1 tablet PO BID 14 Days #14 tablet 02/26/20 Spironolactone 25 mg PO DAILY #30 tablet 02/26/20 - Diagnosis (1) Alcohol intoxication Current Visit: Yes Status: Acute Qualifiers: Complication of substance-induced condition: uncomplicated Qualified Code(s): F10.920 - Alcohol use, unspecified with intoxication, uncomplicated (2) Alcohol use disorder Current Visit: No Status: Chronic (3) CHF (congestive heart failure) Current Visit: No Status: Chronic Qualifiers: Heart failure type: systolic Heart failure chronicity: acute on chronic Qualified Code(s): I50.23 - Acute on chronic systolic (congestive) heart failure (4) History of CHF (congestive heart failure) Current Visit: No Status: Chronic - AMA Did Patient Leave Against Medical Advice: No
== END 2020-02-26 11:50 | disposition home or self-care (01) | DRG 775 ==
LOC: YASAS 21:13 → Y6N 22:58
PROVIDERS: ADMIT Allergy & Immunology; ATTEND Allergy & Immunology
PROC: HZ2ZZZZ Detoxification Services for Substance Abuse Treatment (ICD-10-PCS; principal; 2020-02-22)
DX: F10.230 Alcohol dependence with withdrawal, uncomplicated (principal); F10.220 Alcohol dependence with intoxication, uncomplicated; F32.9 Major depressive disorder, single episode, unspecified; F17.210 Nicotine dependence, cigarettes, uncomplicated; I50.9 Heart failure, unspecified; D50.9 Iron deficiency anemia, unspecified; E11.9 Type 2 diabetes mellitus without complications; Z79.84 Long term (current) use of oral hypoglycemic drugs; K21.9 Gastro-esophageal reflux disease without esophagitis; K76.9 Liver disease, unspecified; N28.9 Disorder of kidney and ureter, unspecified; R74.0 Nonspecific elevation of levels of transaminase and lactic acid dehydrogenase [LDH]; R63.4 Abnormal weight loss; Z68.1 Body mass index [BMI] 19.9 or less, adult; Z56.0 Unemployment, unspecified; Z91.018 Allergy to other foods
CPT/HCPCS: 36415; 80053; 82962; 85027; 85610; 86780; U0003

== ENCOUNTER 2020-07-12 17:43 | Inpatient (IN) | payer OTHER ==
[2020-07-12 18:28] VITALS: BMI 16.2
[2020-07-12] MEDS ORDERED: MAG HYDROX/AL HYDROX/SIMETH 30 ML UNIT-DOSE CUP PO PRN (18:48)
[2020-07-12] MEDS ORDERED: BISMUTH SUBSALICYLATE 524 MG/30 ML UD PO PRN (18:48)
[2020-07-12] MEDS ORDERED: MAGNESIUM CITRATE 300 ML BOTTLE PO PRN (18:48)
[2020-07-12] MEDS ORDERED: MAGNESIUM HYDROX 2400MG/30ML ORAL SUSPENSION 30 ML CUP PO PRN (18:48)
[2020-07-12] MEDS ORDERED: IBUPROFEN 400 MG TABLET (FP) PO PRN (18:48)
[2020-07-12] MEDS ORDERED: ACETAMINOPHEN 325 MG TABLET (FP) PO PRN ×2 (18:48)
[2020-07-12] MEDS ORDERED: ONDANSETRON *ODT* 4 MG TABLET SL PRN (18:48)
[2020-07-12] MEDS ORDERED: MENTHOL/PHENOL 1 EACH UD MM PRN (18:48)
[2020-07-12] MEDS ORDERED: METHOCARBAMOL 500 MG TABLET PO PRN (18:48)
[2020-07-12] MEDS ORDERED: NICOTINE POLACRILEX 2 MG GUM BUC PRN (18:48)
[2020-07-12] MEDS ORDERED: chlordiazePOXIDE HCL 25 MG CAPSULE PO PRN (18:48)
[2020-07-12] MEDS ORDERED: chlordiazePOXIDE HCL 25 MG CAPSULE PO ONE (19:15)
[2020-07-12] MEDS ORDERED: INSULIN (NOVOLOG) ASPART 100 UNITS/ML 10ML VIAL SQ ONE (20:50)
[2020-07-12] MEDS: MELATONIN 5 MG TABLETS PO SCH (22:23)
[2020-07-12] MEDS: THIAMINE HCL 100 MG TABLET (FP) PO SCH (22:24)
[2020-07-12] MEDS: chlordiazePOXIDE HCL 25 MG CAPSULE PO SCH (22:24)
[2020-07-12] MEDS: hydrOXYzine PAMOATE 25 MG CAPSULE (FP) PO SCH (22:26)
[2020-07-13] MEDS: hydrOXYzine PAMOATE 25 MG CAPSULE (FP) PO SCH (05:10)
[2020-07-13] MEDS: chlordiazePOXIDE HCL 25 MG CAPSULE PO SCH ×2 (05:11→10:02)
[2020-07-13] MEDS: metFORMIN HCL 500 MG TABLET (FP) PO SCH ×2 (07:27→17:55)
[2020-07-13] MEDS ORDERED: hydrOXYzine PAMOATE 25 MG CAPSULE (FP) PO PRN (08:42)
[2020-07-13] MEDS: SPIRONOLACTONE 25 MG TABLET PO SCH (10:02)
[2020-07-13] MEDS: PRENATAL VITAMINS W/ FOLIC ACID TABLET (FP) PO SCH (10:02)
[2020-07-13 10:12] LABS: HEMATOCRIT 28.9 % (35.4-49); HEMOGLOBIN 9.7 GM/dL (11.7-16.9); MCH 36.4 pg (25.7-33.7); MCHC 33.7 g/dl (32.0-35.9); MEAN CELL VOLUME 108.3 fl (80-96); MEAN PLT VOLUME 8.3 fl (7.5-11.1); PLATELET COUNT 274 K/MM3 (134-434); POTASSIUM 5.1 mmol/L (3.5-5.1); RBC 2.67 M/mm3 (4.00-5.60); RDW 15.4 % (11.9-15.9); WHITE BLOOD COUNT 2.5 K/mm3 (4.0-10.0)
[2020-07-13 10:13] LABS: CALCIUM 9.1 mg/dL (8.5-10.1)
[2020-07-13 10:14] LABS: ALBUMIN 3.5 g/dl (3.4-5.0)
[2020-07-13 10:18] LABS: CREATININE 1.1 mg/dL (0.55-1.3)
[2020-07-13 10:19] LABS: BILIRUBIN,TOTAL 1.1 mg/dL (0.2-1)
[2020-07-13] MEDS ORDERED: LORazepam 1 MG TABLET PO PRN (10:24)
[2020-07-13] MEDS: SACUBITRIL/VALSARTAN 24 MG-26 MG TABLET PO SCH ×2 (11:26→23:23)
[2020-07-13] MEDS: FUROSEMIDE 20 MG TABLET (FP) PO SCH (11:26)
[2020-07-13] MEDS: FAMOTIDINE 40 MG TABLET PO SCH (11:26)
[2020-07-13] MEDS: CARVEDILOL 12.5 MG TABLET (FP) PO SCH ×2 (11:26→23:23)
[2020-07-13] MEDS ORDERED: FERROUS SO4 325 MG TABLET (FP) PO SCH (11:30)
[2020-07-13] MEDS ORDERED: INSULIN (NOVOLOG) ASPART 100 UNITS/ML 10ML VIAL SQ ONE (17:52)
[2020-07-13] MEDS ORDERED: INSULIN (NOVOLOG) ASPART 100 UNITS/ML 10ML VIAL ONE (18:05)
[2020-07-13] MEDS: LORazepam 2 MG TABLET PO SCH ×2 (18:14→22:24)
[2020-07-13] MEDS: THIAMINE HCL 100 MG TABLET (FP) PO SCH (22:24)
[2020-07-13] MEDS: FERROUS SO4 325 MG TABLET (FP) PO SCH (22:24)
[2020-07-13] MEDS: MELATONIN 5 MG TABLETS PO SCH (23:24)
[2020-07-14] MEDS ORDERED: chlordiazePOXIDE HCL 25 MG CAPSULE PO SCH (05:00)
[2020-07-14] MEDS: LORazepam 2 MG TABLET PO SCH ×4 (05:41→22:02)
[2020-07-14] MEDS: metFORMIN HCL 500 MG TABLET (FP) PO SCH ×2 (06:06→16:50)
[2020-07-14] MEDS: INSULIN SLIDING SCALE (NOVOLOG) 1 VIAL SQ SCH ×4 (07:38→22:05)
[2020-07-14] MEDS ORDERED: INSULIN (NOVOLOG) ASPART 100 UNITS/ML 10ML VIAL ONE ×2 (07:39→16:47)
[2020-07-14 09:42] LABS: HEMATOCRIT 32.5 % (35.4-49); MCH 37.2 pg (25.7-33.7); MCHC 33.8 g/dl (32.0-35.9); MEAN PLT VOLUME 8.8 fl (7.5-11.1); PLATELET COUNT 310 K/MM3 (134-434); RBC 2.96 M/mm3 (4.00-5.60); RDW 15.9 % (11.9-15.9); WHITE BLOOD COUNT 3.9 K/mm3 (4.0-10.0)
[2020-07-14 09:45] LABS: POTASSIUM 4.4 mmol/L (3.5-5.1)
[2020-07-14 09:48] LABS: INR 0.92 (0.83-1.09); PROTHROMBIN TIME (PATIENT) 11.4 SEC (9.7-13.0)
[2020-07-14 09:54] LABS: ALBUMIN 3.5 g/dl (3.4-5.0); BLOOD UREA NITROGEN 17.1 mg/dL (7-18)
[2020-07-14 09:56] LABS: CALCIUM 8.8 mg/dL (8.5-10.1)
[2020-07-14 09:58] LABS: CREATININE 1.3 mg/dL (0.55-1.3)
[2020-07-14 10:00] LABS: TOT PROT 6.9 g/dl (6.4-8.2)
[2020-07-14] MEDS: FERROUS SO4 325 MG TABLET (FP) PO SCH ×2 (10:03→22:02)
[2020-07-14] MEDS: SACUBITRIL/VALSARTAN 24 MG-26 MG TABLET PO SCH ×2 (10:03→22:02)
[2020-07-14] MEDS: CARVEDILOL 12.5 MG TABLET (FP) PO SCH ×2 (10:03→22:02)
[2020-07-14] MEDS: SPIRONOLACTONE 25 MG TABLET PO SCH (10:03)
[2020-07-14] MEDS: FAMOTIDINE 40 MG TABLET PO SCH (10:03)
[2020-07-14] MEDS: PRENATAL VITAMINS W/ FOLIC ACID TABLET (FP) PO SCH (10:03)
[2020-07-14 10:13] LABS: BILIRUBIN,TOTAL 1.2 mg/dL (0.2-1)
[2020-07-14] MEDS: FUROSEMIDE 20 MG TABLET (FP) PO SCH (13:42)
[2020-07-14] MEDS ORDERED: MASKS NR ONE (16:43)
[2020-07-14] MEDS: MELATONIN 5 MG TABLETS PO SCH (22:02)
[2020-07-14] MEDS: THIAMINE HCL 100 MG TABLET (FP) PO SCH (22:02)
[2020-07-15] MEDS ORDERED: chlordiazePOXIDE HCL 10 MG CAPSULE PO PRN
[2020-07-15] MEDS ORDERED: chlordiazePOXIDE HCL 10 MG CAPSULE PO SCH (05:00)
[2020-07-15] MEDS: metFORMIN HCL 500 MG TABLET (FP) PO SCH ×2 (06:36→17:43)
[2020-07-15] MEDS: LORazepam 1 MG TABLET PO SCH ×4 (06:36→21:59)
[2020-07-15] MEDS ORDERED: INSULIN (NOVOLOG) ASPART 100 UNITS/ML 10ML VIAL ONE ×2 (06:40→12:00)
[2020-07-15] MEDS: INSULIN SLIDING SCALE (NOVOLOG) 1 VIAL SQ SCH ×4 (07:02→23:17)
[2020-07-15] MEDS: SPIRONOLACTONE 25 MG TABLET PO SCH (11:27)
[2020-07-15] MEDS: CARVEDILOL 12.5 MG TABLET (FP) PO SCH ×2 (11:27→23:13)
[2020-07-15] MEDS: FUROSEMIDE 20 MG TABLET (FP) PO SCH (11:28)
[2020-07-15] MEDS: SACUBITRIL/VALSARTAN 24 MG-26 MG TABLET PO SCH ×2 (11:28→23:13)
[2020-07-15] MEDS: FAMOTIDINE 20 MG TABLET PO SCH (11:57)
[2020-07-15] MEDS: PRENATAL VITAMINS W/ FOLIC ACID TABLET (FP) PO SCH (11:57)
[2020-07-15] MEDS: FERROUS SO4 325 MG TABLET (FP) PO SCH ×2 (11:57→21:55)
[2020-07-15] MEDS ORDERED: guaiFENesin 200 MG/10 ML 10 ML UNIT-DOSE CUPS PO PRN (17:07)
[2020-07-15] MEDS: THIAMINE HCL 100 MG TABLET (FP) PO SCH (21:55)
[2020-07-15] MEDS: MELATONIN 5 MG TABLETS PO SCH (23:13)
[2020-07-15] MEDS: INSULIN (LEVEMIR) 100 UNITS/ML UNITS SQ SCH (23:13)
[2020-07-16] MEDS ORDERED: LORazepam 0.5 MG TABLET PO PRN
[2020-07-16] MEDS ORDERED: chlordiazePOXIDE HCL 10 MG CAPSULE PO SCH (05:00)
[2020-07-16] MEDS: LORazepam 0.5 MG TABLET PO SCH ×4 (06:22→22:27)
[2020-07-16] MEDS: metFORMIN HCL 500 MG TABLET (FP) PO SCH ×2 (06:23→17:52)
[2020-07-16] MEDS: sitaGLIPtin PHOSPHATE 50 MG TABLET PO SCH (06:23)
[2020-07-16] MEDS: INSULIN SLIDING SCALE (NOVOLOG) 1 VIAL SQ SCH ×4 (06:25→23:17)
[2020-07-16] MEDS ORDERED: INSULIN (NOVOLOG) ASPART 100 UNITS/ML 10ML VIAL ONE ×2 (06:26→11:37)
[2020-07-16] MEDS: FERROUS SO4 325 MG TABLET (FP) PO SCH ×2 (10:35→22:27)
[2020-07-16] MEDS: FAMOTIDINE 20 MG TABLET PO SCH (10:35)
[2020-07-16] MEDS: PRENATAL VITAMINS W/ FOLIC ACID TABLET (FP) PO SCH (10:35)
[2020-07-16] MEDS: SACUBITRIL/VALSARTAN 24 MG-26 MG TABLET PO SCH ×2 (11:15→23:16)
[2020-07-16] MEDS: FUROSEMIDE 20 MG TABLET (FP) PO SCH (11:15)
[2020-07-16] MEDS: SPIRONOLACTONE 25 MG TABLET PO SCH (11:15)
[2020-07-16] MEDS: CARVEDILOL 12.5 MG TABLET (FP) PO SCH (11:15)
[2020-07-16] MEDS: THIAMINE HCL 100 MG TABLET (FP) PO SCH (22:27)
[2020-07-16] MEDS: MELATONIN 5 MG TABLETS PO SCH (23:17)
[2020-07-16] MEDS: INSULIN (LEVEMIR) 100 UNITS/ML UNITS SQ SCH (23:17)
[2020-07-17] MEDS ORDERED: LORazepam 0.5 MG TABLET PO ONE (05:00)
[2020-07-17] MEDS ORDERED: chlordiazePOXIDE HCL 10 MG CAPSULE PO ONE (05:00)
[2020-07-17] MEDS: metFORMIN HCL 500 MG TABLET (FP) PO SCH (07:41)
[2020-07-17] MEDS: INSULIN SLIDING SCALE (NOVOLOG) 1 VIAL SQ SCH (07:41)
[2020-07-17] MEDS: sitaGLIPtin PHOSPHATE 50 MG TABLET PO SCH (07:41)
[2020-07-17 09:26] VITALS: BP 97/62; PULSE 115; TEMP 97.5
== END 2020-07-17 09:25 | disposition home or self-care (01) | DRG 775 ==
LOC: YASAS 17:43 → Y6N 18:35
PROVIDERS: ADMIT Allergy & Immunology; ATTEND Allergy & Immunology
PROC: HZ2ZZZZ Detoxification Services for Substance Abuse Treatment (ICD-10-PCS; principal; 2020-07-12)
DX: F10.230 Alcohol dependence with withdrawal, uncomplicated (principal); F17.211 Nicotine dependence, cigarettes, in remission; E11.65 Type 2 diabetes mellitus with hyperglycemia; Z79.84 Long term (current) use of oral hypoglycemic drugs; D64.9 Anemia, unspecified; I10 Essential (primary) hypertension; E78.5 Hyperlipidemia, unspecified; R94.5 Abnormal results of liver function studies; Z91.018 Allergy to other foods
CPT/HCPCS: 36415; 80053; 82962; 85027; 85610; 86780; 93005; 93010; C9803; U0003

== ENCOUNTER 2020-08-07 15:36 | Inpatient (IN) | payer OTHER ==
[2020-08-07 15:51] VITALS: BMI 21.7
[2020-08-07] MEDS ORDERED: FOLIC ACID INJECTION - 1 MG, THIAMINE HCL 100 MG, MULTIVIT INJECTION ADULT 10 ML in SOD... IVPB ONE (16:58)
[2020-08-07] MEDS ORDERED: morphine CARPU-JECT 4 MG/1 ML DISP.SYRIN IVPUSH ONE ×2 (16:58→21:22)
[2020-08-07] MEDS ORDERED: FAMOTIDINE 20 MG/50 ML IVPB 20 MG/50 ML MG IVPB ONE ×2 (16:58→17:17)
[2020-08-07] MEDS ORDERED: morphine SULFATE 4 MG/ML VIAL ONE ×2 (17:17→21:32)
[2020-08-07] MEDS ORDERED: SODIUM CHLORIDE 0.9% 500 ML INFUS.BAG IV ONE (17:18)
[2020-08-07 18:10] LABS: BASO % 0.5 % (0-2.0); HEMATOCRIT 30.5 % (35.4-49); HEMOGLOBIN 10.3 GM/dL (11.7-16.9); LYMPH % 48.6 % (8-40); MCH 34.1 pg (25.7-33.7); MCHC 33.6 g/dl (32.0-35.9); MEAN CELL VOLUME 101.5 fl (80-96); MEAN PLT VOLUME 8.1 fl (7.5-11.1); MONO % 9.1 % (3.8-10.2); NEUT % 41.8 % (42.8-82.8); PLATELET COUNT 207 K/MM3 (134-434); RDW 16.1 % (11.9-15.9); WHITE BLOOD COUNT 2.7 K/mm3 (4.0-10.0)
[2020-08-07 18:19] LABS: INR 0.88 (0.83-1.09); PROTHROMBIN TIME (PATIENT) 10.9 SEC (9.7-13.0)
[2020-08-07 18:21] LABS: ACTIVATED PTT 29.4 SECONDS (25.2-36.5)
[2020-08-07 18:27] LABS: CHLORIDE 104 mmol/L (98-107); POTASSIUM 5.2 mmol/L (3.5-5.1); SODIUM 139 mmol/L (136-145)
[2020-08-07 18:30] LABS: ALBUMIN 3.6 g/dl (3.4-5.0); ANION GAP 13 MMOL/L (8-16); BLOOD UREA NITROGEN 17.6 mg/dL (7-18); CALCIUM 7.9 mg/dL (8.5-10.1); CO2 21 mmol/L (21-32); GLUCOSE,RANDOM 253 mg/dL (74-106); LIPASE 78 U/L (73-393)
[2020-08-07 18:33] LABS: SGOT/AST 219 U/L (15-37); SGPT/ALT 133 U/L (13-61)
[2020-08-07 18:34] LABS: BILIRUBIN,TOTAL 1.4 mg/dL (0.2-1); LDH 440 U/L (87-246); TOT PROT 7.6 g/dl (6.4-8.2)
[2020-08-07 18:36] LABS: ALK PHOS 157 U/L (45-117)
[2020-08-07 18:38] LABS: N-TERMINAL BNP 82.9 pg/ml (5-125)
[2020-08-07 21:34] LABS: POTASSIUM 4.7 mmol/L (3.5-5.1)
[2020-08-07 21:35] LABS: CALCIUM 7.5 mg/dL (8.5-10.1)
[2020-08-07 21:36] LABS: BLOOD UREA NITROGEN 14.3 mg/dL (7-18)
[2020-08-07 21:39] LABS: CREATININE 0.8 mg/dL (0.55-1.3)
[2020-08-07 22:01] LABS: URINE APPEARANCE CLEAR; URINE BILIRUBIN NEGATIVE (NEGATIVE); URINE COLOR YELLOW; URINE GLUCOSE (UA) 2+ (NEGATIVE); URINE KETONE NEGATIVE (NEGATIVE); URINE LEUK ESTERASE NEGATIVE (NEGATIVE); URINE NITRITE NEGATIVE (NEGATIVE); URINE PROTEIN TRACE (NEGATIVE); URINE UROBILINOGEN 0.2 mg/dL (0.2-1.0)
[2020-08-07] MEDS ORDERED: LORazepam 1 MG TABLET PO PRN (23:53)
[2020-08-08] MEDS ORDERED: LORazepam 1 MG TABLET ONE (01:00)
[2020-08-08] MEDS: LORazepam 1 MG TABLET PO SCH ×5 (01:02→22:27)
[2020-08-08] MEDS ORDERED: MAG HYDROX/AL HYDROX/SIMETH 30 ML UNIT-DOSE CUP PO PRN (02:22)
[2020-08-08] MEDS: MORPHINE SULFATE 2 MG/ML VIAL IVPUSH PRN ×3 (03:14→15:42)
[2020-08-08 03:31] LABS: METHADONE, UR NEGATIVE ng/ml (CUTOFF=300); PHENCYCLIDINE,URINE NEGATIVE ng/ml (CUTOFF=25); URINE BARBITURATES NEGATIVE ng/ml (CUTOFF=200)
[2020-08-08 03:32] LABS: URINE AMPHETAMINES NEGATIVE ng/ml (CUTOFF=500)
[2020-08-08 03:33] LABS: COCAINE, UR NEGATIVE ng/ml (CUTOFF=300)
[2020-08-08 03:35] LABS: URINE BENZODIAZEPINES POSITIVE ng/ml (CUTOFF=200)
[2020-08-08 03:36] LABS: OPIATES, URI POSITIVE ng/ml (CUTOFF=300)
[2020-08-08] MEDS: LACTATED RINGERS SOLUTION 1,000 ML/1,000 ML INFUS.BAG IV SCH (05:31)
[2020-08-08] MEDS: INSULIN SLIDING SCALE (NOVOLOG) 1 VIAL SQ SCH ×4 (06:19→22:28)
[2020-08-08] MEDS ORDERED: FOLIC ACID INJECTION - 1 MG, THIAMINE HCL 100 MG, MULTIVIT INJECTION ADULT 10 ML in SOD... IVPB ONE (10:00)
[2020-08-08 10:22] LABS: BASO % 0.3 % (0-2.0); EOS % 0.2 % (0-4.5); HEMATOCRIT 29.3 % (35.4-49); HEMOGLOBIN 9.8 GM/dL (11.7-16.9); MCH 34.4 pg (25.7-33.7); MCHC 33.6 g/dl (32.0-35.9); MEAN CELL VOLUME 102.5 fl (80-96); MEAN PLT VOLUME 7.5 fl (7.5-11.1); MONO % 6.4 % (3.8-10.2); NEUT % 42.1 % (42.8-82.8); PLATELET COUNT 174 K/MM3 (134-434); RBC 2.86 M/mm3 (4.00-5.60); RDW 15.7 % (11.9-15.9); WHITE BLOOD COUNT 2.7 K/mm3 (4.0-10.0)
[2020-08-08] MEDS ORDERED: PT OWN MED DRAWER 7, Y5N ONE ×2 (10:33→22:13)
[2020-08-08] MEDS: PANTOPRAZOLE 40 MG TABLET PO SCH (10:34)
[2020-08-08] MEDS: FOLIC ACID 1 MG TABLET (FP) PO SCH (10:34)
[2020-08-08] MEDS: MULTIVITAMINS (DAILY MVI) TABLET (FP) PO SCH (10:34)
[2020-08-08] MEDS: CARVEDILOL 12.5 MG TABLET (FP) PO SCH ×2 (10:34→22:27)
[2020-08-08] MEDS: THIAMINE HCL 100 MG TABLET (FP) PO SCH (10:34)
[2020-08-08] MEDS: ENOXAPARIN NA (PORCINE) 40 MG/0.4 ML DISP.SYRIN SQ SCH (10:35)
[2020-08-08 10:55] LABS: POTASSIUM 4.5 mmol/L (3.5-5.1)
[2020-08-08 10:57] LABS: CALCIUM 7.7 mg/dL (8.5-10.1)
[2020-08-08 10:58] LABS: ALBUMIN 3.2 g/dl (3.4-5.0); BLOOD UREA NITROGEN 8.4 mg/dL (7-18); MAGNESIUM 1.1 mg/dL (1.8-2.4)
[2020-08-08 11:01] LABS: CREATININE 0.8 mg/dL (0.55-1.3); PHOSPHOROUS 2.9 mg/dL (2.5-4.9)
[2020-08-08 11:02] LABS: BILIRUBIN,TOTAL 0.9 mg/dL (0.2-1); TOT PROT 6.6 g/dl (6.4-8.2)
[2020-08-08] MEDS: SACUBITRIL/VALSARTAN 24 MG-26 MG TABLET PO SCH ×2 (12:49→22:27)
[2020-08-08] MEDS ORDERED: INSULIN (NOVOLOG) ASPART 100 UNITS/ML 10ML VIAL ONE (22:10)
[2020-08-08] MEDS: ZINC SULFATE 220 MG TABLET PO SCH (22:27)
[2020-08-08] MEDS: ASCORBIC ACID 500 MG TABLET (FP) PO SCH (22:28)
[2020-08-09] MEDS: LACTATED RINGERS SOLUTION 1,000 ML/1,000 ML INFUS.BAG IV SCH ×2 (03:39→23:00)
[2020-08-09] MEDS: LORazepam 1 MG TABLET PO SCH ×4 (04:40→22:33)
[2020-08-09] MEDS: INSULIN SLIDING SCALE (NOVOLOG) 1 VIAL SQ SCH ×4 (06:24→23:34)
[2020-08-09] MEDS: ENOXAPARIN NA (PORCINE) 40 MG/0.4 ML DISP.SYRIN SQ SCH ×2 (11:18→11:32)
[2020-08-09] MEDS: ASCORBIC ACID 500 MG TABLET (FP) PO SCH ×2 (11:18→22:32)
[2020-08-09] MEDS: THIAMINE HCL 100 MG TABLET (FP) PO SCH (11:19)
[2020-08-09] MEDS: ZINC SULFATE 220 MG TABLET PO SCH ×2 (11:19→22:33)
[2020-08-09] MEDS: CHOLECALCIFEROL (VIT D3) 1,000 UNIT (25 MCG) TABLET PO SCH (11:19)
[2020-08-09] MEDS: CARVEDILOL 12.5 MG TABLET (FP) PO SCH ×2 (11:20→22:33)
[2020-08-09] MEDS: FOLIC ACID 1 MG TABLET (FP) PO SCH (11:20)
[2020-08-09] MEDS: PANTOPRAZOLE 40 MG TABLET PO SCH (11:20)
[2020-08-09] MEDS: SACUBITRIL/VALSARTAN 24 MG-26 MG TABLET PO SCH ×2 (11:29→22:34)
[2020-08-09] MEDS: MULTIVITAMINS (DAILY MVI) TABLET (FP) PO SCH (11:31)
[2020-08-09] MEDS ORDERED: INSULIN (NOVOLOG) ASPART 100 UNITS/ML 10ML VIAL ONE (12:46)
[2020-08-09] MEDS: ACETAMINOPHEN 1000 MG/100 ML VIAL (NON FORMULARY) IVPB PRN (18:48)
[2020-08-09] MEDS ORDERED: PT OWN MED DRAWER 7, Y5N ONE ×2 (22:21→23:52)
[2020-08-10] MEDS ORDERED: LORazepam 0.5 MG TABLET PO PRN
[2020-08-10] MEDS: LORazepam 0.5 MG TABLET PO SCH ×4 (05:19→23:00)
[2020-08-10] MEDS: MORPHINE SULFATE 2 MG/ML VIAL IVPUSH PRN (05:20)
[2020-08-10] MEDS ORDERED: ACETAMINOPHEN 325 MG TABLET (FP) PO ONE (05:57)
[2020-08-10] MEDS: INSULIN SLIDING SCALE (NOVOLOG) 1 VIAL SQ SCH ×4 (06:17→23:00)
[2020-08-10] MEDS: LACTATED RINGERS SOLUTION 1,000 ML/1,000 ML INFUS.BAG IV SCH (07:00)
[2020-08-10 08:58] LABS: BASO % 0.1 % (0-2.0); HEMATOCRIT 27.3 % (35.4-49); HEMOGLOBIN 9.3 GM/dL (11.7-16.9); LYMPH % 5.6 % (8-40); MCH 33.9 pg (25.7-33.7); MCHC 33.9 g/dl (32.0-35.9); MEAN CELL VOLUME 99.9 fl (80-96); MEAN PLT VOLUME 8.2 fl (7.5-11.1); MONO % 2.3 % (3.8-10.2); PLATELET COUNT 146 K/MM3 (134-434); RBC 2.73 M/mm3 (4.00-5.60); RDW 15.6 % (11.9-15.9); WHITE BLOOD COUNT 6.2 K/mm3 (4.0-10.0)
[2020-08-10] MEDS ORDERED: PT OWN MED DRAWER 7, Y5N ONE (09:22)
[2020-08-10 09:30] LABS: CALCIUM 7.4 mg/dL (8.5-10.1)
[2020-08-10 09:31] LABS: ALBUMIN 2.8 g/dl (3.4-5.0); BLOOD UREA NITROGEN 10.8 mg/dL (7-18); MAGNESIUM 0.5 mg/dL (1.8-2.4)
[2020-08-10 09:34] LABS: CREATININE 1.1 mg/dL (0.55-1.3)
[2020-08-10 09:35] LABS: BILIRUBIN,TOTAL 1.9 mg/dL (0.2-1)
[2020-08-10 10:23] LABS: POTASSIUM 3.5 mmol/L (3.5-5.1)
[2020-08-10] MEDS: CHOLECALCIFEROL (VIT D3) 1,000 UNIT (25 MCG) TABLET PO SCH (10:50)
[2020-08-10] MEDS: THIAMINE HCL 100 MG TABLET (FP) PO SCH (10:50)
[2020-08-10] MEDS: ENOXAPARIN NA (PORCINE) 40 MG/0.4 ML DISP.SYRIN SQ SCH (10:50)
[2020-08-10] MEDS: ASCORBIC ACID 500 MG TABLET (FP) PO SCH ×2 (10:50→22:59)
[2020-08-10] MEDS: PANTOPRAZOLE 40 MG TABLET PO SCH (10:50)
[2020-08-10] MEDS: SACUBITRIL/VALSARTAN 24 MG-26 MG TABLET PO SCH ×2 (10:50→23:00)
[2020-08-10] MEDS: ZINC SULFATE 220 MG TABLET PO SCH ×2 (10:50→22:59)
[2020-08-10] MEDS: MULTIVITAMINS (DAILY MVI) TABLET (FP) PO SCH (10:50)
[2020-08-10] MEDS: CARVEDILOL 12.5 MG TABLET (FP) PO SCH ×2 (10:50→22:59)
[2020-08-10] MEDS: FOLIC ACID 1 MG TABLET (FP) PO SCH (10:50)
[2020-08-10 11:03] LABS: ANISOCYTOSIS 1+; MACROCYTOSIS 1+; PLATELET ESTIMATE DECREASED
[2020-08-10] MEDS: ACETAMINOPHEN 1000 MG/100 ML VIAL (NON FORMULARY) IVPB PRN (15:14)
[2020-08-10] MEDS: ACETAMINOPHEN 1000 MG/100 ML VIAL (NON FORMULARY) IVPB ONE (23:54)
[2020-08-11] MEDS ORDERED: ACETAMINOPHEN 325 MG TABLET (FP) PO ONE (00:42)
[2020-08-11] MEDS: LACTATED RINGERS SOLUTION 1,000 ML/1,000 ML INFUS.BAG IV SCH ×2 (00:44→23:47)
[2020-08-11] MEDS: ACETAMINOPHEN 1000 MG/100 ML VIAL (NON FORMULARY) IVPB ONE (00:58)
[2020-08-11] MEDS ORDERED: LORazepam 0.5 MG TABLET PO ONE (05:00)
[2020-08-11] MEDS: INSULIN SLIDING SCALE (NOVOLOG) 1 VIAL SQ SCH ×4 (06:07→21:55)
[2020-08-11 09:59] LABS: POTASSIUM 3.5 mmol/L (3.5-5.1)
[2020-08-11 10:02] LABS: ALBUMIN 2.8 g/dl (3.4-5.0)
[2020-08-11 10:05] LABS: BILIRUBIN,DIRECT 0.5 mg/dL (0.0-0.2); CALCIUM 7.3 mg/dL (8.5-10.1)
[2020-08-11 10:06] LABS: ALBUMIN 2.7 g/dl (3.4-5.0); BLOOD UREA NITROGEN 14.3 mg/dL (7-18); MAGNESIUM 0.8 mg/dL (1.8-2.4)
[2020-08-11 10:07] LABS: BILIRUBIN,TOTAL 1.6 mg/dL (0.2-1); TOT PROT 6.4 g/dl (6.4-8.2)
[2020-08-11 10:09] LABS: BILIRUBIN,TOTAL 1.5 mg/dL (0.2-1); CREATININE 1.2 mg/dL (0.55-1.3)
[2020-08-11] MEDS: SACUBITRIL/VALSARTAN 24 MG-26 MG TABLET PO SCH ×2 (11:03→21:55)
[2020-08-11] MEDS: ZINC SULFATE 220 MG CAPSULE (FP) PO SCH ×2 (11:03→21:54)
[2020-08-11] MEDS: MULTIVITAMINS (DAILY MVI) TABLET (FP) PO SCH (11:04)
[2020-08-11] MEDS: ASCORBIC ACID 500 MG TABLET (FP) PO SCH ×2 (11:04→21:54)
[2020-08-11] MEDS: PANTOPRAZOLE 40 MG TABLET PO SCH (11:04)
[2020-08-11] MEDS: FOLIC ACID 1 MG TABLET (FP) PO SCH (11:04)
[2020-08-11] MEDS: CARVEDILOL 12.5 MG TABLET (FP) PO SCH ×2 (11:04→21:54)
[2020-08-11] MEDS: CHOLECALCIFEROL (VIT D3) 1,000 UNIT (25 MCG) TABLET PO SCH (11:04)
[2020-08-11] MEDS: THIAMINE HCL 100 MG TABLET (FP) PO SCH (11:05)
[2020-08-11] MEDS: ENOXAPARIN NA (PORCINE) 40 MG/0.4 ML DISP.SYRIN SQ SCH ×2 (11:06→11:46)
[2020-08-11] MEDS ORDERED: ENOXAPARIN NA (PORCINE) 60 MG/0.6 ML DISP.SYRIN SQ SCH ×2 (12:00→22:00)
[2020-08-11] MEDS: ENOXAPARIN NA (PORCINE) 60 MG/0.6 ML DISP.SYRIN SQ SCH ×2 (12:21→21:54)
[2020-08-11] MEDS: ACETAMINOPHEN 325 MG TABLET (FP) PO PRN (17:18)
[2020-08-11] MEDS ORDERED: INSULIN (NOVOLOG) ASPART 100 UNITS/ML 10ML VIAL ONE (17:23)
[2020-08-12] MEDS: INSULIN SLIDING SCALE (NOVOLOG) 1 VIAL SQ SCH ×4 (06:47→23:26)
[2020-08-12] MEDS: ENOXAPARIN NA (PORCINE) 60 MG/0.6 ML DISP.SYRIN SQ SCH ×2 (09:30→23:24)
[2020-08-12] MEDS: CARVEDILOL 12.5 MG TABLET (FP) PO SCH ×2 (09:30→23:25)
[2020-08-12] MEDS: ZINC SULFATE 220 MG CAPSULE (FP) PO SCH ×2 (09:30→23:25)
[2020-08-12] MEDS: CHOLECALCIFEROL (VIT D3) 1,000 UNIT (25 MCG) TABLET PO SCH (09:30)
[2020-08-12] MEDS: SACUBITRIL/VALSARTAN 24 MG-26 MG TABLET PO SCH ×2 (09:30→23:25)
[2020-08-12] MEDS: ASCORBIC ACID 500 MG TABLET (FP) PO SCH ×2 (09:30→23:25)
[2020-08-12] MEDS: PANTOPRAZOLE 40 MG TABLET PO SCH (09:30)
[2020-08-12] MEDS: ACETAMINOPHEN 325 MG TABLET (FP) PO PRN (09:31)
[2020-08-12] MEDS: THIAMINE HCL 100 MG TABLET (FP) PO SCH (09:31)
[2020-08-12] MEDS: MULTIVITAMINS (DAILY MVI) TABLET (FP) PO SCH (09:31)
[2020-08-12] MEDS: FOLIC ACID 1 MG TABLET (FP) PO SCH (09:31)
[2020-08-12 10:23] LABS: BASO % 0.3 % (0-2.0); EOS % 0.1 % (0-4.5); HEMATOCRIT 23.6 % (35.4-49); HEMOGLOBIN 7.8 GM/dL (11.7-16.9); LYMPH % 26.5 % (8-40); MCH 33.4 pg (25.7-33.7); MCHC 33.3 g/dl (32.0-35.9); MEAN CELL VOLUME 100.3 fl (80-96); MEAN PLT VOLUME 9.2 fl (7.5-11.1); MONO % 13.1 % (3.8-10.2); PLATELET COUNT 128 K/MM3 (134-434); RBC 2.35 M/mm3 (4.00-5.60); RDW 15.6 % (11.9-15.9); WHITE BLOOD COUNT 3.7 K/mm3 (4.0-10.0)
[2020-08-12 10:34] LABS: POTASSIUM 3.2 mmol/L (3.5-5.1)
[2020-08-12 10:36] LABS: ALBUMIN 2.4 g/dl (3.4-5.0); BLOOD UREA NITROGEN 12.3 mg/dL (7-18); MAGNESIUM 0.7 mg/dL (1.8-2.4)
[2020-08-12 10:39] LABS: CREATININE 1.1 mg/dL (0.55-1.3)
[2020-08-12 10:41] LABS: BILIRUBIN,TOTAL 1.4 mg/dL (0.2-1); TOT PROT 5.6 g/dl (6.4-8.2)
[2020-08-12 10:48] LABS: ALBUMIN 2.5 g/dl (3.4-5.0); BILIRUBIN,DIRECT 0.3 mg/dL (0.0-0.2); TOT PROT 5.7 g/dl (6.4-8.2)
[2020-08-12] MEDS: LACTATED RINGERS SOLUTION 1,000 ML/1,000 ML INFUS.BAG IV SCH ×2 (11:01→23:26)
[2020-08-12] MEDS ORDERED: POTASSIUM CHLORIDE TABS 20 MEQ TABLET.ER (FP) PO ONE (11:03)
[2020-08-12 11:10] LABS: CALCIUM 7.4 mg/dL (8.5-10.1)
[2020-08-12] MEDS ORDERED: INSULIN (NOVOLOG) ASPART 100 UNITS/ML 10ML VIAL ONE (11:17)
[2020-08-12] MEDS ORDERED: PT OWN MED DRAWER 7, Y5N ONE (23:17)
[2020-08-13] MEDS: ACETAMINOPHEN 325 MG TABLET (FP) PO PRN (06:44)
[2020-08-13] MEDS: INSULIN SLIDING SCALE (NOVOLOG) 1 VIAL SQ SCH ×4 (06:48→21:48)
[2020-08-13 09:06] LABS: BASO % 0.2 % (0-2.0); EOS % 0.1 % (0-4.5); HEMATOCRIT 24.2 % (35.4-49); HEMOGLOBIN 8.1 GM/dL (11.7-16.9); LYMPH % 18.9 % (8-40); MCH 33.2 pg (25.7-33.7); MCHC 33.6 g/dl (32.0-35.9); MEAN CELL VOLUME 98.8 fl (80-96); MEAN PLT VOLUME 8.2 fl (7.5-11.1); MONO % 16.3 % (3.8-10.2); NEUT % 64.5 % (42.8-82.8); PLATELET COUNT 185 K/MM3 (134-434); RBC 2.45 M/mm3 (4.00-5.60); RDW 15.5 % (11.9-15.9); WHITE BLOOD COUNT 4.1 K/mm3 (4.0-10.0)
[2020-08-13 09:33] LABS: ALBUMIN 2.5 g/dl (3.4-5.0); CALCIUM 7.5 mg/dL (8.5-10.1)
[2020-08-13 09:34] LABS: BLOOD UREA NITROGEN 7.2 mg/dL (7-18); MAGNESIUM 0.7 mg/dL (1.8-2.4)
[2020-08-13 09:36] LABS: CREATININE 0.8 mg/dL (0.55-1.3)
[2020-08-13 09:38] LABS: TOT PROT 5.7 g/dl (6.4-8.2)
[2020-08-13 10:26] LABS: PHOSPHOROUS 1.4 mg/dL (2.5-4.9)
[2020-08-13] MEDS ORDERED: MAGNESIUM SULFATE IN WATER 2 GM/50 ML IVPB IVPB ONE (10:30)
[2020-08-13] MEDS ORDERED: PT OWN MED DRAWER 7, Y5N ONE ×2 (11:11→21:28)
[2020-08-13] MEDS ORDERED: SODIUM PHOSPHATE - 30 MM in DEXTROSE 5%-WATER - 500 ML IVPB ONE (11:15)
[2020-08-13] MEDS: PANTOPRAZOLE 40 MG TABLET PO SCH (11:28)
[2020-08-13] MEDS: FOLIC ACID 1 MG TABLET (FP) PO SCH (11:29)
[2020-08-13] MEDS: ASCORBIC ACID 500 MG TABLET (FP) PO SCH ×2 (11:29→21:31)
[2020-08-13] MEDS: THIAMINE HCL 100 MG TABLET (FP) PO SCH (11:29)
[2020-08-13] MEDS: CHOLECALCIFEROL (VIT D3) 1,000 UNIT (25 MCG) TABLET PO SCH (11:29)
[2020-08-13] MEDS: ENOXAPARIN NA (PORCINE) 60 MG/0.6 ML DISP.SYRIN SQ SCH ×2 (11:29→21:24)
[2020-08-13] MEDS: ZINC SULFATE 220 MG CAPSULE (FP) PO SCH ×2 (11:29→21:24)
[2020-08-13] MEDS: SACUBITRIL/VALSARTAN 24 MG-26 MG TABLET PO SCH ×2 (11:29→21:30)
[2020-08-13] MEDS: CARVEDILOL 12.5 MG TABLET (FP) PO SCH ×2 (11:29→21:24)
[2020-08-13] MEDS: MULTIVITAMINS (DAILY MVI) TABLET (FP) PO SCH (11:30)
[2020-08-13] MEDS ORDERED: MAGNESIUM 1GM/D5W - 1 GM/100 ML IVPB IVPB ONE (11:30)
[2020-08-13] MEDS ORDERED: BENZOCAINE/MENTH/CETYLPYRD CL 1 EACH LOZENGE MM PRN (16:08)
[2020-08-13] MEDS ORDERED: guaiFENesin 200 MG/10 ML 10 ML UNIT-DOSE CUPS PO PRN (16:08)
[2020-08-14] MEDS: INSULIN SLIDING SCALE (NOVOLOG) 1 VIAL SQ SCH ×4 (06:05→23:35)
[2020-08-14] MEDS: LACTATED RINGERS SOLUTION 1,000 ML/1,000 ML INFUS.BAG IV SCH (06:05)
[2020-08-14 09:01] LABS: BASO % 0.2 % (0-2.0); EOS % 0.2 % (0-4.5); HEMATOCRIT 23.2 % (35.4-49); HEMOGLOBIN 7.8 GM/dL (11.7-16.9); LYMPH % 18.3 % (8-40); MCH 33.4 pg (25.7-33.7); MCHC 33.5 g/dl (32.0-35.9); MEAN CELL VOLUME 99.7 fl (80-96); MEAN PLT VOLUME 8.1 fl (7.5-11.1); MONO % 19.1 % (3.8-10.2); NEUT % 62.2 % (42.8-82.8); PLATELET COUNT 251 K/MM3 (134-434); RBC 2.33 M/mm3 (4.00-5.60); RDW 15.6 % (11.9-15.9); WHITE BLOOD COUNT 6.2 K/mm3 (4.0-10.0)
[2020-08-14 09:17] LABS: POTASSIUM 3.7 mmol/L (3.5-5.1)
[2020-08-14 09:26] LABS: ALBUMIN 2.5 g/dl (3.4-5.0); BLOOD UREA NITROGEN 5.1 mg/dL (7-18); TOT PROT 6.1 g/dl (6.4-8.2)
[2020-08-14 09:29] LABS: CALCIUM 7.9 mg/dL (8.5-10.1); CREATININE 0.7 mg/dL (0.55-1.3)
[2020-08-14 09:30] LABS: ALBUMIN 2.6 g/dl (3.4-5.0)
[2020-08-14 09:34] LABS: BILIRUBIN,DIRECT 0.3 mg/dL (0.0-0.2)
[2020-08-14 09:35] LABS: BILIRUBIN,TOTAL 0.8 mg/dL (0.2-1); TOT PROT 6.1 g/dl (6.4-8.2)
[2020-08-14] MEDS: CHOLECALCIFEROL (VIT D3) 1,000 UNIT (25 MCG) TABLET PO SCH (10:18)
[2020-08-14] MEDS: FOLIC ACID 1 MG TABLET (FP) PO SCH (10:18)
[2020-08-14] MEDS: ZINC SULFATE 220 MG CAPSULE (FP) PO SCH ×2 (10:18→23:35)
[2020-08-14] MEDS: PANTOPRAZOLE 40 MG TABLET PO SCH (10:18)
[2020-08-14] MEDS: CARVEDILOL 12.5 MG TABLET (FP) PO SCH ×2 (10:18→23:35)
[2020-08-14] MEDS: ASCORBIC ACID 500 MG TABLET (FP) PO SCH ×2 (10:18→23:35)
[2020-08-14] MEDS: ENOXAPARIN NA (PORCINE) 60 MG/0.6 ML DISP.SYRIN SQ SCH ×2 (10:18→23:35)
[2020-08-14] MEDS: THIAMINE HCL 100 MG TABLET (FP) PO SCH (10:18)
[2020-08-14] MEDS: SACUBITRIL/VALSARTAN 24 MG-26 MG TABLET PO SCH ×2 (10:19→23:37)
[2020-08-14 11:22] LABS: PH,URINE 6.5 (5.0-8.0); URINE APPEARANCE CLEAR; URINE BILIRUBIN NEGATIVE (NEGATIVE); URINE COLOR YELLOW; URINE GLUCOSE (UA) NEGATIVE (NEGATIVE); URINE KETONE NEGATIVE (NEGATIVE); URINE LEUK ESTERASE NEGATIVE (NEGATIVE); URINE NITRITE NEGATIVE (NEGATIVE); URINE PROTEIN NEGATIVE (NEGATIVE); URINE UROBILINOGEN 0.2 mg/dL (0.2-1.0)
[2020-08-14] MEDS ORDERED: LORazepam 1 MG TABLET PO PRN (12:13)
[2020-08-14] MEDS ORDERED: MAGNESIUM SULF 50% (8.12 MEQ/2 ML-1 GM VIAL) IVPB ONE ×2 (12:15→15:43)
[2020-08-14] MEDS ORDERED: MAGNESIUM OXIDE 400 MG TABLET (FP) PO ONE (12:40)
[2020-08-14] MEDS: MULTIVITAMINS (DAILY MVI) TABLET (FP) PO SCH (16:32)
[2020-08-14] MEDS ORDERED: MAGNESIUM OXIDE 400 MG TABLET (FP) PO SCH (22:00)
[2020-08-14] MEDS ORDERED: PT OWN MED DRAWER 7, Y5N ONE (22:37)
[2020-08-15] MEDS: LACTATED RINGERS SOLUTION 1,000 ML/1,000 ML INFUS.BAG IV SCH (05:05)
[2020-08-15 05:13] VITALS: BP 144/70; PULSE 88; TEMP 98.5
[2020-08-15] MEDS: INSULIN SLIDING SCALE (NOVOLOG) 1 VIAL SQ SCH ×2 (06:40→12:46)
[2020-08-15] MEDS ORDERED: PT OWN MED DRAWER 7, Y5N ONE (09:07)
[2020-08-15 09:15] LABS: BASO % 0.3 % (0-2.0); EOS % 0.3 % (0-4.5); HEMATOCRIT 22.8 % (35.4-49); HEMOGLOBIN 7.6 GM/dL (11.7-16.9); LYMPH % 22.3 % (8-40); MCHC 33.3 g/dl (32.0-35.9); MEAN CELL VOLUME 98.9 fl (80-96); MEAN PLT VOLUME 8.1 fl (7.5-11.1); MONO % 16.1 % (3.8-10.2); PLATELET COUNT 354 K/MM3 (134-434); RDW 15.7 % (11.9-15.9)
[2020-08-15 09:28] LABS: POTASSIUM 3.8 mmol/L (3.5-5.1)
[2020-08-15 09:33] LABS: CALCIUM 8.2 mg/dL (8.5-10.1)
[2020-08-15 09:34] LABS: ALBUMIN 2.5 g/dl (3.4-5.0); BLOOD UREA NITROGEN 6.5 mg/dL (7-18); MAGNESIUM 1.1 mg/dL (1.8-2.4)
[2020-08-15 09:36] LABS: CREATININE 0.8 mg/dL (0.55-1.3)
[2020-08-15 09:37] LABS: BILIRUBIN,TOTAL 0.9 mg/dL (0.2-1)
[2020-08-15 09:38] LABS: TOT PROT 6.4 g/dl (6.4-8.2)
[2020-08-15] MEDS: SACUBITRIL/VALSARTAN 24 MG-26 MG TABLET PO SCH (09:38)
[2020-08-15] MEDS: ENOXAPARIN NA (PORCINE) 60 MG/0.6 ML DISP.SYRIN SQ SCH (09:38)
[2020-08-15] MEDS: CARVEDILOL 12.5 MG TABLET (FP) PO SCH (09:39)
[2020-08-15] MEDS: MULTIVITAMINS (DAILY MVI) TABLET (FP) PO SCH (09:39)
[2020-08-15] MEDS: THIAMINE HCL 100 MG TABLET (FP) PO SCH (09:39)
[2020-08-15] MEDS: ZINC SULFATE 220 MG CAPSULE (FP) PO SCH (09:39)
[2020-08-15] MEDS: ASCORBIC ACID 500 MG TABLET (FP) PO SCH (09:39)
[2020-08-15] MEDS: FOLIC ACID 1 MG TABLET (FP) PO SCH (09:39)
[2020-08-15] MEDS: CHOLECALCIFEROL (VIT D3) 1,000 UNIT (25 MCG) TABLET PO SCH (09:39)
[2020-08-15] MEDS ORDERED: MAGNESIUM OXIDE 400 MG TABLET (FP) PO ONE (12:15)
== END 2020-08-15 13:47 | disposition home or self-care (01) | DRG 137 ==
LOC: JER 15:36 → JERBED 22:44 → J5S 08-08 03:07
PROVIDERS: ADMIT Hospitalist; ATTEND Nurse Practitioner Family
DX: U07.1 COVID-19 (principal); K86.0 Alcohol-induced chronic pancreatitis; F10.230 Alcohol dependence with withdrawal, uncomplicated; R94.5 Abnormal results of liver function studies; E11.9 Type 2 diabetes mellitus without complications; R11.2 Nausea with vomiting, unspecified; D70.9 Neutropenia, unspecified; I42.6 Alcoholic cardiomyopathy; D61.818 Other pancytopenia; E87.2 Acidosis; R10.11 Right upper quadrant pain; K21.9 Gastro-esophageal reflux disease without esophagitis; A08.4 Viral intestinal infection, unspecified; I11.0 Hypertensive heart disease with heart failure; I50.22 Chronic systolic (congestive) heart failure; N28.89 Other specified disorders of kidney and ureter; E78.5 Hyperlipidemia, unspecified; F17.210 Nicotine dependence, cigarettes, uncomplicated; E87.1 Hypo-osmolality and hyponatremia; E87.6 Hypokalemia; E83.42 Hypomagnesemia; R50.9 Fever, unspecified; D64.9 Anemia, unspecified; Z91.14 Patient's other noncompliance with medication regimen
CPT/HCPCS: 36415; 71046-TC-FY; 74177-TC; 74181-TC; 80048; 80053; 80074; 80076; 80307; 81003; 82010; 82140; 82550; 82607; 82728; 82746; 82962; 83540; 83550; 83605; 83615; 83690; 83735; 83880; 84100; 84466; 84484; 85025; 85379; 85610; 85730; 86140; 87040; 87070; 87205; 93005; 93010; 99285-25; C9803; J0131; Q9967; U0003

== ENCOUNTER 2020-09-05 19:56 | Inpatient (IN) | payer OTHER ==
[2020-09-05] MEDS ORDERED: ONDANSETRON 4 MG/2 ML VIAL IVPUSH ONE (20:47)
[2020-09-05] MEDS ORDERED: ACETAMINOPHEN 1000 MG/100 ML VIAL (NON FORMULARY) IVPB ONE (20:47)
[2020-09-05] MEDS ORDERED: SODIUM CHLORIDE 1,000 ML IV STA (20:47)
[2020-09-05] MEDS ORDERED: ONDANSETRON 4 MG/2 ML VIAL ONE (22:06)
[2020-09-05] MEDS ORDERED: ACETAMINOPHEN INJECTION 100 ML IVPB ONE (22:06)
[2020-09-05 23:02] LABS: BASO % 0.6 % (0-2.0); EOS % 1.3 % (0-4.5); HEMOGLOBIN 9.4 GM/dL (11.7-16.9); LYMPH % 41.6 % (8-40); MCH 33.5 pg (25.7-33.7); MCHC 33.5 g/dl (32.0-35.9); MEAN CELL VOLUME 100.2 fl (80-96); MEAN PLT VOLUME 7.1 fl (7.5-11.1); MONO % 8.9 % (3.8-10.2); NEUT % 47.6 % (42.8-82.8); PLATELET COUNT 190 K/MM3 (134-434); RDW 18.2 % (11.9-15.9); WHITE BLOOD COUNT 2.9 K/mm3 (4.0-10.0)
[2020-09-05 23:17] LABS: CHLORIDE 110 mmol/L (98-107); SODIUM 143 mmol/L (136-145)
[2020-09-05 23:19] LABS: CALCIUM 8.3 mg/dL (8.5-10.1)
[2020-09-05 23:20] LABS: BLOOD UREA NITROGEN 12.4 mg/dL (7-18); GLUCOSE,RANDOM 189 mg/dL (74-106)
[2020-09-05 23:21] LABS: ALBUMIN 3.5 g/dl (3.4-5.0); ANION GAP 11 MMOL/L (8-16); CO2 21 mmol/L (21-32); LIPASE 58 U/L (73-393); MAGNESIUM 1.1 mg/dL (1.8-2.4)
[2020-09-05 23:24] LABS: CREATININE 0.8 mg/dL (0.55-1.3); SGOT/AST 33 U/L (15-37); SGPT/ALT 30 U/L (13-61)
[2020-09-05 23:26] LABS: BILIRUBIN,TOTAL 0.7 mg/dL (0.2-1); TOT PROT 7.6 g/dl (6.4-8.2)
[2020-09-05 23:27] LABS: ALK PHOS 82 U/L (45-117)
[2020-09-06] MEDS ORDERED: MAGNESIUM SULF 50% (8.12 MEQ/2 ML-1 GM VIAL) IVPB ONE ×2 (01:21→15:02)
[2020-09-06] MEDS ORDERED: MAGNESIUM SULFATE IN WATER 2 GM/50 ML IVPB IVPB ONE (01:39)
[2020-09-06] MEDS ORDERED: ACETAMINOPHEN 1000 MG/100 ML VIAL (NON FORMULARY) IVPB ONE (03:08)
[2020-09-06 03:19] LABS: OPIATES, URI NEGATIVE ng/ml (CUTOFF=300); PHENCYCLIDINE,URINE NEGATIVE ng/ml (CUTOFF=25)
[2020-09-06 03:21] LABS: URINE APPEARANCE Clear; URINE BILIRUBIN Negative (NEGATIVE); URINE COLOR Yellow; URINE GLUCOSE (UA) Negative (NEGATIVE); URINE KETONE Negative (NEGATIVE); URINE LEUK ESTERASE Negative (NEGATIVE); URINE NITRITE Negative (NEGATIVE); URINE PROTEIN Negative (NEGATIVE); URINE UROBILINOGEN 0.2 mg/dL (0.2-1.0)
[2020-09-06 03:23] LABS: COCAINE, UR NEGATIVE ng/ml (CUTOFF=300); METHADONE, UR NEGATIVE ng/ml (CUTOFF=300); URINE AMPHETAMINES NEGATIVE ng/ml (CUTOFF=500); URINE BARBITURATES NEGATIVE ng/ml (CUTOFF=200)
[2020-09-06 03:28] LABS: URINE BENZODIAZEPINES POSITIVE ng/ml (CUTOFF=200)
[2020-09-06] MEDS ORDERED: ACETAMINOPHEN 325 MG TABLET (FP) PO PRN (03:31)
[2020-09-06] MEDS ORDERED: FOLIC ACID INJECTION - 1 MG, THIAMINE HCL 100 MG, MULTIVIT INJECTION ADULT 10 ML in SOD... IVPB ONE (03:38)
[2020-09-06] MEDS ORDERED: LACTATED RINGERS SOLUTION 1,000 ML/1,000 ML INFUS.BAG IV SCH ×2 (03:45→07:34)
[2020-09-06] MEDS ORDERED: ACETAMINOPHEN INJECTION 100 ML IVPB ONE (04:39)
[2020-09-06] MEDS ORDERED: FAMOTIDINE 20 MG TABLET ONE (09:05)
[2020-09-06] MEDS ORDERED: MAGNESIUM OXIDE 400 MG TABLET (FP) ONE (09:05)
[2020-09-06] MEDS ORDERED: ENOXAPARIN NA (PORCINE) 40 MG/0.4 ML DISP.SYRIN SQ ONE (09:06)
[2020-09-06] MEDS: MAGNESIUM OXIDE 400 MG TABLET (FP) PO SCH ×2 (09:13→21:01)
[2020-09-06] MEDS: ENOXAPARIN NA (PORCINE) 40 MG/0.4 ML DISP.SYRIN SQ SCH (09:13)
[2020-09-06 09:44] LABS: HEMATOCRIT 27.7 % (35.4-49); HEMOGLOBIN 9.4 GM/dL (11.7-16.9); LYMPH % 39.5 % (8-40); MCH 34.3 pg (25.7-33.7); MCHC 33.9 g/dl (32.0-35.9); MEAN CELL VOLUME 101.1 fl (80-96); MEAN PLT VOLUME 7.8 fl (7.5-11.1); MONO % 10.6 % (3.8-10.2); NEUT % 46.9 % (42.8-82.8); PLATELET COUNT 191 K/MM3 (134-434); RBC 2.73 M/mm3 (4.00-5.60); RDW 17.9 % (11.9-15.9); WHITE BLOOD COUNT 2.1 K/mm3 (4.0-10.0)
[2020-09-06] MEDS ORDERED: FAMOTIDINE 20 MG TABLET PO SCH (10:00)
[2020-09-06 10:09] LABS: POTASSIUM 4.3 mmol/L (3.5-5.1)
[2020-09-06 10:15] LABS: IRON SERUM 264 ug/dL (50-175)
[2020-09-06 10:23] LABS: TOTAL IRON BINDING CAPACITY 303 ug/dL (250-450)
[2020-09-06 10:26] LABS: ALBUMIN 3.3 g/dl (3.4-5.0); BLOOD UREA NITROGEN 9.5 mg/dL (7-18)
[2020-09-06 10:28] LABS: CALCIUM 8.3 mg/dL (8.5-10.1); CREATININE 0.9 mg/dL (0.55-1.3); MAGNESIUM 1.6 mg/dL (1.8-2.4)
[2020-09-06 10:30] LABS: BILIRUBIN,TOTAL 0.6 mg/dL (0.2-1)
[2020-09-06] MEDS ORDERED: PANTOPRAZOLE SODIUM 40 MG VIAL ONE (14:52)
[2020-09-06] MEDS: PANTOPRAZOLE SODIUM 40 MG VIAL IVPUSH SCH ×2 (14:59→21:00)
[2020-09-06] MEDS ORDERED: MAGNESIUM SULF 50% (8.12 MEQ/2 ML-1 GM VIAL) ONE (15:51)
[2020-09-06] MEDS: INSULIN SLIDING SCALE (NOVOLOG) 1 VIAL SQ SCH ×2 (17:09→21:01)
[2020-09-07] MEDS ORDERED: LIDOCAINE 5% TOPICAL PATCH TP ONE (01:05)
[2020-09-07 01:28] VITALS: BMI 18.6
[2020-09-07] MEDS: INSULIN SLIDING SCALE (NOVOLOG) 1 VIAL SQ SCH ×4 (06:50→21:09)
[2020-09-07 08:08] LABS: HEMATOCRIT 32.3 % (35.4-49); HEMOGLOBIN 11.1 GM/dL (11.7-16.9); LYMPH % 32.8 % (8-40); MCH 33.9 pg (25.7-33.7); MCHC 34.3 g/dl (32.0-35.9); MEAN CELL VOLUME 98.9 fl (80-96); MEAN PLT VOLUME 7.9 fl (7.5-11.1); MONO % 8.6 % (3.8-10.2); NEUT % 53.6 % (42.8-82.8); PLATELET COUNT 186 K/MM3 (134-434); RBC 3.27 M/mm3 (4.00-5.60); RDW 17.9 % (11.9-15.9); WHITE BLOOD COUNT 3.1 K/mm3 (4.0-10.0)
[2020-09-07 08:19] LABS: INR 0.95 (0.83-1.09); PROTHROMBIN TIME (PATIENT) 11.5 SEC (9.7-13.0)
[2020-09-07 08:25] LABS: POTASSIUM 3.8 mmol/L (3.5-5.1)
[2020-09-07 08:33] LABS: ALBUMIN 3.6 g/dl (3.4-5.0); CALCIUM 8.9 mg/dL (8.5-10.1)
[2020-09-07 08:34] LABS: BLOOD UREA NITROGEN 9.5 mg/dL (7-18); MAGNESIUM 1.4 mg/dL (1.8-2.4)
[2020-09-07 08:37] LABS: CREATININE 0.9 mg/dL (0.55-1.3); PHOSPHOROUS 3.6 mg/dL (2.5-4.9)
[2020-09-07 08:38] LABS: BILIRUBIN,TOTAL 0.7 mg/dL (0.2-1); TOT PROT 7.9 g/dl (6.4-8.2)
[2020-09-07] MEDS ORDERED: MAGNESIUM SULF 50% (8.12 MEQ/2 ML-1 GM VIAL) IVPB ONE ×2 (08:45→13:30)
[2020-09-07] MEDS: FOLIC ACID 1 MG TABLET (FP) PO SCH (10:14)
[2020-09-07] MEDS: MAGNESIUM OXIDE 400 MG TABLET (FP) PO SCH ×2 (10:14→21:09)
[2020-09-07] MEDS: THIAMINE HCL 100 MG TABLET (FP) PO SCH (10:14)
[2020-09-07] MEDS: MULTIVITAMINS (DAILY MVI) TABLET (FP) PO SCH (10:15)
[2020-09-07] MEDS: ENOXAPARIN NA (PORCINE) 40 MG/0.4 ML DISP.SYRIN SQ SCH (10:16)
[2020-09-07] MEDS: PANTOPRAZOLE SODIUM 40 MG VIAL IVPUSH SCH (10:16)
[2020-09-07] MEDS ORDERED: INSULIN (NOVOLOG) ASPART 100 UNITS/ML 10ML VIAL ONE (20:50)
[2020-09-07] MEDS: LIDOCAINE PATCH REMOVAL MC SCH (21:12)
[2020-09-08] MEDS: INSULIN SLIDING SCALE (NOVOLOG) 1 VIAL SQ SCH ×4 (06:11→21:54)
[2020-09-08] MEDS: MULTIVITAMINS (DAILY MVI) TABLET (FP) PO SCH (09:23)
[2020-09-08] MEDS: ENOXAPARIN NA (PORCINE) 40 MG/0.4 ML DISP.SYRIN SQ SCH (09:23)
[2020-09-08] MEDS: FOLIC ACID 1 MG TABLET (FP) PO SCH (09:23)
[2020-09-08] MEDS: MAGNESIUM OXIDE 400 MG TABLET (FP) PO SCH ×2 (09:23→21:53)
[2020-09-08] MEDS: THIAMINE HCL 100 MG TABLET (FP) PO SCH (09:23)
[2020-09-08] MEDS: SODIUM CHLORIDE 1,000 ML IV SCH ×3 (10:06→21:53)
[2020-09-08] MEDS: FAMOTIDINE 20 MG/50 ML IVPB 20 MG/50 ML MG IVPB SCH ×2 (10:06→21:53)
[2020-09-08] MEDS ORDERED: INSULIN (NOVOLOG) ASPART 100 UNITS/ML 10ML VIAL ONE (16:44)
[2020-09-08] MEDS: LIDOCAINE PATCH REMOVAL MC SCH (23:31)
[2020-09-09 01:06] VITALS: TEMP 98
[2020-09-09] MEDS: INSULIN SLIDING SCALE (NOVOLOG) 1 VIAL SQ SCH ×2 (06:09→11:09)
[2020-09-09 06:12] VITALS: BP 149/59; PULSE 85
[2020-09-09] MEDS: SODIUM CHLORIDE 1,000 ML IV SCH (09:32)
[2020-09-09] MEDS: ENOXAPARIN NA (PORCINE) 40 MG/0.4 ML DISP.SYRIN SQ SCH (09:33)
[2020-09-09] MEDS: THIAMINE HCL 100 MG TABLET (FP) PO SCH (09:33)
[2020-09-09] MEDS: FAMOTIDINE 20 MG/50 ML IVPB 20 MG/50 ML MG IVPB SCH (09:33)
[2020-09-09] MEDS: MAGNESIUM OXIDE 400 MG TABLET (FP) PO SCH (09:33)
[2020-09-09] MEDS: FOLIC ACID 1 MG TABLET (FP) PO SCH (09:33)
[2020-09-09] MEDS: MULTIVITAMINS (DAILY MVI) TABLET (FP) PO SCH (09:33)
[2020-09-09 11:47] LABS: POTASSIUM 4.7 mmol/L (3.5-5.1)
[2020-09-09 11:49] LABS: ALBUMIN 3.2 g/dl (3.4-5.0); CALCIUM 8.3 mg/dL (8.5-10.1); MAGNESIUM 1.2 mg/dL (1.8-2.4)
[2020-09-09 11:50] LABS: BLOOD UREA NITROGEN 16.5 mg/dL (7-18)
[2020-09-09 11:53] LABS: CREATININE 0.9 mg/dL (0.55-1.3)
[2020-09-09 11:54] LABS: BILIRUBIN,TOTAL 0.4 mg/dL (0.2-1); TOT PROT 6.6 g/dl (6.4-8.2)
[2020-09-09] MEDS ORDERED: MAGNESIUM SULF 50% (8.12 MEQ/2 ML-1 GM VIAL) IVPB ONE ×2 (13:58→16:05)
[2020-09-12 21:06] LABS: HEP B CORE AB, TOT Negative (Negative)
== END 2020-09-09 14:34 | disposition left against medical advice (07) | DRG 770 ==
LOC: JER 19:56 → JERBED 09-06 01:23 → J7W 09-06 20:48
PROVIDERS: ADMIT Hospitalist; ATTEND Internal Medicine
DX: F10.239 Alcohol dependence with withdrawal, unspecified (principal); D72.819 Decreased white blood cell count, unspecified; D50.9 Iron deficiency anemia, unspecified; N28.89 Other specified disorders of kidney and ureter; K86.89 Other specified diseases of pancreas; E83.42 Hypomagnesemia; I42.6 Alcoholic cardiomyopathy; K86.1 Other chronic pancreatitis; N28.1 Cyst of kidney, acquired; D64.9 Anemia, unspecified; E11.65 Type 2 diabetes mellitus with hyperglycemia; I11.0 Hypertensive heart disease with heart failure; I50.22 Chronic systolic (congestive) heart failure; E78.5 Hyperlipidemia, unspecified; K62.89 Other specified diseases of anus and rectum; K29.20 Alcoholic gastritis without bleeding; R94.5 Abnormal results of liver function studies; N40.1 Benign prostatic hyperplasia with lower urinary tract symptoms; R33.8 Other retention of urine; Z91.14 Patient's other noncompliance with medication regimen
CPT/HCPCS: 36415; 71045-TC-FY; 74177-TC; 80053; 80307; 81003; 82550; 82607; 82746; 82962; 83036; 83540; 83550; 83690; 83735; 84100; 84443; 84484; 85025; 85610; 86704; 86705; 86706; 86707; 86803; 87086; 93005; 93010; 99285-25; C9803; J0131; Q9967; U0003

== ENCOUNTER 2020-09-13 12:54 | Inpatient (IN) | payer OTHER ==
[2020-09-13 16:53] VITALS: BMI 18.6
[2020-09-13] MEDS ORDERED: ONDANSETRON *ODT* 4 MG TABLET SL PRN (17:26)
[2020-09-13] MEDS ORDERED: MAG HYDROX/AL HYDROX/SIMETH 30 ML UNIT-DOSE CUP PO PRN (17:26)
[2020-09-13] MEDS ORDERED: METHOCARBAMOL 500 MG TABLET PO PRN (17:26)
[2020-09-13] MEDS ORDERED: ACETAMINOPHEN 325 MG TABLET (FP) PO PRN ×2 (17:26)
[2020-09-13] MEDS ORDERED: IBUPROFEN 400 MG TABLET (FP) PO PRN (17:26)
[2020-09-13] MEDS ORDERED: MAGNESIUM HYDROX 2400MG/30ML ORAL SUSPENSION 30 ML CUP PO PRN (17:26)
[2020-09-13] MEDS ORDERED: LORazepam 1 MG TABLET PO PRN (17:26)
[2020-09-13] MEDS ORDERED: BISMUTH SUBSALICYLATE 524 MG/30 ML UD PO PRN (17:26)
[2020-09-13] MEDS ORDERED: MENTHOL/PHENOL 1 EACH UD MM PRN (17:26)
[2020-09-13] MEDS ORDERED: MAGNESIUM CITRATE 300 ML BOTTLE PO PRN (17:26)
[2020-09-13] MEDS: LORazepam 2 MG TABLET PO SCH ×2 (19:27→22:59)
[2020-09-13] MEDS ORDERED: metFORMIN HCL 500 MG TABLET (FP) PO SCH (22:00)
[2020-09-13] MEDS: THIAMINE HCL 100 MG TABLET (FP) PO SCH (22:59)
[2020-09-13] MEDS: MELATONIN 5 MG TABLETS PO SCH (23:00)
[2020-09-14] MEDS: LORazepam 2 MG TABLET PO SCH ×4 (05:23→23:44)
[2020-09-14] MEDS: metFORMIN HCL 500 MG TABLET (FP) PO SCH ×2 (07:41→16:33)
[2020-09-14] MEDS: PRENATAL VITAMINS W/ FOLIC ACID TABLET (FP) PO SCH (10:39)
[2020-09-14 14:42] LABS: HEMATOCRIT 31.5 % (35.4-49); HEMOGLOBIN 10.5 GM/dL (11.7-16.9); MCH 33.5 pg (25.7-33.7); MCHC 33.3 g/dl (32.0-35.9); MEAN CELL VOLUME 100.8 fl (80-96); PLATELET COUNT 296 K/MM3 (134-434); RBC 3.13 M/mm3 (4.00-5.60); RDW 16.8 % (11.9-15.9); WHITE BLOOD COUNT 3.2 K/mm3 (4.0-10.0)
[2020-09-14 14:43] LABS: POTASSIUM 4.2 mmol/L (3.5-5.1)
[2020-09-14 14:47] LABS: BLOOD UREA NITROGEN 9.6 mg/dL (7-18); CALCIUM 8.7 mg/dL (8.5-10.1)
[2020-09-14 14:49] LABS: ALBUMIN 3.7 g/dl (3.4-5.0)
[2020-09-14 14:50] LABS: CREATININE 0.9 mg/dL (0.55-1.3)
[2020-09-14 14:51] LABS: BILIRUBIN,TOTAL 0.8 mg/dL (0.2-1); TOT PROT 7.5 g/dl (6.4-8.2)
[2020-09-14] MEDS ORDERED: metFORMIN HCL 500 MG TABLET (FP) PO SCH (16:30)
[2020-09-14] MEDS: THIAMINE HCL 100 MG TABLET (FP) PO SCH (23:43)
[2020-09-14] MEDS: MELATONIN 5 MG TABLETS PO SCH (23:44)
[2020-09-15] MEDS: LORazepam 1 MG TABLET PO SCH ×4 (05:31→22:32)
[2020-09-15] MEDS: metFORMIN HCL 500 MG TABLET (FP) PO SCH ×2 (06:48→18:01)
[2020-09-15] MEDS: PRENATAL VITAMINS W/ FOLIC ACID TABLET (FP) PO SCH (10:43)
[2020-09-15] MEDS: THIAMINE HCL 100 MG TABLET (FP) PO SCH (22:31)
[2020-09-15] MEDS: MELATONIN 5 MG TABLETS PO SCH (22:31)
[2020-09-16] MEDS ORDERED: LORazepam 0.5 MG TABLET PO PRN
[2020-09-16] MEDS: LORazepam 0.5 MG TABLET PO SCH ×4 (05:24→22:19)
[2020-09-16] MEDS: metFORMIN HCL 500 MG TABLET (FP) PO SCH ×2 (07:08→17:56)
[2020-09-16] MEDS: PRENATAL VITAMINS W/ FOLIC ACID TABLET (FP) PO SCH (10:22)
[2020-09-16] MEDS ORDERED: cloNIDine HCL 0.1 MG TABLET PO PRN (11:05)
[2020-09-16] MEDS: THIAMINE HCL 100 MG TABLET (FP) PO SCH (22:18)
[2020-09-16] MEDS: MELATONIN 5 MG TABLETS PO SCH (22:18)
[2020-09-16 22:50] VITALS: TEMP 97.3
[2020-09-17] MEDS ORDERED: LORazepam 0.5 MG TABLET PO ONE (05:00)
[2020-09-17 05:59] VITALS: BP 140/83; PULSE 93
[2020-09-17] MEDS: metFORMIN HCL 500 MG TABLET (FP) PO SCH (06:28)
== END 2020-09-17 09:04 | disposition home or self-care (01) | DRG 775 ==
LOC: YASAS 12:54 → Y6N 18:40
PROVIDERS: ADMIT Allergy & Immunology; ATTEND Allergy & Immunology
PROC: HZ2ZZZZ Detoxification Services for Substance Abuse Treatment (ICD-10-PCS; principal; 2020-09-13)
DX: F10.230 Alcohol dependence with withdrawal, uncomplicated (principal); I11.0 Hypertensive heart disease with heart failure; I50.22 Chronic systolic (congestive) heart failure; D64.9 Anemia, unspecified; D72.819 Decreased white blood cell count, unspecified; E11.9 Type 2 diabetes mellitus without complications; Z79.84 Long term (current) use of oral hypoglycemic drugs; K86.81 Exocrine pancreatic insufficiency; K86.1 Other chronic pancreatitis; K21.9 Gastro-esophageal reflux disease without esophagitis; E78.5 Hyperlipidemia, unspecified; Z91.018 Allergy to other foods
CPT/HCPCS: 36415; 80053; 82962; 85027; 86780; 93005; 93010; C9803; U0003

== ENCOUNTER 2020-09-30 18:54 | Inpatient (IN) | payer OTHER ==
[2020-09-30] MEDS ORDERED: ONDANSETRON 4 MG/2 ML VIAL IVPUSH ONE (19:38)
[2020-09-30] MEDS ORDERED: ACETAMINOPHEN 1000 MG/100 ML VIAL (NON FORMULARY) IVPB ONE (19:38)
[2020-09-30] MEDS ORDERED: SODIUM CHLORIDE 0.9% 500 ML INFUS.BAG IV ONE (19:38)
[2020-09-30] MEDS ORDERED: FAMOTIDINE 20 MG/50 ML IVPB 20 MG/50 ML MG IVPB ONE ×2 (19:38→20:03)
[2020-09-30] MEDS ORDERED: MAG HYDROX/AL HYDROX/SIMETH 30 ML UNIT-DOSE CUP PO ONE (19:39)
[2020-09-30 20:02] LABS: BASO % 0.8 % (0-2.0); EOS % 0.6 % (0-4.5); HEMATOCRIT 28.4 % (35.4-49); HEMOGLOBIN 9.8 GM/dL (11.7-16.9); MCH 33.8 pg (25.7-33.7); MCHC 34.6 g/dl (32.0-35.9); MEAN CELL VOLUME 97.6 fl (80-96); MEAN PLT VOLUME 7.6 fl (7.5-11.1); MONO % 6.1 % (3.8-10.2); NEUT % 23.5 % (42.8-82.8); PLATELET COUNT 216 K/MM3 (134-434); RBC 2.91 M/mm3 (4.00-5.60); RDW 16.9 % (11.9-15.9); WHITE BLOOD COUNT 3.4 K/mm3 (4.0-10.0)
[2020-09-30] MEDS ORDERED: ACETAMINOPHEN INJECTION 100 ML IVPB ONE (20:02)
[2020-09-30] MEDS ORDERED: ONDANSETRON 4 MG/2 ML VIAL ONE (20:03)
[2020-09-30] MEDS ORDERED: MAG HYDROX/AL HYDROX/SIMETH 30 ML UNIT-DOSE CUP ONE (20:04)
[2020-09-30 20:11] LABS: INR 1.08 (0.83-1.09)
[2020-09-30 20:13] LABS: ACTIVATED PTT 31.1 SECONDS (25.2-36.5)
[2020-09-30] MEDS ORDERED: MAGNESIUM SULF 50% (8.12 MEQ/2 ML-1 GM VIAL) IVPB ONE ×2 (20:27→22:13)
[2020-09-30] MEDS ORDERED: MAGNESIUM SULFATE IN WATER 2 GM/50 ML IVPB IVPB ONE ×2 (20:34→22:21)
[2020-09-30 20:58] LABS: ANISOCYTOSIS 1+; MACROCYTOSIS 0; PLATELET ESTIMATE NORMAL
[2020-09-30 21:10] LABS: EPI CELLS 1 /uL (0-25.1); HYALINE CASTS 0 /uL (0-3.1); URINE APPEARANCE CLEAR; URINE BACTERIA 21 /uL (0-1359); URINE BILIRUBIN NEGATIVE (NEGATIVE); URINE COLOR YELLOW; URINE GLUCOSE (UA) TRACE (NEGATIVE); URINE KETONE NEGATIVE (NEGATIVE); URINE LEUK ESTERASE NEGATIVE (NEGATIVE); URINE NITRITE NEGATIVE (NEGATIVE); URINE PROTEIN 2+ (NEGATIVE); URINE RBC 1 /uL (0-23.9); URINE UROBILINOGEN 0.2 mg/dL (0.2-1.0); URINE WBC 1 /uL (0-25.8)
[2020-09-30 21:12] LABS: CHLORIDE 109 mmol/L (98-107); POTASSIUM 3.8 mmol/L (3.5-5.1); SODIUM 144 mmol/L (136-145)
[2020-09-30 21:15] LABS: ALBUMIN 3.9 g/dl (3.4-5.0); ANION GAP 11 MMOL/L (8-16); BLOOD UREA NITROGEN 8.9 mg/dL (7-18); CALCIUM 8.3 mg/dL (8.5-10.1); CO2 24 mmol/L (21-32); GLUCOSE,RANDOM 207 mg/dL (74-106); LIPASE 549 U/L (73-393)
[2020-09-30 21:18] LABS: CREATININE 0.9 mg/dL (0.55-1.3); SGOT/AST 35 U/L (15-37); SGPT/ALT 28 U/L (13-61)
[2020-09-30 21:19] LABS: PHOSPHOROUS 3.2 mg/dL (2.5-4.9)
[2020-09-30 21:20] LABS: BILIRUBIN,TOTAL 1.5 mg/dL (0.2-1); TOT PROT 7.5 g/dl (6.4-8.2)
[2020-09-30 21:21] LABS: ALK PHOS 84 U/L (45-117)
[2020-10-01] MEDS ORDERED: KETOROLAC TROMETHAMINE 15 MG/ML VIAL IVPUSH ONE (00:51)
[2020-10-01] MEDS ORDERED: KETOROLAC TROMETHAMINE 15 MG/ML VIAL ONE (00:55)
[2020-10-01] MEDS ORDERED: SODIUM CHLORIDE 1,000 ML IV SCH (02:45)
[2020-10-01] MEDS ORDERED: MAG HYDROX/AL HYDROX/SIMETH 30 ML UNIT-DOSE CUP PO PRN (03:29)
[2020-10-01 07:11] LABS: EOS % 1.6 % (0-4.5); HEMATOCRIT 26.9 % (35.4-49); HEMOGLOBIN 9.5 GM/dL (11.7-16.9); LYMPH % 61.4 % (8-40); MCH 34.2 pg (25.7-33.7); MCHC 35.3 g/dl (32.0-35.9); MEAN CELL VOLUME 96.8 fl (80-96); MEAN PLT VOLUME 7.4 fl (7.5-11.1); MONO % 7.8 % (3.8-10.2); NEUT % 28.2 % (42.8-82.8); PLATELET COUNT 189 K/MM3 (134-434); RBC 2.78 M/mm3 (4.00-5.60); RDW 16.8 % (11.9-15.9); WHITE BLOOD COUNT 2.3 K/mm3 (4.0-10.0)
[2020-10-01 07:33] LABS: POTASSIUM 3.8 mmol/L (3.5-5.1)
[2020-10-01 07:40] LABS: ALBUMIN 3.3 g/dl (3.4-5.0); CALCIUM 7.5 mg/dL (8.5-10.1)
[2020-10-01 07:41] LABS: BLOOD UREA NITROGEN 7.8 mg/dL (7-18); MAGNESIUM 1.8 mg/dL (1.8-2.4)
[2020-10-01 07:44] LABS: PHOSPHOROUS 2.9 mg/dL (2.5-4.9)
[2020-10-01 07:45] LABS: BILIRUBIN,TOTAL 2.1 mg/dL (0.2-1); TOT PROT 6.5 g/dl (6.4-8.2)
[2020-10-01] MEDS ORDERED: ACETAMINOPHEN 1000 MG/100 ML VIAL (NON FORMULARY) IVPB ONE (08:26)
[2020-10-01] MEDS: INSULIN SLIDING SCALE (NOVOLOG) 1 VIAL SQ SCH ×4 (08:39→22:49)
[2020-10-01] MEDS ORDERED: ACETAMINOPHEN INJECTION 100 ML IVPB ONE (08:44)
[2020-10-01 08:47] LABS: ANISOCYTOSIS 1+; MACROCYTOSIS 0; PLATELET ESTIMATE NORMAL
[2020-10-01] MEDS ORDERED: MULTIVITAMINS (DAILY MVI) TABLET (FP) ONE (09:24)
[2020-10-01] MEDS ORDERED: THIAMINE HCL 100 MG TABLET (FP) ONE (09:24)
[2020-10-01] MEDS ORDERED: ENOXAPARIN NA (PORCINE) 40 MG/0.4 ML DISP.SYRIN SQ ONE (09:25)
[2020-10-01] MEDS ORDERED: PANTOPRAZOLE SODIUM 40 MG VIAL ONE (09:25)
[2020-10-01] MEDS ORDERED: FOLIC ACID 1 MG TABLET (FP) ONE (09:25)
[2020-10-01] MEDS: MULTIVITAMINS (DAILY MVI) TABLET (FP) PO SCH (09:44)
[2020-10-01] MEDS: THIAMINE HCL 100 MG TABLET (FP) PO SCH (09:44)
[2020-10-01] MEDS: ENOXAPARIN NA (PORCINE) 40 MG/0.4 ML DISP.SYRIN SQ SCH (09:44)
[2020-10-01] MEDS: FOLIC ACID 1 MG TABLET (FP) PO SCH (09:44)
[2020-10-01] MEDS ORDERED: FAMOTIDINE 10 MG TABLET PO SCH (10:00)
[2020-10-01] MEDS ORDERED: PANTOPRAZOLE SODIUM 40 MG VIAL IVPUSH SCH (10:00)
[2020-10-01] MEDS: DEXTROSE 5%-0.45% SALINE 1,000 ML IV SCH (12:09)
[2020-10-01 13:01] VITALS: BMI 19.0
[2020-10-01] MEDS ORDERED: INSULIN (NOVOLOG) ASPART 100 UNITS/ML 10ML VIAL ONE (21:08)
[2020-10-02] MEDS: DEXTROSE 5%-0.45% SALINE 1,000 ML IV SCH (00:18)
[2020-10-02] MEDS ORDERED: ACETAMINOPHEN 1000 MG/100 ML VIAL (NON FORMULARY) IVPB ONE ×2 (05:05→12:15)
[2020-10-02] MEDS: INSULIN SLIDING SCALE (NOVOLOG) 1 VIAL SQ SCH ×4 (06:13→21:34)
[2020-10-02 08:43] LABS: BASO % 0.5 % (0-2.0); EOS % 1.1 % (0-4.5); HEMATOCRIT 32.1 % (35.4-49); HEMOGLOBIN 11.2 GM/dL (11.7-16.9); LYMPH % 29.6 % (8-40); MCH 33.8 pg (25.7-33.7); MCHC 34.8 g/dl (32.0-35.9); MEAN CELL VOLUME 97.2 fl (80-96); MEAN PLT VOLUME 7.9 fl (7.5-11.1); MONO % 8.9 % (3.8-10.2); NEUT % 59.9 % (42.8-82.8); PLATELET COUNT 173 K/MM3 (134-434); RDW 16.7 % (11.9-15.9); WHITE BLOOD COUNT 4.2 K/mm3 (4.0-10.0)
[2020-10-02 09:04] LABS: POTASSIUM 3.2 mmol/L (3.5-5.1)
[2020-10-02 09:06] LABS: CALCIUM 8.1 mg/dL (8.5-10.1)
[2020-10-02 09:07] LABS: ALBUMIN 3.6 g/dl (3.4-5.0); BLOOD UREA NITROGEN 4.7 mg/dL (7-18); MAGNESIUM 1.1 mg/dL (1.8-2.4)
[2020-10-02 09:10] LABS: CREATININE 0.8 mg/dL (0.55-1.3); PHOSPHOROUS 2.7 mg/dL (2.5-4.9)
[2020-10-02 09:11] LABS: BILIRUBIN,TOTAL 1.8 mg/dL (0.2-1); TOT PROT 6.9 g/dl (6.4-8.2)
[2020-10-02] MEDS ORDERED: MAGNESIUM 2GM/50ML STERILE WATER IVPB IVPB ONE (09:35)
[2020-10-02] MEDS: THIAMINE HCL 100 MG TABLET (FP) PO SCH (11:27)
[2020-10-02] MEDS: FOLIC ACID 1 MG TABLET (FP) PO SCH (11:27)
[2020-10-02] MEDS: MULTIVITAMINS (DAILY MVI) TABLET (FP) PO SCH (11:27)
[2020-10-02] MEDS: ENOXAPARIN NA (PORCINE) 40 MG/0.4 ML DISP.SYRIN SQ SCH (11:29)
[2020-10-02] MEDS: LACTATED RINGERS SOLUTION 1,000 ML/1,000 ML INFUS.BAG IV SCH ×2 (15:34→23:16)
[2020-10-02] MEDS: ACETAMINOPHEN 1000 MG/100 ML VIAL (NON FORMULARY) IVPB PRN (23:20)
[2020-10-03] MEDS: LACTATED RINGERS SOLUTION 1,000 ML/1,000 ML INFUS.BAG IV SCH (06:11)
[2020-10-03] MEDS: INSULIN SLIDING SCALE (NOVOLOG) 1 VIAL SQ SCH ×2 (06:11→11:00)
[2020-10-03] MEDS: ACETAMINOPHEN 1000 MG/100 ML VIAL (NON FORMULARY) IVPB PRN (06:12)
[2020-10-03 08:13] LABS: BASO % 0.4 % (0-2.0); EOS % 2.7 % (0-4.5); HEMATOCRIT 29.3 % (35.4-49); LYMPH % 36.9 % (8-40); MCH 33.5 pg (25.7-33.7); MCHC 34.2 g/dl (32.0-35.9); MEAN CELL VOLUME 97.8 fl (80-96); MEAN PLT VOLUME 8.2 fl (7.5-11.1); PLATELET COUNT 156 K/MM3 (134-434); RBC 2.99 M/mm3 (4.00-5.60); RDW 16.6 % (11.9-15.9); WHITE BLOOD COUNT 3.1 K/mm3 (4.0-10.0)
[2020-10-03 08:56] LABS: POTASSIUM 3.2 mmol/L (3.5-5.1)
[2020-10-03 09:04] LABS: ALBUMIN 3.3 g/dl (3.4-5.0); BLOOD UREA NITROGEN 6.5 mg/dL (7-18); CALCIUM 8.1 mg/dL (8.5-10.1)
[2020-10-03 09:05] LABS: MAGNESIUM 1.2 mg/dL (1.8-2.4)
[2020-10-03 09:08] VITALS: BP 150/91; PULSE 108
[2020-10-03 09:08] LABS: CREATININE 0.8 mg/dL (0.55-1.3); PHOSPHOROUS 3.2 mg/dL (2.5-4.9)
[2020-10-03] MEDS: FOLIC ACID 1 MG TABLET (FP) PO SCH (09:08)
[2020-10-03] MEDS: THIAMINE HCL 100 MG TABLET (FP) PO SCH (09:08)
[2020-10-03] MEDS: MULTIVITAMINS (DAILY MVI) TABLET (FP) PO SCH (09:08)
[2020-10-03 09:09] LABS: BILIRUBIN,TOTAL 1.3 mg/dL (0.2-1); TOT PROT 6.4 g/dl (6.4-8.2)
[2020-10-03] MEDS: ENOXAPARIN NA (PORCINE) 40 MG/0.4 ML DISP.SYRIN SQ SCH (09:09)
[2020-10-03] MEDS ORDERED: MAGNESIUM 2GM/50ML STERILE WATER IVPB IVPB ONE (09:50)
[2020-10-03] MEDS ORDERED: MAGNESIUM OXIDE 400 MG TABLET (FP) PO SCH (10:00)
[2020-10-03] MEDS ORDERED: POTASSIUM CHLORIDE TABS 20 MEQ TABLET.ER (FP) PO SCH (10:00)
[2020-10-03] MEDS ORDERED: LACTATED RINGERS SOLUTION 1,000 ML/1,000 ML INFUS.BAG IV SCH (10:02)
[2020-10-03 10:22] VITALS: TEMP 98.6
== END 2020-10-03 15:38 | disposition home or self-care (01) | DRG 282 ==
LOC: JER 18:54 → JERBED 10-01 00:57 → J7W 10-01 12:26
PROVIDERS: ADMIT Hospitalist; ATTEND Internal Medicine
DX: K85.90 Acute pancreatitis without necrosis or infection, unspecified (principal); F10.230 Alcohol dependence with withdrawal, uncomplicated; I42.6 Alcoholic cardiomyopathy; I11.0 Hypertensive heart disease with heart failure; I50.22 Chronic systolic (congestive) heart failure; D72.819 Decreased white blood cell count, unspecified; D64.9 Anemia, unspecified; E11.9 Type 2 diabetes mellitus without complications; E78.5 Hyperlipidemia, unspecified; K21.9 Gastro-esophageal reflux disease without esophagitis; K44.9 Diaphragmatic hernia without obstruction or gangrene; N28.1 Cyst of kidney, acquired; R00.0 Tachycardia, unspecified; Z91.14 Patient's other noncompliance with medication regimen; E83.42 Hypomagnesemia; K62.89 Other specified diseases of anus and rectum; K82.8 Other specified diseases of gallbladder; K86.89 Other specified diseases of pancreas; N28.89 Other specified disorders of kidney and ureter; E46 Unspecified protein-calorie malnutrition; Z68.1 Body mass index [BMI] 19.9 or less, adult
CPT/HCPCS: 36415; 71045-TC-FY; 74177-TC; 74181-TC; 76705-TC; 80053; 81003; 82550; 82962; 83690; 83735; 84100; 84484; 85025; 85610; 85730; 87086; 93005; 93010; 99285-25; C9803; J0131; Q9967; U0003

== ENCOUNTER 2020-11-23 16:39 | Inpatient (IN) | payer OTHER ==
[2020-11-23 17:00] VITALS: BMI 19.3
[2020-11-23] MEDS ORDERED: SODIUM CHLORIDE 1,000 ML IV STA (17:33)
[2020-11-23] MEDS ORDERED: ACETAMINOPHEN 1000 MG/100 ML VIAL (NON FORMULARY) IVPB ONE (17:33)
[2020-11-23] MEDS ORDERED: ONDANSETRON 4 MG/2 ML VIAL IVPUSH ONE (17:52)
[2020-11-23] MEDS ORDERED: FAMOTIDINE 20 MG/50 ML IVPB 20 MG/50 ML MG IVPB ONE ×2 (18:06→18:43)
[2020-11-23] MEDS ORDERED: MAG HYDROX/AL HYDROX/SIMETH 30 ML UNIT-DOSE CUP PO ONE (18:06)
[2020-11-23] MEDS ORDERED: ONDANSETRON 4 MG/2 ML VIAL ONE (18:42)
[2020-11-23] MEDS ORDERED: MAG HYDROX/AL HYDROX/SIMETH 30 ML UNIT-DOSE CUP ONE (18:42)
[2020-11-23] MEDS ORDERED: ACETAMINOPHEN INJECTION 100 ML IVPB ONE (18:42)
[2020-11-23 19:32] LABS: CHLORIDE 97 mmol/L (98-107); POTASSIUM 3.9 mmol/L (3.5-5.1); SODIUM 132 mmol/L (136-145)
[2020-11-23 19:36] LABS: ALBUMIN 3.9 g/dl (3.4-5.0); ANION GAP 12 MMOL/L (8-16); BLOOD UREA NITROGEN 12.3 mg/dL (7-18); CALCIUM 8.8 mg/dL (8.5-10.1); CO2 23 mmol/L (21-32); LIPASE 381 U/L (73-393)
[2020-11-23 19:39] LABS: CREATININE 1.1 mg/dL (0.55-1.3); SGOT/AST 37 U/L (15-37); SGPT/ALT 31 U/L (13-61)
[2020-11-23 19:41] LABS: BILIRUBIN,TOTAL 2.2 mg/dL (0.2-1); TOT PROT 7.4 g/dl (6.4-8.2)
[2020-11-23 19:42] LABS: ALK PHOS 104 U/L (45-117)
[2020-11-23 20:01] LABS: GLUCOSE,RANDOM 426 mg/dL (74-106)
[2020-11-23] MEDS ORDERED: INSULIN REGULAR HUMAN 100 UNITS/ML *VIAL SQ ONE (20:05)
[2020-11-23 20:14] LABS: BASO % 0.7 % (0-2.0); EOS % 0.5 % (0-4.5); HEMATOCRIT 32.8 % (35.4-49); HEMOGLOBIN 11.2 GM/dL (11.7-16.9); LYMPH % 44.2 % (8-40); MCH 34.9 pg (25.7-33.7); MCHC 34.3 g/dl (32.0-35.9); MEAN CELL VOLUME 101.8 fl (80-96); MEAN PLT VOLUME 7.8 fl (7.5-11.1); MONO % 5.3 % (3.8-10.2); NEUT % 49.3 % (42.8-82.8); PLATELET COUNT 200 K/MM3 (134-434); RBC 3.22 M/mm3 (4.00-5.60); RDW 14.7 % (11.9-15.9); WHITE BLOOD COUNT 4.8 K/mm3 (4.0-10.0)
[2020-11-23 20:31] LABS: HIV INTERPRETATION NEGATIVE (NEGATIVE)
[2020-11-23 21:46] LABS: MAGNESIUM 1.7 mg/dL (1.8-2.4)
[2020-11-23] MEDS ORDERED: morphine CARPU-JECT 4 MG/1 ML DISP.SYRIN IVPUSH ONE (22:36)
[2020-11-23] MEDS ORDERED: LACTATED RINGERS SOLUTION 1000 ML INFUS.BAG IV ONE (22:38)
[2020-11-23] MEDS ORDERED: morphine SULFATE 4 MG/ML VIAL ONE (23:02)
[2020-11-23] MEDS ORDERED: MAGNESIUM SULF 50% (8.12 MEQ/2 ML-1 GM VIAL) IVPB ONE (23:16)
[2020-11-23 23:50] LABS: URINE COLOR YELLOW
[2020-11-23 23:51] LABS: URINE APPEARANCE CLEAR; URINE GLUCOSE (UA) 1+ (NEGATIVE)
[2020-11-23 23:52] LABS: EPI CELLS 8 /uL (0-25.1); HYALINE CASTS 0 /uL (0-3.1); PH,URINE 5.5 (5.0-8.0); URINE BILIRUBIN NEGATIVE (NEGATIVE); URINE KETONE NEGATIVE (NEGATIVE); URINE LEUK ESTERASE NEGATIVE (NEGATIVE); URINE NITRITE NEGATIVE (NEGATIVE); URINE PROTEIN 1+ (NEGATIVE); URINE RBC 3 /uL (0-23.9); URINE UROBILINOGEN 0.2 mg/dL (0.2-1.0); URINE WBC 39 /uL (0-25.8)
[2020-11-23 23:53] LABS: URINE BACTERIA 108 /uL (0-1359)
[2020-11-24] MEDS ORDERED: MAGNESIUM SULFATE IN WATER 2 GM/50 ML IVPB IVPB ONE (01:01)
[2020-11-24] MEDS ORDERED: TRIMETHOBENZAMIDE HCL 200MG/2ML INJ IM PRN (01:31)
[2020-11-24] MEDS ORDERED: LACTATED RINGERS SOLUTION 1,000 ML IV SCH (01:45)
[2020-11-24] MEDS ORDERED: FOLIC ACID INJECTION - 1 MG, THIAMINE HCL 100 MG, MULTIVIT INJECTION ADULT 10 ML in SOD... IVPB ONE (02:33)
[2020-11-24 06:59] LABS: POTASSIUM 4.5 mmol/L (3.5-5.1)
[2020-11-24 07:01] LABS: ALBUMIN 3.8 g/dl (3.4-5.0); CALCIUM 8.7 mg/dL (8.5-10.1)
[2020-11-24 07:02] LABS: MAGNESIUM 1.8 mg/dL (1.8-2.4)
[2020-11-24 07:05] LABS: CREATININE 0.9 mg/dL (0.55-1.3); PHOSPHOROUS 3.7 mg/dL (2.5-4.9)
[2020-11-24 07:06] LABS: BILIRUBIN,TOTAL 1.2 mg/dL (0.2-1)
[2020-11-24 07:07] LABS: TOT PROT 7.3 g/dl (6.4-8.2)
[2020-11-24] MEDS ORDERED: LORazepam 2 MG/ML SDV VIAL IVPUSH PRN (07:35)
[2020-11-24] MEDS: INSULIN SLIDING SCALE (NOVOLOG) 1 VIAL SQ SCH ×4 (07:45→21:15)
[2020-11-24] MEDS ORDERED: THIAMINE HCL 200 MG/2 ML VIAL ONE (09:52)
[2020-11-24] MEDS ORDERED: ENOXAPARIN NA (PORCINE) 40 MG/0.4 ML DISP.SYRIN SQ ONE (09:52)
[2020-11-24] MEDS ORDERED: FAMOTIDINE 20 MG/50 ML IVPB 20 MG/50 ML MG IVPB ONE (09:52)
[2020-11-24] MEDS ORDERED: FOLIC ACID 1 MG TABLET (FP) ONE (09:52)
[2020-11-24] MEDS ORDERED: MULTIVIT-MINERALS ORAL LIQUID PO SCH (10:00)
[2020-11-24] MEDS ORDERED: FAMOTIDINE 20 MG/50 ML IVPB 20 MG/50 ML MG IVPB SCH (10:00)
[2020-11-24] MEDS: FOLIC ACID 1 MG TABLET (FP) PO SCH (10:01)
[2020-11-24] MEDS: ENOXAPARIN NA (PORCINE) 40 MG/0.4 ML DISP.SYRIN SQ SCH (10:02)
[2020-11-24] MEDS: THIAMINE HCL 200 MG/2 ML VIAL IVPB SCH (10:02)
[2020-11-24] MEDS ORDERED: ACETAMINOPHEN 1000 MG/100 ML VIAL (NON FORMULARY) IVPB ONE (10:58)
[2020-11-24] MEDS ORDERED: amLODIPine BESYLATE 5 MG TABLET (FP) PO ONE (12:13)
[2020-11-24] MEDS ORDERED: CEFTRIAXONE 1 GM in DEXTROSE 5%-WATER - 50 ML IVPB SCH (12:15)
[2020-11-24] MEDS ORDERED: LORazepam 2 MG TABLET PO PRN (12:34)
[2020-11-24] MEDS ORDERED: LORazepam 1 MG TABLET PO PRN (12:36)
[2020-11-24] MEDS ORDERED: DEXTROSE 5%-WATER - 50 ML IVPB ONE (13:03)
[2020-11-24] MEDS ORDERED: cefTRIAXone SODIUM 1 GM VIAL ONE (13:03)
[2020-11-24] MEDS ORDERED: PT OWN MED DRAWER 7, Y5N ONE (13:03)
[2020-11-24] MEDS: LISINOPRIL 5 MG TABLET PO SCH (13:14)
[2020-11-24] MEDS: hydrALAZINE HCL 10 MG TABLET PO SCH ×2 (13:25→21:13)
[2020-11-24 14:18] LABS: PH,URINE 7.5 (5.0-8.0); URINE APPEARANCE CLEAR; URINE BILIRUBIN NEGATIVE (NEGATIVE); URINE COLOR YELLOW; URINE GLUCOSE (UA) 3+ (NEGATIVE); URINE KETONE 1+ (NEGATIVE); URINE LEUK ESTERASE NEGATIVE (NEGATIVE); URINE NITRITE NEGATIVE (NEGATIVE); URINE PROTEIN NEGATIVE (NEGATIVE); URINE UROBILINOGEN 0.2 mg/dL (0.2-1.0)
[2020-11-24 14:41] LABS: COCAINE, UR NEGATIVE ng/ml (CUTOFF=300); METHADONE, UR NEGATIVE ng/ml (CUTOFF=300); URINE BENZODIAZEPINES NEGATIVE ng/ml (CUTOFF=200)
[2020-11-24 14:42] LABS: OPIATES, URI NEGATIVE ng/ml (CUTOFF=300); PHENCYCLIDINE,URINE NEGATIVE ng/ml (CUTOFF=25)
[2020-11-24 14:49] LABS: URINE AMPHETAMINES NEGATIVE ng/ml (CUTOFF=500); URINE BARBITURATES NEGATIVE ng/ml (CUTOFF=200)
[2020-11-24] MEDS ORDERED: ACETAMINOPHEN 325 MG TABLET (FP) PO PRN (17:51)
[2020-11-25] MEDS: hydrALAZINE HCL 10 MG TABLET PO SCH ×2 (05:41→14:44)
[2020-11-25] MEDS: INSULIN SLIDING SCALE (NOVOLOG) 1 VIAL SQ SCH ×2 (06:18→12:09)
[2020-11-25 08:40] LABS: HEMATOCRIT 31.2 % (35.4-49); HEMOGLOBIN 10.8 GM/dL (11.7-16.9); MCH 35.6 pg (25.7-33.7); MCHC 34.7 g/dl (32.0-35.9); MEAN CELL VOLUME 102.5 fl (80-96); MEAN PLT VOLUME 8.5 fl (7.5-11.1); PLATELET COUNT 172 K/MM3 (134-434); RBC 3.04 M/mm3 (4.00-5.60); RDW 14.5 % (11.9-15.9); WHITE BLOOD COUNT 3.8 K/mm3 (4.0-10.0)
[2020-11-25 08:53] LABS: POTASSIUM 4.1 mmol/L (3.5-5.1)
[2020-11-25 09:10] LABS: ALBUMIN 3.2 g/dl (3.4-5.0); CALCIUM 8.7 mg/dL (8.5-10.1)
[2020-11-25 09:11] LABS: BLOOD UREA NITROGEN 11.2 mg/dL (7-18); MAGNESIUM 1.6 mg/dL (1.8-2.4)
[2020-11-25 09:14] LABS: PHOSPHOROUS 2.4 mg/dL (2.5-4.9)
[2020-11-25 09:15] LABS: BILIRUBIN,TOTAL 1.6 mg/dL (0.2-1); TOT PROT 6.3 g/dl (6.4-8.2)
[2020-11-25] MEDS: FOLIC ACID 1 MG TABLET (FP) PO SCH (09:36)
[2020-11-25] MEDS: LISINOPRIL 5 MG TABLET PO SCH (09:37)
[2020-11-25] MEDS: ENOXAPARIN NA (PORCINE) 40 MG/0.4 ML DISP.SYRIN SQ SCH (09:37)
[2020-11-25] MEDS: THIAMINE HCL 200 MG/2 ML VIAL IVPB SCH (09:38)
[2020-11-25] MEDS ORDERED: CYANOCOBALAMIN (VITAMIN B-12) 100 MCG TABLET PO SCH (10:00)
[2020-11-25] MEDS ORDERED: PANTOPRAZOLE 40 MG TABLET PO SCH (10:00)
[2020-11-25] MEDS ORDERED: MULTIVITAMINS THER W-MINERALS COMBO TABLET (FP) PO SCH (10:00)
[2020-11-25] MEDS ORDERED: MAGNESIUM OXIDE 400 MG TABLET (FP) PO ONE (11:51)
[2020-11-25] MEDS ORDERED: NAPH,MB-DB/K PH,MBDB POWDER PACKET PO ONE (11:52)
[2020-11-25 13:06] VITALS: BP 113/67; PULSE 93; TEMP 98
== END 2020-11-25 14:52 | disposition home or self-care (01) | DRG 282 ==
LOC: JER 16:39 → JERBED 22:38 → J8W 11-24 10:30
PROVIDERS: ADMIT Hospitalist; ATTEND Internal Medicine
DX: K86.0 Alcohol-induced chronic pancreatitis (principal); I42.6 Alcoholic cardiomyopathy; E11.65 Type 2 diabetes mellitus with hyperglycemia; I11.0 Hypertensive heart disease with heart failure; I50.22 Chronic systolic (congestive) heart failure; N28.89 Other specified disorders of kidney and ureter; K86.2 Cyst of pancreas; N30.00 Acute cystitis without hematuria; K83.8 Other specified diseases of biliary tract; N28.1 Cyst of kidney, acquired; K21.9 Gastro-esophageal reflux disease without esophagitis; F10.230 Alcohol dependence with withdrawal, uncomplicated; E78.5 Hyperlipidemia, unspecified; Z79.84 Long term (current) use of oral hypoglycemic drugs; I16.0 Hypertensive urgency; K29.70 Gastritis, unspecified, without bleeding; K62.89 Other specified diseases of anus and rectum
CPT/HCPCS: 36415; 74177-TC; 80053; 80307; 81003; 82607; 82962; 83036; 83690; 83735; 84100; 84478; 85025; 85027; 87086; 87389; 93005; 93010; 99285-25; C9803; J0131; U0003; U0005

== ENCOUNTER 2021-07-03 18:44 | Inpatient (IN) | payer OTHER ==
[2021-07-03] MEDS ORDERED: ONDANSETRON 4 MG TABLET PO ONE (20:56)
[2021-07-03] MEDS ORDERED: ACETAMINOPHEN 1000 MG/100 ML VIAL IVPB ONE (20:58)
[2021-07-03] MEDS ORDERED: ONDANSETRON 4 MG/2 ML VIAL IVPUSH ONE (21:16)
[2021-07-03] MEDS ORDERED: ACETAMINOPHEN INJECTION 100 ML IVPB ONE (21:19)
[2021-07-03] MEDS ORDERED: ONDANSETRON 4 MG/2 ML VIAL ONE (21:19)
[2021-07-03] MEDS ORDERED: SODIUM CHLORIDE 0.9% 500 ML INFUS.BAG IV ONE (22:45)
[2021-07-03 23:09] LABS: PH,URINE 5.5 (5.0-8.0); URINE APPEARANCE CLEAR; URINE BILIRUBIN NEGATIVE (NEGATIVE); URINE COLOR YELLOW; URINE GLUCOSE (UA) 3+ (NEGATIVE); URINE KETONE NEGATIVE (NEGATIVE); URINE LEUK ESTERASE NEGATIVE (NEGATIVE); URINE NITRITE NEGATIVE (NEGATIVE); URINE PROTEIN NEGATIVE (NEGATIVE); URINE UROBILINOGEN 0.2 mg/dL (0.2-1.0)
[2021-07-03 23:15] LABS: HEMATOCRIT 28.2 % (35.4-49); HEMOGLOBIN 9.8 GM/dL (11.7-16.9); MCH 34.3 pg (25.7-33.7); MCHC 34.8 g/dl (32.0-35.9); MEAN CELL VOLUME 98.4 fl (80-96); RBC 2.87 M/mm3 (4.00-5.60); RDW 14.5 % (11.9-15.9)
[2021-07-03 23:26] LABS: CHLORIDE 100 mmol/L (98-107); SODIUM 134 mmol/L (136-145)
[2021-07-03 23:29] LABS: ALBUMIN 3.8 g/dl (3.4-5.0); ANION GAP 7 MMOL/L (8-16); BLOOD UREA NITROGEN 7.5 mg/dL (7-18); CALCIUM 8.7 mg/dL (8.5-10.1); CO2 27 mmol/L (21-32); GLUCOSE,RANDOM 278 mg/dL (74-106); LIPASE 722 U/L (73-393)
[2021-07-03 23:32] LABS: CREATININE 1.1 mg/dL (0.55-1.3); SGOT/AST 43 U/L (15-37); SGPT/ALT 35 U/L (13-61)
[2021-07-03 23:34] LABS: BILIRUBIN,TOTAL 1.1 mg/dL (0.2-1)
[2021-07-03 23:35] LABS: ALK PHOS 106 U/L (45-117)
[2021-07-04] MEDS ORDERED: morphine SULFATE 4 MG/ML VIAL IVPUSH ONE ×2 (02:14→03:49)
[2021-07-04] MEDS ORDERED: morphine CARPU-JECT 2 MG/1 ML DISP.SYRIN IVPUSH ONE (02:35)
[2021-07-04] MEDS ORDERED: KETOROLAC TROMETHAMINE 15 MG/ML VIAL IVPUSH ONE (02:38)
[2021-07-04] MEDS ORDERED: KETOROLAC TROMETHAMINE 15 MG/ML VIAL ONE (02:38)
[2021-07-04] MEDS ORDERED: THIAMINE HCL 200 MG/2 ML VIAL IVPB ONE (02:56)
[2021-07-04 03:03] LABS: MAGNESIUM 1.5 mg/dL (1.8-2.4)
[2021-07-04 03:07] LABS: PHOSPHOROUS 3.8 mg/dL (2.5-4.9)
[2021-07-04] MEDS ORDERED: THIAMINE HCL 200 MG/2 ML VIAL ONE (03:09)
[2021-07-04] MEDS ORDERED: MAGNESIUM SULF 50% (8.12 MEQ/2 ML-1 GM VIAL) IVPB ONE (03:38)
[2021-07-04] MEDS ORDERED: LACTATED RINGERS SOLUTION 1,000 ML/1,000 ML INFUS.BAG IV SCH ×4 (03:45→10:30)
[2021-07-04] MEDS ORDERED: FAMOTIDINE 20 MG/50 ML IVPB 20 MG/50 ML MG IVPB ONE ×2 (03:51→04:16)
[2021-07-04 04:00] LABS: ANISOCYTOSIS 1+; MACROCYTOSIS 1+; PLATELET ESTIMATE NORMAL
[2021-07-04] MEDS ORDERED: morphine SULFATE 4 MG/ML VIAL ONE (04:15)
[2021-07-04 04:16] LABS: MEAN PLT VOLUME 8.5 fl (7.5-11.1); PLATELET COUNT 338 10^3/uL (134-434)
[2021-07-04] MEDS ORDERED: MAGNESIUM SULFATE IN WATER 2 GM/50 ML IVPB IVPB ONE (04:16)
[2021-07-04 05:11] LABS: WHITE BLOOD COUNT 5.1 K/mm3 (4.0-10.0)
[2021-07-04] MEDS: INSULIN SLIDING SCALE (NOVOLOG) 1 VIAL SQ SCH ×6 (07:02→17:34)
[2021-07-04] MEDS: ENOXAPARIN NA (PORCINE) 40 MG/0.4 ML DISP.SYRIN SQ SCH (09:24)
[2021-07-04] MEDS: FOLIC ACID 1 MG TABLET (FP) PO SCH (09:24)
[2021-07-04] MEDS: THIAMINE HCL 100 MG TABLET (FP) PO SCH ×2 (09:24→21:01)
[2021-07-04 09:54] LABS: BASO % 0.7 % (0-2.0); EOS % 1.3 % (0-4.5); HEMATOCRIT 25.5 % (35.4-49); LYMPH % 33.2 % (8-40); MCH 34.1 pg (25.7-33.7); MCHC 35.2 g/dl (32.0-35.9); MEAN PLT VOLUME 7.6 fl (7.5-11.1); MONO % 11.5 % (3.8-10.2); NEUT % 53.3 % (42.8-82.8); PLATELET COUNT 328 10^3/uL (134-434); RBC 2.62 M/mm3 (4.00-5.60); RDW 14.4 % (11.9-15.9); WHITE BLOOD COUNT 3.6 K/mm3 (4.0-10.0)
[2021-07-04 10:19] LABS: CALCIUM 8.1 mg/dL (8.5-10.1)
[2021-07-04 10:20] LABS: MAGNESIUM 2.1 mg/dL (1.8-2.4)
[2021-07-04 10:23] LABS: ALBUMIN 3.1 g/dl (3.4-5.0); CREATININE 0.9 mg/dL (0.55-1.3)
[2021-07-04 10:24] LABS: TOT PROT 6.4 g/dl (6.4-8.2)
[2021-07-04 10:25] LABS: PHOSPHOROUS 3.5 mg/dL (2.5-4.9)
[2021-07-04 10:27] LABS: BILIRUBIN,TOTAL 0.6 mg/dL (0.2-1)
[2021-07-04] MEDS: LACTATED RINGERS SOLUTION 1,000 ML/1,000 ML INFUS.BAG IV SCH (11:29)
[2021-07-04] MEDS: LORazepam 2 MG/ML SDV VIAL IVPUSH PRN ×2 (11:35→20:49)
[2021-07-04] MEDS: ACETAMINOPHEN 1000 MG/100 ML VIAL IVPB PRN (20:34)
[2021-07-05] MEDS: LORazepam 2 MG/ML SDV VIAL IVPUSH PRN ×2 (06:21→21:30)
[2021-07-05] MEDS: HYDROmorphone HCl 2 MG/ML VIAL IVPUSH PRN ×3 (06:27→20:53)
[2021-07-05] MEDS: INSULIN SLIDING SCALE (NOVOLOG) 1 VIAL SQ SCH ×8 (06:32→21:37)
[2021-07-05 07:41] LABS: HEMATOCRIT 25.5 % (35.4-49); HEMOGLOBIN 8.8 GM/dL (11.7-16.9); MCH 32.9 pg (25.7-33.7); MCHC 34.4 g/dl (32.0-35.9); MEAN CELL VOLUME 95.8 fl (80-96); MEAN PLT VOLUME 7.3 fl (7.5-11.1); PLATELET COUNT 288 10^3/uL (134-434); RBC 2.66 M/mm3 (4.00-5.60); RDW 14.6 % (11.9-15.9); WHITE BLOOD COUNT 3.1 K/mm3 (4.0-10.0)
[2021-07-05 07:56] LABS: ALBUMIN 2.9 g/dl (3.4-5.0); BLOOD UREA NITROGEN 5.7 mg/dL (7-18); CALCIUM 8.6 mg/dL (8.5-10.1)
[2021-07-05 07:59] LABS: CREATININE 0.7 mg/dL (0.55-1.3)
[2021-07-05 08:01] LABS: TOT PROT 6.1 g/dl (6.4-8.2)
[2021-07-05] MEDS: THIAMINE HCL 100 MG TABLET (FP) PO SCH ×2 (09:58→21:30)
[2021-07-05] MEDS: FOLIC ACID 1 MG TABLET (FP) PO SCH (09:58)
[2021-07-05] MEDS: ENOXAPARIN NA (PORCINE) 40 MG/0.4 ML DISP.SYRIN SQ SCH ×2 (09:58→12:55)
[2021-07-05] MEDS: ACETAMINOPHEN 1000 MG/100 ML VIAL IVPB PRN (09:59)
[2021-07-05] MEDS: INSULIN (LEVEMIR) 100 UNITS/ML UNITS SQ SCH ×3 (10:33→21:37)
[2021-07-05] MEDS: LACTATED RINGERS SOLUTION 1,000 ML/1,000 ML INFUS.BAG IV SCH (11:54)
[2021-07-06] MEDS: INSULIN SLIDING SCALE (NOVOLOG) 1 VIAL SQ SCH ×4 (06:28→21:50)
[2021-07-06] MEDS: THIAMINE HCL 100 MG TABLET (FP) PO SCH ×3 (10:13→21:12)
[2021-07-06] MEDS: FOLIC ACID 1 MG TABLET (FP) PO SCH (10:13)
[2021-07-06] MEDS: ENOXAPARIN NA (PORCINE) 40 MG/0.4 ML DISP.SYRIN SQ SCH (10:14)
[2021-07-06] MEDS: HYDROmorphone HCl 2 MG/ML VIAL IVPUSH PRN ×3 (10:26→22:31)
[2021-07-06] MEDS: PANTOPRAZOLE SODIUM 40 MG VIAL IVPUSH SCH (10:26)
[2021-07-06] MEDS ORDERED: LACTATED RINGERS SOLUTION 1,000 ML/1,000 ML INFUS.BAG IV SCH (10:30)
[2021-07-06] MEDS: INSULIN (LEVEMIR) 100 UNITS/ML UNITS SQ SCH ×2 (12:09→21:49)
[2021-07-06] MEDS ORDERED: ACETAMINOPHEN 325 MG TABLET (FP) PO ONE (20:03)
[2021-07-06 21:26] VITALS: BMI 17.9
[2021-07-07] MEDS: HYDROmorphone HCl 2 MG/ML VIAL IVPUSH PRN (05:14)
[2021-07-07] MEDS: INSULIN SLIDING SCALE (NOVOLOG) 1 VIAL SQ SCH ×4 (06:36→22:07)
[2021-07-07] MEDS: THIAMINE HCL 100 MG TABLET (FP) PO SCH ×2 (11:26→22:07)
[2021-07-07] MEDS: FOLIC ACID 1 MG TABLET (FP) PO SCH (11:26)
[2021-07-07] MEDS: ENOXAPARIN NA (PORCINE) 40 MG/0.4 ML DISP.SYRIN SQ SCH (11:26)
[2021-07-07] MEDS: INSULIN (LEVEMIR) 100 UNITS/ML UNITS SQ SCH ×2 (11:28→22:07)
[2021-07-07] MEDS: PANTOPRAZOLE SODIUM 40 MG VIAL IVPUSH SCH ×2 (11:29→12:26)
[2021-07-07 12:55] VITALS: BP 148/77; PULSE 93; TEMP 99.6
[2021-07-07] MEDS ORDERED: ACETAMINOPHEN 325 MG TABLET (FP) PO PRN (15:57)
[2021-07-07] MEDS ORDERED: PANTOPRAZOLE 40 MG TABLET PO SCH (22:00)
[2021-07-08] MEDS: INSULIN SLIDING SCALE (NOVOLOG) 1 VIAL SQ SCH (06:26)
== END 2021-07-08 10:52 | disposition left against medical advice (07) | DRG 282 ==
LOC: JER 18:44 → JERBED 07-04 01:48 → OBSVTOIN 07-04 03:39 → J4W 07-04 06:08
PROVIDERS: ADMIT Internal Medicine; ATTEND Internal Medicine
DX: K85.20 Alcohol induced acute pancreatitis without necrosis or infection (principal); E87.2 Acidosis; I42.6 Alcoholic cardiomyopathy; R64 Cachexia; I11.0 Hypertensive heart disease with heart failure; I50.22 Chronic systolic (congestive) heart failure; E11.65 Type 2 diabetes mellitus with hyperglycemia; F10.20 Alcohol dependence, uncomplicated; Z68.1 Body mass index [BMI] 19.9 or less, adult; K86.1 Other chronic pancreatitis; K21.9 Gastro-esophageal reflux disease without esophagitis
CPT/HCPCS: 36415; 74177-TC; 74183-TC; 80053; 80061; 80307; 81003; 82550; 82962; 83605; 83690; 83735; 84100; 84484; 85025; 85027; 85045; 86301; 87086; 93005; 93010; 99285-25; A9579; C9803; G0378; J0131; U0003; U0005

== ENCOUNTER 2021-08-03 17:53 | Emergency (ER) | payer OTHER ==
[2021-08-03 18:05] VITALS: BP 125/86; PULSE 116; TEMP 98.6; BMI 20.9
[2021-08-03] MEDS ORDERED: ACETAMINOPHEN 1000 MG/100 ML VIAL IVPB ONE (19:38)
[2021-08-03] MEDS ORDERED: LACTATED RINGERS SOLUTION 1000 ML INFUS.BAG IV ONE (19:39)
[2021-08-03] MEDS ORDERED: ACETAMINOPHEN INJECTION 100 ML IVPB ONE (19:55)
[2021-08-03 20:00] LABS: BASO % 1.1 % (0-2.0); EOS % 0.3 % (0-4.5); HEMATOCRIT 27.4 % (35.4-49); HEMOGLOBIN 9.1 GM/dL (11.7-16.9); LYMPH % 67.1 % (8-40); MCH 31.5 pg (25.7-33.7); MCHC 33.4 g/dl (32.0-35.9); MEAN CELL VOLUME 94.3 fl (80-96); MEAN PLT VOLUME 6.7 fl (7.5-11.1); MONO % 9.7 % (3.8-10.2); NEUT % 21.8 % (42.8-82.8); PLATELET COUNT 297 10^3/uL (134-434); RDW 18.1 % (11.9-15.9); WHITE BLOOD COUNT 3.6 K/mm3 (4.0-10.0)
[2021-08-03 20:08] LABS: INR 1.01 (0.83-1.09); PROTHROMBIN TIME (PATIENT) 11.3 SEC (9.7-13.0)
[2021-08-03 20:25] LABS: ALBUMIN 3.4 g/dl (3.4-5.0); BLOOD UREA NITROGEN 13.8 mg/dL (7-18); CALCIUM 8.9 mg/dL (8.5-10.1)
[2021-08-03 20:28] LABS: BILIRUBIN,DIRECT 0.4 mg/dL (0.0-0.2)
[2021-08-03 20:30] LABS: BILIRUBIN,TOTAL 1.3 mg/dL (0.2-1); TOT PROT 7.4 g/dl (6.4-8.2)
[2021-08-03 20:51] LABS: ANISOCYTOSIS 1+; MACROCYTOSIS 0; PLATELET ESTIMATE NORMAL; TARGET CELLS 1+
[2021-08-03] MEDS ORDERED: KETAMINE HCL 200 MG/20 ML VIAL ONE (20:53)
[2021-08-03] MEDS ORDERED: KETAMINE HCL 200 MG/20 ML VIAL IVPUSH ONE ×2 (20:53→20:56)
[2021-08-03] MEDS ORDERED: SODIUM CHLORIDE 0.9% 500 ML INFUS.BAG IV ONE (20:54)
== END 2021-08-04 01:02 | disposition left against medical advice (07) ==
LOC: JER 17:53
PROC: 3E0333Z Introduction of Anti-inflammatory into Peripheral Vein, Percutaneous Approach (ICD-10-PCS; principal; 2021-08-03)
PROC: 3E033GC Introduction of Other Therapeutic Substance into Peripheral Vein, Percutaneous Approach (ICD-10-PCS; 2021-08-03)
DX: R10.9 Unspecified abdominal pain (principal); K86.1 Other chronic pancreatitis
CPT/HCPCS: 36415; 74177-TC; 80053; 80307; 82248; 82550; 83690; 84484; 85025; 85610; 85730; 93005; 93010; 99285-25; J0131; Q9967

== ENCOUNTER 2021-08-12 18:13 | Inpatient (IN) | payer OTHER ==
[2021-08-12] MEDS ORDERED: IBUPROFEN 400 MG TABLET (FP) PO PRN (19:41)
[2021-08-12] MEDS ORDERED: DICYCLOMINE HCL 10 MG CAPSULE PO PRN (19:41)
[2021-08-12] MEDS ORDERED: hydrOXYzine PAMOATE 25 MG CAPSULE (FP) PO PRN (19:41)
[2021-08-12] MEDS ORDERED: MENTHOL/PHENOL 1 EACH UD MM PRN (19:41)
[2021-08-12] MEDS ORDERED: MAG HYDROX/AL HYDROX/SIMETH 30 ML UNIT-DOSE CUP PO PRN (19:41)
[2021-08-12] MEDS ORDERED: MAGNESIUM HYDROX 2400MG/30ML ORAL SUSPENSION 30 ML CUP PO PRN (19:41)
[2021-08-12] MEDS ORDERED: ONDANSETRON *ODT* 4 MG TABLET SL PRN (19:41)
[2021-08-12] MEDS ORDERED: MAGNESIUM CITRATE 300 ML BOTTLE PO PRN (19:41)
[2021-08-12] MEDS ORDERED: BISMUTH SUBSALICYLATE 524 MG/30 ML PO PRN (19:41)
[2021-08-12] MEDS ORDERED: METHOCARBAMOL 500 MG TABLET PO PRN (19:41)
[2021-08-12] MEDS ORDERED: chlordiazePOXIDE HCL 25 MG CAPSULE PO PRN (19:44)
[2021-08-12] MEDS: MELATONIN 5 MG TABLETS PO SCH (22:31)
[2021-08-12] MEDS: THIAMINE HCL 100 MG TABLET (FP) PO SCH (22:34)
[2021-08-12] MEDS: chlordiazePOXIDE HCL 25 MG CAPSULE PO SCH (22:52)
[2021-08-13] MEDS: chlordiazePOXIDE HCL 25 MG CAPSULE PO SCH ×4 (05:32→22:21)
[2021-08-13] MEDS: metFORMIN HCL 500 MG TABLET (FP) PO SCH ×2 (06:42→17:58)
[2021-08-13] MEDS: PRENATAL VITAMINS W/ FOLIC ACID TABLET (FP) PO SCH (10:26)
[2021-08-13] MEDS: LACTULOSE 20 GM/30 ML UDC (FOR ORAL USE ONLY) PO SCH (10:28)
[2021-08-13 11:37] LABS: BLOOD UREA NITROGEN 8.6 mg/dL (7-18); CALCIUM 8.5 mg/dL (8.5-10.1)
[2021-08-13 11:38] LABS: ALBUMIN 3.7 g/dl (3.4-5.0)
[2021-08-13 11:42] LABS: BILIRUBIN,TOTAL 1.2 mg/dL (0.2-1); TOT PROT 7.2 g/dl (6.4-8.2)
[2021-08-13 12:39] LABS: HEMATOCRIT 30.5 % (35.4-49); HEMOGLOBIN 10.5 GM/dL (11.7-16.9); MCH 32.8 pg (25.7-33.7); MCHC 34.4 g/dl (32.0-35.9); MEAN CELL VOLUME 95.5 fl (80-96); MEAN PLT VOLUME 8.2 fl (7.5-11.1); PLATELET COUNT 212 10^3/uL (134-434); RDW 18.1 % (11.9-15.9); WHITE BLOOD COUNT 3.5 K/mm3 (4.0-10.0)
[2021-08-13] MEDS: LISINOPRIL 5 MG TABLET PO SCH (14:44)
[2021-08-13] MEDS: hydrALAZINE HCL 10 MG TABLET PO SCH ×2 (14:44→22:21)
[2021-08-13] MEDS: THIAMINE HCL 100 MG TABLET (FP) PO SCH (22:21)
[2021-08-13] MEDS: MELATONIN 5 MG TABLETS PO SCH (22:21)
[2021-08-14] MEDS: hydrALAZINE HCL 10 MG TABLET PO SCH ×3 (06:10→22:57)
[2021-08-14] MEDS: sitaGLIPtin PHOSPHATE 50 MG TABLET PO SCH (06:11)
[2021-08-14] MEDS: metFORMIN HCL 500 MG TABLET (FP) PO SCH ×2 (06:11→17:54)
[2021-08-14] MEDS: chlordiazePOXIDE HCL 25 MG CAPSULE PO SCH ×4 (06:11→22:57)
[2021-08-14] MEDS: PRENATAL VITAMINS W/ FOLIC ACID TABLET (FP) PO SCH (10:15)
[2021-08-14] MEDS: LISINOPRIL 5 MG TABLET PO SCH (10:19)
[2021-08-14] MEDS: LACTULOSE 20 GM/30 ML UDC (FOR ORAL USE ONLY) PO SCH (11:38)
[2021-08-14] MEDS: INSULIN (NOVOLOG) ASPART 100 UNITS/ML 10ML VIAL SQ SCH ×3 (11:45→22:58)
[2021-08-14] MEDS: MELATONIN 5 MG TABLETS PO SCH (22:57)
[2021-08-14] MEDS: THIAMINE HCL 100 MG TABLET (FP) PO SCH (22:58)
[2021-08-15] MEDS ORDERED: chlordiazePOXIDE HCL 10 MG CAPSULE PO PRN
[2021-08-15] MEDS: chlordiazePOXIDE HCL 10 MG CAPSULE PO SCH ×4 (05:52→22:14)
[2021-08-15] MEDS: hydrALAZINE HCL 10 MG TABLET PO SCH ×3 (05:53→22:14)
[2021-08-15] MEDS: metFORMIN HCL 500 MG TABLET (FP) PO SCH ×2 (06:43→17:27)
[2021-08-15] MEDS: INSULIN (NOVOLOG) ASPART 100 UNITS/ML 10ML VIAL SQ SCH ×4 (06:43→22:14)
[2021-08-15] MEDS: sitaGLIPtin PHOSPHATE 50 MG TABLET PO SCH (06:43)
[2021-08-15] MEDS ORDERED: INSULIN SLIDING SCALE (NOVOLOG) 1 VIAL SQ ONE ×2 (06:46→17:13)
[2021-08-15] MEDS: PRENATAL VITAMINS W/ FOLIC ACID TABLET (FP) PO SCH (10:18)
[2021-08-15] MEDS: LACTULOSE 20 GM/30 ML UDC (FOR ORAL USE ONLY) PO SCH (10:18)
[2021-08-15] MEDS: LISINOPRIL 5 MG TABLET PO SCH (10:19)
[2021-08-15] MEDS: MELATONIN 5 MG TABLETS PO SCH (22:14)
[2021-08-15] MEDS: THIAMINE HCL 100 MG TABLET (FP) PO SCH (22:14)
[2021-08-16] MEDS ORDERED: INSULIN SLIDING SCALE (NOVOLOG) 1 VIAL SQ ONE ×2 (04:20→07:37)
[2021-08-16] MEDS ORDERED: chlordiazePOXIDE HCL 10 MG CAPSULE PO SCH (05:00)
[2021-08-16] MEDS ORDERED: chlordiazePOXIDE HCL 10 MG CAPSULE PO ONE (05:00)
[2021-08-16] MEDS: hydrALAZINE HCL 10 MG TABLET PO SCH (06:58)
[2021-08-16] MEDS: metFORMIN HCL 500 MG TABLET (FP) PO SCH (07:35)
[2021-08-16] MEDS: sitaGLIPtin PHOSPHATE 50 MG TABLET PO SCH (07:35)
[2021-08-16] MEDS: INSULIN (NOVOLOG) ASPART 100 UNITS/ML 10ML VIAL SQ SCH (07:38)
[2021-08-16 08:55] VITALS: BP 117/72; PULSE 104; TEMP 98.7
[2021-08-16] MEDS: LISINOPRIL 5 MG TABLET PO SCH (10:07)
[2021-08-16] MEDS: PRENATAL VITAMINS W/ FOLIC ACID TABLET (FP) PO SCH (10:07)
[2021-08-16] MEDS: LACTULOSE 20 GM/30 ML UDC (FOR ORAL USE ONLY) PO SCH (10:07)
[2021-08-17] MEDS ORDERED: chlordiazePOXIDE HCL 10 MG CAPSULE PO ONE (05:00)
== END 2021-08-16 10:05 | disposition home or self-care (01) | DRG 775 ==
LOC: YASAS 18:13 → Y3N 20:12
PROVIDERS: ADMIT Allergy & Immunology; ATTEND Allergy & Immunology
PROC: HZ2ZZZZ Detoxification Services for Substance Abuse Treatment (ICD-10-PCS; principal; 2021-08-12)
DX: F10.230 Alcohol dependence with withdrawal, uncomplicated (principal); F10.220 Alcohol dependence with intoxication, uncomplicated; D64.9 Anemia, unspecified; I11.0 Hypertensive heart disease with heart failure; E78.5 Hyperlipidemia, unspecified; K21.9 Gastro-esophageal reflux disease without esophagitis; E11.9 Type 2 diabetes mellitus without complications; R94.5 Abnormal results of liver function studies; D72.819 Decreased white blood cell count, unspecified; I50.9 Heart failure, unspecified; R00.0 Tachycardia, unspecified; Z87.19 Personal history of other diseases of the digestive system; Z79.84 Long term (current) use of oral hypoglycemic drugs; Z86.16 Personal history of COVID-19
CPT/HCPCS: 36415; 80053; 82962; 85027; 86780; C9803; U0003; U0005

== ENCOUNTER 2021-11-25 17:38 | Inpatient (IN) | payer OTHER ==
[2021-11-25 20:36] VITALS: BMI 18.3
[2021-11-25] MEDS ORDERED: METHOCARBAMOL 500 MG TABLET PO PRN (21:08)
[2021-11-25] MEDS ORDERED: MAGNESIUM HYDROX 2400MG/30ML ORAL SUSPENSION 30 ML CUP PO PRN (21:08)
[2021-11-25] MEDS ORDERED: DICYCLOMINE HCL 10 MG CAPSULE PO PRN (21:08)
[2021-11-25] MEDS ORDERED: MAGNESIUM CITRATE 300 ML BOTTLE PO PRN (21:08)
[2021-11-25] MEDS ORDERED: MENTHOL/PHENOL 1 EACH UD MM PRN (21:08)
[2021-11-25] MEDS ORDERED: IBUPROFEN 400 MG TABLET (FP) PO PRN (21:08)
[2021-11-25] MEDS ORDERED: hydrOXYzine PAMOATE 25 MG CAPSULE (FP) PO PRN (21:08)
[2021-11-25] MEDS ORDERED: MELATONIN 5 MG TABLETS PO PRN (21:08)
[2021-11-25] MEDS ORDERED: ONDANSETRON *ODT* 4 MG TABLET SL PRN (21:08)
[2021-11-25] MEDS ORDERED: P-EPHED 60MG/TRIPROLIDI 2.5MG TABLET PO PRN (21:08)
[2021-11-25] MEDS ORDERED: BISMUTH SUBSALICYLATE 524 MG/30 ML PO PRN (21:08)
[2021-11-25] MEDS ORDERED: LOPERAMIDE HCL 2 MG CAPSULE PO PRN (21:08)
[2021-11-25] MEDS ORDERED: MAG HYDROX/AL HYDROX/SIMETH 30 ML UNIT-DOSE CUP PO PRN (21:08)
[2021-11-25] MEDS ORDERED: ACETAMINOPHEN 325 MG TABLET (FP) PO PRN ×2 (21:08)
[2021-11-25] MEDS ORDERED: chlordiazePOXIDE HCL 25 MG CAPSULE PO PRN (21:10)
[2021-11-26] MEDS: THIAMINE HCL 100 MG TABLET (FP) PO SCH ×2 (02:49→22:34)
[2021-11-26] MEDS: chlordiazePOXIDE HCL 25 MG CAPSULE PO SCH ×6 (02:49→22:52)
[2021-11-26] MEDS: metFORMIN HCL 500 MG TABLET (FP) PO SCH ×2 (06:17→17:00)
[2021-11-26] MEDS: PRENATAL VITAMINS W/ FOLIC ACID TABLET (FP) PO SCH (10:09)
[2021-11-26 11:12] LABS: HEMATOCRIT 30.8 % (35.4-49); HEMOGLOBIN 10.7 GM/dL (11.7-16.9); MCH 36.6 pg (25.7-33.7); MCHC 34.8 g/dl (32.0-35.9); MEAN CELL VOLUME 105.2 fl (80-96); MEAN PLT VOLUME 8.2 fl (7.5-11.1); PLATELET COUNT 146 10^3/uL (134-434); RBC 2.93 M/mm3 (4.00-5.60); RDW 13.5 % (11.9-15.9); WHITE BLOOD COUNT 2.4 K/mm3 (4.0-10.0)
[2021-11-26 11:14] LABS: BLOOD UREA NITROGEN 18.3 mg/dL (7-18)
[2021-11-26 11:16] LABS: CALCIUM 7.7 mg/dL (8.5-10.1)
[2021-11-26 11:17] LABS: ALBUMIN 2.7 g/dl (3.4-5.0)
[2021-11-26 11:19] LABS: BILIRUBIN,TOTAL 6.5 mg/dL (0.2-1)
[2021-11-26 11:22] LABS: TOT PROT 5.2 g/dl (6.4-8.2)
[2021-11-26] MEDS ORDERED: INSULIN SLIDING SCALE (NOVOLOG) 1 VIAL SQ ONE (16:59)
[2021-11-26] MEDS: INSULIN (NOVOLOG) ASPART 100 UNITS/ML 10ML VIAL SQ SCH ×2 (17:00→22:35)
[2021-11-27] MEDS ORDERED: INSULIN SLIDING SCALE (NOVOLOG) 1 VIAL SQ ONE ×4 (04:57→11:59)
[2021-11-27] MEDS: chlordiazePOXIDE HCL 25 MG CAPSULE PO SCH ×2 (05:56→11:56)
[2021-11-27] MEDS: INSULIN (NOVOLOG) ASPART 100 UNITS/ML 10ML VIAL SQ SCH ×2 (07:25→11:59)
[2021-11-27] MEDS: metFORMIN HCL 500 MG TABLET (FP) PO SCH (07:25)
[2021-11-27] MEDS: PRENATAL VITAMINS W/ FOLIC ACID TABLET (FP) PO SCH (11:01)
[2021-11-27 12:49] VITALS: BP 111/76; PULSE 106; TEMP 98
[2021-11-28] MEDS ORDERED: chlordiazePOXIDE HCL 10 MG CAPSULE PO PRN
[2021-11-28] MEDS ORDERED: chlordiazePOXIDE HCL 10 MG CAPSULE PO SCH (05:00)
[2021-11-29] MEDS ORDERED: chlordiazePOXIDE HCL 10 MG CAPSULE PO SCH (05:00)
[2021-11-30] MEDS ORDERED: chlordiazePOXIDE HCL 10 MG CAPSULE PO ONE (05:00)
== END 2021-11-27 13:24 | disposition left against medical advice (07) | DRG 770 ==
LOC: YASAS 17:38 → Y3N 23:34 → UNDOADMIN 23:34 → Y3N 23:36
PROVIDERS: ADMIT Allergy & Immunology; ATTEND Allergy & Immunology
PROC: HZ2ZZZZ Detoxification Services for Substance Abuse Treatment (ICD-10-PCS; principal; 2021-11-25)
DX: F10.230 Alcohol dependence with withdrawal, uncomplicated (principal); F10.220 Alcohol dependence with intoxication, uncomplicated; I10 Essential (primary) hypertension; E11.9 Type 2 diabetes mellitus without complications; E78.5 Hyperlipidemia, unspecified; D72.819 Decreased white blood cell count, unspecified; K21.9 Gastro-esophageal reflux disease without esophagitis; R00.0 Tachycardia, unspecified; Z87.19 Personal history of other diseases of the digestive system; Z28.310 Unvaccinated for COVID-19; Z79.84 Long term (current) use of oral hypoglycemic drugs
CPT/HCPCS: 36415; 80053; 82962; 85027; 86780; 87811; C9803-CS; U0003; U0005

== ENCOUNTER 2021-12-04 15:20 | Emergency (ER) | payer OTHER ==
[2021-12-04 15:51] VITALS: BP 113/77; PULSE 98; TEMP 97.6; BMI 21.7
[2021-12-04] MEDS ORDERED: FAMOTIDINE 20 MG/50 ML IVPB 20 MG/50 ML MG IVPB ONE (17:31)
[2021-12-04] MEDS ORDERED: KETOROLAC TROMETHAMINE 30 MG/1 ML VIAL IVPUSH ONE (17:31)
[2021-12-04] MEDS ORDERED: SODIUM CHLORIDE 0.9% 500 ML INFUS.BAG IV ONE ×2 (17:31→18:52)
[2021-12-04] MEDS ORDERED: ONDANSETRON 4 MG/2 ML VIAL IVPUSH ONE (17:32)
[2021-12-04] MEDS ORDERED: KETOROLAC TROMETHAMINE 30 MG/1 ML VIAL ONE (17:34)
[2021-12-04] MEDS ORDERED: ONDANSETRON 4 MG/2 ML VIAL ONE (18:10)
[2021-12-04 18:13] LABS: BASO % 1.3 % (0-2.0); EOS % 0.4 % (0-4.5); HEMATOCRIT 34.4 % (35.4-49); HEMOGLOBIN 11.9 GM/dL (11.7-16.9); LYMPH % 50.7 % (8-40); MCH 35.5 pg (25.7-33.7); MCHC 34.7 g/dl (32.0-35.9); MEAN CELL VOLUME 102.3 fl (80-96); MEAN PLT VOLUME 8.6 fl (7.5-11.1); MONO % 12.3 % (3.8-10.2); NEUT % 35.3 % (42.8-82.8); PLATELET COUNT 172 10^3/uL (134-434); RBC 3.36 M/mm3 (4.00-5.60); RDW 13.8 % (11.9-15.9); WHITE BLOOD COUNT 3.3 K/mm3 (4.0-10.0)
[2021-12-04 18:31] LABS: CHLORIDE 97 mmol/L (98-107); SODIUM 135 mmol/L (136-145)
[2021-12-04 18:33] LABS: CALCIUM 8.2 mg/dL (8.5-10.1)
[2021-12-04 18:34] LABS: ALBUMIN 2.9 g/dl (3.4-5.0); ANION GAP 12 MMOL/L (8-16); BLOOD UREA NITROGEN 24.2 mg/dL (7-18); CO2 26 mmol/L (21-32); LIPASE 236 U/L (73-393)
[2021-12-04 18:37] LABS: CREATININE 1.3 mg/dL (0.55-1.3); SGOT/AST 336 U/L (15-37); SGPT/ALT 173 U/L (13-61)
[2021-12-04 18:38] LABS: TOT PROT 6.5 g/dl (6.4-8.2)
[2021-12-04 18:39] LABS: BILIRUBIN,TOTAL 4.7 mg/dL (0.2-1)
[2021-12-04 18:50] LABS: ALK PHOS 371 U/L (45-117); GLUCOSE,RANDOM 418 mg/dL (74-106)
[2021-12-04] MEDS ORDERED: FAMOTIDINE 10 MG/ML VIAL IVPB ONE (18:56)
[2021-12-04] MEDS ORDERED: INSULIN (NOVOLOG) ASPART 100 UNITS/ML 10ML VIAL SQ ONE (22:37)
[2021-12-05] MEDS ORDERED: DICYCLOMINE HCL 20 MG TABLET PO ONE (00:30)
[2021-12-05] MEDS ORDERED: DICYCLOMINE HCL 10 MG CAPSULE ONE (00:42)
== END 2021-12-05 01:16 | disposition home or self-care (01) ==
LOC: JER 15:20
PROC: 3E033GC Introduction of Other Therapeutic Substance into Peripheral Vein, Percutaneous Approach (ICD-10-PCS; principal; 2021-12-04)
PROC: 3E023GC Introduction of Other Therapeutic Substance into Muscle, Percutaneous Approach (ICD-10-PCS; principal; 2021-12-04)
DX: R10.84 Generalized abdominal pain (principal)
CPT/HCPCS: 36415; 74177-TC; 80053; 80307; 83690; 85025; 99285-25; Q9967